=== PATIENT | female | born 1965 | race Caucasian/White ===

== ENCOUNTER → 2024-03-16 12:03 | Outpatient (REF) | payer BC, SELFPAY | LOC: HWRAD 12:03 | PROVIDERS: ATTENDING PHYSICIAN Surgery; FAMILY PHYSICIAN Family Medicine | DX: K56.1 Intussusception (principal) | CPT/HCPCS: 74177; Q9967 ==

== ENCOUNTER 2024-03-20 20:44 | Inpatient (IN) | payer BC, SELFPAY ==
[2024-03-20 18:19] VITALS: BP 98/67
--- NOTE | 2024-03-20 19:13 | ED.GENMED ---
History of Present Illness
General
Chief Complaint: Abdominal Symptoms
Source: patient
Exam Limitations: none
Time Seen by Provider: 03/20/24 18:54
History of Present Illness
History of Present Illness:
This is a 58 year old female that comes in with c/o abd pain and diarrhea. States that Dr. Pinto did an Enterography CT on Thursday. States that she was told she may have Intussusception and she was to be admitted into the hospital on Thursday and
then on Thursday he would do a Colonoscopy and endoscopy. States that she can't stand the pain and that she is having diarrhea. States that she has chills. nausea, abd pain, diarrhea, lightheadedness. Denies any fever, chest pain, SOB, vomiting,
headache, urinary burning.
Past History
Past History
ED Past Medical History: Asthma, COPD (Questionable Asthma/COPD according to patient), Hypercholesterolemia and Other (Kidney stones, Interstitial cystitis)
ED Past Surgical History: None and Other (I&D Left thumb); Negative Cardiac
Social History
Tobacco: Smoker
Alcohol: None
Drug: None
Personal:
Living: with family
Employment: Employed
Family History
Family History: CAD
Review of Systems
Review of Systems
All Other Systems: ROS reviewed and negative except as documented in HPI and ROS
Constitutional: Reports chills; Denies fever
EENT: Reports no symptoms
Respiratory: Reports no symptoms; Denies cough or trouble breathing
Cardiac: Reports no symptoms; Denies chest pain
ABD/GI: Reports abdominal pain, nausea and diarrhea; Denies vomiting
: Reports no symptoms; Denies dysuria, frequency or urgency
Musculoskeletal: Reports no symptoms
Skin: Reports no symptoms
Neurological: Reports other (Lightheaded); Denies headache
Psychiatric: Reports no symptoms
Phy Exam
General Physical Exam
General Presentation: mild distress
General age: appears stated age
General Skin: warm and dry
General Habitus: normal
General Mental: alert
General Hydration: appears well hydrated
ENT Exam
ENT Exam: TM's normal, pharynx normal and neck supple
Eye Exam
Eye Exam: EOMI
Cardiovascular Exam
Cardiovascular Exam: regular rate/rhythm, no edema, normal peripheral pulses and other (Murmur)
Pulmonary Exam
Pulmonary Exam: lungs clear, no respiratory distress, no rales, chest non tender, no crackles, no rhonchi, no wheezing and no cough
Gastrointestinal Exam
Gastrointestinal Exam: normal bowel sounds, soft, no organomegaly, no pulsatile mass, non distended and tender (right sided and mid abd tenderness with palpation)
Musculoskeletal Exam
Musculoskeletal Exam: full ROM and no edema
Skin Exam
Skin Exam: normal color, warm/dry, no rash and no petechia
Psychiatric Exam
Psychiatric Exam: normal mood/affect
Course
Orders/Labs/Results
Orders:
Orders
03/20/24 19:12
0.9% Sodium Chloride 1000 ml [Nss] 1,000 ml IV BOLUS
HYDROmorphone [Dilaudid] 1 mg IV NOW STA
Ondansetron Injectable [Zofran] 4 mg IV NOW STA
03/20/24 19:18
Complete Blood Count/With Diff Urgent
Comprehensive Metabolic Panel Urgent
Lactic Acid Urgent
03/20/24 19:21
Abdomen Xray - 1 View [CR Abdomen - 1 View] Urgent
Comment:
Reason For Exam: Abd pain
Abnormal Lab Results
03/20/24
19:18
WBC 12.1 H 10^3/uL
(4.8-10.8)
MCH 31.8 H pg
(27.0-31.0)
Abs Immat Gran (auto) 0.1 H 10^3/uL
(0-0.05)
Absolute Neuts (auto) 9.0 H 10^3/uL
(1.4-6.5)
Absolute Monos (auto) 1.0 H 10^3/uL
(0.1-0.6)
Immature Gran % 0.6 H %
(0-0.5)
Lymphocytes % 15.6 L %
(20.5-51.1)
Creatinine 1.2 H mg/dL
(0.6-1.0)
Calcium 10.4 H mg/dl
(8.4-10.2)
03/20/24 19:18
03/20/24 19:18
Leukocytosis, Cr slightly elevated, calcium slightly elevated.
Vital Signs
Initial and Last Documented VS:
Initial Vital Signs
Temp Pulse Resp BP Pulse Ox
98.3 F 110 18 98/67 98
03/20/24 18:19 03/20/24 18:19 03/20/24 18:19 03/20/24 18:19 03/20/24 18:19
Last Documented Vital Signs
Temp Pulse Resp BP Pulse Ox
98.3 F 110 18 98/67 98
03/20/24 18:19 03/20/24 18:19 03/20/24 18:19 03/20/24 18:19 03/20/24 18:19
MDM/Problems Addressed
Differential Diagnosis Includes:
Bowel obstruction, intussusception
MDM/Problems Addressed:
This is a 58 year old female that comes in with c/o abd pain. States that she had a CT done on Thursday and that she was to be admitted on Thursday for bowel prep and then colonoscopy and Endoscopy on Thursday by Dr. Pinto. States that her abd
pain got so much worse.
Will get labs, pain medication, IV fluids and contact Colorectal. Out patient CT said that there is marked gastric dilation with fluid-filled stomach. This extends to the level of the gastric antrum which shows circumferential abnormal wall
thickening which is persistent on delayed images etiology of the wall thickening is indeterminate at CT. This could be further evaluated with endoscopy. As above, There is apparent slight protrusion of the ileocecal valve into the cecum, evaluation
somewhat limited secondary to paucity of intra-abdominal fat. No aranza ileocecal intussusception is identified on this examination. there is no obstruction of the small bowel. No other intussusception is identified.
Labs back and message sent to dr. Aldrich. Await his response.
Will admit to Colorectal and Dr. Aldrich will place Dr. Pinto on her chart tomorrow. Into see patient. States that her abd can finally relax. Explained that she will be admitted and Dr. Pinto will see her tomorrow.
Chronic conditions affecting care:
NA
Acute Exacerbation and/or Progression of Chronic Illness:
Intussusception
*Pulse Oximetry
Patient hypoxic: no
*EKG
Interpreted by ED Provider?: NA
Rate: EKG- N/A
*Critical Care Note
Total Time (30-74mins, 75-104mins- exclusive of procedures): Not Applicable
ED Attending Note
-
Portions of this chart may have been created with voice recognition software.� Occasional wrong word or��sound alike� substitutions may have occurred due to the inherent limitations of voice recognition software.
Discharge Plan
Departure
Patient Disposition: Admit
Date of Disposition: 03/20/24
Time of Disposition: 20:18
Admit to: Med/Surg
Presentation/result/management discussed w/ accepting MD/DO: Dr. Aldrich
Patient with high blood pressure during this ER visit?: No
Condition: Good
Covid-19: Not Applicable
Discharge Problem:
Abdominal pain
Prescriptions:
No Action
hydrocodone-acetaminophen 5-325 mg Tablet
1 tab PO Q6HPRN PRN (Reason: severe pain)
clonazepam 0.5 mg Tablet
0.5 mg PO BID
dicyclomine 20 mg Tablet
20 mg PO TID
hyoscyamine sulfate 0.125 mg Tablet, Sublingual
0.125 mg PO Q4HPRN PRN (Reason: spasms)
aspirin 81 mg Tablet,Chewable
81 mg PO DAILY
montelukast [Singulair] 10 mg Tablet
10 mg PO QPM
ondansetron [Zofran ODT] 4 mg Tablet,Disintegrating
4 mg PO Q6HPRN PRN (Reason: nausea)
sertraline 50 mg Tablet
50 mg PO DAILY
rosuvastatin [Crestor] 10 mg Tablet
10 mg PO QPM
fluticasone furoate-vilanterol [Breo Ellipta] 100-25 mcg/dose Blister With Device
1 inh INHALATION R DAILY
potassium chloride 20 mEq Tablet Extended Release
20 meq PO BID
acetaminophen [Tylenol] 325 mg Tablet
650 mg PO Q4HPRN PRN (Reason: mild pain)
albuterol sulfate 2.5 mg /3 mL (0.083 %) Solution For Nebulization
2.5 mg INHALATION R TID
Referrals:
Daniel De Luna DO [Family Provider] -
Interventions
Interventions:
*Risk Screen - Suicide Last Done: 03/20/24 18:59
*General Assessment Last Done: 03/20/24 18:59
*Neglect/Abuse Screening Last Done: 03/20/24 18:59
ED- Fall Risk Assessment Last Done: 03/20/24 18:59
*ED COVID-19 Vaccine History Last Done: 03/20/24 18:59
XC-Bzcpnv-Spfcwxpbhp Assessment Last Done: 03/20/24 18:59
Discharge Date and Time
Print Language: SWEDISH
[2024-03-20] MEDS: ZOFRAN 4 MG IV (19:26)
[2024-03-20] MEDS: NSS 1000 IV ×2 (19:26→22:41)
[2024-03-20] MEDS: DILAUDID 1 MG IV (19:28)
[2024-03-20 19:47] LABS: % Basophils 0.7 % (0-2); % Eosinophils 0.7 % (0-6); % Immature Granulocytes 0.6 % (0-0.5); % Lymphocytes 15.6 % (20.5-51.1); % Monocytes 7.9 % (1.7-9.3); % Neutrophils 74.5 % (42.2-75.2); Absolute Basophils 0.1 10^3/uL (0-0.2); Absolute Eosinophils 0.1 10^3/uL (0-0.7); Absolute Immature Granulocytes 0.1 10^3/uL (0-0.05); Absolute Lymphocytes 1.9 10^3/uL (1.2-3.4); Hematocrit 38.9 % (37.0-47.0); Hemoglobin 13.4 g/dL (12.0-16.0); Mean Corp Hgb Conc. 34.4 g/dL (33.0-37.0); Mean Corpuscular Hgb 31.8 pg (27.0-31.0); Mean Corpuscular Volume 92.4 fL (81.0-99.0); Mean Platelet Volume 9.3 fL (7.4-10.4); Nucleated Red Blood Cells % 0 %; Platelet Count 325 10^3/uL (130-400); Red Blood Cell Count 4.21 10^6/uL (4.20-5.40); Red Cell Dist. Width 12.6 % (11.5-14.5); White Blood Cell Count 12.1 10^3/uL (4.8-10.8)
[2024-03-20 20:01] LABS: ALT (SGPT) 14 U/L (0-35); AST (SGOT) 23 U/L (14-36); Albumin 4.3 g/dl (3.5-5.0); Alkaline Phosphatase 80 U/L (38-126); Blood Urea Nitrogen 14 mg/dl (7-17); Calcium 10.4 mg/dl (8.4-10.2); Carbon Dioxide 23 mmol/L (22-30); Chloride 105 mmol/L (98-107); Estimated Creatinine Clearance 40 ml/min; Glucose 93 mg/dl (70-99); Potassium 4.2 mmol/L (3.5-5.1); Sodium 138 mmol/L (135-145); Total Bilirubin 0.5 mg/dl (0.2-1.3); Total Protein 6.6 g/dl (6.3-8.2); eGFR 51.82
[2024-03-20 20:04] VITALS: BP 117/77
[2024-03-20 21:00] VITALS: BP 120/76
--- NOTE | 2024-03-20 21:29 | HPS.HSE ---
Family Physician
-
Family Physician: Daniel De Luna
Chief Complaint
-
intractable abd pain, diarrhea and weakness
History of Present Illness
This is a 58 year old female that comes in with c/o abd pain (extreme cramping) and diarrhea. Abd pain had been going on since February. Seen at [facility] ER (told was IBS), Seens again at [facility] ER this time admitted and told it was intussusception. PT
states while she never got better, infact started with diarrhea, she was discharged. States that Dr. Espinosa did an Enterography CT on Thursday. States that she was told she may have Intussusception and she was to be admitted into the hospital on
Thursday and then on Thursday he would do a Colonoscopy and endoscopy. States that she can't stand the pain and diarrhea.for last 2 weeks. States that she has chills. nausea, abd pain, diarrhea, lightheadedness. Denies any fever, chest pain, SOB,
vomiting, headache, urinary burning. pt states she cannot eat anything due to it 'just running out of me.' + weight loss in one month was 126lbs now 113 lbs.Has been prescribed bentyl, hyoscalamine and Vicodin which have not been helpful.
ED treatment:
ivf, pain meds, nausea med
pt feels improved with pain after pain med.
WBC 12.7
creat 1.2
lactic normal
Outpatient CT enterography said that there is marked gastric dilation with fluid-filled stomach. This extends to the level of the gastric antrum which shows circumferential abnormal wall thickening which is persistent on delayed images etiology of
the wall thickening is indeterminate at CT. This could be further evaluated with endoscopy. As above, There is apparent slight protrusion of the ileocecal valve into the cecum, evaluation somewhat limited secondary to paucity of intra-abdominal
fat. No aranza ileocecal intussusception is identified on this examination. there is no obstruction of the small bowel. No other intussusception is identified.
Medical History
Past Medical History
Past Medical History: Reports Arrhythmia (? murmur), COPD (mild asthma/copd), Hypercholesterolemia, Valvular Disease (mvp) and Other (interstitial cystitis)
Past Surgical History: Reports Orthopedic (ID LEFT THUMB)
Social History
Tobacco: Smoker (down to 1/2 ppd)
Alcohol: None
Drug: None
Personal:
Living: With Family
Employment: Retired
Family History
Family History: CAD and Cancer (colon)
Allergies / Home Medications
Allergies reflects when Allergies were last updated in [employer].
Home Medications with original date entered in [employer]
Allergy/Medication List:
Allergies
Allergy/AdvReac Type Severity Reaction Status Date / Time
sulfamethoxazole Allergy Severe Unknown Verified 03/20/24 18:21
[From Bactrim]
trimethoprim [From Bactrim] Allergy Severe Unknown Verified 03/20/24 18:21
Home Medications
acetaminophen 325 mg tablet (Tylenol) 650 mg PO Q4HPRN PRN mild pain 03/20/24
albuterol sulfate 2.5 mg/3 mL (0.083 %) solution for nebulization 2.5 mg inhalation R TID 03/20/24
aspirin 81 mg chewable tablet 81 mg PO DAILY 03/20/24
clonazepam 0.5 mg tablet 0.5 mg PO BID 03/20/24
dicyclomine 20 mg tablet 20 mg PO TID 03/20/24
fluticasone furoate 100 mcg-vilanterol 25 mcg/dose inhalation powder (Breo Ellipta) 1 inh inhalation R DAILY 03/20/24
hydrocodone 5 mg-acetaminophen 325 mg tablet 1 tab PO Q6HPRN PRN severe pain 03/20/24
hyoscyamine sulfate 0.125 mg sublingual tablet 0.125 mg PO Q4HPRN PRN spasms 03/20/24
montelukast 10 mg tablet (Singulair) 10 mg PO QPM 03/20/24
ondansetron 4 mg disintegrating tablet 4 mg PO Q6HPRN PRN nausea 03/20/24
potassium chloride 20 mEq tablet,extended release 20 meq PO BID 03/20/24
rosuvastatin 10 mg tablet 10 mg PO QPM 03/20/24
sertraline 50 mg tablet 50 mg PO DAILY 03/20/24
Review of Systems
-
History Source: Patient
A 12 point ROS was completed and negative except as noted: Yes
Constitutional: Reports Weight Loss (126lbs to 113 lbs x 1month) and Chills
EENT: Reports No Symptoms
Respiratory: Reports No Symptoms
Cardiac: Reports No Symptoms
Abdomen/GI: Reports Abdominal Pain, Diarrhea and Pain
: Reports No Symptoms
Musculoskeletal: Reports No Symptoms
Skin: Reports No Symptoms
Neurological: Reports Weakness
Endocrine: Reports No Symptoms
Hematologic/Lymphatic: Reports No Symptoms
Psych: Reports Anxiety
Physical Exam
Vital Signs
Vital Signs
Temp Pulse Resp BP Pulse Ox
98.3 F 66 19 117/77 99
03/20/24 18:19 03/20/24 20:30 03/20/24 20:30 03/20/24 20:04 03/20/24 20:30
Physical Exam
General: Conversant, Appears in Distress and Pain
HEENT: NormoCephalic and Moist mucous membranes
Respiratory: Clear
Cardiac: S1/S2 and Regular Rhythm
Breast: Deferred by me
GI: Tender (mid abd tender to palpation) and Distended (slightly upper abd)
Rectal: Deferred by Provider
Genito-urinary: Deferred by me
Musculoskeletal: No Clubbing and No Cyanosis
Skin: Warm and Dry
Neuro: Awake, Alert, Oriented, AO x 3 and No Motor Deficits
Hematologic/Lymphatic: No Lymphadenopathy
Psych: Calm and Anxious
Laboratory Results
-
03/20/24 19:18
03/20/24 19:18
Laboratory Results
Lactic Acid 1.0 mmol/L (0.7-2.0) 03/20/24 19:18
Total Bilirubin 0.5 mg/dl (0.2-1.3) 03/20/24 19:18
AST 23 U/L (14-36) 03/20/24 19:18
ALT 14 U/L (0-35) 03/20/24 19:18
Alkaline Phosphatase 80 U/L (38-126) 03/20/24 19:18
Impression/Plan
-
IMPRESSION:
intractable abd pain, diarrhea, possible intestinal intussusception
PLAN:
Admit to Dr Aldrich ( will oil changer to Dr espinosa in am)
med surg
NPO x meds and sips
#intractable abd pain/ poss intusseption:
-Pain control: dilaudid iv, tylenol
-zofran prn nausea
-lactic normal
-Outpatient CT said that there is marked gastric dilation with fluid-filled stomach. This extends to the level of the gastric antrum which shows circumferential abnormal wall thickening which is persistent on delayed images etiology of the wall
thickening is indeterminate at CT. This could be further evaluated with endoscopy. As above, There is apparent slight protrusion of the ileocecal valve into the cecum, evaluation somewhat limited secondary to paucity of intra-abdominal fat. No
aranza ileocecal intussusception is identified on this examination. there is no obstruction of the small bowel. No other intussusception is identified.
mild COSME:
- Creat 1.2 ---> likely from dehydration and volume depletion from GI losses
-IV nss@125
#leukocytosis
-WBC 12.7
-repeat in am
-NO fever, monitor off abx at this time
-if spikes temp, obtain bc x2
#asthma/copd (mild)
-no exacerbation
-cont with inhalers, singular
#HLD
-cont crestor
#anxiety
-cont Klonopin, zoloft
#diarrhea
-no recent abx
-check stool studies, cdiff for completeness
full code
If pt needs any cardiac clearance would like to see Dr leone's group
[2024-03-20] MEDS: KLONOPIN 0.5 MG PO (21:32)
[2024-03-20 22:09] LABS: Magnesium 1.9 mg/dl (1.6-2.3)
[2024-03-20 22:36] VITALS: BP 117/61
[2024-03-20] MEDS: DILAUDID 0.5 MG IV (23:24)
--- NOTE | 2024-03-20 23:35 | PTCARENOTE ---
Patient arrived from the ED via stretcher at approximately 2230. Patient ambulated from stretcher to bed with no assist - gait steady. Patient AAOx3, pleasant. VSS as documented. Assessment as documented. Patient oriented to room. Bed in lowest
position. Call mckeon within reach.
[2024-03-21] MEDS: ZOFRAN 4 MG IV ×2 (03:44→12:24)
[2024-03-21] MEDS: DILAUDID 1 MG IV ×2 (03:45→17:25)
[2024-03-21] MEDS: NSS 1000 IV ×3 (06:23→23:09)
[2024-03-21] MEDS: SYMBICORT 160/4.5 MCG INHALER 2 PUFF INH ×2 (07:40→18:19)
[2024-03-21] MEDS: VENTOLIN NEBULES 2.5 MG INH ×3 (07:40→18:19)
[2024-03-21 07:50] VITALS: BP 94/47
[2024-03-21] MEDS: KLONOPIN 0.5 MG PO ×2 (08:21→20:02)
[2024-03-21] MEDS: ZOLOFT 50 MG PO (08:21)
[2024-03-21] MEDS: DILAUDID 0.5 MG IV (08:30)
[2024-03-21 08:32] LABS: % Basophils 0.5 % (0-2); % Eosinophils 0.8 % (0-6); % Immature Granulocytes 0.5 % (0-0.5); % Lymphocytes 25.3 % (20.5-51.1); % Monocytes 8.7 % (1.7-9.3); % Neutrophils 64.2 % (42.2-75.2); Absolute Eosinophils 0.1 10^3/uL (0-0.7); Absolute Lymphocytes 2.2 10^3/uL (1.2-3.4); Absolute Monocytes 0.8 10^3/uL (0.1-0.6); Absolute Neutrophils 5.5 10^3/uL (1.4-6.5); Hematocrit 32.2 % (37.0-47.0); Hemoglobin 10.8 g/dL (12.0-16.0); Mean Corp Hgb Conc. 33.5 g/dL (33.0-37.0); Mean Corpuscular Volume 95.3 fL (81.0-99.0); Mean Platelet Volume 9.5 fL (7.4-10.4); Nucleated Red Blood Cells % 0 %; Platelet Count 267 10^3/uL (130-400); Red Blood Cell Count 3.38 10^6/uL (4.20-5.40); Red Cell Dist. Width 12.7 % (11.5-14.5); White Blood Cell Count 8.6 10^3/uL (4.8-10.8)
[2024-03-21 08:56] LABS: ALT (SGPT) 11 U/L (0-35); AST (SGOT) 20 U/L (14-36); Albumin 3.3 g/dl (3.5-5.0); Alkaline Phosphatase 65 U/L (38-126); Blood Urea Nitrogen 12 mg/dl (7-17); Calcium 8.9 mg/dl (8.4-10.2); Carbon Dioxide 21 mmol/L (22-30); Chloride 110 mmol/L (98-107); Estimated Creatinine Clearance 54 ml/min; Glucose 85 mg/dl (70-99); Potassium 4.1 mmol/L (3.5-5.1); Sodium 138 mmol/L (135-145); Total Bilirubin 0.4 mg/dl (0.2-1.3); Total Protein 5.4 g/dl (6.3-8.2); eGFR > 60.00
[2024-03-21 09:41] VITALS: BP 112/64
--- NOTE | 2024-03-21 11:13 | PTCARENOTE ---
Addendum entered by Whitley Andrade RN 03/21/24 13:32:
made aware of positive result.
Addendum entered by Whitley Andrade RN 03/21/24 13:30:
Cdiff stool sample added by GI, result positive. Patient placed back on enhanced precautions.
Original Note:
Patient okay to be taken off of enhanced precautions per Casi - charge master coordinator.
--- NOTE | 2024-03-21 11:17 | W.PN.CRS1 ---
Addendum entered and electronically signed by Sadi Pinto MD 03/21/24 20:16:
I saw and examined the patient.
The PA's note was reviewed and I agree with the note.
Comment:
Seen in am with PA.
Patient well-known to me with more than a month of abdominal pain as well as intermittent diarrhea and occasional nausea. Imaging including outside CTs and a recent CT enterography done here at [facility] point to the source of the symptoms to
potentially be a intermittent ileocecal intussusception. No studies have shown a lead point. CT enterography last week also showed some thickening of the gastric wall of unclear etiology. Last week when I saw her in the office and my plan was to
admit her to the hospital for bowel prep, followed by a colonoscopy and possible EGD, followed by a robotic ileocecectomy. All this was discussed in detail with in the office with her. Unfortunately her pain has worsened over the weekend as well
as her diarrhea and therefore she came into the ER.
Considering her this morning she complains of her stool 'smelling like sewage '. She was having diarrhea earlier. She still admits to abdominal pain. She is anxious about her circumstance.
Vitals and blood work are reasonable.
Abdomen nondistended on exam. She admits to tenderness, however abdomen is soft without any guarding.
My plan this morning was to consult GI for potential colonoscopy/EGD on Thursday as well as continuing on with my plan for robotic ileocecectomy on . Also consulted the hospitalist for medical management and possible clearance purposes.
However, later in the day I was updated that her stool came back positive for toxigenic C. difficile. She was started on vancomycin by Dr. Wallace of GI. I communicated with both with Dr. Wallace of GI and Dr. Blair of hospitalist service. Given
the C. difficile result, decision was made to hold off on endoscopic workup or surgery for now. Focus will be on treatment of the C. difficile. The patient was updated on this by the doctors earlier and I did communicate with the patient via phone
in the early evening. All questions answered. Appreciate help of consultants.
Original Note:
Today's Communication / Plan
-
GI consult
medical consult
clears
stool studies
tentive OR on
Assessment/Plan
-
Assessment: 64yo female with generalized abdominal pain discomfort and diarrhea with findings on 2 imaging studies of ileocecal intussusception with cramping and foul smelling bowel movements
Plan:
1. Given symptoms and abnormal finding on CTE (circumferential abnormal wall thickening), will consult GI for EGD/colonoscopy.
2. Stool cultures pending. C.diff ordered.
3. Will plan for tentative OR on for a robotic ileocecectomy.
4. Advance to clears for now.
5. Medicine consult for pre-op risk stratification.
6. Discussed above plan with patient who is in agreement.
Subjective Data
Subjective Data
Date of Service: March 21, 2024
Patient states she still has RLQ tenderness. She has not been eating much and has lost 15lbs over the past few weeks. She is having frequent, foul smelling bowel movements and abdominal cramping.
Objective Data
-
Vital Signs
Temp Pulse Resp BP Pulse Ox
97.6 F 80 16 112/64 97
03/21/24 07:50 03/21/24 09:41 03/21/24 07:50 03/21/24 09:41 03/21/24 10:44
Intake & Output
03/20/24 03/21/24 03/22/24
06:59 06:59 06:59
Intake Total 1000 / 1000
Balance 1000 / 1000
Intake:
IV fluids (Total) 1000 / 1000
Other:
Number of approximated MODERATE 3
amounts of urine
Lab Results
03/21/24 08:03
03/21/24 08:03
Physical Exam
-
General: No Acute Distress and AOx3
Abdomen: Soft, Non Distended and Tender (RUQ tenderness)
[2024-03-21 15:14] VITALS: BP 96/46
--- NOTE | 2024-03-21 15:45 | CON.GI ---
Addendum entered and electronically signed by Ana Wallace MD 03/21/24 17:27:
I saw and examined the patient.
The AUTOMOBILE SALES REPRESENTATIVE or PA's note was reviewed and I agree with the note.
Comment: 58-year-old female with history of interstitial cystitis presenting with complaints of crampy abdominal pain, diarrhea in the last couple of weeks, CT enterography during the hospital visit showing thickening of the gastric antrum and
marked dilation of the stomach and GI consult was called in. She has been having abdominal cramping since and urgency and some incontinence with stool as well. She was seen at [facility] by Dr. Darnell as CT scan showed
possible small bowel intussusception, referred to Dr. Pinto for possible ileocecectomy. Patient denies any GI complaints prior to this. In the last 2 weeks, she has had significant diarrhea, multiple episodes of very foul-smelling loose stool
with mucus apart from abdominal cramping. Previous stool testing as per patient twice was negative but in the hospital she was noted to have toxigenic C. difficile. No previous upper endoscopy, colonoscopy in 2018 at [place] without any colon
polyps and this was done for family history of colon cancer in mother.
-Abdominal cramping and previous CAT scan showing intussusception, CT enterography here showed slight protrusion of ileocecal valve into the cecum, no aranza intussusception noted.
Discussed with Dr. Pinto, plans for surgery on hold until further evaluation and definite diagnosis.
-Diarrhea, positive C. difficile
Started oral vancomycin 125mg po four times a day.
OK for full liquid diet and if tolerating, advance to Low residue low lactose diet.
Monitor BM, electrolytes
Colonoscopy once C difficile clears up.
-Abnormal CT scan with gastric antral thickening and gastric dilation.
EGD prior to dc to evaluate the thickening in the antrum.
Will follow
Original Note:
Consultation
-
Date/Time Consultation Requested: 03/21/24 @ 11:52
Date/Time Consultation Performed: 03/21/24 @ 15:00
Requesting Provider: Tonia Boucher PA-C
Performing Provider: ANETTE Guthrie; Dr. Ana Wallace
Reason for Consultation: gastric antrum which shows circumferential abnormal wall thickening
Medical History
Chief Complaint / HPI
Chief Complaint: intractable pain, diarrhea, weakness
History of Present Illness:
The patient is a 58-year-old female with a past medical history significant for interstitial cystitis, COPD/asthma, hyperlipidemia, mitral valve disease, family history of colon cancer, who presented to the emergency room with complaints of
intractable abdominal pain, diarrhea, and weakness. We are being asked to evaluate for the presenting symptoms along with abnormal CT enterography findings showing marked gastric dilation and thickening of the gastric antrum. Patient reports
around she developed severe cramping in her abdomen along with urgency to move her bowels. She notes that initially this discomfort was not as bothersome, but she had progressively worsening symptoms. She did not have any diarrhea at
the time but was having very pencillike thin stools. She notes that she was evaluated at [facility] and was told that she may have had colitis and diverticulosis and was discharged on dicyclomine for spasms. She was not treated with antibiotics
at that time. She notes that she had continued symptoms and was evaluated again at [facility] and was diagnosed with IBS with no other treatments. She reports that the pain continued I would last several hours at times. She notes going no days
without significant discomfort. She reports she was having some nausea but very rare episodes without vomiting. She also admits that anytime she would eat food and felt like it was going right through her therefore she has been eating much less
than usual. She has lost about 12 to 15 pounds in the interim of her symptoms starting at the end of January. She reports seeing her PCP Dr. Darnell who had prescribed her Vicodin as her pain was so severe. She did not see much improvement with
this although it was able to keep her symptoms to a moderate degree. She reports more recently waking up in the early mornings with urgency to move her bowels. She was reevaluated again at [facility] about 2 weeks ago due to worsening symptoms.
At that time she had imaging that showed concern for small bowel intussusception. She was admitted for further evaluation and underwent a small bowel follow-through which was reportedly normal, and she was discharged again. She notes after that
admission she developed more profuse diarrhea up to 10 times in a day. She denies any signs of bleeding such as melena or hematochezia but did note a foul smell to the stool odor. She denies any abdominal bloating, fevers, or chills. She does
take Tums on a very rare occasion for occasional heartburn otherwise denies any reflux symptoms. She denies any dysphagia. She does have problems with interstitial cystitis and had been on heavy-duty antibiotics several months ago, but none in the
recent weeks. She continues with abdominal pain with urgency. She was evaluated by Dr. Pinto in the outpatient setting for evaluation of the small bowel intussusception in which a CT enterography was ordered. Results consistent with findings of
ileocecal intussusception and she was recommended for admission for possible colonoscopy and surgical intervention. There was plans for her to undergo a robotic ileocecectomy, but due to her ongoing symptoms she was evaluated here. Abdominal x-ray
on admission showed a normal bowel gas pattern with no evidence of intestinal obstruction, with mild fecal material mostly in the distal left colon. She underwent stool studies which were positive for toxigenic C. difficile. Stool culture is still
pending. Other pertinent lab findings include WBC 12.1, hemoglobin 10.8, creatinine 1.2, otherwise labs within normal limits. She was placed on a clear liquid diet and we were asked to evaluate for further recommendations. Her last colonoscopy was
done 5 years ago out of [place] with Dr. Barnes which showed no polyps per pt. She has never had an EGD.
Past Medical History
Past Medical History: Asthma, COPD, HTN, Hypercholesterolemia, Valvular Disease (MVP) and Other (interstitial cystitis, family hx of colon cancer)
Past Surgical History: Orthopedic
Social History
Tobacco: Smoker (10 cigarettes/day)
Alcohol: None
Drug: None
Personal:
Living: With Family
Family History
Family History: Cancer (CRC-mother)
Allergies / Home Medications
Allergy/AdvReac Type Severity Reaction Status Date / Time
sulfamethoxazole Allergy Severe Unknown Verified 03/20/24 18:21
[From Bactrim]
trimethoprim [From Bactrim] Allergy Severe Unknown Verified 03/20/24 18:21
�Medication �Instructions �Recorded
acetaminophen 325 mg tablet 650 mg PO Q4HPRN PRN mild pain 03/20/24
(Tylenol)
albuterol sulfate 2.5 mg/3 mL 2.5 mg inhalation R TID 03/20/24
(0.083 %) solution for nebulization
aspirin 81 mg chewable tablet 81 mg PO DAILY 03/20/24
clonazepam 0.5 mg tablet 0.5 mg PO BID 03/20/24
dicyclomine 20 mg tablet 20 mg PO TID 03/20/24
fluticasone furoate 100 1 inh inhalation R DAILY 03/20/24
mcg-vilanterol 25 mcg/dose
inhalation powder (Breo Ellipta)
hydrocodone 5 mg-acetaminophen 325 1 tab PO Q6HPRN PRN severe pain 03/20/24
mg tablet
hyoscyamine sulfate 0.125 mg 0.125 mg PO Q4HPRN PRN spasms 03/20/24
sublingual tablet
montelukast 10 mg tablet 10 mg PO QPM 03/20/24
(Singulair)
ondansetron 4 mg disintegrating 4 mg PO Q6HPRN PRN nausea 03/20/24
tablet
potassium chloride 20 mEq 20 meq PO BID 03/20/24
tablet,extended release
rosuvastatin 10 mg tablet 10 mg PO QPM 03/20/24
sertraline 50 mg tablet 50 mg PO DAILY 03/20/24
Review of Systems
-
History Source: Patient
Constitutional: Reports Weight Loss, Fatigue and Chills
EENT: Reports No Symptoms
Respiratory: Reports No Symptoms
Cardiac: Reports No Symptoms
Abdomen/GI: Reports Abdominal Pain, Nausea and Diarrhea
: Reports No Symptoms
Musculoskeletal: Reports No Symptoms
Skin: Reports No Symptoms
Neurological: Reports No Symptoms
Vital Signs
Temp Pulse Resp BP Pulse Ox
98.4 F 88 16 96/46 96
03/21/24 15:14 03/21/24 15:14 03/21/24 15:14 03/21/24 15:14 03/21/24 15:14
Physical Exam
Exam
General: Well Developed, Well Nourished, Poor Appetite and Other (distressed due to diarrhea/pain)
HEENT: Normocephalic, Anicteric and Atraumatic
Respiratory: Clear
Cardiac: S1/S2 and Regular Rhythm
Breast: Deferred by me
GI: Soft, Non Distended, Normal Bowel Sounds and Tender (generalized )
Rectal: Deferred by Provider
Musculoskeletal: No Edema
Skin: Warm and Dry
Neuro: Awake, Alert and Oriented
Psych: Calm
Results
WBC 8.6 10^3/uL (4.8-10.8) 03/21/24 08:03
Hgb 10.8 g/dL (12.0-16.0) L 03/21/24 08:03
Hct 32.2 % (37.0-47.0) L 03/21/24 08:03
MCV 95.3 fL (81.0-99.0) 03/21/24 08:03
Plt Count 267 10^3/uL (130-400) 03/21/24 08:03
Absolute Neuts (auto) 5.5 10^3/uL (1.4-6.5) 03/21/24 08:03
Sodium 138 mmol/L (135-145) 03/21/24 08:03
Potassium 4.1 mmol/L (3.5-5.1) 03/21/24 08:03
Chloride 110 mmol/L (98-107) H 03/21/24 08:03
Carbon Dioxide 21 mmol/L (22-30) L 03/21/24 08:03
BUN 12 mg/dl (7-17) 03/21/24 08:03
Creatinine 0.9 mg/dL (0.6-1.0) 03/21/24 08:03
Calcium 8.9 mg/dl (8.4-10.2) D 03/21/24 08:03
Total Bilirubin 0.4 mg/dl (0.2-1.3) 03/21/24 08:03
AST 20 U/L (14-36) 03/21/24 08:03
ALT 11 U/L (0-35) 03/21/24 08:03
Alkaline Phosphatase 65 U/L (38-126) 03/21/24 08:03
Diagnostic Image Results:
03/16/24 CTE: IMPRESSION:
1. Marked gastric dilation with fluid-filled stomach. This extends to the level of the gastric antrum which shows circumferential abnormal wall thickening which is persistent on delayed images etiology of the wall thickening is indeterminate at
CT. This could be further evaluated with endoscopy.
2. As above, there is apparent slight protrusion of the ileocecal valve into the cecum, evaluation somewhat limited secondary to paucity of intra-abdominal fat. No aranza ileocecal intussusception is identified on this examination. There is no
obstruction of the small bowel. No other intussusception is identified.
03/20/24 XR abdomen: IMPRESSION: Normal bowel gas pattern. No evidence of intestinal obstruction. Mild fecal material mostly in the distal left colon. Improved
Prior GI Procedures:
EGD: none
Colonoscopy: 5 years ago out of [facility] with Dr. Guallpa, no polyps per pt
Assessment / Plan
-
The patient is a 58-year-old female with a past medical history significant for interstitial cystitis, COPD/asthma, hyperlipidemia, mitral valve disease, family history of colon cancer, who presented to the emergency room with complaints of
intractable abdominal pain, diarrhea, and weakness, found to have toxogenic Cdiff. She has had multiple hospital presentations as outlined above at [facility] due to ongoing GI symptoms including abdominal pain with fecal urgency initially found to
have signs of small bowel intussusception. She was evaluated outpatient with colorectal surgery for possible surgical intervention, but due to worsening symptoms now with significant diarrhea with foul odor she was admitted to [facility],
found to have toxigenic C. difficile. X-ray imaging here did not show any evidence of intestinal obstruction with a normal bowel gas pattern. She underwent CT enterography on 03/16 which showed marked gastric dilation with fluid-filled stomach and
circumferential abnormal wall thickening of the antrum. There is also slight protrusion of the ileocecal valve and the cecum, with no obvious ileocecal intussusception identified or obvious obstruction of the small bowel.
Problem list:
-Abdominal pain
-Diarrhea, consistent with toxigenic C. difficile
-History of interstitial cystitis on antibiotics 2 months ago for UTI
-Recurrent hospitalizations due to abdominal pain
-CT showing distention of the stomach and antral gastric wall thickening
-Prior findings of small bowel intussusception, not evident on CT enterography but showing slight protrusion of the ileocecal valve into the cecum
-Leukocytosis, resolved
-Mild normocytic anemia
- Abnormal UA, possible UTI
Other pertinent medical history:
-COPD/asthma
-Mitral valve disease
-Hyperlipidemia
-Family history of colon cancer
Recommendations:
-Etiology of fecal urgency and diarrhea likely secondary to C. difficile infection with positive toxigenic C. difficile stool test. This may be the cause of her abdominal pain now, but prior to this there is a concern for small bowel intussusception
and she is being evaluated by colorectal surgery for possibly surgical intervention with ileocecectomy
---With prior workup suggesting small bowel intussusception at the ileocecal area, will need eventual colonoscopy but given the presence of C. difficile would hold off on this until she is improving from a diarrhea standpoint
-Will start on oral vancomycin 125 mg 4 times daily
-Monitor stool output
-Can use antispasmodics such as Levsin or dicyclomine but would use sparingly as this can cause constipation, and we want to avoid toxic megacolon as complications. Reassuringly there are no signs of toxic megacolon on imaging
-NO antidiarrheals
-Continue enteric precautions
-In regards to the gastric wall thickening and stomach dilation on CTE, she will need eventual EGD will make sure she is improving from a C. difficile standpoint before proceeding with this. She has no heartburn symptoms
-Await stool culture to rule out coexisting infection although less likely
-Colorectal surgery is following
-Will also add a celiac panel to rule this out as cause of small bowel abnormalities
-Will trial full liquid diet
-Further plans pending above
Data Reviewed
-
CT Scan: Report Reviewed by me and Discussed with Physician
-
-
Thank you for consultation and allowing me to participate in the patient's care. Please call the behavior interventionist GI physician during the after hours with any questions or concerns.
--- NOTE | 2024-03-21 15:52 | CM ---
Initial assessment completed with patient who lives with her and adult son in a [employer] 2 story home plus basement with 2 steps to enter, no DME, No in-home services. [employer] was independent and drove. No psychiatric hospitalizations.
Pharmacy is [facility] in [place] and PCP is Dr. Daniel De Luna. Discharge Plan of Care: Anticipate no needs.
Patient is tentatively scheduled for robotic ileocecectomy on 03/24/24. Clear liquids.
[2024-03-21 16:33] VITALS: BP 107/55
[2024-03-21 17:10] LABS: IgA 106 mg/dl (70-400)
[2024-03-21] MEDS: CRESTOR 10 MG PO (17:26)
[2024-03-21] MEDS: FIRVANQ 125 MG PO (17:26)
[2024-03-21] MEDS: SINGULAIR 10 MG PO (17:26)
--- NOTE | 2024-03-21 17:38 | CON.HOSP ---
Addendum entered and electronically signed by Wan Blair MD 03/21/24 18:24:
I saw and evaluated the patient. I reviewed the resident�s note and agree with findings and plan as documented in the resident�s note.
Patient currently complaining of lower abdominal discomfort which comes and colic/spasms. No nausea or vomiting. Having significant diarrhea. Patient has been treated recently for diverticulitis and have been given antibiotic. Earlier went back
patient was also being treated antibiotics for cystitis. No previous history of C. difficile infection. Patient was following up with colorectal surgery on outpatient basis for diagnosis of intussusception and was brought in electively to undergo
operation on . Hospitalist services were involved to help with medical issues and risk assessment
Heart -regular rate and rhythm no murmurs
Lungs -clear to auscultation
Abd exam -normal bowel sound, no tenderness, no guarding nondistended
1. Intussusception
-CT enterography reviewed and patient had concern of some intussusception at ileocecal valve
-Colorectal surgery planning to take 2 OR on
-Currently on liquid diet
-Continue IV fluid and pain management
2. Cdiff colitis
-First episode with recent antibiotic exposure likely
-Patient on oral vancomycin, continue
-GI involved in care and help appreciated
3. Gastric wall thickening
-Abnormal gastric wall thickening, EGD was intended to be done although with C. difficile colitis may need to be postponed, deferred to GI
Original Note:
Family Physician
-
Family Physician: Daniel De Luna
Chief Complaint
-
Abdominal pain, diarrhea and weakness
History of Present Illness
60-year-old female presented with complaints of abdominal pain, diarrhea and weakness for 3 to 4 weeks. She was seen at [facility] and told that she has intussusception. Her symptoms continue to worsen and underwent enterography CT and was
told that she has intussusception and will likely need a procedure in the hospital. She was instructed to come to the hospital on Thursday for prep to have colonoscopy and endoscopy on Thursday. She could not stand the pain and came to the
hospital on 03/20. She denies any fevers, chills, trouble breathing, urinary symptoms, blood in stools. She also reported 13 pound weight loss in 1 month since these symptoms started. She received IV pain medications in addition to fluids in
the ED and was admitted for further evaluation and treatment. Colorectal surgeon recommended consult of GI for endo-/colonoscopy. Further investigation showed C. difficile positive. She denies any previous episodes.
Medical History
Past Medical History
Past Medical History: Reports Arrhythmia, Asthma, Hypercholesterolemia, Valvular Disease (Mitral valve prolapse) and Other (Interstitial cystitis)
Additional Past Surgical History:
Left thumb surgery
Social History
Tobacco: Former Smoker
Family History
Family History: Reviewed & Not Pertinent (Sister: Multiple sclerosis)
Allergies / Home Medications
Allergies reflects when Allergies were last updated in [facility].
Home Medications with original date entered in [facility]
Allergy/Medication List:
Bactrim
Review of Systems
-
History Source: Patient
Constitutional: Reports Weight Loss; Denies Fever
Respiratory: Denies Cough or Trouble Breathing
Cardiac: Denies Chest Pain or Palpitations
Abdomen/GI: Reports Abdominal Pain and Diarrhea
Musculoskeletal: Denies Joint Pain
Neurological: Denies Headache
Psych: Reports Calm
Physical Exam
Vital Signs
Vital Signs
Temp Pulse Resp BP Pulse Ox
98.4 F 88 16 107/55 96
03/21/24 15:14 03/21/24 15:14 03/21/24 15:14 03/21/24 16:33 03/21/24 15:14
Physical Exam
General: Well Developed, Well Nourished and Comfortable
HEENT: Normocephalic and Anicteric
Respiratory: Clear
Cardiac: Regular Rhythm
GI: Tender (Diffuse)
Skin: Warm and Dry
Psych: Calm and Intact Judgement
Laboratory Results
-
Laboratory Results
03/21/24 08:03
03/21/24 08:03
Lactic Acid 1.0 mmol/L (0.7-2.0) 03/20/24 19:18
Total Bilirubin 0.4 mg/dl (0.2-1.3) 03/21/24 08:03
AST 20 U/L (14-36) 03/21/24 08:03
ALT 11 U/L (0-35) 03/21/24 08:03
Alkaline Phosphatase 65 U/L (38-126) 03/21/24 08:03
Data Reviewed
-
CT Scan: Report Reviewed by Me, Discussed with Physician and Discussed with Patient
Lab Data: Labs Reviewed, Discussed with Physician and Discussed with Patient
Impression / Plan
-
# C. difficile/diarrhea
-Recent antibiotics for interstitial cystitis(ciprofloxacin, metronidazole for 7 days in first week of February)
-started on oral vancomycin 125 mg p.o. 4 times daily
-Check electrolytes daily
-Colonoscopy postponed
-EGD prior to discharge for further evaluation of thickening in the antrum show known CAD
# Abdominal pain/possible intussusception
-Followed by colorectal surgeon
-Reevaluation after treatment of C. difficile
# Mild COSME
-Creatinine 1.2
-Likely from dehydration
-IV fluids
# Leukocytosis
-WBC 12.1
-Repeat CBC in a.m.
# Asthma/COPD
-Continue with inhaler, Singulair
# Hyperlipidemia
-Continue Crestor
# Anxiety
-Continue Klonopin, sertraline
Code: Full
[2024-03-21 19:52] LABS: Hepatitis C Antibody Negative (Negative)
[2024-03-21] MEDS: PEPCID 40 MG PO (23:09)
[2024-03-21 23:28] VITALS: BP 103/52
[2024-03-22] MEDS: BENTYL 20 MG PO (00:06)
[2024-03-22] MEDS: FIRVANQ 125 MG PO ×4 (00:59→17:08)
[2024-03-22] MEDS: DILAUDID 1 MG IV (06:01)
[2024-03-22] MEDS: ZOFRAN 4 MG IV ×2 (06:08→12:24)
[2024-03-22] MEDS: SYMBICORT 160/4.5 MCG INHALER 2 PUFF INH ×2 (07:48→20:25)
[2024-03-22] MEDS: VENTOLIN NEBULES 2.5 MG INH ×3 (07:48→20:25)
[2024-03-22 07:50] VITALS: BP 104/62
[2024-03-22] MEDS: NSS 1000 IV ×2 (08:01→17:09)
[2024-03-22] MEDS: ZOLOFT 50 MG PO (08:01)
[2024-03-22] MEDS: KLONOPIN 0.5 MG PO ×2 (08:01→19:46)
--- NOTE | 2024-03-22 08:59 | W.PN.CRS1 ---
Addendum entered and electronically signed by Sadi Pinto MD 03/22/24 19:39:
On note, patient has Severe protein calorie malnutrition.
Original Note:
Today's Communication / Plan
-
continue vanco
OR canceled
pepcid
Assessment/Plan
-
Assessment: 64yo female with generalized abdominal pain discomfort and diarrhea with findings on 2 imaging studies of ileocecal intussusception with cramping and foul smelling bowel movements, c.diff positive
Plan:
1. Labs pending.
2. Continue vancomycin for c.diff.
2. Stool cultures pending.
3. Colonoscopy/OR canceled given c.diff.
4. Continue fulls. Will defer diet to GI.
5. Appreciate GI/hospitalist.
6. Will add pepcid given nausea with vanco.
7. Discussed above plan with patient who is in agreement.
Subjective Data
Subjective Data
Date of Service: March 22, 2024
Patient states she still has some abdominal discomfort. The vanco is irritating her throat and making her nauseous and she is requesting Pepcid. She feels a little improved today.
Objective Data
-
Vital Signs
Temp Pulse Resp BP Pulse Ox
98.2 F 66 16 104/62 97
03/22/24 07:50 03/22/24 07:50 03/22/24 07:50 03/22/24 07:50 03/22/24 07:50
Intake & Output
03/21/24 03/22/24 03/23/24
06:59 06:59 06:59
Intake Total 1000 / 1000 2940 / 2940
Balance 1000 / 1000 2940 / 2940
Intake:
Oral fluids 1440 / 1440
IV fluids (Total) 1000 / 1000 1500 / 1500
Other:
Number of approximated SMALL 2
amounts of urine
Number of approximated MODERATE 3 2
amounts of urine
Number of unmeasured liquid
stools
Rectum 2
Physical Exam
-
General: No Acute Distress and AOx3
Abdomen: Soft, Non Distended and Tender (RUQ )
Skin: Warm and Dry
[2024-03-22 09:10] LABS: % Basophils 0.3 % (0-2); % Eosinophils 0.8 % (0-6); % Immature Granulocytes 0.3 % (0-0.5); % Lymphocytes 27.2 % (20.5-51.1); % Monocytes 8.2 % (1.7-9.3); % Neutrophils 63.2 % (42.2-75.2); Absolute Eosinophils 0.1 10^3/uL (0-0.7); Absolute Lymphocytes 1.7 10^3/uL (1.2-3.4); Absolute Monocytes 0.5 10^3/uL (0.1-0.6); Hematocrit 30.7 % (37.0-47.0); Hemoglobin 10.5 g/dL (12.0-16.0); Mean Corp Hgb Conc. 34.2 g/dL (33.0-37.0); Mean Corpuscular Hgb 32.8 pg (27.0-31.0); Mean Corpuscular Volume 95.9 fL (81.0-99.0); Mean Platelet Volume 9.6 fL (7.4-10.4); Nucleated Red Blood Cells % 0 %; Platelet Count 257 10^3/uL (130-400); Red Cell Dist. Width 12.7 % (11.5-14.5); White Blood Cell Count 6.3 10^3/uL (4.8-10.8)
[2024-03-22 09:40] LABS: Blood Urea Nitrogen 4 mg/dl (7-17); Carbon Dioxide 20 mmol/L (22-30); Chloride 111 mmol/L (98-107); Estimated Creatinine Clearance 69 ml/min; Glucose 92 mg/dl (70-99); Sodium 139 mmol/L (135-145); eGFR > 60.00
[2024-03-22] MEDS: PEPCID 40 MG PO (12:22)
[2024-03-22] MEDS: DILAUDID 0.5 MG IV ×3 (12:24→20:54)
--- NOTE | 2024-03-22 14:21 | W.PN.HOSP.TC ---
Addendum entered and electronically signed by Wan Blair MD 03/22/24 15:02:
I saw and evaluated the patient. I reviewed the resident�s note and agree with findings and plan as documented in the resident�s note.
Continues to have diarrhea. 3 liquid bowel movements and night. 2 more episode in the morning as well.
Some nausea, no vomiting.
1. Intussusception
-CT enterography reviewed and patient had concern of some intussusception at ileocecal valve
-Continue IV fluid and pain management
-Discussed with CRS and potentially planning to delay procedure with new finding of C. difficile colitis
2. C-diff colitis
-First episode with recent antibiotic exposure likely
-Patient on oral vancomycin, continue
-GI involved in care and help appreciated
-Continues to have increased bowel frequency, can be discharged home once clinically improved.
3. Gastric wall thickening
-Abnormal gastric wall thickening, EGD was intended to be done although with C. difficile colitis may need to be postponed, deferred to GI
Original Note:
Today's Communication/Plan
-
-Continue Vanco
-OR canceled
-GI considering EGD
-Started regular diet
Assessment / Plan
Assessment / Plan
60-year-old female presented with complains of abdominal pain, diarrhea and weakness. She completed a recent antibiotic course for interstitial cystitis and diverticulitis. C. difficile positive
# C. difficile/diarrhea
-Recent antibiotics for interstitial cystitis(ciprofloxacin, metronidazole for 7 days in first week of February)
-Continue oral vancomycin 125 mg p.o. 4 times daily
-Check electrolytes daily
-EGD prior to discharge for further evaluation of thickening in the antrum show known CAD
-Pepcid for nausea with Vanco
-Regular diet
# Abdominal pain/possible intussusception
-Followed by colorectal surgeon
-Reevaluation after treatment of C. difficile
-Colonoscopy postponed
-Celiac panel pending
# Gastric wall thickening
-GI considering EGD before discharge
# Mild COSME-likely from dehydration
-Resolved
-Creatinine 0.9
# Leukocytosis
-WBC 12.1
-Repeat CBC in a.m.
# Asthma/COPD
-Continue with inhaler, Singulair
# Hyperlipidemia
-Continue Crestor
# Anxiety
-Continue Klonopin, sertraline
Code: Full
Anticipated Discharge: Within 24 hours
Subjective/Interval History
-
Date of Service: March 22, 2024
Objective Data
-
Labs:
Laboratory Results
03/22/24
08:35
WBC 6.3
Hgb 10.5 L
Hct 30.7 L
Plt Count 257
Sodium 139
Potassium 4.0
Chloride 111 H
Carbon Dioxide 20 L
BUN 4 L
Creatinine 0.7
Glucose 92
Calcium 9.0
Vital Signs:
Vital Signs
Temp Pulse Resp BP Pulse Ox
98.2 F 74 16 104/62 97
03/22/24 07:50 03/22/24 14:06 03/22/24 14:06 03/22/24 07:50 03/22/24 14:06
I&O
03/21/24 03/22/24 03/23/24
06:59 06:59 06:59
Intake Total 1000 / 1000 2940 / 2940
Balance 1000 / 1000 2940 / 2940
Review of Systems
-
History Source: Patient
Constitutional: Denies Fever
Respiratory: Denies Cough
Cardiac: Denies Chest Pain
Abdomen/GI: Reports Abdominal Pain and Diarrhea
Musculoskeletal: Denies Joint Pain
Hematologic / Lymphatic: Denies Bleeding
Physical Exam
-
General: Well Developed and Well Nourished
HEENT: Normocephalic and Atraumatic
Respiratory: Clear to Auscultation
Cardiac: Regular Rhythm
GI: Soft, Nondistended and Tender
Skin: Warm and Dry
Psych: Calm
Data Reviewed
-
Labs: Labs Reviewed by me, Discussed with Physician and Discussed with Patient
--- NOTE | 2024-03-22 15:11 | PN.CDI ---
CDI
- -
CDI:
Physician Documentation Request
Admit Date: 03/20/24 20:44
Dear Doctor Shazia,
Please review the following and provide your response in the progress notes.
Clinical Indicators:
Pt admitted with abdominal pain, intussusception, and C-diff.
03/21 Registered dietitian note: 'Wt hx per records- (04/19/2023) 126lb
Significant 13lb 11.5% wt loss over past month due to abdominal pain, poor appetite.
Pt meets criteria for severe protein calorie malnutrition of acute illness with >2% wt loss x 1week and prolonged poor intake prior to admit <5% est energy needs >5days.'
Based on the above information and your assessment, which of the following most accurately represents the patient's nutritional status?
Severe protein calorie malnutrition
No nutritional deficiency
Other
[place] Criteria ([facility] Hospitalist 2017)
2 or more criteria must be present for either
non severe or severe malnutrition
Note that the criteria differs related to the
presence of an acute or chronic illness
Acute Illness
Energy Intake Non Severe: <75% for >7 days
Severe: <50% for >5 days
Weight Loss Non Severe: 1-2% over 1 week
5% over 1 month
7.5% over 3 months
1 year N/A
Severe: >2% over 1 week
>5% over 1 month
>7.5% over 3 months
1 year N/A
Use of terms such as suspected, likely, concern for, or probable (associated with a specific diagnosis that is being evaluated, monitored, or treated as if it exists) are acceptable and can be coded in the inpatient setting, when documented at the
time of discharge.
Thank you,
Dilia Kuhn RN, BSN
CDI Specialist
Available via [place] [employer]
Please use your independent medical judgment in providing your response.
[2024-03-22 15:55] VITALS: BP 107/83
--- NOTE | 2024-03-22 16:07 | CM ---
C-Diff, Full liquids, PO Vanco, Colonoscopy cancelled due to C-diff. Anticipate discharge home with no needs.
[2024-03-22] MEDS: SINGULAIR 10 MG PO (17:07)
[2024-03-22] MEDS: CRESTOR 10 MG PO (17:07)
--- NOTE | 2024-03-22 17:27 | W.PN.GI.CBS2 ---
Addendum entered and electronically signed by Karolina Angeles DO 03/22/24 18:21:
Patient seen and examined independently of [employer]. I agree with her note with my additions below
Carolyn is a 58-year-old female with no prior history of C. difficile but has been on multiple antibiotics recently for suspected UTIs. She was initially admitted with plans to undergo an ileocecectomy for suspected intermittent ileocecal
intussusception. Patient is known to Dr. Pinto outpatient. She has had intermittent diarrhea, occasional nausea and abdominal pain. She underwent a CT enterography on 03/16/2024 that showed some gastric dilation and thickening of the gastric wall.
The proximal duodenum was decompressed somewhat concerning for gastric outlet obstruction. She denies any vomiting. Follow-up x-ray on 03/20/2024 does not show any significant gastric dilation with a normal gas pattern.
Patient's diarrhea worsened outpatient on Thursday was going over 20 times and now admitted found to have C. difficile. Patient was started on vancomycin 125 every 6 and stools are improving. She is tolerating diet well without nausea or vomiting.
-- Overall symptomatic C. difficile infection on vancomycin for 10 days
-- No nausea or vomiting and no clinical signs of gastric outlet obstruction
-- Agree with Pepcid in the setting of C. difficile instead of PPI
-- Would proceed to an eventual endoscopy
-- No need for probiotics
-- Avoid unnecessary antibiotics
-- Since patient is clinically doing better and not having any nausea or vomiting no need for inpatient endoscopy, however if any plans to proceed with colonoscopy were happy to help out with the EGD.
-- Please call us back if you need us. Any concerns or issues with her C. difficile, would contact infectious disease for consultation
Original Note:
Today's Communication / Plan
-
Low residue, low lactose diet. Follow stool culture. Monitor stool output and for clinical improvement. Continue on oral vancomycin.
Assessment / Plan
-
The patient is a 58-year-old female with a past medical history significant for interstitial cystitis, COPD/asthma, hyperlipidemia, mitral valve disease, family history of colon cancer, who presented to the emergency room with complaints of
intractable abdominal pain, diarrhea, and weakness, found to have toxogenic Cdiff. She has had multiple hospital presentations as outlined above at [facility] due to ongoing GI symptoms including abdominal pain with fecal urgency initially found to
have signs of small bowel intussusception. She was evaluated outpatient with colorectal surgery for possible surgical intervention, but due to worsening symptoms now with significant diarrhea with foul odor she was admitted to [facility],
found to have toxigenic C. difficile. X-ray imaging here did not show any evidence of intestinal obstruction with a normal bowel gas pattern. She underwent CT enterography on 03/16 which showed marked gastric dilation with fluid-filled stomach and
circumferential abnormal wall thickening of the antrum. There is also slight protrusion of the ileocecal valve and the cecum, with no obvious ileocecal intussusception identified or obvious obstruction of the small bowel.
Problem list:
-Abdominal pain
-Diarrhea, consistent with toxigenic C. difficile
-History of interstitial cystitis on antibiotics 2 months ago for UTI
-Recurrent hospitalizations due to abdominal pain
-CT showing distention of the stomach and antral gastric wall thickening
-Prior findings of small bowel intussusception, not evident on CT enterography but showing slight protrusion of the ileocecal valve into the cecum
-Leukocytosis, resolved
-Mild normocytic anemia
- Abnormal UA, possible UTI
Other pertinent medical history:
-COPD/asthma
-Mitral valve disease
-Hyperlipidemia
-Family history of colon cancer
Recommendations:
-Etiology of fecal urgency and diarrhea likely secondary to C. difficile infection with positive toxigenic C. difficile stool test. This may be the cause of her abdominal pain now, but prior to this there is a concern for small bowel intussusception
and she is being evaluated by colorectal surgery for possibly surgical intervention with ileocecectomy
-She is slowly improving with less bowel movements
-Continue on oral vancomycin
-If by tomorrow she is not improving, to consider additional agents to help with her diarrhea
-Continue to monitor stool output
-Can use antispasmodics such as Levsin or dicyclomine but would use sparingly as this can cause constipation, and we want to avoid toxic megacolon as complications. Reassuringly there are no signs of toxic megacolon on imaging
-NO antidiarrheals as advised
-Continue enteric precautions
-Eventual EGD/colonoscopy for evaluation of gastric wall thickening and stomach dilation on CTE and colitis/intussusception findings. Will wait for improvement from Cdiff standpoint
-Await stool culture
-Colorectal surgery is following
-Will also add a celiac panel to rule this out as cause of small bowel abnormalities which is pending
-Low residue/low lactose diet
-Will follow
Subjective
Subjective
Date of Service: March 22, 2024
The patient was seen and examined at the bedside. She continues with diarrhea although less frequent. She is also continue with abdominal cramping with these episodes. She developed some heartburn symptoms with the oral vancomycin which has
improved with Pepcid. Stool culture is pending. She is tolerating a regular diet although is being cautious with her food choices.
Objective
Data Reviewed
Laboratory Data:
Laboratory Results
03/22/24 08:35
03/22/24 08:35
Laboratory Results
Magnesium 1.9 mg/dl (1.6-2.3) 03/20/24 19:18
Total Bilirubin 0.4 mg/dl (0.2-1.3) 03/21/24 08:03
AST 20 U/L (14-36) 03/21/24 08:03
ALT 11 U/L (0-35) 03/21/24 08:03
Alkaline Phosphatase 65 U/L (38-126) 03/21/24 08:03
Vital Signs and I&O:
Vital Signs
Temp Pulse Resp BP Pulse Ox
98.2 F 74 16 104/62 97
03/22/24 07:50 03/22/24 14:06 03/22/24 14:06 03/22/24 07:50 03/22/24 14:06
I&O
03/21/24 03/22/24 03/23/24
06:59 06:59 06:59
Intake Total 1000 / 1000 2940 / 2940
Balance 1000 / 1000 2940 / 2940
Physical Exam
Physical Exam
HEENT: Anicteric
Cardiology: S1 and S2 (RRR)
Pulmonary: Clear
GI: Soft, Non Distended, Tender (generalized tenderness throughout) and Normal Bowel Sounds
Extremities: No Edema
Neuro: Non Focal
--- NOTE | 2024-03-22 17:40 | W.DCSUMMARY ---
Addendum entered and electronically signed by Wan Blair MD 03/26/24 07:54:
Discharge date of 03/26/24
Read, reviewed, and agree. See same day progress note for additional details. Time spent coordinating care, DC planning, review of DC plan of care with resident, transition of care, review of records in EMR, med rec, consults, notes, d/w
consultants, nursing, family, and CM 40 mins
Original Note:
Documented by User: Syd Mccray MD, Resident 03/25/24 16:24
Discharge Summary
Discharge Data
Date of Admission: 03/20/24
Date of Discharge: 03/25/24
-
Pending Results: No
Hospital Course
Discharging Physician : Syd Mccray MD ; Wan Blair MD
Disposition : Home
Primary care physician : Dr. Daniel De Luna
Principal Discharge diagnosis : Abdominal pain/possible intussusception, C-diff colitis
Chronic Discharge diagnosis: Asthma/COPD, hypercholesterolemia, valvular disease, interstitial cystitis
Hospital Course : 58-year-old female presented to the ED with extreme abdominal cramping and diarrhea. She had multiple similar episodes of abdominal pain in the past couple months and was evaluated at [facility]. She was told to have
intussusception and was to be admitted for colonoscopy and endoscopy and possible surgical intervention. During further workup she was found to be C. difficile positive. Colorectal surgery, gastroenterology, infectious disease were on board during
her hospital stay. She was given IV fluid, oral vancomycin and Zofran in addition to her home medications for other chronic conditions. With the use of antibiotic her diarrhea frequency decreased significantly and she reported decrease in
abdominal pain/spasms. Colorectal surgery decided to postpone her colonoscopy and endoscopy until she completed treatment for C. difficile. Upon discharge she was advised to follow-up with the gastroenterology for consideration of EGD to further
evaluate gastric wall thickening shown on previous CAT scan. She was also recommended to follow-up with urology to evaluate for interstitial cystitis. She was given remaining course of oral vancomycin per ID recommendation
Important imaging findings : 03/25/24 Abd Xray: There is a nonobstructive bowel gas pattern. There is moderate fecal material throughout the colon.
Discharge Plan
-
Patient Disposition: Home (Routine Discharge)
Discharge Diagnosis/Procedures: Abdominal pain/possible intussusception, C-diff colitis
Condition: Good
Diet: As tolerated
Activity: No restrictions
Driving Restrictions: As prior to admission
Bathing Restrictions: OK to Shower
Referrals:
Sadi Pinto MD [Active] - in one week
Praveena Braden DO [Active] -
Daniel De Luna DO [Family Provider] - in less than 1 week
Ana Wallace MD [Active] - in one week
Samara Hernandez MD [Active] - in two weeks
Additional Discharge Medication Instructions: Take dicyclomine 20 mg tablets by mouth once daily as needed
Take vancomycin 125 mg by mouth every 4 times daily for the next 10 days
Take Zofran 4 mg by mouth every 6 hours as needed
Stop hyoscyamine for now until infection resolves
Prescriptions:
New
dicyclomine 20 mg Tablet
20 mg PO QID PRN (Reason: spasm/pelvic pain) Qty: 30 0RF
vancomycin 125 mg capsule
125 mg PO QID Qty: 40 0RF
oxycodone 5 mg tablet
5 mg PO Q8H PRN (Reason: mod sev pain) Qty: 10 0RF
Continued
hydrocodone-acetaminophen 5-325 mg Tablet
1 tab PO Q6HPRN PRN (Reason: severe pain)
clonazepam 0.5 mg Tablet
0.5 mg PO BID
aspirin 81 mg Tablet,Chewable
81 mg PO DAILY
montelukast [Singulair] 10 mg Tablet
10 mg PO QPM
sertraline 50 mg Tablet
50 mg PO DAILY
rosuvastatin 10 mg Tablet
10 mg PO QPM
fluticasone furoate-vilanterol [Breo Ellipta] 100-25 mcg/dose Blister With Device
1 inh INHALATION R DAILY
potassium chloride 20 mEq Tablet Extended Release
20 meq PO BID
acetaminophen [Tylenol] 325 mg Tablet
650 mg PO Q4HPRN PRN (Reason: mild pain)
albuterol sulfate 2.5 mg /3 mL (0.083 %) Solution For Nebulization
2.5 mg INHALATION R TID
ondansetron 4 mg Tablet,Disintegrating
4 mg PO Q6HPRN PRN (Reason: nausea) Qty: 10 0RF
Held
hyoscyamine sulfate 0.125 mg Tablet, Sublingual
0.125 mg PO Q4HPRN PRN (Reason: spasms)
Hold Instructions: Resume on 04/07/24. Hold until infection resolves
Discontinued
dicyclomine 20 mg Tablet
20 mg PO TID
Discharge Orders:
Discharge Patient (As Directed); Ordered 03/25/24
Ordered By: Troy Silva
Discharge Date and Time
Print Language: KOSOVAN

Documented by User: Troy Silva MD, Resident 03/25/24 16:06
Discharge Summary
Discharge Data
Date of Admission: 03/20/24
Date of Discharge: 03/25/24
Discharge Plan
-
Patient Disposition: Home (Routine Discharge)
Discharge Diagnosis/Procedures: Abdominal pain/possible intussusception, C-diff colitis
Condition: Good
Diet: As tolerated
Activity: No restrictions
Driving Restrictions: As prior to admission
Bathing Restrictions: OK to Shower
Referrals:
Sadi Pinto MD [Active] - in one week
Praveena Braden DO [Active] -
Daniel De Luna DO [Family Provider] - in less than 1 week
Ana Wallace MD [Active] - in one week
Samara Hernandez MD [Active] - in two weeks
Additional Discharge Medication Instructions: Take dicyclomine 20 mg tablets by mouth once daily as needed
Take vancomycin 125 mg by mouth every 4 times daily for the next 10 days
Take Zofran 4 mg by mouth every 6 hours as needed
Stop hyoscyamine for now until infection resolves
Prescriptions:
New
dicyclomine 20 mg Tablet
20 mg PO QID PRN (Reason: spasm/pelvic pain) Qty: 30 0RF
vancomycin 125 mg capsule
125 mg PO QID Qty: 40 0RF
oxycodone 5 mg tablet
5 mg PO Q8H PRN (Reason: mod sev pain) Qty: 10 0RF
Continued
hydrocodone-acetaminophen 5-325 mg Tablet
1 tab PO Q6HPRN PRN (Reason: severe pain)
clonazepam 0.5 mg Tablet
0.5 mg PO BID
aspirin 81 mg Tablet,Chewable
81 mg PO DAILY
montelukast [Singulair] 10 mg Tablet
10 mg PO QPM
sertraline 50 mg Tablet
50 mg PO DAILY
rosuvastatin 10 mg Tablet
10 mg PO QPM
fluticasone furoate-vilanterol [Breo Ellipta] 100-25 mcg/dose Blister With Device
1 inh INHALATION R DAILY
potassium chloride 20 mEq Tablet Extended Release
20 meq PO BID
acetaminophen [Tylenol] 325 mg Tablet
650 mg PO Q4HPRN PRN (Reason: mild pain)
albuterol sulfate 2.5 mg /3 mL (0.083 %) Solution For Nebulization
2.5 mg INHALATION R TID
ondansetron 4 mg Tablet,Disintegrating
4 mg PO Q6HPRN PRN (Reason: nausea) Qty: 10 0RF
Held
hyoscyamine sulfate 0.125 mg Tablet, Sublingual
0.125 mg PO Q4HPRN PRN (Reason: spasms)
Hold Instructions: Resume on 04/07/24. Hold until infection resolves
Discontinued
dicyclomine 20 mg Tablet
20 mg PO TID
Discharge Orders:
Discharge Patient (As Directed); Ordered 03/25/24
Ordered By: Troy Silva
Discharge Date and Time
Print Language: KOSOVAN

Documented by User: Wan Blair MD 03/25/24 16:40
Discharge Summary
Discharge Data
Date of Admission: 03/20/24
Date of Discharge: 03/25/24
Discharge Plan
-
Patient Disposition: Home (Routine Discharge)
Discharge Diagnosis/Procedures: Abdominal pain/possible intussusception, C-diff colitis
Condition: Good
Diet: As tolerated
Activity: No restrictions
Driving Restrictions: As prior to admission
Bathing Restrictions: OK to Shower
Referrals:
Sadi Pinto MD [Active] - in one week
Praveena Braden DO [Active] -
Daniel De Luna DO [Family Provider] - in less than 1 week
Ana Wallace MD [Active] - in one week
Samara Hernandez MD [Active] - in two weeks
Additional Discharge Medication Instructions: Take dicyclomine 20 mg tablets by mouth once daily as needed
Take vancomycin 125 mg by mouth every 4 times daily for the next 10 days
Take Zofran 4 mg by mouth every 6 hours as needed
Stop hyoscyamine for now until infection resolves
Prescriptions:
New
dicyclomine 20 mg Tablet
20 mg PO QID PRN (Reason: spasm/pelvic pain) Qty: 30 0RF
vancomycin 125 mg capsule
125 mg PO QID Qty: 40 0RF
oxycodone 5 mg tablet
5 mg PO Q8H PRN (Reason: mod sev pain) Qty: 10 0RF
Continued
hydrocodone-acetaminophen 5-325 mg Tablet
1 tab PO Q6HPRN PRN (Reason: severe pain)
clonazepam 0.5 mg Tablet
0.5 mg PO BID
aspirin 81 mg Tablet,Chewable
81 mg PO DAILY
montelukast [Singulair] 10 mg Tablet
10 mg PO QPM
sertraline 50 mg Tablet
50 mg PO DAILY
rosuvastatin 10 mg Tablet
10 mg PO QPM
fluticasone furoate-vilanterol [Breo Ellipta] 100-25 mcg/dose Blister With Device
1 inh INHALATION R DAILY
potassium chloride 20 mEq Tablet Extended Release
20 meq PO BID
acetaminophen [Tylenol] 325 mg Tablet
650 mg PO Q4HPRN PRN (Reason: mild pain)
albuterol sulfate 2.5 mg /3 mL (0.083 %) Solution For Nebulization
2.5 mg INHALATION R TID
ondansetron 4 mg Tablet,Disintegrating
4 mg PO Q6HPRN PRN (Reason: nausea) Qty: 10 0RF
Held
hyoscyamine sulfate 0.125 mg Tablet, Sublingual
0.125 mg PO Q4HPRN PRN (Reason: spasms)
Hold Instructions: Resume on 04/07/24. Hold until infection resolves
Discontinued
dicyclomine 20 mg Tablet
20 mg PO TID
Discharge Orders:
Discharge Patient (As Directed); Ordered 03/25/24
Ordered By: Troy Silva
Discharge Date and Time
Print Language: KOSOVAN
[2024-03-22 23:08] VITALS: BP 109/63
[2024-03-23] MEDS: DILAUDID 0.5 MG IV ×3 (00:24→19:05)
[2024-03-23] MEDS: FIRVANQ 125 MG PO ×4 (00:24→17:22)
[2024-03-23] MEDS: NSS 1000 IV (03:15)
--- NOTE | 2024-03-23 06:45 | W.PN.HOSP.TC ---
Addendum entered and electronically signed by Wan Blair MD 03/23/24 15:06:
I saw and evaluated the patient. I reviewed the resident�s note and agree with findings and plan as documented in the resident�s note.
Continues to have diarrhea. 3 liquid bowel movements and night. 2 more episode in the morning as well.
Some nausea, no vomiting.
1. Intussusception
-CT enterography reviewed and patient had concern of some intussusception at ileocecal valve
-Continue IV fluid and pain management
-Discussed with CRS and potentially planning to delay procedure with new finding of C. difficile colitis
2. C-diff colitis
-First episode with recent antibiotic exposure likely
-Patient on oral vancomycin, continue
-GI involved in care and help appreciated
-ID consulted by CRS,
-Diarrhea frequency improving, not resolved
3. Gastric wall thickening
-Abnormal gastric wall thickening
-Gi planning EGD outpt basis
Original Note:
Today's Communication/Plan
-
- ID consult
- Continue vanco
- repeat labs in AM
Assessment / Plan
Assessment / Plan
60-year-old female presented with complains of abdominal pain, diarrhea and weakness. She completed a recent antibiotic course for interstitial cystitis and diverticulitis. C. difficile positive
# C. difficile coilitis/diarrhea
-Recent antibiotics for interstitial cystitis(ciprofloxacin, metronidazole for 7 days in first week of February)
-Continue oral vancomycin 125 mg p.o. 4 times daily day 3x/10
-Check electrolytes daily
-EGD as OP for further evaluation of thickening in the antrum show known CAD
-Pepcid for nausea with Vanco
-Low residue diet
# Abdominal pain/possible intussusception
-Followed by colorectal surgeon
-Reevaluation after treatment of C. difficile
-Colonoscopy postponed
-Celiac panel pending
# Gastric wall thickening
-GI considering EGD before discharge
# Mild COSME-likely from dehydration
-Resolved
-Creatinine 0.9
# Leukocytosis
-WBC 6.5- resolved
-Repeat CBC in a.m.
# Asthma/COPD
-Continue with inhaler, Singulair
# Hyperlipidemia
-Continue Crestor
# Anxiety
-Continue Klonopin, sertraline
Code: Full
Anticipated Discharge: 24 - 48 hours
Subjective/Interval History
-
Date of Service: March 23, 2024
Objective Data
-
Labs:
Laboratory Results
03/23/24
06:00
WBC Pending
Hgb Pending
Hct Pending
Plt Count Pending
Sodium Pending
Potassium Pending
Chloride Pending
Carbon Dioxide Pending
BUN Pending
Creatinine Pending
Glucose Pending
Calcium Pending
Vital Signs:
Vital Signs
Temp Pulse Resp BP Pulse Ox
98.8 F 84 17 109/63 96
03/22/24 23:08 03/22/24 23:08 03/22/24 23:08 03/22/24 23:08 03/22/24 23:34
I&O
03/21/24 03/22/24 03/23/24
06:59 06:59 06:59
Intake Total 1000 / 1000 2940 / 2940 3520 / 3520
Balance 1000 / 1000 2940 / 2940 3520 / 3520
Review of Systems
-
History Source: Patient
Respiratory: Reports No Symptoms and Cough
Cardiac: Denies Chest Pain
Abdomen/GI: Reports Abdominal Pain
Musculoskeletal: Denies Joint Pain
Neuro: Denies Headache
Physical Exam
-
General: Well Developed and Appears in Distress
HEENT: Normocephalic and Atraumatic
Respiratory: Wheezes
Cardiac: Regular Rhythm
GI: Soft and Tender
Skin: Warm and Dry
Neuro: Awake, Alert and Oriented
Psych: Calm
Data Reviewed
-
Labs: Labs Reviewed by me, Discussed with Physician and Discussed with Patient
[2024-03-23 07:54] VITALS: BP 106/64
[2024-03-23] MEDS: NSS IV (07:54)
[2024-03-23] MEDS: ZOLOFT 50 MG PO (08:08)
[2024-03-23] MEDS: KLONOPIN 0.5 MG PO ×2 (08:08→19:29)
[2024-03-23] MEDS: ZOFRAN 4 MG IV ×2 (08:08→19:05)
[2024-03-23] MEDS: PEPCID 40 MG PO (08:08)
[2024-03-23] MEDS: VENTOLIN NEBULES 2.5 MG INH ×2 (08:24→18:03)
[2024-03-23] MEDS: SYMBICORT 160/4.5 MCG INHALER 2 PUFF INH ×2 (08:24→18:03)
[2024-03-23 08:25] LABS: % Basophils 0.5 % (0-2); % Eosinophils 0.8 % (0-6); % Immature Granulocytes 0.5 % (0-0.5); % Monocytes 7.1 % (1.7-9.3); % Neutrophils 67.1 % (42.2-75.2); Absolute Eosinophils 0.1 10^3/uL (0-0.7); Absolute Lymphocytes 1.6 10^3/uL (1.2-3.4); Absolute Monocytes 0.5 10^3/uL (0.1-0.6); Absolute Neutrophils 4.3 10^3/uL (1.4-6.5); Hematocrit 31.9 % (37.0-47.0); Hemoglobin 10.4 g/dL (12.0-16.0); Mean Corp Hgb Conc. 32.6 g/dL (33.0-37.0); Mean Corpuscular Hgb 31.6 pg (27.0-31.0); Mean Platelet Volume 9.6 fL (7.4-10.4); Nucleated Red Blood Cells % 0 %; Platelet Count 264 10^3/uL (130-400); Red Blood Cell Count 3.29 10^6/uL (4.20-5.40); Red Cell Dist. Width 12.9 % (11.5-14.5); White Blood Cell Count 6.5 10^3/uL (4.8-10.8)
[2024-03-23 09:00] LABS: Blood Urea Nitrogen 3 mg/dl (7-17); Calcium 9.2 mg/dl (8.4-10.2); Carbon Dioxide 21 mmol/L (22-30); Chloride 111 mmol/L (98-107); Estimated Creatinine Clearance 69 ml/min; Glucose 96 mg/dl (70-99); Potassium 3.6 mmol/L (3.5-5.1); Sodium 140 mmol/L (135-145); eGFR > 60.00
--- NOTE | 2024-03-23 09:15 | PTCARENOTE ---
pt verbalizing severe abd pain, back pain and nausea. prn pain medication and prn zofran given this AM by this nurse. pt not eating breakfast due to abd pain but states will attempt to eat lunch later if feeling better.
[2024-03-23 11:05] VITALS: BP 111/64
[2024-03-23] MEDS: VENTOLIN NEBULES INH (13:52)
--- NOTE | 2024-03-23 13:56 | W.PN.CRS1 ---
Today's Communication / Plan
-
Continue Vanco
ID consult
Nutrition
Assessment/Plan
-
Assessment: 64yo female with generalized abdominal pain discomfort and diarrhea with findings on 2 imaging studies of ileocecal intussusception with cramping and foul smelling bowel movements, c.diff positive
Plan:
1. WBC normalized at 6.5.
2. Continue vancomycin for c.diff.
3. Stool cultures pending.
4. Colonoscopy/OR canceled given c.diff.
5. Continue low residue diet.
6. Appreciate hospitalist.
7. Will consult ID given C. difficile diagnosis.
8. Nutrition consult. Will add Ensure.
Subjective Data
Subjective Data
Date of Service: March 23, 2024
Patient states that she is still having cramping and diarrhea. She states that her stools does not smell as foul as it did yesterday. She went to the bathroom 5 times this morning.
Objective Data
-
Vital Signs
Temp Pulse Resp BP Pulse Ox
98.5 F 71 16 111/64 97
03/23/24 11:05 03/23/24 11:05 03/23/24 11:05 03/23/24 11:05 03/23/24 11:05
Intake & Output
03/22/24 03/23/24 03/24/24
06:59 06:59 06:59
Intake Total 2940 / 2940 3520 / 3520
Balance 2940 / 2940 3520 / 3520
Intake:
Oral fluids 1440 / 1440 520 / 520
IV fluids (Total) 1500 / 1500 3000 / 3000
Other:
Number of approximated SMALL 2
amounts of urine
Number of approximated MODERATE 2 1
amounts of urine
Number of approximated LARGE 2
amounts of urine
Number of unmeasured liquid
stools
Rectum 2 2
Lab Results
03/23/24 08:04
03/23/24 08:04
Physical Exam
-
General: No Acute Distress and AOx3
Abdomen: Soft, Non Distended and Tender (Very mild lower quadrant)
Skin: Warm and Dry
[2024-03-23] MEDS: DILAUDID 1 MG IV (14:45)
--- NOTE | 2024-03-23 14:51 | CM ---
Discharge Plan of Care: Home with no needs.
[2024-03-23 15:44] VITALS: BP 108/60
[2024-03-23 16:09] LABS: tTG IgG Antibody 7.3 EU/ml (0-19)
--- NOTE | 2024-03-23 16:16 | CON.ID ---
Consultation
-
Date/Time Consultation Requested: 03/23/2024 1401
Date/Time Consultation Performed: 03/23/2024 1545
Requesting Provider: Tonia Boucher
Performing Provider: Dr. Chu
Reason for Consultation: C. difficile colitis
Chief Complaint / Past History
History of Present Illness
Carolyn Gao is a 58-year-old female being evaluated at the request of Tonia Boucher regarding C. difficile colitis. History is obtained from chart review, along with patient interview.
The patient reports that since the beginning of year she has been dealing with significant social issues with her sister and her mother. Around late November she began to have lower abdominal pressure and sought care. She was diagnosed with cystitis
and given symptomatic treatment, but ultimately required admission to [facility] where she received antibiotics.
More recently, she has been dealing with diarrhea at least for the past several weeks. She sought care with her doctors at [facility], including a surgeon and recent imaging suggested intussusception. She ultimately was admitted to the hospital
in anticipation of further workup and possible surgery. Further workup included C. difficile testing, which has been found to be positive. Infectious Diseases is asked to comment upon further antimicrobial management.
Patient notes that she has ongoing diarrhea, up to 8-10 times today, along with ongoing abdominal crampiness. No history of hematochezia. She has been started on vancomycin at this point in time and is currently on day #2 of therapy.
Past History
Additional Past Medical History:
COPD
Arrhythmia
Dyslipidemia
Interstitial cystitis
Additional Past Surgical History:
Left thumb surgery
Allergy History:
sulfamethoxazole [From Bactrim] Allergy (Severe, Verified 03/20/24 18:21)
Unknown
Medications Reviewed: Yes
Current Antibiotics:
Vancomycin 125 mg p.o. 4 times daily (day #2)
Social History
Tobacco: Smoker
Alcohol: None
Drug: None
Personal: Single
Employment: Retired
Family History
Family History: Not Pertinent
Review of Systems
Vital Signs
Temp Pulse Resp BP Pulse Ox
98.1 F 82 16 108/60 97
03/23/24 15:44 03/23/24 15:44 03/23/24 15:44 03/23/24 15:44 03/23/24 15:44
Physical Exam
Physical Exam
Constitutional: No Acute Distress, Comfortable, Non-toxic and Cachetic (mild)
Head: Normocephalic
Eyes: Pupils Equal, Pupils Round, No Conjunctival Hemorrhage and Sclera Anicteric
Oral: No Thrush and No Ulcers
Cardiovascular: Regular Rate and S1/S2; Negative S3/S4
Pulmonary: Clear and Non Labored; Negative Wheezes, Rales or Rhonchi
Gastrointestinal: Soft, Tender (mild), Non Distended, Normal Bowel Sounds, No Rebound and No Guarding
Genito-Urinary: Negative Ross
Extremities: Negative Edema, Cyanosis, Erythema, Splinter Hemorrhage or Venous Insufficiency
Skin: Warm and Dry; Negative Rash or Jaundice
Neurological: Awake, Alert and Oriented
Psychological: Calm and Other (anxious)
.
Lab / Diagnostic Study Results
03/23/24 08:04
03/23/24 08:04
Abs Immat Gran (auto) 0.0 10^3/uL (0-0.05) 03/23/24 08:04
Absolute Neuts (auto) 4.3 10^3/uL (1.4-6.5) 03/23/24 08:04
Absolute Lymphs (auto) 1.6 10^3/uL (1.2-3.4) 03/23/24 08:04
Absolute Monos (auto) 0.5 10^3/uL (0.1-0.6) 03/23/24 08:04
Absolute Basos (auto) 0.0 10^3/uL (0-0.2) 03/23/24 08:04
Immature Gran % 0.5 % (0-0.5) 03/23/24 08:04
Neutrophils % 67.1 % (42.2-75.2) 03/23/24 08:04
Lymphocytes % 24.0 % (20.5-51.1) 03/23/24 08:04
Monocytes % 7.1 % (1.7-9.3) 03/23/24 08:04
Eosinophils % 0.8 % (0-6) 03/23/24 08:04
Basophils % 0.5 % (0-2) 03/23/24 08:04
Lactic Acid 1.0 mmol/L (0.7-2.0) 03/20/24 19:18
Microbiology Results
Micro:
03/20/24 22:22 Salmonella/Shigella Culture - Preliminary
Feces/Stool Culture in Progress
Campylobacter Culture - Final
No Campylobacter species isolated.
Shiga Toxin Test - Pending
03/20/24 22:22 C. difficile GDH Antigen & Toxins - Final
Feces/Stool Toxigenic C.difficile Positive
Imaging:
03/20/2024 Abdominal plain film: Nonobstructive bowel gas pattern noted. No evidence of pneumoperitoneum.
03/16/2024 CT enterography: Marked gastric dilatation with fluid-filled stomach. Slight protrusion of the ileocecal valve into the cecum, but evaluation is somewhat limited secondary to paucity of intra-abdominal fat. No aranza ileocecal
intussusception is identified on this exam. No obstruction of the small bowel noted. No other areas of intussusception seen.
Assessment / Plan
C. diff colitis.
Leukocytosis; improved
Anemia
COPD
Arrhythmia
Dyslipidemia
Interstitial cystitis
Recommendations:
Continue with current course of enteral vancomycin.
Given somewhat vague history of how long diarrhea has been going on, it is difficult to determine when the C. difficile started, but would complete a total of 14 days of therapy.
Monitor stool output and consistency.
Monitor for clinical improvement of abdominal discomfort.
[2024-03-23] MEDS: SINGULAIR 10 MG PO (17:22)
[2024-03-23] MEDS: CRESTOR 10 MG PO (17:22)
[2024-03-23 23:24] VITALS: BP 108/60
[2024-03-23 23:28] LABS: Endomysial IgA Antibody Titer <1:10 (<1:10)
[2024-03-24] MEDS: FIRVANQ 125 MG PO ×5 (00:12→23:04)
[2024-03-24] MEDS: DILAUDID 0.5 MG IV ×3 (05:40→23:04)
[2024-03-24] MEDS: ZOFRAN 4 MG IV ×2 (05:49→12:46)
[2024-03-24 06:23] LABS: % Basophils 0.8 % (0-2); % Eosinophils 1.5 % (0-6); % Immature Granulocytes 0.6 % (0-0.5); % Lymphocytes 34.9 % (20.5-51.1); % Monocytes 8.3 % (1.7-9.3); % Neutrophils 53.9 % (42.2-75.2); Absolute Eosinophils 0.1 10^3/uL (0-0.7); Absolute Lymphocytes 1.8 10^3/uL (1.2-3.4); Absolute Monocytes 0.4 10^3/uL (0.1-0.6); Absolute Neutrophils 2.8 10^3/uL (1.4-6.5); Hematocrit 30.7 % (37.0-47.0); Hemoglobin 10.3 g/dL (12.0-16.0); Mean Corp Hgb Conc. 33.6 g/dL (33.0-37.0); Mean Corpuscular Hgb 31.7 pg (27.0-31.0); Mean Corpuscular Volume 94.5 fL (81.0-99.0); Mean Platelet Volume 9.8 fL (7.4-10.4); Nucleated Red Blood Cells % 0 %; Platelet Count 259 10^3/uL (130-400); Red Blood Cell Count 3.25 10^6/uL (4.20-5.40); Red Cell Dist. Width 12.7 % (11.5-14.5); White Blood Cell Count 5.2 10^3/uL (4.8-10.8)
[2024-03-24 06:57] LABS: Blood Urea Nitrogen 3 mg/dl (7-17); Calcium 9.2 mg/dl (8.4-10.2); Carbon Dioxide 24 mmol/L (22-30); Chloride 109 mmol/L (98-107); Estimated Creatinine Clearance 69 ml/min; Glucose 97 mg/dl (70-99); Potassium 3.5 mmol/L (3.5-5.1); Sodium 140 mmol/L (135-145); eGFR > 60.00
[2024-03-24 07:00] VITALS: BP 120/65
[2024-03-24] MEDS: SYMBICORT 160/4.5 MCG INHALER 2 PUFF INH ×2 (07:23→19:45)
[2024-03-24] MEDS: VENTOLIN NEBULES 2.5 MG INH ×3 (07:23→19:45)
[2024-03-24] MEDS: ZOLOFT 50 MG PO (07:40)
[2024-03-24] MEDS: KLONOPIN 0.5 MG PO ×2 (07:41→20:08)
[2024-03-24] MEDS: PEPCID 40 MG PO (07:41)
--- NOTE | 2024-03-24 08:53 | W.PN.HOSP.TC ---
Addendum entered and electronically signed by Wan Blair MD 03/25/24 07:57:
I saw and evaluated the patient. I reviewed the resident�s note and agree with findings and plan as documented in the resident�s note.
Please see update note from today for further comments.
Original Note:
Today's Communication/Plan
-
- continue Vanco
-Monitor for clinical improvement
Assessment / Plan
Assessment / Plan
60-year-old female presented with complains of abdominal pain, diarrhea and weakness. She completed a recent antibiotic course for interstitial cystitis and diverticulitis. C. difficile positive
# C. difficile coilitis/diarrhea
- improving diarrhea but continues to have spasm/abdominal pain
-Recent antibiotics for interstitial cystitis(ciprofloxacin, metronidazole for 7 days in first week of February)
-Continue oral vancomycin 125 mg p.o. 4 times daily day
-Check electrolytes daily
-EGD as OP for further evaluation of thickening in the antrum show known CAD
-Pepcid for nausea with Vanco
-Low residue diet
# Abdominal pain/possible intussusception
-Followed by colorectal surgeon
-Reevaluation after treatment of C. difficile
-Colonoscopy postponed
-Celiac panel negative
# Gastric wall thickening
-GI considering EGD as OP
# Interstitial cystitis
-Bentyl/hyoscyamine was helpful per patient
-Resume as needed basis
# Mild COSME-likely from dehydration
-Resolved
-Creatinine 0.7
# Leukocytosis
-WBC 5.2- resolved
-Repeat CBC in a.m.
# Asthma/COPD
-Continue with inhaler, Singulair
# Hyperlipidemia
-Continue Crestor
# Anxiety
-Continue Klonopin, sertraline
Code: Full
Anticipated Discharge: Within 24 hours
Subjective/Interval History
-
Date of Service: March 24, 2024
Objective Data
-
Labs:
Laboratory Results
03/24/24
05:19
WBC 5.2
Hgb 10.3 L
Hct 30.7 L
Plt Count 259
Sodium 140
Potassium 3.5
Chloride 109 H
Carbon Dioxide 24
BUN 3 L
Creatinine 0.7
Glucose 97
Calcium 9.2
Vital Signs:
Vital Signs
Temp Pulse Resp BP Pulse Ox
97.8 F 81 16 120/65 99
03/24/24 07:00 03/24/24 07:25 03/24/24 07:25 03/24/24 07:00 03/24/24 07:25
I&O
03/23/24 03/24/24 03/25/24
06:59 06:59 06:59
Intake Total 3520 / 3520 2099
Balance 3520 / 3520 2099
Review of Systems
-
History Source: Patient
Constitutional: Denies Fever
Respiratory: Denies Cough
Cardiac: Denies Chest Pain
Abdomen/GI: Reports Abdominal Pain (spasms); Denies Bloody Stools or Black Stools
Musculoskeletal: Denies Joint Pain
Neuro: Denies Dizzy
Physical Exam
-
General: Well Developed and Well Nourished
HEENT: Normocephalic and Atraumatic
Respiratory: Wheezes
Cardiac: Regular Rhythm and S1/S2
GI: Soft, Nondistended and Tender
Skin: Warm and Dry
Neuro: Awake and Alert
Psych: Calm
Data Reviewed
-
Labs: Labs Reviewed by me, Discussed with Physician and Discussed with Patient
--- NOTE | 2024-03-24 08:59 | W.PN.ID1 ---
Addendum entered and electronically signed by El Chu, 03/24/24 16:05:
I have personally performed a history and physical exam of the patient and discussed management with the resident. I reviewed the resident's note and agree with the documented findings and plan of care HPI/CC except the following changes in
documentation:
Patient reports overall decrease in frequency of stooling, and also notes some increase in consistency.
Continue with enteral vancomycin at current dose, to complete a total of 14 days.
Original Note:
Date of Service
Date of Service: March 24, 2024
Today's Communication
Continue vancomycin
Assessment / Plan
Assessment
C. diff colitis.
Leukocytosis; improved
Anemia
Conditions prior to admission:
COPD
Arrhythmia
Dyslipidemia
Interstitial cystitis
Recommendations:
Continue with current course of enteral vancomycin for 14 days, through 04/03/2024.
Monitor stool output and consistency.
Monitor for clinical improvement of abdominal discomfort.
WBC trending down , at 5.2, monitor
Creatinine at 0.7, monitor
Chief Complaint
-: C-diff
Subjective / Review of Systems
Patient reports having terrible abdominal pain, and nausea in the morning at around 4 AM today. But she did not have any bowel movement. Had nausea and abdominal pain has improved after taking Dilaudid and ondansetron.
Review of Systems: Abdominal Pain, Nausea and Diarrhea
Vital Signs / Physical Exam
Vital Signs
Vital Signs
Temp Pulse Resp BP Pulse Ox
97.8 F 81 16 120/65 99
03/24/24 07:00 03/24/24 07:25 03/24/24 07:25 03/24/24 07:00 03/24/24 07:25
Physical Exam
Constitutional: No Acute Distress and Comfortable
Head: Normocephalic
Cardiovascular: Regular Rate and S1/S2
Pulmonary: Clear
Gastrointestinal: Soft, Tender (Mildly tender, diffuse ), Non Distended and Normal Bowel Sounds
Skin: Warm and Dry
Neurological: Awake, Alert, Oriented and AO x 3
Objective Data
Lab Data
Lab Results
03/24/24 05:19
03/24/24 05:19
Estimated Creat Clear 69 ml/min 03/24/24 05:19
Lactic Acid 1.0 mmol/L (0.7-2.0) 03/20/24 19:18
Total Bilirubin 0.4 mg/dl (0.2-1.3) 03/21/24 08:03
AST 20 U/L (14-36) 03/21/24 08:03
ALT 11 U/L (0-35) 03/21/24 08:03
Alkaline Phosphatase 65 U/L (38-126) 03/21/24 08:03
Most recent labs reviewed.
Micro Results:
03/20/24 22:22 Salmonella/Shigella Culture - Final
Feces/Stool No Salmonella, Shigella, Aeromonas or Plesiomonas species
isolated.
Campylobacter Culture - Final
No Campylobacter species isolated.
Shiga Toxin Test - Pending
03/20/24 22:22 C. difficile GDH Antigen & Toxins - Final
Feces/Stool Toxigenic C.difficile Positive
Imaging:
03/20/2024 Abdominal plain film: Nonobstructive bowel gas pattern noted. No evidence of pneumoperitoneum.
03/16/2024 CT enterography: Marked gastric dilatation with fluid-filled stomach. Slight protrusion of the ileocecal valve into the cecum, but evaluation is somewhat limited secondary to paucity of intra-abdominal fat. No aranza ileocecal
intussusception is identified on this exam. No obstruction of the small bowel noted. No other areas of intussusception seen.
--- NOTE | 2024-03-24 09:49 | PN.CDI ---
CDI
- -
CDI:
Physician Documentation Request
Admit Date: 03/20/24 20:44
Dear Doctor Johnnie,
Please review the following and provide your response in the progress notes.
Clinical Indicators:
Pt admitted with abdominal pain, intussusception, and C-diff.
03/21 Registered dietitian note: 'Wt hx per records- (04/19/2023) 126lb
Significant 13lb 11.5% wt loss over past month due to abdominal pain, poor appetite.
Pt meets criteria for severe protein calorie malnutrition of acute illness with >2% wt loss x 1week and prolonged poor intake prior to admit <5% est energy needs >5days.'
Based on the above information and your assessment, which of the following most accurately represents the patient's nutritional status?
Severe protein calorie malnutrition
No nutritional deficiency
Other
Woodworth Criteria ([facility] Hospitalist 2017)
2 or more criteria must be present for either
non severe or severe malnutrition
Note that the criteria differs related to the
presence of an acute or chronic illness
Acute Illness
Energy Intake Non Severe: <75% for >7 days
Severe: <50% for >5 days
Weight Loss Non Severe: 1-2% over 1 week
5% over 1 month
7.5% over 3 months
1 year N/A
Severe: >2% over 1 week
>5% over 1 month
>7.5% over 3 months
1 year N/A
Additional criteria that can be used to Determine if Mild or Moderate Malnutrition ([employer] Manual 2018)
Use of terms such as suspected, likely, concern for, or probable (associated with a specific diagnosis that is being evaluated, monitored, or treated as if it exists) are acceptable and can be coded in the inpatient setting, when documented at the
time of discharge.
Thank you,
Dilia Kuhn RN, BSN
CDI Specialist
Available via [facility] [employer]
Please use your independent medical judgment in providing your response.
--- NOTE | 2024-03-24 12:48 | PTCARENOTE ---
pt verbalizing nausea and moderate pain in her stomach and lower back pain. prn zofran and prn pain med given. See MAR for proper charting
--- NOTE | 2024-03-24 13:37 | W.PN.UPDATE ---
Update Note
Progress Note Update
I saw and evaluated the patient. I reviewed the resident�s note and agree with findings and plan as documented in the resident�s note.
Patient diarrhea is improving, also have new nausea today no vomiting episode
Patient did not quite distressed from significant pelvic pressure/pain
1. Intussusception
-CT enterography reviewed and patient had concern of some intussusception at ileocecal valve
-Continue IV fluid and pain management
-Discussed with CRS and potentially planning to delay procedure with new finding of C. difficile colitis
2. C-diff colitis
-First episode with recent antibiotic exposure likely
-Patient on oral vancomycin, continue
-GI involved in care and help appreciated
-ID consulted by CRS, help appreciated
-Diarrhea slowly improving.
3. Gastric wall thickening
-Abnormal gastric wall thickening
-Gi planning EGD outpatient basis
4. Interstitial cystitis
-Patient has been diagnosed with possible interstitial cystitis
-Have undergone intravesical irrigation of medication (lidocaine vs bicarb presumably) by outpatient urology without much help
-Patient feels Bentyl/hyoscyamine is helpful -usually would like to hold with underlying C. difficile diarrhea although patient is quite distressed/tearful today on rounds and will resume back these medications
--- NOTE | 2024-03-24 13:56 | CM ---
C-Diff colitis. nausea, diarrhea improving. Discharge Plan of Care: Home with no needs.
[2024-03-24 15:05] VITALS: BP 99/55
[2024-03-24] MEDS: BENTYL 20 MG PO (16:07)
[2024-03-24] MEDS: SINGULAIR 10 MG PO (17:34)
[2024-03-24] MEDS: CRESTOR 10 MG PO (17:34)
[2024-03-24 23:14] VITALS: BP 127/67
[2024-03-25] MEDS: FIRVANQ 125 MG PO ×3 (06:05→17:08)
[2024-03-25] MEDS: ZOFRAN 4 MG IV (06:07)
[2024-03-25] MEDS: DILAUDID 0.5 MG IV (06:08)
[2024-03-25 06:31] LABS: Hematocrit 31.3 % (37.0-47.0); Hemoglobin 10.7 g/dL (12.0-16.0); Mean Corp Hgb Conc. 34.2 g/dL (33.0-37.0); Mean Corpuscular Volume 93.7 fL (81.0-99.0); Mean Platelet Volume 9.6 fL (7.4-10.4); Platelet Count 275 10^3/uL (130-400); Red Blood Cell Count 3.34 10^6/uL (4.20-5.40); Red Cell Dist. Width 12.8 % (11.5-14.5); White Blood Cell Count 4.9 10^3/uL (4.8-10.8)
[2024-03-25 06:53] LABS: Blood Urea Nitrogen 5 mg/dl (7-17); Carbon Dioxide 28 mmol/L (22-30); Chloride 108 mmol/L (98-107); Estimated Creatinine Clearance 69 ml/min; Glucose 89 mg/dl (70-99); Potassium 3.6 mmol/L (3.5-5.1); Sodium 140 mmol/L (135-145); eGFR > 60.00
[2024-03-25 07:05] VITALS: BP 131/63
[2024-03-25] MEDS: SYMBICORT 160/4.5 MCG INHALER 2 PUFF INH (07:09)
[2024-03-25] MEDS: VENTOLIN NEBULES 2.5 MG INH ×2 (07:09→13:16)
[2024-03-25] MEDS: PEPCID 40 MG PO (08:14)
[2024-03-25] MEDS: ZOLOFT 50 MG PO (08:14)
[2024-03-25] MEDS: KLONOPIN 0.5 MG PO (08:14)
--- NOTE | 2024-03-25 08:35 | W.PN.ID1 ---
Date of Service
Date of Service: March 25, 2024
Today's Communication
Continue enteral vancomycin.
Assessment / Plan
Assessment
C. diff colitis.
Leukocytosis; improved
Anemia
Conditions prior to admission:
COPD
Arrhythmia
Dyslipidemia
Interstitial cystitis
Recommendations:
Continue with current course of enteral vancomycin, 125 mg, 4 times daily, for 14 days, through 04/03/2024.
Low residue diet.
Monitor stool output and consistency.
Monitor for clinical improvement of abdominal discomfort.
WBC trending down , monitor
Creatinine WNL, monitor
Chief Complaint
-: C-diff (C.diff colitis)
Subjective / Review of Systems
Patient states that she did not have a bowel movement since 48 hours, and feels bloated. Had nausea and abdominal cramps early in the morning when she wakes up, subsided after taking ondansetron and Dilaudid.
Review of Systems: Abdominal Pain and Nausea
Vital Signs / Physical Exam
Vital Signs
Vital Signs
Temp Pulse Resp BP Pulse Ox
98.6 F 80 16 131/63 94
03/25/24 07:05 03/25/24 07:12 03/25/24 07:12 03/25/24 07:05 03/25/24 07:12
Physical Exam
Constitutional: No Acute Distress
Head: Normocephalic
Cardiovascular: S1/S2
Pulmonary: Clear
Gastrointestinal: Soft and Tender (Mildly tender)
Genito-Urinary: Suprapubic Tenderness
Skin: Warm and Dry
Neurological: Awake, Alert, Oriented and AO x 3
Objective Data
Lab Data
Lab Results
03/25/24 05:50
03/25/24 05:50
Estimated Creat Clear 69 ml/min 03/25/24 05:50
Lactic Acid 1.0 mmol/L (0.7-2.0) 03/20/24 19:18
Total Bilirubin 0.4 mg/dl (0.2-1.3) 03/21/24 08:03
AST 20 U/L (14-36) 03/21/24 08:03
ALT 11 U/L (0-35) 03/21/24 08:03
Alkaline Phosphatase 65 U/L (38-126) 03/21/24 08:03
Most recent labs reviewed.
Micro Results:
03/20/24 22:22 Salmonella/Shigella Culture - Final
Feces/Stool No Salmonella, Shigella, Aeromonas or Plesiomonas species
isolated.
Campylobacter Culture - Final
No Campylobacter species isolated.
Shiga Toxin Test - Final
No E. coli Shiga Toxin 1 or 2 detected.
03/20/24 22:22 C. difficile GDH Antigen & Toxins - Final
Feces/Stool Toxigenic C.difficile Positive
Imaging:
03/20/2024 Abdominal plain film: Nonobstructive bowel gas pattern noted. No evidence of pneumoperitoneum.
03/16/2024 CT enterography: Marked gastric dilatation with fluid-filled stomach. Slight protrusion of the ileocecal valve into the cecum, but evaluation is somewhat limited secondary to paucity of intra-abdominal fat. No aranza ileocecal
intussusception is identified on this exam. No obstruction of the small bowel noted. No other areas of intussusception seen.
--- NOTE | 2024-03-25 09:41 | W.PN.CRS1 ---
Today's Communication / Plan
-
Okay for discharge from our perspective
Follow-up with Dr. Pinto in 1 week.
Assessment/Plan
-
Assessment: 64yo female with generalized abdominal pain discomfort and diarrhea with findings on 2 imaging studies of ileocecal intussusception with cramping and foul smelling bowel movements, c.diff positive
Plan:
1. WBC normalized at 4.9.
2. Continue vancomycin for c.diff per infectious disease.
3. Stool cultures pending.
4. Colonoscopy/OR canceled given c.diff.
5. Continue low residue diet.
6. Appreciate hospitalist.
7. Okay for discharge from our standpoint when medically cleared. Follow-up with Dr. Pinto in the office in 1 week. Discussed with patient. Possible surgery in the future but this will be discussed at future office appointments.
Subjective Data
Subjective Data
Date of Service: March 25, 2024
Patient states that she is having less bowel movements. She now feels bloated and constipated. Her pain is overall improved.
Objective Data
-
Vital Signs
Temp Pulse Resp BP Pulse Ox
98.6 F 80 16 131/63 94
03/25/24 07:05 03/25/24 07:12 03/25/24 07:12 03/25/24 07:05 03/25/24 09:27
Intake & Output
03/24/24 03/25/24 03/26/24
06:59 06:59 06:59
Intake Total 2099 1080 / 1080
Balance 2099 1080 / 1080
Intake:
Oral fluids 2099 1080 / 1080
Other:
Number of approximated SMALL 2
amounts of urine
Number of approximated MODERATE 3 10
amounts of urine
Number of unmeasured liquid
stools
Rectum 3
Lab Results
03/25/24 05:50
03/25/24 05:50
Physical Exam
-
General: No Acute Distress and AOx3
Abdomen: Soft, Non Distended and Non Tender
--- NOTE | 2024-03-25 13:52 | W.PN.HOSP.TC ---
Addendum entered and electronically signed by Wan Blair MD 03/26/24 08:00:
Add on to dx list
Severe PCM
Addendum entered and electronically signed by Wan Blair MD 03/25/24 16:42:
I saw and evaluated the patient. I reviewed the resident�s note and agree with findings and plan as documented in the resident�s note.
1. Intussusception
-CT enterography reviewed and patient had concern of some intussusception at ileocecal valve
-Continue IV fluid and pain management
-Discussed with CRS and potentially planning to delay procedure with new finding of C. difficile colitis. Patient follow-up with colorectal surgery in office.
2. C-diff colitis
-First episode with recent antibiotic exposure likely
-Patient on oral vancomycin, continue
-GI involved in care and help appreciated
-ID consulted by CRS, help appreciated
-Patient denies of any diarrhea. Follow-up abdomen x-ray showing some moderate stool burden.
-Patient educated on limiting Bentyl/hyoscyamine use while recovering for C. difficile colitis.
3. Gastric wall thickening
-Abnormal gastric wall thickening
-Gi planning EGD outpatient basis
4. Interstitial cystitis
-Patient has been diagnosed with possible interstitial cystitis
-Have undergone intravesical irrigation of medication (lidocaine vs bicarb presumably) by outpatient urology without much help
-Patient feels Bentyl/hyoscyamine is helpful -usually would like to hold with underlying C. difficile diarrhea although patient is quite distressed/tearful today on rounds and will resume back these medications
Patient cleared for discharge today
Original Note:
Today's Communication/Plan
-
Abdominal x-ray
Discharge home if clear
Oral Vanco to complete 14 days course
Assessment / Plan
Assessment / Plan
60-year-old female presented with complains of abdominal pain, diarrhea and weakness. She completed a recent antibiotic course for interstitial cystitis and diverticulitis. C. difficile positive
# C. difficile coilitis/diarrhea
- improving diarrhea but continues to have milder spasm/abdominal pain
-Recent antibiotics for interstitial cystitis(ciprofloxacin, metronidazole for 7 days in first week of February)
-Continue oral vancomycin 125 mg p.o. 4 times daily day 5x
-EGD as OP for further evaluation of thickening in the antrum show known CAD
-Pepcid for nausea with Vanco
-Low residue diet
-Patient feels constipated- check abdominal Xray
# Abdominal pain/possible intussusception
-Followed by colorectal surgeon
-Reevaluation after treatment of C. difficile
-Colonoscopy postponed
-Celiac panel negative
# Gastric wall thickening
-GI considering EGD as OP
# Interstitial cystitis
-Bentyl was helpful per patient
- d/c hyoscyamine
-Resume as needed basis
# Mild COSME-likely from dehydration
-Resolved
-Creatinine 0.7
# Leukocytosis
-WBC 4.9- resolved
-Repeat CBC in a.m.
# Asthma/COPD
-Continue with inhaler, Singulair
# Hyperlipidemia
-Continue Crestor
# Anxiety
-Continue Klonopin, sertraline
Code: Full
Anticipated Discharge: Today
Subjective/Interval History
-
Date of Service: March 25, 2024
Objective Data
-
Labs:
Laboratory Results
03/25/24
05:50
WBC 4.9
Hgb 10.7 L
Hct 31.3 L
Plt Count 275
Sodium 140
Potassium 3.6
Chloride 108 H
Carbon Dioxide 28
BUN 5 L
Creatinine 0.7
Glucose 89
Calcium 9.0
Vital Signs:
Vital Signs
Temp Pulse Resp BP Pulse Ox
98.6 F 84 16 131/63 94
03/25/24 07:05 03/25/24 13:21 03/25/24 13:21 03/25/24 07:05 03/25/24 09:27
I&O
03/24/24 03/25/24 03/26/24
06:59 06:59 06:59
Intake Total 2099 1080 / 1080
Balance 2099 1080 / 1080
Review of Systems
-
History Source: Patient
Constitutional: Denies Fever
Cardiac: Denies Chest Pain
Abdomen/GI: Reports Abdominal Pain (very mild) and Nausea; Denies Vomiting, Diarrhea or Bloody Stools
Musculoskeletal: Denies Joint Pain or Muscle Pain
Neuro: Denies Headache
Hematologic / Lymphatic: Denies Bleeding
Physical Exam
-
General: Well Developed and Well Nourished
HEENT: Normocephalic and Atraumatic
Respiratory: Clear to Auscultation
Cardiac: Regular Rhythm
GI: Soft, Nontender and Nondistended
Skin: Warm and Dry
Neuro: Awake, Alert and Oriented
Psych: Calm
Data Reviewed
-
Labs: Labs Reviewed by me, Discussed with Physician and Discussed with Patient
--- NOTE | 2024-03-25 15:21 | CM ---
CM spoke with patient via phone; pending result of Abdominal xray, patient will discharge to home later today
Plan: Discharge to home when cleared to go by Attending; no needs; son will transport home
[2024-03-25 15:45] VITALS: BP 111/66
--- NOTE | 2024-03-25 17:36 | PTCARENOTE ---
Patient discharged home. This RN reviewed patient's discharge instructions/medications with patient who verbalized understanding and confirmed medication scripts were forwarded to correct pharmacy. IV removed by this RN, patient dressed and gathered
belongings independently in room. Patient taken down to son's car at main lobby via staff escort and wheelchair.
== END 2024-03-25 17:33 | disposition home or self-care (01) | DRG 371 ==
LOC: 2 NORTH 20:44
PROVIDERS: Clinical Nurse Specialist Family Health; Nurse Practitioner Family; ADMITTING PHYSICIAN Surgery; ATTENDING PHYSICIAN Hospitalist; CONSULT PHYSICIAN Internal Medicine Gastroenterology; CONSULT PHYSICIAN Student in an Organized Health Care Education/Training Program; EMERGENCY PHYSICIAN Emergency Medicine; FAMILY PHYSICIAN Family Medicine
DX: A04.72 Enterocolitis due to Clostridium difficile, not specified as recurrent (principal); E43 Unspecified severe protein-calorie malnutrition; K56.1 Intussusception; N17.9 Acute kidney failure, unspecified; N39.0 Urinary tract infection, site not specified; J45.909 Unspecified asthma, uncomplicated; E78.5 Hyperlipidemia, unspecified; Z68.20 Body mass index [BMI] 20.0-20.9, adult
CPT/HCPCS: 74018; 80048; 80053; 82784; 83516; 83605; 83735; 85025; 85027; 86231; 86803; 87045; 87046; 87077; 87324; 87427; 87449; 94640; 96361; 96374; 96375; 99285; 99406

== ENCOUNTER 2024-03-28 11:27 | Emergency (ER) | payer BC, SELFPAY ==
[2024-03-28 11:31] VITALS: BP 117/72
[2024-03-28 12:18] VITALS: BP 99/64
[2024-03-28] MEDS: OMNIPAQUE 50 ML PO (12:19)
[2024-03-28] MEDS: ZOFRAN 4 MG IV (12:23)
[2024-03-28] MEDS: DILAUDID 0.5 MG IV (12:23)
[2024-03-28] MEDS: NSS 1000 IV (12:23)
[2024-03-28 12:26] LABS: % Basophils 1.1 % (0-2); % Eosinophils 0.9 % (0-6); % Immature Granulocytes 0.5 % (0-0.5); % Lymphocytes 32.3 % (20.5-51.1); % Monocytes 7.5 % (1.7-9.3); % Neutrophils 57.7 % (42.2-75.2); Absolute Basophils 0.1 10^3/uL (0-0.2); Absolute Eosinophils 0.1 10^3/uL (0-0.7); Absolute Lymphocytes 2.1 10^3/uL (1.2-3.4); Absolute Monocytes 0.5 10^3/uL (0.1-0.6); Absolute Neutrophils 3.7 10^3/uL (1.4-6.5); Hematocrit 35.1 % (37.0-47.0); Hemoglobin 11.8 g/dL (12.0-16.0); Mean Corp Hgb Conc. 33.6 g/dL (33.0-37.0); Mean Corpuscular Hgb 31.6 pg (27.0-31.0); Mean Corpuscular Volume 93.9 fL (81.0-99.0); Mean Platelet Volume 9.3 fL (7.4-10.4); Nucleated Red Blood Cells % 0 %; Platelet Count 279 10^3/uL (130-400); Red Blood Cell Count 3.74 10^6/uL (4.20-5.40); Red Cell Dist. Width 12.6 % (11.5-14.5); White Blood Cell Count 6.4 10^3/uL (4.8-10.8)
[2024-03-28 12:40] LABS: ALT (SGPT) 14 U/L (0-35); AST (SGOT) 27 U/L (14-36); Alkaline Phosphatase 60 U/L (38-126); Blood Urea Nitrogen 14 mg/dl (7-17); Calcium 9.8 mg/dl (8.4-10.2); Carbon Dioxide 28 mmol/L (22-30); Chloride 105 mmol/L (98-107); Estimated Creatinine Clearance 55 ml/min; Lipase 98 U/L (23-300); Potassium 4.1 mmol/L (3.5-5.1); Sodium 138 mmol/L (135-145); Total Bilirubin 0.4 mg/dl (0.2-1.3); Total Protein 6.2 g/dl (6.3-8.2); eGFR > 60.00
[2024-03-28 12:46] LABS: Glucose 131 mg/dl (70-99)
[2024-03-28 13:00] VITALS: BP 107/83
--- NOTE | 2024-03-28 13:20 | ED.GENMED ---
History of Present Illness
General
Chief Complaint: Abdominal Pain
Source: patient and records
Time Seen by Provider: 03/28/24 12:00
History of Present Illness
History of Present Illness:
58-year-old female with past medical history of COPD, hyperlipidemia, recently admitted and treated for C. difficile colitis and intussusception presenting back to the emergency department for evaluation of worsening lower abdominal pain, usually in
the morning time and while attempting to have a bowel movement, slightly improved presently and accompanied with mild nausea but no vomiting. Patient states that she was constipated at her discharge but since had a bowel movement this past Thursday
and had 1 this morning as well but states had considerable pain during the bowel movement. She contacted the colorectal surgery team and was recommended to come to the ER for further evaluation. She denies any fevers, chills, rigors. She does
note that she has been at a few different hospitals for this pain and it was noted that her C. difficile was likely from antibiotic she had been on. She also notes that she was treated for interstitial cystitis with a procedure done as an
outpatient but notes no relief of symptoms with that procedure either.
Past History
Past History
ED Past Medical History: Asthma, COPD (Questionable Asthma/COPD according to patient), Hypercholesterolemia and Other (Kidney stones, Interstitial cystitis)
ED Past Surgical History: None; Negative Cardiac
Social History
Tobacco: Smoker
Alcohol: None
Drug: None
Personal:
Living: with family
Employment: Employed
Family History
Family History: CAD
Review of Systems
Review of Systems
All Other Systems: ROS reviewed and negative except as documented in HPI and ROS
Phy Exam
Physical Exam
Physical Exam:
GENERAL: Alert , anxious and somewhat tearful but pleasant
EYE: clear conjunctiva b/l
HEAD: NCAT
ENT: o/p clr, mmm.
CARDIAC: Regular rate and rhythm .
LUNGS: Clear breath sounds bilaterally, no acute respiratory distress, no wheezes/rales/rhonchi
ABDOMEN: Soft, without focal tenderness, no r/g, no cvat
NEUROLOGICAL: Alert and oriented
SKIN: Warm and dry, skin intact.
MUSCULOSKELETAL: No edema, well perfused.
PSYCH: Normal and appropriate interaction.
Scores
Heart Failure Risk
Heart Failure Risk Score: Not Applicable
Heart Score for Chest Pain Patients
STEMI patient?: Not applicable
Withdrawal Assessment of Alcohol
Withdrawal Assessment Completed?: Not applicable
Course
Orders/Labs/Results
Orders:
Orders
03/28/24 12:01
Electrocardiogram (*1) Urgent
Reason for Study: Tachycardia
EKG- Treatment ONCE
03/28/24 12:10
Iohexol [Omnipaque] See Protocol PO NOW STA
03/28/24 12:11
CT Abd/pel W Iv And Oral Contr Urgent
Comment:
Reason For Exam: recent c.diff, hx intussuception
03/28/24 12:14
Complete Blood Count/With Diff Urgent
Comprehensive Metabolic Panel Urgent
Lipase Urgent
03/28/24 12:16
HYDROmorphone [Dilaudid] 0.5 mg .ROUTE .STK-MED ONE
03/28/24 12:17
Ondansetron Injectable [Zofran] 4 mg .ROUTE .STK-MED ONE
03/28/24 12:21
0.9% Sodium Chloride 1000 ml [Nss] 1,000 ml IV BOLUS
Ondansetron Injectable [Zofran] 4 mg IV NOW STA
03/28/24 12:22
HYDROmorphone [Dilaudid] 0.5 mg IV NOW STA
03/28/24 13:46
Urinalysis Reflex To Culture Urgent
Date Specimen was Collected: 03/28/24
Time Specimen was Collected: 13:37
Abnormal Lab Results
03/28/24
12:14
RBC 3.74 L 10^6/uL
(4.20-5.40)
Hgb 11.8 L g/dL
(12.0-16.0)
Hct 35.1 L %
(37.0-47.0)
MCH 31.6 H pg
(27.0-31.0)
Glucose 131 H mg/dl
(70-99)
Total Protein 6.2 L g/dl
(6.3-8.2)
03/28/24 12:14
03/28/24 12:14
Vital Signs
Initial and Last Documented VS:
Initial Vital Signs
Temp Pulse Resp BP Pulse Ox
98.2 F 109 20 117/72 96
03/28/24 11:31 03/28/24 11:31 03/28/24 11:31 03/28/24 11:31 03/28/24 11:31
Last Documented Vital Signs
Temp Pulse Resp BP Pulse Ox
98.2 F 65 15 111/83 96
03/28/24 11:31 03/28/24 14:45 03/28/24 14:45 03/28/24 16:47 03/28/24 14:45
MDM/Problems Addressed
Differential Diagnosis Includes:
Recurring intussusception, constipation secondary to opiates, continued colitis, other acute surgical complication
MDM/Problems Addressed:
58-year-old female presenting to the emergency department for evaluation of waxing and waning lower abdominal pain noting the pain seems to be much worse with bowel movements. Recent admission here for possible intussusception as well as treatment
for C. difficile colitis thought to be caused by antibiotic use. Patient is without any fevers currently. Her abdominal exam is reassuring. Given her history will recheck CT scan to evaluate. Labs and urine ordered. Symptomatic control with
Dilaudid and Zofran.
*Radiology
Radiology exam reviewed: radiology read reviewed
*Pulse Oximetry
Patient hypoxic: no
*EKG
Interpreted by ED Provider?: Yes
Comparison EKG: no changes
Heart Rate: 89
Rate: normal
Rhythm: sinus
[place]: normal axis
Ischemia: no ischemia
*Money Room Supervisor Interpretation
Rate: normal
Rhythm: sinus
*Critical Care Note
Total Time (30-74mins, 75-104mins- exclusive of procedures): Not Applicable
Data Reviewed
Review of Other/Old Records Reveals: Labs, Records, Radiology Studies and Discharge Summary
Source: patient and records
Patient Management
Discussion with other providers: Automatic Silk Screen Printer
Escalation/DeEscalation of care consider admission/obs:
Patient CT scan shows mild bowel wall thickening and inflammatory changes adjacent to the cecum, overall unchanged from previous. There is also some narrowing within the gastric antrum and mild gastric dilatation. Radiology recommending upper GI
endoscopy which patient has a scheduled follow-up for already. No evidence for recurrent intussusception or acute surgical abdomen. Patient reassessed and reviewed all of these findings with her. She was provided with a printout of CT report. I
did discuss the case with colorectal surgery who states at this time nothing else to do and they will closely follow-up with the patient in the coming week. Patient to continue her home medication regimen including the oral vancomycin. Aware of
return precautions to the ER but otherwise stable for discharge home.
ED Attending Note
-
Portions of this chart may have been created with voice recognition software.� Occasional wrong word or��sound alike� substitutions may have occurred due to the inherent limitations of voice recognition software.
Discharge Plan
Departure
Patient Disposition: Home (Routine Discharge)
Date of Disposition: 03/28/24
Time of Disposition: 16:40
Patient with high blood pressure during this ER visit?: No
Discharge Problem:
Abdominal pain
Instructions: Abdominal Pain
Prescriptions:
No Action
hydrocodone-acetaminophen 5-325 mg Tablet
1 tab PO Q6HPRN PRN (Reason: severe pain)
clonazepam 0.5 mg Tablet
0.5 mg PO BID
hyoscyamine sulfate 0.125 mg Tablet, Sublingual
0.125 mg PO Q4HPRN PRN (Reason: spasms)
Hold Instructions: Resume on 04/07/24. Hold until infection resolves
aspirin 81 mg Tablet,Chewable
81 mg PO DAILY
montelukast [Singulair] 10 mg Tablet
10 mg PO QPM
sertraline 50 mg Tablet
50 mg PO DAILY
rosuvastatin 10 mg Tablet
10 mg PO QPM
fluticasone furoate-vilanterol [Breo Ellipta] 100-25 mcg/dose Blister With Device
1 inh INHALATION R DAILY
potassium chloride 20 mEq Tablet Extended Release
20 meq PO BID
acetaminophen [Tylenol] 325 mg Tablet
650 mg PO Q4HPRN PRN (Reason: mild pain)
albuterol sulfate 2.5 mg /3 mL (0.083 %) Solution For Nebulization
2.5 mg INHALATION R TID
dicyclomine 20 mg Tablet
20 mg PO QID PRN (Reason: spasm/pelvic pain) Qty: 30 0RF
ondansetron 4 mg Tablet,Disintegrating
4 mg PO Q6HPRN PRN (Reason: nausea) Qty: 10 0RF
vancomycin 125 mg capsule
125 mg PO QID Qty: 40 0RF
oxycodone 5 mg tablet
5 mg PO Q8H PRN (Reason: mod sev pain) Qty: 10 0RF
Referrals:
Daniel De Luna DO [Family Provider] -
Interventions
Interventions:
*Risk Screen - Suicide Last Done: 03/28/24 11:31
*General Assessment Last Done: 03/28/24 11:31
*Neglect/Abuse Screening Last Done: 03/28/24 11:31
ED- Fall Risk Assessment Last Done: 03/28/24 12:13
*ED COVID-19 Vaccine History Last Done: 03/28/24 11:57
*Nursing Disposition Last Done: 03/28/24 16:47
RB-Poxxjq-Sybwgsxwwf Assessment Last Done: 03/28/24 12:13
Discharge Date and Time
Discharge Date/Time: 03/28/24 16:52
Print Language: CHINESE
[2024-03-28 14:26] LABS: Urine Albumin Negative (Neg - Trace); Urine Bilirubin Negative (Negative); Urine Character Clear (Clear); Urine Color Straw; Urine Glucose Negative (Negative); Urine Ketone Negative (Negative); Urine Leukocyte Negative (Negative); Urine Nitrite Negative (Negative); Urine Occult Blood Negative (Negative); Urine Specific Gravity 1.005 (<1.030); Urine Urobilinogen Negative (Neg - 1+)
[2024-03-28 16:47] VITALS: BP 111/83
== END 2024-03-28 16:52 | disposition home or self-care (01) ==
LOC: EMR 11:27
PROVIDERS: Physician Assistant Medical; EMERGENCY PHYSICIAN Emergency Medicine; FAMILY PHYSICIAN Family Medicine
DX: R10.30 Lower abdominal pain, unspecified (principal); J44.89 Other specified chronic obstructive pulmonary disease; E78.00 Pure hypercholesterolemia, unspecified; F17.200 Nicotine dependence, unspecified, uncomplicated; N30.10 Interstitial cystitis (chronic) without hematuria; Z82.49 Family history of ischemic heart disease and other diseases of the circulatory system; Z87.442 Personal history of urinary calculi
CPT/HCPCS: 99284; 96374; 96375; 96361; 74177; 80053; 81003; 83690; 85025; 93005; Q9967

== ENCOUNTER 2024-04-03 17:42 | Inpatient (IN) | payer BC, SELFPAY ==
[2024-04-03] VITALS (9 sets, daily range): BP systolic 97–121; BP diastolic 53–75; BMI 20.4; BMI 19.5
[2024-04-03 11:31] LABS: % Basophils 0.9 % (0-2); % Eosinophils 3.2 % (0-6); % Immature Granulocytes 0.2 % (0-0.5); % Lymphocytes 40.5 % (20.5-51.1); % Monocytes 6.9 % (1.7-9.3); % Neutrophils 48.3 % (42.2-75.2); Absolute Eosinophils 0.1 10^3/uL (0-0.7); Absolute Lymphocytes 1.8 10^3/uL (1.2-3.4); Absolute Monocytes 0.3 10^3/uL (0.1-0.6); Absolute Neutrophils 2.1 10^3/uL (1.4-6.5); Hematocrit 35.1 % (37.0-47.0); Hemoglobin 12.1 g/dL (12.0-16.0); Mean Corp Hgb Conc. 34.5 g/dL (33.0-37.0); Mean Corpuscular Hgb 32.1 pg (27.0-31.0); Mean Corpuscular Volume 93.1 fL (81.0-99.0); Mean Platelet Volume 9.9 fL (7.4-10.4); Nucleated Red Blood Cells % 0 %; Platelet Count 262 10^3/uL (130-400); Red Blood Cell Count 3.77 10^6/uL (4.20-5.40); White Blood Cell Count 4.4 10^3/uL (4.8-10.8)
[2024-04-03 11:47] LABS: ALT (SGPT) 13 U/L (0-35); AST (SGOT) 23 U/L (14-36); Albumin 4.2 g/dl (3.5-5.0); Alkaline Phosphatase 69 U/L (38-126); Blood Urea Nitrogen 14 mg/dl (7-17); Calcium 10.1 mg/dl (8.4-10.2); Carbon Dioxide 26 mmol/L (22-30); Chloride 107 mmol/L (98-107); Estimated Creatinine Clearance 45 ml/min; Glucose 108 mg/dl (70-99); Lipase 147 U/L (23-300); Potassium 4.8 mmol/L (3.5-5.1); Sodium 138 mmol/L (135-145); Total Bilirubin 0.4 mg/dl (0.2-1.3); Total Protein 6.5 g/dl (6.3-8.2); eGFR 57.52
--- NOTE | 2024-04-03 12:05 | ED.GENMED ---
History of Present Illness
General
Chief Complaint: Abdominal Symptoms
Source: patient
Time Seen by Provider: 04/03/24 11:42
History of Present Illness
History of Present Illness:
58-year-old female presents to the emergency room complaining of abdominal cramping. Patient states she has episodes of abdominal cramping which are severe. Patient has been experiencing the symptoms to some extent since January. She was seen at
another hospital for this and there was some question of intussusception. Patient also has interstitial cystitis for which she had received antibiotics recently. Evidently patient was seen by colorectal surgery and had an outpatient CT angiogram
which showed some persistent abnormalities. Initial plan was for endoscopy and possible surgical intervention however the patient turned out to develop diarrhea and was C. difficile positive. She has been taking oral Vanco for this. Her diarrhea
has improved but she continues to have abdominal pain. Patient has been in communication with Dr. Chu for infectious disease. He changed her from oral Vanco to Dificid to see if that would help her symptoms but it has not.
Past History
Past History
ED Past Medical History: Asthma, COPD (Questionable Asthma/COPD according to patient), Hypercholesterolemia and Other (Kidney stones, Interstitial cystitis)
ED Past Surgical History: None; Negative Cardiac
Social History
Tobacco: Smoker
Alcohol: None
Drug: None
Personal:
Living: with family
Employment: Employed
Family History
Family History: CAD
Phy Exam
Physical Exam
Physical Exam:
General: Awake, Alert, Oriented X3. No acute distress.
Vitals: unremarkable
Head: Atraumatic
Eyes: Pupils equal, EOMI
Throat: Airway intact, no exudates
Neck: Trachea midline
Lungs: Clear and equal b/l
Heart: Regular rate, no murmurs
Abd: Soft, no significant tenderness to palpation, No pulsatile mass
Neuro: Nonfocal
Skin: Warm, dry, no rash
Extremities: pulses equal b/l, no edema
Course
Orders/Labs/Results
Orders:
Orders
04/03/24 11:08
Complete Blood Count/With Diff Urgent
Comprehensive Metabolic Panel Urgent
Lipase Urgent
04/03/24 12:05
0.9% Sodium Chloride 1000 ml [Nss] 1,000 ml IV BOLUS
04/03/24 12:13
Lactic Acid Urgent
Abnormal Lab Results
04/03/24
11:08
WBC 4.4 L 10^3/uL
(4.8-10.8)
RBC 3.77 L 10^6/uL
(4.20-5.40)
Hct 35.1 L %
(37.0-47.0)
MCH 32.1 H pg
(27.0-31.0)
Creatinine 1.1 H mg/dL
(0.6-1.0)
Glucose 108 H mg/dl
(70-99)
04/03/24 11:08
04/03/24 11:08
Vital Signs
Initial and Last Documented VS:
Initial Vital Signs
Temp Pulse Resp BP Pulse Ox
98.5 F 95 16 101/61 98
04/03/24 10:43 04/03/24 10:43 04/03/24 10:43 04/03/24 10:43 04/03/24 10:43
Last Documented Vital Signs
Temp Pulse Resp BP Pulse Ox
98.5 F 60 19 113/75 98
04/03/24 10:43 04/03/24 17:00 04/03/24 17:00 04/03/24 15:00 04/03/24 15:15
MDM/Problems Addressed
Differential Diagnosis Includes:
Intermittent intussusception, ileus, gastroparesis, gastritis
MDM/Problems Addressed:
Patient has intermittent pain that is quite severe particular in the mornings. Imaging recently has not shown any clear causative factor. Patient has imaging that showed some level of intussusception in the past. Perhaps the patient is having
intermittent intussusception which is causing her pain. Currently there is no evidence for an acute abdomen. I did discuss the patient's presentation with Dr. Arvizu who is on-call and felt that he would not have much to offer if she does not need
emergent surgery. There is no indication for emergency surgery
Estimation at this point. Case discussed with gastroenterology who came and evaluated the patient. The cause of her symptoms is unclear but they recommended hospitalization with probable endoscopy here along with supportive care. Due to severity
of her symptoms it would seem very difficult to justify sending her home.
*Pulse Oximetry
Patient hypoxic: no
*Critical Care Note
Total Time (30-74mins, 75-104mins- exclusive of procedures): Not Applicable
Data Reviewed
Review of Other/Old Records Reveals: Radiology Studies (March 28, March 16)
Patient Management
Social determinants of health affecting care: Living situation
Discussion with other providers: Hospitalist
ED Attending Note
-
Portions of this chart may have been created with voice recognition software.� Occasional wrong word or��sound alike� substitutions may have occurred due to the inherent limitations of voice recognition software.
Discharge Plan
Departure
Patient Disposition: Admit
Date of Disposition: 04/03/24
Time of Disposition: 16:51
Presentation/result/management discussed w/ accepting MD/DO: Hospitalist
Condition: Fair
Discharge Problem:
Abdominal pain
Prescriptions:
No Action
clonazepam 0.5 mg Tablet
0.5 mg PO BID
hyoscyamine sulfate 0.125 mg Tablet, Sublingual
0.125 mg PO Q4HPRN PRN (Reason: spasms)
aspirin 81 mg Tablet,Chewable
81 mg PO DAILY
montelukast [Singulair] 10 mg Tablet
10 mg PO QPM
sertraline 50 mg Tablet
50 mg PO DAILY
rosuvastatin 10 mg Tablet
10 mg PO QPM
fluticasone furoate-vilanterol [Breo Ellipta] 100-25 mcg/dose Blister With Device
1 inh INHALATION R DAILY
ondansetron 4 mg Tablet,Disintegrating
4 mg PO Q6HPRN PRN (Reason: nausea) Qty: 10 0RF
ibuprofen [Advil] 200 mg Tablet
200 mg PO Q6HPRN PRN (Reason: mild pain)
Prelief 65 mg Tablet
65 mg PO TIDPRN PRN (Reason: gi issuse)
Patient Comments:
contain calcium and magnesium
Uro-MP 118-10-40.8-36 mg Capsule
1 tab PO TIDPRN PRN (Reason: discomfort )
Dificid 200 mg Tablet
200 mg PO BID
dicyclomine 20 mg tablet
20 mg PO QIDPRN PRN (Reason: spasm/pelvic pain)
oxycodone 5 mg tablet
5 mg PO Q8HPRN PRN (Reason: mod sev pain)
Referrals:
Daniel De Luna DO [Family Provider] -
Interventions
Interventions:
*Risk Screen - Suicide Last Done: 04/03/24 11:18
*General Assessment Last Done: 04/03/24 11:18
*Neglect/Abuse Screening Last Done: 04/03/24 11:18
*ED COVID-19 Vaccine History Last Done: 04/03/24 11:18
AY-Bgayrj-Gtzwyqfohq Assessment Last Done: 04/03/24 11:18
Discharge Date and Time
Print Language: ROMANSH
[2024-04-03] MEDS: NSS 1000 IV (12:13)
[2024-04-03 12:39] LABS: Lactic Acid 0.7 mmol/L (0.7-2.0)
--- NOTE | 2024-04-03 16:55 | CON.GI ---
Consultation
-
Date/Time Consultation Requested: 04/03/24 2:59pm
Date/Time Consultation Performed: 04/03/24 4:56pm
Requesting Provider: El Olguin
Performing Provider: Hector Ashby
Reason for Consultation: abd pain
Medical History
Chief Complaint / HPI
Chief Complaint: abd pain
History of Present Illness:
Patient is a 58-year-old female who presents with abdominal pain. Her symptoms began around with severe cramping. She was seen at [facility] ER several times and eventually admitted due to findings suggesting intussusception. She
had what sounds like a small bowel follow-through that demonstrated no obstruction and she was discharged from that admission. She followed up with Dr. Pinto and had CT enterography March 16 that showed marked gastric dilation and thickening of the
gastric antrum. There is also findings of the ileocecal valve prolapsing into the cecum suggestive of intussusception. He was planning to admit her for colonoscopy and endoscopy prior to robotic ileocecectomy. She in the interim was admitted due
to profuse diarrhea on March 20. She was found to be C. difficile positive and started on p.o. Vanco which resolved her diarrhea during that admission. In fact prior to discharge and x-rays check to make sure she is not obstructed. Since discharge
she has had persistent abdominal pain that is debilitating upon awakening first thing in the morning. She has taken extensive pain medication regimen including OxyContin and she has been taking Aleve but is somewhat vague about the quantification.
She had colonoscopy in [address] Brito- alcira
Past Medical History
Past Medical History: Asthma, COPD, HTN, Hypercholesterolemia, Valvular Disease (MVP) and Other (interstitial cystitis, family hx of colon cancer)
Past Surgical History: Orthopedic
Social History
Tobacco: Smoker (10 cigarettes/day)
Alcohol: None
Drug: None
Personal:
Living: With Family
Family History
Family History: Cancer (CRC-mother)
Allergies / Home Medications
Allergy/AdvReac Type Severity Reaction Status Date / Time
sulfamethoxazole Allergy Severe Unknown Verified 03/28/24 11:34
[From Bactrim]
trimethoprim [From Bactrim] Allergy Severe Unknown Verified 03/28/24 11:34
�Medication �Instructions �Recorded
aspirin 81 mg chewable tablet 81 mg PO DAILY 03/20/24
clonazepam 0.5 mg tablet 0.5 mg PO BID 03/20/24
fluticasone furoate 100 1 inh inhalation R DAILY 03/20/24
mcg-vilanterol 25 mcg/dose
inhalation powder (Breo Ellipta)
hyoscyamine sulfate 0.125 mg 0.125 mg PO Q4HPRN PRN spasms 03/20/24
sublingual tablet
montelukast 10 mg tablet 10 mg PO QPM 03/20/24
(Singulair)
rosuvastatin 10 mg tablet 10 mg PO QPM 03/20/24
sertraline 50 mg tablet 50 mg PO DAILY 03/20/24
ondansetron 4 mg disintegrating 4 mg PO Q6HPRN PRN nausea #10 tabs 03/25/24
tablet
calcium glycerophosphate 65 mg 65 mg PO TIDPRN PRN gi issuse 04/03/24
tablet (Prelief)
dicyclomine 20 mg tablet 20 mg PO QIDPRN PRN spasm/pelvic 04/03/24
pain
fidaxomicin 200 mg tablet (Dificid) 200 mg PO BID 04/03/24
ibuprofen 200 mg tablet (Advil) 200 mg PO Q6HPRN PRN mild pain 04/03/24
methenam 118 mg-m.blue 10 1 tab PO TIDPRN PRN discomfort 04/03/24
mg-s.phos 40.8 mg-p.salic 36
mg-hyos capsule (Uro-MP)
oxycodone 5 mg tablet 5 mg PO Q8HPRN PRN mod sev pain 04/03/24
Review of Systems
-
All other systems: A 12 pt ROS was Negative except as stated above in HPI
Vital Signs
Temp Pulse Resp BP Pulse Ox
98.5 F 79 26 113/75 98
04/03/24 10:43 04/03/24 16:30 04/03/24 16:30 04/03/24 15:00 04/03/24 15:15
Physical Exam
Exam
General: Well Developed and Well Nourished
HEENT: Normocephalic and Atraumatic
Respiratory: Non Labored Respirations
GI: Soft, Non Distended and Tender
Skin: Warm and Dry
Results
WBC 4.4 10^3/uL (4.8-10.8) L 04/03/24 11:08
Hgb 12.1 g/dL (12.0-16.0) 04/03/24 11:08
Hct 35.1 % (37.0-47.0) L 04/03/24 11:08
MCV 93.1 fL (81.0-99.0) 04/03/24 11:08
Plt Count 262 10^3/uL (130-400) 04/03/24 11:08
Absolute Neuts (auto) 2.1 10^3/uL (1.4-6.5) 04/03/24 11:08
Sodium 138 mmol/L (135-145) 04/03/24 11:08
Potassium 4.8 mmol/L (3.5-5.1) 04/03/24 11:08
Chloride 107 mmol/L (98-107) 04/03/24 11:08
Carbon Dioxide 26 mmol/L (22-30) 04/03/24 11:08
BUN 14 mg/dl (7-17) 04/03/24 11:08
Creatinine 1.1 mg/dL (0.6-1.0) H 04/03/24 11:08
Calcium 10.1 mg/dl (8.4-10.2) 04/03/24 11:08
Total Bilirubin 0.4 mg/dl (0.2-1.3) 04/03/24 11:08
AST 23 U/L (14-36) 04/03/24 11:08
ALT 13 U/L (0-35) 04/03/24 11:08
Alkaline Phosphatase 69 U/L (38-126) 04/03/24 11:08
Lipase 147 U/L (23-300) 04/03/24 11:08
Diagnostic Image Results:
Prior GI Procedures:
EGD:
Colonoscopy:
Assessment / Plan
-
Summary: 58yo female presents with daily severe abd pain requiring pain meds since . Eval has shown gastric distention and antral thickening and prolapse of IC valve into cecum suggesting intusussception. Plan was for EGD/colon prior
to robotic ileocecectomy but she developed C diff in the interim 03/20 treated with PO vanco and changed recently to dificid by ID. Plan was to hold off on colonoscopy/possible surgery for 6 weeks to allow resolution of C diff, but she now presents
with ongoing debilitating symptoms. She does take NSAIDs- Aleve, recently ibuprofen.
Impression:
Lower abd pain x 2 months
Gastric dilation and antral thickening. Hx NSAIDs
IC valve intussusception
FH CRC-mother
Recommendations:
Will discuss plans with Colorectal Surgery and consider if it is worth proceeding with colonoscopy (rule out other pathology besides intussusception i.e, IBD, malignancy) or at least EGD (rule out PUD or Crohns) prior to 6 weeks given her ongoing
symptoms
No further diarrhea since d/c from 03/20-03/25
PPI daily. Stop NSAIDS
-
-
Thank you for consultation and allowing me to participate in the patient's care. Please call the conference services director GI physician during the after hours with any questions or concerns.
--- NOTE | 2024-04-03 17:03 | HPS.HSE ---
Addendum entered and electronically signed by Nate Lee MD 04/03/24 17:57:
I saw and examined the patient.
The LINEN AIDE or PA's note was reviewed and I agree with the note.
Comment: 58-year-old female with history of COPD, hyperlipidemia, nephrolithiasis, interstitial cystitis, recent C. difficile infection came to the hospital with persistent abdominal pain. Patient was recently here and was diagnosed with C.
difficile colitis. At that time CT scan also showed possible enteritis. Spoke with GI and will make patient n.p.o. past midnight. Plan for EGD +/- colonoscopy. Patient also reported taking NSAIDs since last Thursday. Start PPI. Continue with
Dificid. Obstruction series.
General: Well Developed, Well Nourished and No Apparent Distress
HEENT: NormoCephalic, Moist mucous membranes and Atraumatic
Respiratory: Clear
Cardiac: S1/S2 and Regular Rhythm; No Murmur or Rub
GI: Soft, Non Distended, Normal Bowel Sounds and Tender
Musculoskeletal: No Clubbing, No Cyanosis and No Edema
Skin: No Rash
Neuro: Nonfocal/grossly intact
Original Note:
Family Physician
-
Family Physician: Daniel De Luna
Chief Complaint
-
abdominal pain
History of Present Illness
58-year-old female with past medical history for COPD, hyperlipidemia, kidney stones, interstitial cystitis presented to us with abdominal pain for past few weeks. Patient has been experiencing the symptoms to some extent since January. Patient also
has interstitial cystitis for which she had received antibiotics recently. Patient stated abdominal pain worse in the morning . Pain worse with bowel movements .yesterday she did not have any bowel movement but continued to have abdominal pain
throughout the day. Yesterday she had pain after dinner. Patient was taking oxycodone and Advil since the discharge with some relief in her symptoms . Today she woke up with pain again which prompted her to come to the ER . Denied vomiting .
She has persistent nausea . She is not having diarrhea anymore. she lost almost 14lbs since january. she has appetite but afraid to eat due to the pain. denied fever, chills, chest pain, sob.denied JENA, dizzy or syncopal episode. denied dysuria or
hematuria. initial plan was for endoscopy and possible surgical intervention however the patient turned out to develop diarrhea and was C. difficile positive. She has been taking oral Vanco for this. Patient has been in communication with
[facility] for infectious disease. He changed her from oral Vanco to Dificid to see if that would help her symptoms but it has not.
admitting for further management.
Medical History
Past Medical History
Past Medical History: Reports Other
Additional Past Medical History:
C diff colitis
intestinal intussusception
COPD
HLD
Past Surgical History: Reports None
Social History
Tobacco: Smoker
Alcohol: Occasional
Drug: None
Personal:
Living: With Family
Family History
Family History: Not pertinent
Allergies / Home Medications
Allergies reflects when Allergies were last updated in [facility].
Home Medications with original date entered in [facility]
Allergy/Medication List:
Allergies
Allergy/AdvReac Type Severity Reaction Status Date / Time
sulfamethoxazole Allergy Severe Unknown Verified 03/28/24 11:34
[From Bactrim]
trimethoprim [From Bactrim] Allergy Severe Unknown Verified 03/28/24 11:34
Home Medications
aspirin 81 mg chewable tablet 81 mg PO DAILY 03/20/24
clonazepam 0.5 mg tablet 0.5 mg PO BID 03/20/24
fluticasone furoate 100 mcg-vilanterol 25 mcg/dose inhalation powder (Breo Ellipta) 1 inh inhalation R DAILY 03/20/24
hyoscyamine sulfate 0.125 mg sublingual tablet 0.125 mg PO Q4HPRN PRN spasms 03/20/24
montelukast 10 mg tablet (Singulair) 10 mg PO QPM 03/20/24
rosuvastatin 10 mg tablet 10 mg PO QPM 03/20/24
sertraline 50 mg tablet 50 mg PO DAILY 03/20/24
ondansetron 4 mg disintegrating tablet 4 mg PO Q6HPRN PRN nausea #10 tabs 03/25/24
calcium glycerophosphate 65 mg tablet (Prelief) 65 mg PO TIDPRN PRN gi issuse 04/03/24
dicyclomine 20 mg tablet 20 mg PO QIDPRN PRN spasm/pelvic pain 04/03/24
fidaxomicin 200 mg tablet (Dificid) 200 mg PO BID 04/03/24
ibuprofen 200 mg tablet (Advil) 200 mg PO Q6HPRN PRN mild pain 04/03/24
methenam 118 mg-m.blue 10 mg-s.phos 40.8 mg-p.salic 36 mg-hyos capsule (Uro-MP) 1 tab PO TIDPRN PRN discomfort 04/03/24
oxycodone 5 mg tablet 5 mg PO Q8HPRN PRN mod sev pain 04/03/24
Review of Systems
-
Constitutional: Reports No Symptoms
EENT: Reports No Symptoms
Respiratory: Reports No Symptoms
Cardiac: Reports No Symptoms
Abdomen/GI: Reports Abdominal Pain and Nausea
: Reports No Symptoms
Musculoskeletal: Reports No Symptoms
Skin: Reports No Symptoms
Neurological: Reports No Symptoms
Endocrine: Reports No Symptoms
Hematologic/Lymphatic: Reports No Symptoms
Psych: Reports No Symptoms
Physical Exam
Vital Signs
Vital Signs
Temp Pulse Resp BP Pulse Ox
98.5 F 79 26 113/75 98
04/03/24 10:43 04/03/24 16:30 04/03/24 16:30 04/03/24 15:00 04/03/24 15:15
Physical Exam
General: Well Developed, Well Nourished and No Apparent Distress
HEENT: NormoCephalic, Moist mucous membranes and Atraumatic
Respiratory: Clear
Cardiac: S1/S2 and Regular Rhythm; No Murmur or Rub
GI: Soft, Non Distended, Normal Bowel Sounds and Tender; No Organomegaly
Rectal: Deferred by Provider
Musculoskeletal: No Clubbing, No Cyanosis and No Edema
Skin: No Rash
Neuro: Nonfocal/grossly intact
Laboratory Results
-
04/03/24 11:08
04/03/24 11:08
Laboratory Results
Lactic Acid 0.7 mmol/L (0.7-2.0) 04/03/24 12:13
Total Bilirubin 0.4 mg/dl (0.2-1.3) 04/03/24 11:08
AST 23 U/L (14-36) 04/03/24 11:08
ALT 13 U/L (0-35) 04/03/24 11:08
Alkaline Phosphatase 69 U/L (38-126) 04/03/24 11:08
Lipase 147 U/L (23-300) 04/03/24 11:08
Data Reviewed
-
Lab Data: Labs Reviewed by me
Impression/Plan
-
# Intermittent severe abdominal pain
# Recent C. difficile infection
#gastric wall thickening
-WBCs 4.4
-CT enterography (03/16) with Marked gastric dilation with fluid-filled stomach. This extends to the level of the gastric antrum which shows circumferential abnormal wall thickening which is persistent on delayed images etiology of the wall thickening
is indeterminate at CT. This could be further evaluated with endoscopy. As above, there is apparent slight protrusion of the ileocecal valve into the cecum, evaluation somewhat limited secondary to paucity of intra-abdominal fat. No aranza ileocecal
intussusception is identified on this examination. There is no obstruction of the small bowel. No other intussusception is identified.
-CT abdomen pelvis (03/28) with Mild bowel wall thickening and inflammatory change adjacent to the cecum, which is redundant and located within the pelvis. Findings are suggestive of mild enteritis, likely infectious or inflammatory.Focal area of
narrowing within the gastric antrum, with associated mild gastric dilation. This was also seen on prior CT dated 03/16/2024. Consider further evaluation with upper GI endoscopy.No current intussusception.
-GI recommended EGD and colonoscopy
-Dificid continued for C diff
-obstruction series
-IV PPI
-NPO after MN
-GI consulted
-colorectal consulted
# Acute kidney injury likely dehydration
-Creatinine 1.1
-received normal saline in ER
-monitor BMp in am
# Asthma/COPD
-Continue with inhaler, Singulair
# Hyperlipidemia
-Continue Crestor
# Anxiety
-Continue Klonopin, sertraline
#DVT prophylaxis
-Lovenox
#CODE status
-full code
--- NOTE | 2024-04-03 17:57 | W.PN.UPDATE ---
Update Note
Progress Note Update
For billing purpose only
[2024-04-03] MEDS: CRESTOR PO (20:01)
[2024-04-03] MEDS: SINGULAIR PO (20:02)
[2024-04-03] MEDS: DIFICID PO (20:02)
[2024-04-03] MEDS: NSS (PRESERVATIVE FREE) 10 ML IV (20:16)
[2024-04-03] MEDS: KLONOPIN PO (20:16)
[2024-04-03] MEDS: PROTONIX IV 40 MG IV (20:16)
[2024-04-03] MEDS: LOVENOX 40 MG SC (20:17)
[2024-04-03] MEDS: SYMBICORT 160/4.5 MCG INHALER 2 PUFF INH (21:19)
[2024-04-04] MEDS: ZOFRAN 4 MG IV ×2 (05:20→16:52)
[2024-04-04] MEDS: ROXICODONE 5 MG PO ×2 (05:20→16:50)
[2024-04-04 05:57] LABS: Hematocrit 37.6 % (37.0-47.0); Hemoglobin 12.8 g/dL (12.0-16.0); Mean Corpuscular Hgb 32.8 pg (27.0-31.0); Mean Corpuscular Volume 96.4 fL (81.0-99.0); Mean Platelet Volume 9.9 fL (7.4-10.4); Platelet Count 242 10^3/uL (130-400); Red Cell Dist. Width 12.8 % (11.5-14.5); White Blood Cell Count 4.9 10^3/uL (4.8-10.8)
[2024-04-04 06:00] VITALS: BMI 19.1
[2024-04-04 06:29] LABS: Blood Urea Nitrogen 11 mg/dl (7-17); Calcium 10.3 mg/dl (8.4-10.2); Carbon Dioxide 21 mmol/L (22-30); Chloride 108 mmol/L (98-107); Estimated Creatinine Clearance 59 ml/min; Glucose 83 mg/dl (70-99); Potassium 4.7 mmol/L (3.5-5.1); Sodium 140 mmol/L (135-145); eGFR > 60.00
--- NOTE | 2024-04-04 07:33 | W.PN.HOSP.TC ---
Today's Communication/Plan
-
pain control
diet as per GI CRS
npo after midnight for EGD/colonoscopy
cont Dificid
Assessment / Plan
Assessment / Plan
General: Well Developed, Well Nourished and No Apparent Distress
HEENT: NormoCephalic, Moist mucous membranes and Atraumatic
Respiratory: Clear
Cardiac: S1/S2 and Regular Rhythm; No Murmur or Rub
GI: Soft, Non Distended, Normal Bowel Sounds and Tender
Musculoskeletal: No Clubbing, No Cyanosis and No Edema
Skin: No Rash
Neuro: AOx3
58F COPD, HLD, kidney stones, interstitial cystitis recent CDIFF infxn p/w abd pain past few weeks. Further reports experiencing similar symptoms ongoing to some extent since January. Patient also has interstitial cystitis for which received
antibiotics recently. Abd pain typically worse in morning . Pain worse with bowel movements associated with intermittent nausea/vomiting. Diarrhea since resolved with oral vancomycin treatment. Reports 14 lb wt loss since January. Reports good
appetite but afraid to eat due to pain from bowel movements. Oral vancomycin was switched to Dificid with no further improvement in symptoms noted.
# Intermittent severe abdominal pain
# Recent C. difficile infection
#Possible Intussusception
-CT enterography (03/16) with Marked gastric dilation with fluid-filled stomach. This extends to the level of the gastric antrum which shows circumferential abnormal wall thickening which is persistent on delayed images etiology of the wall thickening
is indeterminate at CT. This could be further evaluated with endoscopy. As above, there is apparent slight protrusion of the ileocecal valve into the cecum, evaluation somewhat limited secondary to paucity of intra-abdominal fat. No aranza ileocecal
intussusception is identified on this examination. There is no obstruction of the small bowel. No other intussusception is identified.
-CT abdomen pelvis (03/28) with Mild bowel wall thickening and inflammatory change adjacent to the cecum, which is redundant and located within the pelvis. Findings are suggestive of mild enteritis, likely infectious or inflammatory.Focal area of
narrowing within the gastric antrum, with associated mild gastric dilation. This was also seen on prior CT dated 03/16/2024. Consider further evaluation with upper GI endoscopy.No current intussusception.
-GI CRS appreciated Clear liquid diet for today 04/04 npo after midnight for EGD/colonoscopy
-Dificid continued for C diff
-obstruction series appreciated no acute abn's
-IV PPI
# Acute kidney injury likely dehydration
-Creatinine 1.1
-received normal saline in ER
-resolved
#mild hypercalcemia
observe
# Asthma/COPD
-Continue with inhaler, Singulair
# Hyperlipidemia
-Continue Crestor
# Anxiety
-Continue Klonopin, sertraline
#DVT prophylaxis
-Lovenox
#CODE status
-full code
I spent a total of 50 minutes with the patient or on the floor. More than 50% of this time involved counseling and coordination of care.
Anticipated Discharge: 24 - 48 hours
Subjective/Interval History
-
Date of Service: April 04, 2024
Seen and examined at bedside. Reports abd pain typically in morning waking her from sleep. Improved with current prn pain meds. Reports abd pain exacberated with bowel movements.
Objective Data
-
Labs:
Laboratory Results
04/04/24
05:45
WBC 4.9
Hgb 12.8
Hct 37.6
Plt Count 242
Sodium 140
Potassium 4.7
Chloride 108 H
Carbon Dioxide 21 L
BUN 11
Creatinine 0.8
Glucose 83
Calcium 10.3 H
Vital Signs:
Vital Signs
Temp Pulse Resp BP Pulse Ox
98.2 F 67 20 104/53 95
04/03/24 23:04 04/03/24 23:04 04/03/24 23:04 04/03/24 23:04 04/03/24 23:49
[2024-04-04 07:40] VITALS: BP 100/74
[2024-04-04] MEDS: SYMBICORT 160/4.5 MCG INHALER 2 PUFF INH ×2 (07:42→19:20)
[2024-04-04] MEDS: DIFICID 200 MG PO ×2 (10:05→20:15)
[2024-04-04] MEDS: LOW STRENGTH ASPIRIN 81 MG PO (10:06)
[2024-04-04] MEDS: ZOLOFT 50 MG PO (10:06)
[2024-04-04] MEDS: KLONOPIN 0.5 MG PO ×2 (10:06→20:15)
[2024-04-04] MEDS: PROTONIX IV 40 MG IV (10:06)
[2024-04-04] MEDS: NSS (PRESERVATIVE FREE) 10 ML IV (10:07)
--- NOTE | 2024-04-04 10:21 | CON.ID ---
Consultation
-
Date/Time Consultation Requested: 04/04/2024 08:28
Date/Time Consultation Performed: 04/04/2024 1017
Requesting Provider: Tonia Boucher
Performing Provider: Dr. Chu
Reason for Consultation: C. difficile colitis
Chief Complaint / Past History
History of Present Illness
Carolyn Gao is a 58-year-old female being evaluated at the request of Tonia Boucher regarding C. difficile colitis. History is obtained from chart review, along with patient interview.
The patient is known to the Infectious Diseases service, having been seen on 03/23/2024 regarding C. difficile colitis. At that time she had noted that she had been dealing with significant social issues since the beginning of the year with both her
sister and her mother. In November she began to have lower abdominal discomfort and pressure and she was diagnosed with cystitis and given symptomatic treatment initially, but ultimately required admission at [facility] where she
received antibiotics.
Prior to the admission to [facility] on 03/20/2024 she had noted diarrhea over the prior several weeks. She had sought care with doctors at [facility] including a surgeon and imaging suggested intussusception. She was
admitted to [facility] for further evaluation of that. During her hospital stay she was found to be C. difficile positive and she was started on vancomycin therapy.
She was discharged to home on 03/25/2024 on a 14-day course of vancomycin. Despite antibiotic therapy, she called my office several days ago due to increasing abdominal pain. She was was told to discontinue further vancomycin (at this point in time
approximately day #13 of a 14-day course) and transitioned to fidaxomicin. She notes that her abdominal pain persisted, and she presented to the emergency room yesterday for further care. Overall, she notes that diarrhea has improved from her last
admission.
She denies fevers. She notes that the abdominal pain when present is a 10 out of 10 and is localized to the lower abdomen. Pain is noted as diffuse and persistent when present. She denies any dysuria or hematuria. She notes intermittent nausea.
Past History
Additional Past Medical History:
COPD
Arrhythmia
Dyslipidemia
Interstitial cystitis
Nephrolithiasis
Additional Past Surgical History:
Left thumb surgery
Allergy History:
sulfamethoxazole [From Bactrim] Allergy (Severe, Verified 03/28/24 11:34)
Unknown
Medications Reviewed: Yes
Current Antibiotics:
Fidaxomycin
Social History
Tobacco: Smoker
Alcohol: None
Drug: None
Personal: Single
Employment: Retired
Family History
Family History: Not Pertinent
Review of Systems
Vital Signs
Temp Pulse Resp BP Pulse Ox
97.9 F 74 16 100/74 97
04/04/24 07:40 04/04/24 07:46 04/04/24 07:46 04/04/24 07:40 04/04/24 07:46
Physical Exam
Physical Exam
Constitutional: No Acute Distress, Comfortable and Non-toxic
Head: Normocephalic
Eyes: No Conjunctival Hemorrhage and Sclera Anicteric
Oral: No Thrush and No Ulcers
Cardiovascular: S1/S2; Negative S3/S4 or Murmur
Pulmonary: Clear; Negative Wheezes, Rales or Rhonchi
Gastrointestinal: Soft, Tender (Lower quadrents), Non Distended, No Rebound and No Guarding
Genito-Urinary: Negative Ross
Skin: Warm and Dry; Negative Rash or Jaundice
Neurological: Awake and Alert
Psychological: Calm
Lab / Diagnostic Study Results
04/04/24 05:45
04/04/24 05:45
Abs Immat Gran (auto) 0.0 10^3/uL (0-0.05) 04/03/24 11:08
Absolute Neuts (auto) 2.1 10^3/uL (1.4-6.5) 04/03/24 11:08
Absolute Lymphs (auto) 1.8 10^3/uL (1.2-3.4) 04/03/24 11:08
Absolute Monos (auto) 0.3 10^3/uL (0.1-0.6) 04/03/24 11:08
Absolute Basos (auto) 0.0 10^3/uL (0-0.2) 04/03/24 11:08
Immature Gran % 0.2 % (0-0.5) 04/03/24 11:08
Neutrophils % 48.3 % (42.2-75.2) 04/03/24 11:08
Lymphocytes % 40.5 % (20.5-51.1) 04/03/24 11:08
Monocytes % 6.9 % (1.7-9.3) 04/03/24 11:08
Eosinophils % 3.2 % (0-6) 04/03/24 11:08
Basophils % 0.9 % (0-2) 04/03/24 11:08
Lactic Acid 0.7 mmol/L (0.7-2.0) 04/03/24 12:13
Microbiology Results
Imaging:
04/03/2024 obstruction series: No active cardiopulmonary disease noted in the chest. No evidence of acute abdominal pathology noted in supine and erect radiographs of the abdomen. A moderate amount of gas is seen in nondilated loops of bowel. No
bowel dilatation to suggest obstruction. No free intraperitoneal air.
Assessment / Plan
Abdominal pain
History of recent C. difficile
COPD
Arrhythmia
Dyslipidemia
Interstitial cystitis
Nephrolithiasis
Recommendations:
Continue with fidaxomicin for the present.
Await further input from GI and CRS regarding further workup of ongoing abdominal discomfort.
Care Review
Plan reviewed with: Physician (CRS)
--- NOTE | 2024-04-04 10:47 | CON.CRS ---
Consultation
-
Date/Time Consultation Requested: 04/04/2024, 09:15
Date/Time Consultation Performed: 04/03/2024, 17:57
Requesting Provider: Bel White
Performing Provider: [place] MD
Reason for Consultation: abdminal pain
Medical History
-
Chief Complaint: abdominal pain
History of Present Illness:
58-year-old female presents to [facility] on 04/03/2024 complaining of severe abdominal pain. The patient was recently admitted due to intussusception shown on to outpatient CT scans but was found to have C. difficile during her admission. She
was discharged on 03/22/2024 on vancomycin. The plan was eventual colonoscopy and possibly surgery to be discussed on an outpatient basis. She continued to have persistent loose stools but more recently her stools have become constipated in nature.
She describes her pain as 'knifelike' and has associated nausea. She has flatus still and has not had a bowel movement in about 2 days. Chest and abdomen x-ray was performed yesterday which showed a moderate gas and not dilated loops of bowel and
no bowel dilatation to suggest an obstruction. There is no free intraperitoneal air. Her WBC in the ER was 4.9. Her vitals have remained normal and afebrile. We have been consulted for further surgical opinion.
Past Medical History
Past Medical History: Other (Arrhythmia (? murmur), COPD (mild asthma/copd), Hypercholesterolemia, Valvular Disease (mvp) and Other (interstitial cystitis))
Past Surgical History: Orthopedic
Social History
Tobacco: Smoker (1/2 ppd)
Alcohol: None
Drug: None
Personal:
Living: With Family
Family History
Family History: Cancer (CRC-mother)
Allergies / Home Medications
Allergy/AdvReac Type Severity Reaction Status Date / Time
sulfamethoxazole Allergy Severe Unknown Verified 03/28/24 11:34
[From Bactrim]
trimethoprim [From Bactrim] Allergy Severe Unknown Verified 03/28/24 11:34
�Medication �Instructions �Recorded �Confirmed �Type
aspirin 81 mg chewable tablet 81 mg PO DAILY Blood Clot 03/20/24 04/03/24 History
Prevention/Tx
clonazepam 0.5 mg tablet 0.5 mg PO BID Mental Health/Anxiety 03/20/24 04/03/24 History
fluticasone furoate 100 1 inh inhalation R DAILY 03/20/24 04/03/24 History
mcg-vilanterol 25 mcg/dose Lung/Breathing Issues
inhalation powder (Breo Ellipta)
hyoscyamine sulfate 0.125 mg 0.125 mg PO Q4HPRN PRN spasms 03/20/24 04/03/24 History
sublingual tablet
montelukast 10 mg tablet 10 mg PO QPM Lung/Breathing Issues 03/20/24 04/03/24 History
(Singulair)
rosuvastatin 10 mg tablet 10 mg PO QPM High Cholesterol 03/20/24 04/03/24 History
sertraline 50 mg tablet 50 mg PO DAILY Mental 03/20/24 04/03/24 History
Health/Anxiety
ondansetron 4 mg disintegrating 4 mg PO Q6HPRN PRN nausea #10 tabs 03/25/24 04/03/24 Rx
tablet
calcium glycerophosphate 65 mg 65 mg PO TIDPRN PRN gi issuse 04/03/24 04/03/24 History
tablet (Prelief)
dicyclomine 20 mg tablet 20 mg PO QIDPRN PRN spasm/pelvic 04/03/24 04/03/24 History
pain
fidaxomicin 200 mg tablet (Dificid) 200 mg PO BID C.DIFF 04/03/24 04/03/24 History
ibuprofen 200 mg tablet (Advil) 200 mg PO Q6HPRN PRN mild pain 04/03/24 04/03/24 History
methenam 118 mg-m.blue 10 1 tab PO TIDPRN PRN discomfort 04/03/24 04/03/24 History
mg-s.phos 40.8 mg-p.salic 36
mg-hyos capsule (Uro-MP)
oxycodone 5 mg tablet 5 mg PO Q8HPRN PRN mod sev pain 04/03/24 04/03/24 History
Review of Systems
-
History Source: Patient
Abdomen/GI: Abdominal Pain, Nausea and Constipated
A 10 point review of systems was completed, and was negative except as per HPI.
Physical Exam
Vital Signs
Temp 97.9 F 04/04/24 07:40
Pulse 74 04/04/24 07:46
Resp Rate 16 04/04/24 07:46
Blood pressure 100/74 04/04/24 07:40
SaO2 97 04/04/24 07:46
04/03/24 04/04/24 04/05/24
06:59 06:59 06:59
Actual Weight 49.895 kg
Body Mass Index (BMI) 19.5
Lab Results / Allergies
04/04/24 05:45
04/04/24 05:45
WBC 4.9 10^3/uL (4.8-10.8) 04/04/24 05:45
Hgb 12.8 g/dL (12.0-16.0) 04/04/24 05:45
Hct 37.6 % (37.0-47.0) 04/04/24 05:45
Plt Count 242 10^3/uL (130-400) 04/04/24 05:45
Abs Immat Gran (auto) 0.0 10^3/uL (0-0.05) 04/03/24 11:08
Neutrophils % 48.3 % (42.2-75.2) 04/03/24 11:08
Allergy/AdvReac Type Severity Reaction Status Date / Time
sulfamethoxazole Allergy Severe Unknown Verified 03/28/24 11:34
[From Bactrim]
trimethoprim [From Bactrim] Allergy Severe Unknown Verified 03/28/24 11:34
Physical Exam
General: Well Developed, Well Nourished and No Apparent Distress
GI: Soft and Tender (upper and lower midline, moderate)
Neuro: AO x 3
Psych: Calm
Data Reviewed
-
Radiology: Image Personally Visualized and interpreted and Discussed with Physician
Labs: Labs Reviewed by me and Discussed with Patient
Old Records: Reviewed
Assessment / Plan
-
Assessment: 58-year-old female with known intussusception on 2 outpatient CAT scans as well as a recent diagnosis of C. difficile presents to the ER yesterday due to abdominal pain
Plan:
-Patient will remain on clears today and n.p.o. at midnight for a colonoscopy and EGD by GI. Agree with this plan.
- Recommend ID consult. Currently on fidaxomicin.
-Okay to start patient on Bentyl from our perspective.
-We have tentatively put her on the OR with Dr. Pinto this , 04/07, should she require surgery.
--- NOTE | 2024-04-04 10:54 | W.PN.GI.CBS2 ---
Addendum entered and electronically signed by Hector Ashby MD 04/04/24 11:08:
I saw and examined the patient.
The [employer] or PA's note was reviewed and I agree with the note.
Comment: Had pain at 4am better now.
REC:
Discussed with Dr Pinto- plan for EGD/colonoscopy tomorrow to evaluate antrum (r/o ulcer) and IC valve (r/o lead point for intussusception, CRC, Crohns)
Cont Dificid per ID. No diarrhea for last 2 weeks, so hopefully that won't affect results of colonoscopy
Further rx intussusception per CRS after procedures
Cont protonix
Original Note:
Today's Communication / Plan
-
EGD/[place] tomorrow
Assessment / Plan
-
Summary: 58yo female presents with daily severe abd pain requiring pain meds since . Eval has shown gastric distention and antral thickening and prolapse of IC valve into cecum suggesting intusussception. Plan was for EGD/colon prior
to robotic ileocecectomy but she developed C diff in the interim 03/20 treated with PO vanco and changed recently to dificid by ID. Plan was to hold off on colonoscopy/possible surgery for 6 weeks to allow resolution of C diff, but she now presents
with ongoing debilitating symptoms. She does take NSAIDs- Aleve, recently ibuprofen.
Impression:
Lower abd pain x 2 months
Gastric dilation and antral thickening. Hx NSAIDs
IC valve intussusception
FH CRC-mother
Recommendations:
Continue Dificid per ID-> until 04/17/24
EGD [place] planned for tomorrow (Discussed with CRS and patient)
Continue Pantoprazole 40 mg daily
Stop NSAIDs
Subjective
Subjective
Date of Service: April 04, 2024
Patient states that she woke up this am with pain at 4 am which 'is much earlier than I usually wake up with pain' this was cramping associated with nausea that was relieved with IV Zofran and percocet per patient. She has no had BM since Thursday.
She is passing flatus. She had 13 days of Vancomycin prior to transitioning to Dificid for CDiff that will continue until 04/17/24. Discussed with CRS and patient. Will proceed with EGD/[facility] tomorrow.
Objective
Data Reviewed
Laboratory Data:
Laboratory Results
04/04/24 05:45
04/04/24 05:45
Laboratory Results
Total Bilirubin 0.4 mg/dl (0.2-1.3) 04/03/24 11:08
AST 23 U/L (14-36) 04/03/24 11:08
ALT 13 U/L (0-35) 04/03/24 11:08
Alkaline Phosphatase 69 U/L (38-126) 04/03/24 11:08
Lipase 147 U/L (23-300) 04/03/24 11:08
Vital Signs and I&O:
Vital Signs
Temp Pulse Resp BP Pulse Ox
97.9 F 74 16 100/74 97
04/04/24 07:40 04/04/24 07:46 04/04/24 07:46 04/04/24 07:40 04/04/24 07:46
Physical Exam
Physical Exam
HEENT: Anicteric
Cardiology: Normal Sinus Rhythm
Pulmonary: Clear
GI: Soft, Non Distended, Tender (mild epigastric tenderness/mild abdominal) and Normal Bowel Sounds
Extremities: No Edema
Neuro: Non Focal
--- NOTE | 2024-04-04 11:36 | CM ---
Reviewed the chart notes. Patient was recently discharged from here on 03/25/24 for abdominal pain and c-dif. The patient is scheduled for an EGD/colonoscopy tomorrow. The patient resides with her spouse in a two story home with two steps to
enter. The patient reports no DME/VN/SNF in the past. The patient confirmed her [facility]. continues to be available to patient/family and is monitoring medical plan for needs at discharge.
Plan: Discharge to home when medically stable.
[2024-04-04 13:01] VITALS: BMI 19.5
[2024-04-04 15:30] VITALS: BP 106/57
[2024-04-04] MEDS: LOVENOX 40 MG SC (16:50)
[2024-04-04] MEDS: BENTYL 20 MG PO (16:50)
[2024-04-04] MEDS: SINGULAIR 10 MG PO (16:50)
[2024-04-04] MEDS: CRESTOR 10 MG PO (16:50)
[2024-04-04] MEDS: NULYTELY SOLUTION 4 LITERS PO (16:50)
[2024-04-04 18:35] LABS: Hepatitis C Antibody Negative (Negative)
[2024-04-04 23:06] VITALS: BP 110/65
[2024-04-05] MEDS: ROXICODONE 5 MG PO ×2 (06:04→20:06)
[2024-04-05] MEDS: ZOFRAN 4 MG IV ×2 (06:05→20:06)
[2024-04-05] MEDS: SYMBICORT 160/4.5 MCG INHALER 2 PUFF INH ×2 (07:08→19:45)
--- NOTE | 2024-04-05 07:10 | W.PN.HOSP.TC ---
Addendum entered and electronically signed by Deyvi Billings MD 04/06/24 08:02:
Normal BMI is classified as BMI >=18.5 to 24.9 kg/m2
Original Note:
Today's Communication/Plan
-
cont diet bowel prep as per GI
pain conrol
Dificid
Assessment / Plan
Assessment / Plan
General: Well Developed, Well Nourished and No Apparent Distress
HEENT: NormoCephalic, Moist mucous membranes and Atraumatic
Respiratory: Clear
Cardiac: S1/S2 and Regular Rhythm; No Murmur or Rub
GI: Soft, Non Distended, Normal Bowel Sounds and Tender
Musculoskeletal: No Clubbing, No Cyanosis and No Edema
Skin: No Rash
Neuro: AOx3
58F COPD, HLD, kidney stones, interstitial cystitis recent CDIFF infxn p/w abd pain past few weeks. Further reports experiencing similar symptoms ongoing to some extent since January. Patient also has interstitial cystitis for which received
antibiotics recently. Abd pain typically worse in morning . Pain worse with bowel movements associated with intermittent nausea/vomiting. Diarrhea since resolved with oral vancomycin treatment. Reports 14 lb wt loss since January. Reports good
appetite but afraid to eat due to pain from bowel movements. Oral vancomycin was switched to Dificid with no further improvement in symptoms noted.
# Intermittent severe abdominal pain
# Recent C. difficile infection
#Possible Intussusception
-CT enterography (03/16) with Marked gastric dilation with fluid-filled stomach. This extends to the level of the gastric antrum which shows circumferential abnormal wall thickening which is persistent on delayed images etiology of the wall thickening
is indeterminate at CT. This could be further evaluated with endoscopy. As above, there is apparent slight protrusion of the ileocecal valve into the cecum, evaluation somewhat limited secondary to paucity of intra-abdominal fat. No aranza ileocecal
intussusception is identified on this examination. There is no obstruction of the small bowel. No other intussusception is identified.
-CT abdomen pelvis (03/28) with Mild bowel wall thickening and inflammatory change adjacent to the cecum, which is redundant and located within the pelvis. Findings are suggestive of mild enteritis, likely infectious or inflammatory.Focal area of
narrowing within the gastric antrum, with associated mild gastric dilation. This was also seen on prior CT dated 03/16/2024. Consider further evaluation with upper GI endoscopy.No current intussusception.
-GI CRS appreciated EGD/colonoscopy delayed awaiting completion bowel prep
-Dificid continued for C diff
-obstruction series appreciated no acute abn's
-IV PPI
# Acute kidney injury likely dehydration
-Creatinine 1.1
-received normal saline in ER
-resolved
#mild hypercalcemia
observe
# Asthma/COPD
-Continue with inhaler, Singulair
# Hyperlipidemia
-Continue Crestor
# Anxiety
-Continue Klonopin, sertraline
#DVT prophylaxis
-Lovenox
#CODE status
-full code
I spent a total of 50 minutes with the patient or on the floor. More than 50% of this time involved counseling and coordination of care.
Anticipated Discharge: > 48 hours
Subjective/Interval History
-
Date of Service: April 05, 2024
Pain improved with Bentyl. EGD/colonoscopy delayed awaiting completion bowel prep.
Objective Data
-
Labs:
Laboratory Results
04/05/24
06:54
WBC Pending
Hgb Pending
Hct Pending
Plt Count Pending
PT Pending
INR Pending
Sodium Pending
Potassium Pending
Chloride Pending
Carbon Dioxide Pending
BUN Pending
Creatinine Pending
Glucose Pending
Calcium Pending
Vital Signs:
Vital Signs
Temp Pulse Resp BP Pulse Ox
98.0 F 74 18 110/65 97
07/22/24 23:06 04/04/24 23:06 04/04/24 23:06 04/04/24 23:06 04/05/24 04:02
I&O
04/04/24 04/05/24 04/06/24
06:59 06:59 06:59
Intake Total 1080 / 1080
Balance 1080 / 1080
[2024-04-05 07:14] LABS: Hemoglobin 12.9 g/dL (12.0-16.0); Mean Corp Hgb Conc. 33.9 g/dL (33.0-37.0); Mean Corpuscular Hgb 32.3 pg (27.0-31.0); Mean Corpuscular Volume 95.2 fL (81.0-99.0); Mean Platelet Volume 10.2 fL (7.4-10.4); Platelet Count 227 10^3/uL (130-400); Red Blood Cell Count 3.99 10^6/uL (4.20-5.40); Red Cell Dist. Width 12.6 % (11.5-14.5)
[2024-04-05 07:18] LABS: INR 1.01; PT 13.3 Sec (11.4-14.6)
[2024-04-05 07:34] LABS: Blood Urea Nitrogen 15 mg/dl (7-17); Calcium 10.4 mg/dl (8.4-10.2); Carbon Dioxide 25 mmol/L (22-30); Chloride 104 mmol/L (98-107); Estimated Creatinine Clearance 46 ml/min; Glucose 79 mg/dl (70-99); Potassium 4.6 mmol/L (3.5-5.1); Sodium 139 mmol/L (135-145); eGFR > 60.00
[2024-04-05 07:37] VITALS: BP 115/71
[2024-04-05] MEDS: LOW STRENGTH ASPIRIN 81 MG PO (08:09)
[2024-04-05] MEDS: ZOLOFT 50 MG PO (08:09)
[2024-04-05] MEDS: KLONOPIN 0.5 MG PO ×2 (08:09→20:06)
[2024-04-05] MEDS: DIFICID 200 MG PO ×2 (08:09→20:06)
[2024-04-05] MEDS: NSS (PRESERVATIVE FREE) 10 ML IV (08:09)
[2024-04-05] MEDS: PROTONIX IV 40 MG IV (08:10)
--- NOTE | 2024-04-05 09:12 | PN.CDI ---
CDI
- -
CDI:
Physician Documentation Request
Admit Date: 04/03/24 17:42
Dear Doctor Manuelito,
Patient admitted with abdominal pain.
Clinical Indicators:
Height: 5' 3'
Weight: 107 lb
BMI: 19.1
If possible, please provide an associated diagnosis related to the abnormal BMI, such as:
Underweight
Cachectic
Abnormal BMI is not significant
Other
BMI < or = to 19.9
Underweight
Weight Loss
Cachectic
Anorexia
Use of terms such as suspected, likely, concern for, or probable (associated with a specific diagnosis that is being evaluated, monitored, or treated as if it exists) are acceptable and can be coded in the inpatient setting, when documented at the
time of discharge.
Thank you,
Felicia Navarro RN, BSN
CDI Specialist
Available via [place] text
Please use your independent medical judgment in providing your response.
--- NOTE | 2024-04-05 09:17 | W.PN.CRS1 ---
Today's Communication / Plan
-
colonoscopy/egd today
Assessment/Plan
-
Assessment: 64yo female with generalized abdominal pain discomfort and diarrhea with findings on 2 imaging studies of ileocecal intussusception with cramping and foul smelling bowel movements, c.diff positive
Plan:
1. WBC normalized at 4.0.
2. Continue vancomycin for c.diff per infectious disease.
3. Colonoscopy/EGD with GI.
4. Possible OR with Dr. Pinto this , 04/07.
5. NPO for scope today.
Subjective Data
Subjective Data
Date of Service: April 05, 2024
Patient states she feels the same. She still has 'horrible pain' in her abdomen. She still has stools but constipated.
Objective Data
-
Vital Signs
Temp Pulse Resp BP Pulse Ox
97.8 F 83 20 115/71 97
04/05/24 07:37 04/05/24 07:37 04/05/24 07:37 04/05/24 07:37 04/05/24 07:37
Intake & Output
04/04/24 04/05/24 04/06/24
06:59 06:59 06:59
Intake Total 1080 / 1080
Balance 1080 / 1080
Intake:
Oral fluids 1080 / 1080
Other:
Number of approximated MODERATE 6 9
amounts of urine
Number of approximated LARGE 11
amounts of urine
Lab Results
04/05/24 06:54
04/05/24 06:54
Physical Exam
-
General: No Acute Distress and AOx3
Abdomen: Soft, Non Distended and Tender (tender throughout)
Skin: Warm and Dry
--- NOTE | 2024-04-05 13:14 | CM ---
Reviewed the chart notes. Patient scheduled for EGD/colonoscopy today. CM continues to be available to patient/family and is monitoring medical plan for needs at discharge.
Plan: Discharge plans will depend on the patient's progress.
[2024-04-05] MEDS: NULYTELY SOLUTION 4 LITERS PO (13:28)
--- NOTE | 2024-04-05 14:19 | W.PN.ID1 ---
Date of Service
Date of Service: April 05, 2024
Today's Communication
Continue with fidaxomicin
Assessment / Plan
Abdominal pain
History of recent C. difficile
COPD
Arrhythmia
Dyslipidemia
Interstitial cystitis
Nephrolithiasis
Recommendations:
Continue with fidaxomicin for the present.
Await tentative colonoscopy and possible OR.
Monitor white count and temperature.
Follow stool output. Patient notes loose stool at present, but this is likely from bowel prep.
Monitor abdominal discomfort.
����������������������������������������������������������
Chief Complaint
-: C-diff
Subjective / Review of Systems
Patient seen and examined. Notes ongoing abdominal discomfort, stating that it woke her from sleep this morning.
Review of Systems: No Fever
Vital Signs / Physical Exam
Vital Signs
Vital Signs
Temp Pulse Resp BP Pulse Ox
97.8 F 83 20 115/71 97
04/05/24 07:37 04/05/24 07:37 04/05/24 07:37 04/05/24 07:37 04/05/24 07:37
Physical Exam
Constitutional: No Acute Distress, Comfortable, Chronically Ill and Non-toxic
Eyes: No Conjunctival Hemorrhage and Sclera Anicteric
Cardiovascular: S1/S2; Negative S3/S4
Pulmonary: Clear and Non Labored
Gastrointestinal: Soft, Tender, Non Distended, Normal Bowel Sounds, No Rebound and No Guarding
Neurological: Awake and Alert
Psychological: Calm
Objective Data
Lab Data
Lab Results
04/05/24 06:54
04/05/24 06:54
PT 13.3 Sec (11.4-14.6) 04/05/24 06:54
INR 1.01 04/05/24 06:54
Estimated Creat Clear 46 ml/min 04/05/24 06:54
Lactic Acid 0.7 mmol/L (0.7-2.0) 04/03/24 12:13
Total Bilirubin 0.4 mg/dl (0.2-1.3) 04/03/24 11:08
AST 23 U/L (14-36) 04/03/24 11:08
ALT 13 U/L (0-35) 04/03/24 11:08
Alkaline Phosphatase 69 U/L (38-126) 04/03/24 11:08
Most recent labs reviewed.
Imaging:
04/03/2024 obstruction series: No active cardiopulmonary disease noted in the chest. No evidence of acute abdominal pathology noted in supine and erect radiographs of the abdomen. A moderate amount of gas is seen in nondilated loops of bowel. No
bowel dilatation to suggest obstruction. No free intraperitoneal air.
[2024-04-05 15:35] VITALS: BP 115/55
--- NOTE | 2024-04-05 16:48 | W.PN.UPDATE ---
Update Note
Progress Note Update
Patient was scheduled for EGD/colonoscopy today. Procedure was canceled since patient did not finish her bowel prep on time and BMs not clear.
Will re-prep today and schedule EGD/colonoscopy tomorrow. Discussed with patient
[2024-04-05] MEDS: LOVENOX 40 MG SC (18:19)
[2024-04-05] MEDS: SINGULAIR 10 MG PO (18:19)
[2024-04-05] MEDS: CRESTOR 10 MG PO (18:19)
[2024-04-05] MEDS: DULCOLAX 20 MG PO (22:06)
[2024-04-05 23:50] VITALS: BP 111/56
[2024-04-06 06:00] VITALS: BMI 19.1
[2024-04-06] MEDS: ROXICODONE 5 MG PO (06:14)
[2024-04-06] MEDS: ZOFRAN 4 MG IV (06:14)
[2024-04-06 06:17] VITALS: BMI 19.1
[2024-04-06] MEDS: SYMBICORT 160/4.5 MCG INHALER 2 PUFF INH ×2 (07:21→20:01)
[2024-04-06 07:25] VITALS: BP 103/52
--- NOTE | 2024-04-06 07:53 | W.PN.HOSP.TC ---
Today's Communication/Plan
-
egd/colonoscopy today
Assessment / Plan
Assessment / Plan
General: Well Developed, Well Nourished and No Apparent Distress
HEENT: NormoCephalic, Moist mucous membranes and Atraumatic
Respiratory: Clear
Cardiac: S1/S2 and Regular Rhythm; No Murmur or Rub
GI: Soft, Non Distended, Normal Bowel Sounds and Tender
Musculoskeletal: No Clubbing, No Cyanosis and No Edema
Skin: No Rash
Neuro: AOx3
58F COPD, HLD, kidney stones, interstitial cystitis recent CDIFF infxn p/w abd pain past few weeks. Further reports experiencing similar symptoms ongoing to some extent since January. Patient also has interstitial cystitis for which received
antibiotics recently. Abd pain typically worse in morning . Pain worse with bowel movements associated with intermittent nausea/vomiting. Diarrhea since resolved with oral vancomycin treatment. Reports 14 lb wt loss since January. Reports good
appetite but afraid to eat due to pain from bowel movements. Oral vancomycin was switched to Dificid with no further improvement in symptoms noted.
# Intermittent severe abdominal pain
# Recent C. difficile infection
#Possible Intussusception
-CT enterography (03/16) with Marked gastric dilation with fluid-filled stomach. This extends to the level of the gastric antrum which shows circumferential abnormal wall thickening which is persistent on delayed images etiology of the wall thickening
is indeterminate at CT. This could be further evaluated with endoscopy. As above, there is apparent slight protrusion of the ileocecal valve into the cecum, evaluation somewhat limited secondary to paucity of intra-abdominal fat. No aranza ileocecal
intussusception is identified on this examination. There is no obstruction of the small bowel. No other intussusception is identified.
-CT abdomen pelvis (03/28) with Mild bowel wall thickening and inflammatory change adjacent to the cecum, which is redundant and located within the pelvis. Findings are suggestive of mild enteritis, likely infectious or inflammatory.Focal area of
narrowing within the gastric antrum, with associated mild gastric dilation. This was also seen on prior CT dated 03/16/2024. Consider further evaluation with upper GI endoscopy.No current intussusception.
-GI CRS appreciated EGD/colonoscopy today 04/07/24
-Dificid continued for C diff
-obstruction series appreciated no acute abn's
-IV PPI
# Acute kidney injury likely dehydration
-Creatinine 1.1
-received normal saline in ER
-resolved
#mild hypercalcemia
observe
# Asthma/COPD
-Continue with inhaler, Singulair
# Hyperlipidemia
-Continue Crestor
# Anxiety
-Continue Klonopin, sertraline
#DVT prophylaxis
-Lovenox
#CODE status
-full code
I spent a total of 50 minutes with the patient or on the floor. More than 50% of this time involved counseling and coordination of care.
Anticipated Discharge: 24 - 48 hours
Subjective/Interval History
-
Date of Service: April 06, 2024
no acute distress. continues to report intermittent abd pain. eager to start eating again.
Objective Data
-
Labs:
Laboratory Results
04/06/24
07:21
WBC Pending
Hgb Pending
Hct Pending
Plt Count Pending
Sodium Pending
Potassium Pending
Chloride Pending
Carbon Dioxide Pending
BUN Pending
Creatinine Pending
Glucose Pending
Calcium Pending
Vital Signs:
Vital Signs
Temp Pulse Resp BP Pulse Ox
98.3 F 78 16 111/56 96
04/05/24 23:50 04/06/24 07:27 04/06/24 07:27 04/05/24 23:50 04/06/24 07:27
I&O
04/05/24 04/06/24 04/07/24
06:59 06:59 06:59
Intake Total 1080 / 1080 1200 / 1200
Balance 1080 / 1080 1200 / 1200
[2024-04-06 08:01] LABS: Hematocrit 35.3 % (37.0-47.0); Hemoglobin 12.1 g/dL (12.0-16.0); Mean Corp Hgb Conc. 34.3 g/dL (33.0-37.0); Mean Corpuscular Hgb 32.9 pg (27.0-31.0); Mean Corpuscular Volume 95.9 fL (81.0-99.0); Mean Platelet Volume 10.6 fL (7.4-10.4); Platelet Count 211 10^3/uL (130-400); Red Blood Cell Count 3.68 10^6/uL (4.20-5.40); Red Cell Dist. Width 12.7 % (11.5-14.5); White Blood Cell Count 3.6 10^3/uL (4.8-10.8)
[2024-04-06 08:09] LABS: Blood Urea Nitrogen 10 mg/dl (7-17); Calcium 9.8 mg/dl (8.4-10.2); Carbon Dioxide 24 mmol/L (22-30); Chloride 104 mmol/L (98-107); Estimated Creatinine Clearance 58 ml/min; Glucose 84 mg/dl (70-99); Phosphorus 4.3 mg/dl (2.5-4.5); Potassium 4.1 mmol/L (3.5-5.1); Sodium 137 mmol/L (135-145); eGFR > 60.00
[2024-04-06] MEDS: PROTONIX IV 40 MG IV ×2 (08:12→20:04)
[2024-04-06] MEDS: NSS (PRESERVATIVE FREE) 10 ML IV ×2 (08:12→20:04)
[2024-04-06] MEDS: LOW STRENGTH ASPIRIN 81 MG PO (08:13)
[2024-04-06] MEDS: ZOLOFT 50 MG PO (08:13)
[2024-04-06] MEDS: KLONOPIN 0.5 MG PO ×2 (08:13→20:03)
[2024-04-06] MEDS: DIFICID 200 MG PO ×2 (08:13→20:03)
--- NOTE | 2024-04-06 13:38 | CM ---
Reviewed the chart notes and spoke with the patient at the bedside. Patient anticipates GI endoscopic workup today. CM continues to be available to patient/family and is monitoring medical plan for needs at discharge.
Plan: Discharge plans will depend on the patient's progress.
--- NOTE | 2024-04-06 13:55 | W.PN.UPDATE ---
Update Note
Progress Note Update
GI will s/o. Please call us back if any questions
[2024-04-06] MEDS: NSS 1000 IV ×2 (14:51→23:59)
--- NOTE | 2024-04-06 15:16 | W.PN.UPDATE ---
Update Note
Progress Note Update
Results of EGD and colonoscopy noted. Ulcer disease of the upper GI tract revealed as well as some transverse and ascending colon erythema. On communication with Dr. Layton, he feels it is possible that the pain is related to the ulcer disease.
It is also possible that the colon erythema is related to the recent C. difficile. Biopsies of both areas pending. Given these findings, I believe it is reasonable to hold off on tomorrow's ileocecectomy. Medical treatment of the ulcer disease
may improve her pain. Time will tell. Long discussion had with the patient and her . They understand. Diet has been resumed by the hospitalist.
[2024-04-06 15:40] VITALS: BP 82/46
[2024-04-06] MEDS: LOVENOX 40 MG SC (18:11)
[2024-04-06] MEDS: SINGULAIR 10 MG PO (18:11)
[2024-04-06] MEDS: CRESTOR 10 MG PO (18:11)
[2024-04-06 18:44] VITALS: BP 92/48
[2024-04-06 23:46] VITALS: BP 120/65
[2024-04-07 05:34] VITALS: BMI 19.1
[2024-04-07] MEDS: SYMBICORT 160/4.5 MCG INHALER 2 PUFF INH ×2 (07:26→20:26)
[2024-04-07] MEDS: TYLENOL 650 MG PO (07:31)
[2024-04-07] MEDS: ZOFRAN 4 MG IV ×3 (07:31→17:02)
[2024-04-07 07:45] VITALS: BP 114/55
--- NOTE | 2024-04-07 07:52 | W.PN.HOSP.TC ---
Today's Communication/Plan
-
pain control
Protonix BID
Carafate ACHS
Bentyl prn abd/pelvic cramps
Assessment / Plan
Assessment / Plan
General: Well Developed, Well Nourished and No Apparent Distress
HEENT: NormoCephalic, Moist mucous membranes and Atraumatic
Respiratory: Clear
Cardiac: S1/S2 and Regular Rhythm; No Murmur or Rub
GI: Soft, Non Distended, Normal Bowel Sounds and Tender
Musculoskeletal: No Clubbing, No Cyanosis and No Edema
Skin: No Rash
Neuro: AOx3
58F COPD, HLD, kidney stones, interstitial cystitis recent CDIFF infxn p/w abd pain past few weeks. Further reports experiencing similar symptoms ongoing to some extent since January. Patient also has interstitial cystitis for which received
antibiotics recently. Abd pain typically worse in morning . Pain worse with bowel movements associated with intermittent nausea/vomiting. Diarrhea since resolved with oral vancomycin treatment. Reports 14 lb wt loss since January. Reports good
appetite but afraid to eat due to pain from bowel movements. Oral vancomycin was switched to Dificid with no further improvement in symptoms noted.
# Intermittent severe abdominal pain
# Recent C. difficile infection
#Possible Intussusception
#Gastric ulcers
-CT enterography (03/16) with Marked gastric dilation with fluid-filled stomach. This extends to the level of the gastric antrum which shows circumferential abnormal wall thickening which is persistent on delayed images etiology of the wall thickening
is indeterminate at CT. This could be further evaluated with endoscopy. As above, there is apparent slight protrusion of the ileocecal valve into the cecum, evaluation somewhat limited secondary to paucity of intra-abdominal fat. No aranza ileocecal
intussusception is identified on this examination. There is no obstruction of the small bowel. No other intussusception is identified.
-CT abdomen pelvis (03/28) with Mild bowel wall thickening and inflammatory change adjacent to the cecum, which is redundant and located within the pelvis. Findings are suggestive of mild enteritis, likely infectious or inflammatory.Focal area of
narrowing within the gastric antrum, with associated mild gastric dilation. This was also seen on prior CT dated 03/16/2024. Consider further evaluation with upper GI endoscopy.No current intussusception.
-GI CRS appreciated EGD/colonoscopy 04/07/24 superficial gastric ulcers doesn't appear to be related to patient's abd pain symptoms
-protonix BID, carafate added
-Dificid continued for C diff
-obstruction series appreciated no acute abn's
-IV PPI
Mild hypotension asymptomatic
suspect hypovolemia
improved with prn IVF bolus
# Acute kidney injury likely dehydration
-Creatinine 1.1
-received normal saline in ER
-resolved
#mild hypercalcemia
observe
# Asthma/COPD
-Continue with inhaler, Singulair
# Hyperlipidemia
-Continue Crestor
# Anxiety
-Continue Klonopin, sertraline
#DVT prophylaxis
-Lovenox
#CODE status
-full code
I spent a total of 50 minutes with the patient or on the floor. More than 50% of this time involved counseling and coordination of care.
Anticipated Discharge: 24 - 48 hours
Subjective/Interval History
-
Date of Service: April 07, 2024
continues to report intermittent abd cramping usually overnight.
Objective Data
-
Labs:
Laboratory Results
04/07/24
06:00
WBC Pending
Hgb Pending
Hct Pending
Plt Count Pending
Sodium Pending
Potassium Pending
Chloride Pending
Carbon Dioxide Pending
BUN Pending
Creatinine Pending
Glucose Pending
Calcium Pending
Vital Signs:
Vital Signs
Temp Pulse Resp BP Pulse Ox
97.8 F 86 16 120/65 97
04/06/24 23:46 04/07/24 07:35 04/07/24 07:35 04/06/24 23:46 04/07/24 07:35
I&O
04/06/24 04/07/24 04/08/24
06:59 06:59 06:59
Intake Total 1200 / 1200 1680 / 1680
Balance 1200 / 1200 1680 / 1680
[2024-04-07] MEDS: NSS (PRESERVATIVE FREE) 10 ML IV ×2 (08:06→20:46)
[2024-04-07] MEDS: PROTONIX IV 40 MG IV ×2 (08:06→20:47)
[2024-04-07] MEDS: NSS 1000 IV (08:06)
[2024-04-07] MEDS: DIFICID 200 MG PO ×2 (08:06→20:46)
[2024-04-07] MEDS: KLONOPIN 0.5 MG PO ×2 (08:06→20:47)
[2024-04-07] MEDS: ROXICODONE 5 MG PO ×3 (08:06→17:02)
[2024-04-07] MEDS: ZOLOFT 50 MG PO (08:06)
[2024-04-07] MEDS: LOW STRENGTH ASPIRIN 81 MG PO (08:06)
[2024-04-07 09:06] LABS: Hematocrit 35.3 % (37.0-47.0); Hemoglobin 11.8 g/dL (12.0-16.0); Mean Corp Hgb Conc. 33.4 g/dL (33.0-37.0); Mean Corpuscular Hgb 32.2 pg (27.0-31.0); Mean Corpuscular Volume 96.2 fL (81.0-99.0); Mean Platelet Volume 10.5 fL (7.4-10.4); Platelet Count 216 10^3/uL (130-400); Red Blood Cell Count 3.67 10^6/uL (4.20-5.40); Red Cell Dist. Width 12.8 % (11.5-14.5); White Blood Cell Count 4.3 10^3/uL (4.8-10.8)
--- NOTE | 2024-04-07 10:04 | W.PN.CRS1 ---
Today's Communication / Plan
-
no plans for OR
urology consult
Assessment/Plan
-
Assessment: 64yo female with generalized abdominal pain discomfort and diarrhea with findings on 2 imaging studies of ileocecal intussusception with cramping and foul smelling bowel movements, c.diff positive.
04/06 EGD/colonoscopy: Ulcer disease of the upper GI tract revealed as well as some transverse and ascending colon erythema
Plan:
1. WBC normalized at 4.3. Vital signs normal.
2. Continue vancomycin for c.diff per infectious disease.
3. No plans for OR during this admission.
4. Continue low residue diet.
5. Given lower abdominal cramping and history of interstitial cystitis, will consult urology for their opinion ?cramping related to bladder.
Subjective Data
Subjective Data
Date of Service: April 07, 2024
Patient states she is still having lower abdominal cramps, most prominently in the morning. She has nausea when this occurs. She had not yet had bowel function since her colonoscopy prep.
Objective Data
-
Vital Signs
Temp Pulse Resp BP Pulse Ox
98.0 F 66 16 114/55 96
04/07/24 07:45 04/07/24 07:45 04/07/24 07:45 04/07/24 07:45 04/07/24 07:45
Intake & Output
04/06/24 04/07/24 04/08/24
06:59 06:59 06:59
Intake Total 1200 / 1200 1680 / 1680
Balance 1200 / 1200 1680 / 1680
Intake:
Oral fluids 1200 / 1200 480 / 480
IV fluids (Total) 1200 / 1200
Other:
Number of approximated SMALL 15
amounts of urine
Number of approximated MODERATE 13 4
amounts of urine
Number of unmeasured liquid
stools
Rectum 13 3
Lab Results
04/07/24 08:44
Physical Exam
-
General: No Acute Distress and AOx3
Abdomen: Soft, Non Distended and Tender (mild lower quadrant)
Skin: Warm and Dry
[2024-04-07 10:39] LABS: Blood Urea Nitrogen 8 mg/dl (7-17); Calcium 9.8 mg/dl (8.4-10.2); Carbon Dioxide 25 mmol/L (22-30); Chloride 107 mmol/L (98-107); Estimated Creatinine Clearance 51 ml/min; Glucose 92 mg/dl (70-99); Magnesium 1.9 mg/dl (1.6-2.3); Phosphorus 3.8 mg/dl (2.5-4.5); Potassium 4.1 mmol/L (3.5-5.1); Sodium 138 mmol/L (135-145); eGFR > 60.00
[2024-04-07] MEDS: CARAFATE 1 GRAM PO ×3 (12:15→22:27)
--- NOTE | 2024-04-07 12:56 | CM ---
Reviewed the chart notes. Per notes, no surgical intervention required. CM continues to be available to patient/family and is monitoring medical plan for needs at discharge.
Plan: Discharge to home when medically stable. No anticipated needs.
[2024-04-07 15:50] VITALS: BP 83/46
[2024-04-07] MEDS: NSS 500 IV (15:52)
[2024-04-07 15:59] VITALS: BP 98/56
--- NOTE | 2024-04-07 15:59 | PTCARENOTE ---
Pt. bp is 83/46. Patient asymptomatic. made aware. 500 cc bolus ordered. Manual bp is 98/56 after pt walked back from bathroom.
--- NOTE | 2024-04-07 16:29 | W.PN.ID1 ---
Date of Service
Date of Service: April 07, 2024
Today's Communication
Continue with daptomycin.
Assessment / Plan
Abdominal pain
-Ongoing, and of unclear etiology
History of recent C. difficile
-No current diarrhea
COPD
Arrhythmia
Dyslipidemia
Interstitial cystitis
Nephrolithiasis
Recommendations:
Continue with fidaxomicin (d#5) to complete 14 day course.
Workup as to etiology of abdominal discomfort ongoing.
����������������������������������������������������������
Chief Complaint
-: C-diff and Other (Abdominal pain)
Subjective / Review of Systems
Patient seen and examined. Reports some ongoing abdominal discomfort. No diarrhea, and in fact reports some mild constipation.
Review of Systems: No Fever and No Chills
Vital Signs / Physical Exam
Vital Signs
Vital Signs
Temp Pulse Resp BP Pulse Ox
97.7 F 69 18 98/56 96
04/07/24 15:50 04/07/24 15:50 04/07/24 15:50 04/07/24 15:59 04/07/24 15:50
Physical Exam
Constitutional: No Acute Distress, Comfortable and Non-toxic
Eyes: No Conjunctival Hemorrhage and Sclera Anicteric
Cardiovascular: S1/S2; Negative S3/S4
Pulmonary: Clear and Non Labored
Gastrointestinal: Soft, Tender (mild), Non Distended, Normal Bowel Sounds, No Rebound and No Guarding
Neurological: Awake and Alert
Psychological: Calm
Objective Data
Lab Data
Lab Results
04/07/24 08:44
04/07/24 08:44
PT 13.3 Sec (11.4-14.6) 04/05/24 06:54
INR 1.01 04/05/24 06:54
Estimated Creat Clear 51 ml/min 04/07/24 08:44
Lactic Acid 0.7 mmol/L (0.7-2.0) 04/03/24 12:13
Total Bilirubin 0.4 mg/dl (0.2-1.3) 04/03/24 11:08
AST 23 U/L (14-36) 04/03/24 11:08
ALT 13 U/L (0-35) 04/03/24 11:08
Alkaline Phosphatase 69 U/L (38-126) 04/03/24 11:08
Most recent labs reviewed.
Imaging:
04/03/2024 obstruction series: No active cardiopulmonary disease noted in the chest. No evidence of acute abdominal pathology noted in supine and erect radiographs of the abdomen. A moderate amount of gas is seen in nondilated loops of bowel. No
bowel dilatation to suggest obstruction. No free intraperitoneal air.
[2024-04-07] MEDS: CRESTOR 10 MG PO (17:02)
[2024-04-07] MEDS: SINGULAIR 10 MG PO (17:02)
[2024-04-07] MEDS: LOVENOX 40 MG SC (17:02)
[2024-04-07 17:18] VITALS: BP 100/58
[2024-04-07] MEDS: DILAUDID 0.5 MG IV (18:34)
[2024-04-07] MEDS: BENTYL 20 MG PO (18:35)
--- NOTE | 2024-04-07 19:15 | PTCARENOTE ---
Pt is in 06/23 pain. Pt. c/o of severe abd cramping. Pt. very tearful. Pt ate first meal of day around 1300 and received Carafate 1 hour before. Pt. states pain happens about 5 hrs after eating. PRN zofran and oxycodone administered per ordered. Pt.
still c/o of pain. MD made aware. PRN bentyl administered. One time dose of Dilaudid given per MD order.
[2024-04-07 23:40] VITALS: BP 98/54
[2024-04-08 06:07] VITALS: BMI 19.3
--- NOTE | 2024-04-08 07:06 | W.PN.HOSP.TC ---
Today's Communication/Plan
-
Bentyl switched to scheduled
Gas-x for bloating gas abd discomfort prn
Sertraline to switch to bedtime Cymbalta
cont low residue low fat low lactose diet
cont Dificid as per ID
Assessment / Plan
Assessment / Plan
General: Well Developed, Well Nourished and No Apparent Distress
HEENT: NormoCephalic, Moist mucous membranes and Atraumatic
Respiratory: Clear
Cardiac: S1/S2 and Regular Rhythm; No Murmur or Rub
GI: Soft, Non Distended, Normal Bowel Sounds and Tender
Musculoskeletal: No Clubbing, No Cyanosis and No Edema
Skin: No Rash
Neuro: AOx3
58F COPD, HLD, kidney stones, interstitial cystitis recent CDIFF infxn p/w abd pain past few weeks. Further reports experiencing similar symptoms ongoing to some extent since January. Patient also has interstitial cystitis for which received
antibiotics recently. Abd pain typically worse in morning . Pain worse with bowel movements associated with intermittent nausea/vomiting. Diarrhea since resolved with oral vancomycin treatment. Reports 14 lb wt loss since January. Reports good
appetite but afraid to eat due to pain from bowel movements. Oral vancomycin was switched to Dificid with no further improvement in symptoms noted.
# Intermittent severe abdominal pain
# Recent C. difficile infection
#Possible Intussusception
#Gastric ulcers
-CT enterography (03/16) with Marked gastric dilation with fluid-filled stomach. This extends to the level of the gastric antrum which shows circumferential abnormal wall thickening which is persistent on delayed images etiology of the wall thickening
is indeterminate at CT. This could be further evaluated with endoscopy. As above, there is apparent slight protrusion of the ileocecal valve into the cecum, evaluation somewhat limited secondary to paucity of intra-abdominal fat. No aranza ileocecal
intussusception is identified on this examination. There is no obstruction of the small bowel. No other intussusception is identified.
-CT abdomen pelvis (03/28) with Mild bowel wall thickening and inflammatory change adjacent to the cecum, which is redundant and located within the pelvis. Findings are suggestive of mild enteritis, likely infectious or inflammatory.Focal area of
narrowing within the gastric antrum, with associated mild gastric dilation. This was also seen on prior CT dated 03/16/2024. Consider further evaluation with upper GI endoscopy.No current intussusception.
-GI CRS appreciated EGD/colonoscopy 04/07/24 superficial gastric ulcers doesn't appear to be related to patient's abd pain symptoms
-protonix BID, carafate added, bentyl switched to scheduled, home sertraline switched to bedtime cymbalta following discussion w/ patient
-Dificid continued for C diff
-obstruction series appreciated no acute abn's
-IV PPI
Mild hypotension asymptomatic
suspect hypovolemia
improved with prn IVF bolus
# Acute kidney injury likely dehydration
-Creatinine 1.1
-received normal saline in ER
-resolved
#mild hypercalcemia
observe
# Asthma/COPD
-Continue with inhaler, Singulair
# Hyperlipidemia
-Continue Crestor
# Anxiety/depression
-Continue Klonopin,
-sertraline switched to Cymbalta as above
#DVT prophylaxis
-Lovenox
#CODE status
-full code
I spent a total of 50 minutes with the patient or on the floor. More than 50% of this time involved counseling and coordination of care.
Anticipated Discharge: 24 - 48 hours
Subjective/Interval History
-
Date of Service: April 08, 2024
Continues to report intermittent abd pain cramps. Patient also notes constipation.
Objective Data
-
Labs:
Laboratory Results
04/08/24
06:50
WBC Pending
Hgb Pending
Hct Pending
Plt Count Pending
Sodium Pending
Potassium Pending
Chloride Pending
Carbon Dioxide Pending
BUN Pending
Creatinine Pending
Glucose Pending
Calcium Pending
Vital Signs:
Vital Signs
Temp Pulse Resp BP Pulse Ox
98.2 F 73 18 98/54 97
04/07/24 23:40 04/07/24 23:40 04/07/24 23:40 04/07/24 23:40 04/07/24 23:40
I&O
04/07/24 04/08/24 04/09/24
06:59 06:59 06:59
Intake Total 1680 / 1680 2580 / 2580
Balance 1680 / 1680 2580 / 2580
[2024-04-08 07:28] LABS: Hematocrit 31.8 % (37.0-47.0); Hemoglobin 10.6 g/dL (12.0-16.0); Mean Corp Hgb Conc. 33.3 g/dL (33.0-37.0); Mean Corpuscular Hgb 31.9 pg (27.0-31.0); Mean Corpuscular Volume 95.8 fL (81.0-99.0); Mean Platelet Volume 10.5 fL (7.4-10.4); Platelet Count 186 10^3/uL (130-400); Red Blood Cell Count 3.32 10^6/uL (4.20-5.40); Red Cell Dist. Width 12.8 % (11.5-14.5); White Blood Cell Count 4.4 10^3/uL (4.8-10.8)
[2024-04-08] MEDS: SYMBICORT 160/4.5 MCG INHALER 2 PUFF INH ×2 (07:40→17:57)
[2024-04-08 07:50] VITALS: BP 116/73
[2024-04-08 08:02] LABS: Blood Urea Nitrogen 6 mg/dl (7-17); Calcium 9.4 mg/dl (8.4-10.2); Carbon Dioxide 27 mmol/L (22-30); Chloride 110 mmol/L (98-107); Estimated Creatinine Clearance 58 ml/min; Glucose 90 mg/dl (70-99); Magnesium 1.9 mg/dl (1.6-2.3); Phosphorus 4.2 mg/dl (2.5-4.5); Potassium 3.7 mmol/L (3.5-5.1); Sodium 140 mmol/L (135-145); eGFR > 60.00
[2024-04-08] MEDS: LOW STRENGTH ASPIRIN 81 MG PO (09:04)
[2024-04-08] MEDS: ZOLOFT 50 MG PO (09:04)
[2024-04-08] MEDS: CARAFATE 1 GRAM PO ×4 (09:04→21:11)
[2024-04-08] MEDS: KLONOPIN 0.5 MG PO ×2 (09:04→20:13)
[2024-04-08] MEDS: TYLENOL 650 MG PO ×2 (09:04→14:13)
[2024-04-08] MEDS: DIFICID 200 MG PO ×2 (09:04→20:13)
[2024-04-08] MEDS: BENTYL 20 MG PO ×4 (09:04→21:11)
[2024-04-08] MEDS: ZOFRAN 4 MG IV (09:04)
[2024-04-08] MEDS: PROTONIX IV 40 MG IV ×2 (09:05→20:13)
[2024-04-08] MEDS: NSS (PRESERVATIVE FREE) 10 ML IV ×2 (09:05→20:13)
[2024-04-08] MEDS: SENOKOT-S 1 TABLET PO ×2 (11:00→20:14)
--- NOTE | 2024-04-08 14:34 | CM ---
CM following re: discharge planning.
Reviewed pt's chart, met with pt.
Per Colorectal surgery, no plans for OR, on room Air continue supportive care.
Per CM noter, pt resides with her spouse in a two story home and pt is independent in all areas [employer]. No after care VN services expected.
D/C plan: home no after care VN needs. Family to transport at discharge.
CM will follow with discharge plan updates as hospitalization progresses
[2024-04-08 15:50] VITALS: BP 94/58
[2024-04-08] MEDS: SINGULAIR 10 MG PO (17:31)
[2024-04-08] MEDS: CRESTOR 10 MG PO (17:31)
[2024-04-08] MEDS: LOVENOX 40 MG SC (17:33)
[2024-04-08] MEDS: CYMBALTA DELAYED RELEASE 30 MG PO (21:11)
[2024-04-08 23:38] VITALS: BP 105/70
[2024-04-09 06:00] VITALS: BMI 19.5
[2024-04-09 07:25] LABS: Hematocrit 33.7 % (37.0-47.0); Hemoglobin 11.5 g/dL (12.0-16.0); Mean Corp Hgb Conc. 34.1 g/dL (33.0-37.0); Mean Corpuscular Hgb 32.8 pg (27.0-31.0); Mean Platelet Volume 10.9 fL (7.4-10.4); Platelet Count 178 10^3/uL (130-400); Red Blood Cell Count 3.51 10^6/uL (4.20-5.40); Red Cell Dist. Width 12.5 % (11.5-14.5); White Blood Cell Count 4.4 10^3/uL (4.8-10.8)
--- NOTE | 2024-04-09 07:37 | W.PN.HOSP.TC ---
Today's Communication/Plan
-
pain control
bowel regimen
suppository
bentyl on hold
Assessment / Plan
Assessment / Plan
General: Well Developed, Well Nourished and No Apparent Distress
HEENT: NormoCephalic, Moist mucous membranes and Atraumatic
Respiratory: Clear
Cardiac: S1/S2 and Regular Rhythm; No Murmur or Rub
GI: Soft, Non Distended, Normal Bowel Sounds and Tender
Musculoskeletal: No Clubbing, No Cyanosis and No Edema
Skin: No Rash
Neuro: AOx3
58F COPD, HLD, kidney stones, interstitial cystitis recent CDIFF infxn p/w abd pain past few weeks. Further reports experiencing similar symptoms ongoing to some extent since January. Patient also has interstitial cystitis for which received
antibiotics recently. Abd pain typically worse in morning . Pain worse with bowel movements associated with intermittent nausea/vomiting. Diarrhea since resolved with oral vancomycin treatment. Reports 14 lb wt loss since January. Reports good
appetite but afraid to eat due to pain from bowel movements. Oral vancomycin was switched to Dificid with no further improvement in symptoms noted.
# Intermittent severe abdominal pain
# Recent C. difficile infection
#Possible Intussusception
#Gastric ulcers
-CT enterography (03/16) with Marked gastric dilation with fluid-filled stomach. This extends to the level of the gastric antrum which shows circumferential abnormal wall thickening which is persistent on delayed images etiology of the wall thickening
is indeterminate at CT. This could be further evaluated with endoscopy. As above, there is apparent slight protrusion of the ileocecal valve into the cecum, evaluation somewhat limited secondary to paucity of intra-abdominal fat. No aranza ileocecal
intussusception is identified on this examination. There is no obstruction of the small bowel. No other intussusception is identified.
-CT abdomen pelvis (03/28) with Mild bowel wall thickening and inflammatory change adjacent to the cecum, which is redundant and located within the pelvis. Findings are suggestive of mild enteritis, likely infectious or inflammatory.Focal area of
narrowing within the gastric antrum, with associated mild gastric dilation. This was also seen on prior CT dated 03/16/2024. Consider further evaluation with upper GI endoscopy.No current intussusception.
-GI CRS appreciated EGD/colonoscopy 04/07/24 superficial gastric ulcers doesn't appear to be related to patient's abd pain symptoms
-protonix BID, carafate added, bentyl switched to scheduled subsequently placed on hold d/t constipation, home sertraline switched to bedtime cymbalta following discussion w/ patient
-Dificid continued for C diff
-obstruction series appreciated no acute abn's
-IV PPI
#Severe Constipation
Repeat CT abd/pelvis noted severe constipation, likely new source of abd pain
cont bowel regimen miralax colace senna
once bisacodly suppository
Bentyl placed on hold
Mild hypotension asymptomatic
suspect hypovolemia
improved with prn IVF bolus
# Acute kidney injury likely dehydration
-Creatinine 1.1
-received normal saline in ER
-resolved
#mild hypercalcemia
observe
# Asthma/COPD
-Continue with inhaler, Singulair
# Hyperlipidemia
-Continue Crestor
# Anxiety/depression
-Continue Klonopin,
-sertraline switched to Cymbalta as above
#DVT prophylaxis
-Lovenox
#CODE status
-full code
I spent a total of 50 minutes with the patient or on the floor. More than 50% of this time involved counseling and coordination of care.
Anticipated Discharge: 24 - 48 hours
Subjective/Interval History
-
Date of Service: April 09, 2024
Intermittent abd pain persists
Objective Data
-
Labs:
Laboratory Results
04/09/24
06:25
WBC 4.4 L
Hgb 11.5 L
Hct 33.7 L
Plt Count 178
Sodium Pending
Potassium Pending
Chloride Pending
Carbon Dioxide Pending
BUN Pending
Creatinine Pending
Glucose Pending
Calcium Pending
Vital Signs:
Vital Signs
Temp Pulse Resp BP Pulse Ox
98.1 F 59 16 105/70 98
04/08/24 23:38 04/08/24 23:38 04/08/24 23:38 04/08/24 23:38 04/08/24 23:38
I&O
04/08/24 04/09/24 04/10/24
06:59 06:59 06:59
Intake Total 2580 / 2580 720 / 720
Balance 2580 / 2580 720 / 720
[2024-04-09] MEDS: SYMBICORT 160/4.5 MCG INHALER 2 PUFF INH ×2 (07:41→20:03)
[2024-04-09 07:50] VITALS: BP 106/61
[2024-04-09 07:51] LABS: Blood Urea Nitrogen 5 mg/dl (7-17); Calcium 9.8 mg/dl (8.4-10.2); Carbon Dioxide 29 mmol/L (22-30); Chloride 105 mmol/L (98-107); Estimated Creatinine Clearance 59 ml/min; Glucose 90 mg/dl (70-99); Phosphorus 4.1 mg/dl (2.5-4.5); Potassium 3.7 mmol/L (3.5-5.1); Sodium 139 mmol/L (135-145); eGFR > 60.00
[2024-04-09] MEDS: SENOKOT-S 1 TABLET PO ×2 (09:11→20:34)
[2024-04-09] MEDS: LOW STRENGTH ASPIRIN 81 MG PO (09:11)
[2024-04-09] MEDS: CARAFATE 1 GRAM PO ×4 (09:11→22:39)
[2024-04-09] MEDS: KLONOPIN 0.5 MG PO ×2 (09:11→20:33)
[2024-04-09] MEDS: BENTYL 20 MG PO ×3 (09:11→17:54)
[2024-04-09] MEDS: DIFICID 200 MG PO ×2 (09:11→20:33)
[2024-04-09] MEDS: PROTONIX IV 40 MG IV ×2 (09:12→20:34)
[2024-04-09] MEDS: NSS (PRESERVATIVE FREE) 10 ML IV ×2 (09:12→20:33)
[2024-04-09] MEDS: FLUSH (NSS) 2 FLUSH IV ×3 (09:15→15:31)
[2024-04-09] MEDS: ZOFRAN 4 MG IV ×2 (09:31→15:31)
[2024-04-09] MEDS: TYLENOL 650 MG PO (09:31)
[2024-04-09] MEDS: MAALOX PLUS 1 TABLET PO (11:10)
[2024-04-09] MEDS: MIRALAX 17 GRAMS PO (11:28)
--- NOTE | 2024-04-09 14:58 | PTCARENOTE ---
Currently pt having severe abd pain after waking up from eating a small amount of toast and gingerale this am. Bentyl, carafate and tylenol given earlier this am along with klonopin. sister now her bedside at 15:00 and comes to the desk concerned
that her sister is now c/o severe abd pain. I check on pt and she is doubled over holding her abd in pain trying to explain to me that know one knows what is going on with her and she is still having pain. As she is speaking she stops crying and
starts to speak in a normal tone while looking at her sister holding her stomach. she also begins to tell me how she was doing days ago and what they have done for her. Her sister asked if she needs to have an enema? Pt concerned that Dr. Ashby
has not been back to see her. Pt is besides herself crying that she is not getting any better. Will reach out to MD for support. She is now c/o feeling nauseated and increasing in pain. She has only taken tylenol this am with zofran. Will cont
to monitor.
[2024-04-09] MEDS: ROXICODONE 5 MG PO ×2 (15:29→22:49)
[2024-04-09 15:50] VITALS: BP 101/59
[2024-04-09] MEDS: OMNIPAQUE 50 ML PO (15:51)
[2024-04-09] MEDS: LOVENOX 40 MG SC (17:53)
[2024-04-09] MEDS: SINGULAIR 10 MG PO (17:54)
[2024-04-09] MEDS: CRESTOR 10 MG PO (17:54)
[2024-04-09] MEDS: SYMBICORT 160/4.5 MCG INHALER INH (20:02)
[2024-04-09] MEDS: MYLICON 80 MG PO (20:33)
[2024-04-09] MEDS: DULCOLAX 10 MG RECTAL (20:58)
[2024-04-09] MEDS: CYMBALTA DELAYED RELEASE 30 MG PO (22:38)
--- NOTE | 2024-04-09 23:00 | PTCARENOTE ---
Patient sitting on BSC-bent over with head on bed; c/o 10/10 abd pain which returned approximately 1 hour after Dulcolax supp was given; patient did have a small formed brown, mucous BM; patient reports that she has been experiencing severe pain and
cramping with every bowel movement; Catrina 5mg given for 10/10 abd pain; warm blanket and emotional support provided.
[2024-04-09 23:28] VITALS: BP 101/74
[2024-04-10 05:18] LABS: Hematocrit 33.5 % (37.0-47.0); Hemoglobin 11.5 g/dL (12.0-16.0); Mean Corp Hgb Conc. 34.3 g/dL (33.0-37.0); Mean Corpuscular Hgb 32.7 pg (27.0-31.0); Mean Corpuscular Volume 95.2 fL (81.0-99.0); Mean Platelet Volume 10.2 fL (7.4-10.4); Platelet Count 181 10^3/uL (130-400); Red Blood Cell Count 3.52 10^6/uL (4.20-5.40); Red Cell Dist. Width 12.5 % (11.5-14.5); White Blood Cell Count 6.2 10^3/uL (4.8-10.8)
[2024-04-10 05:34] VITALS: BMI 19.1
[2024-04-10 05:39] LABS: Blood Urea Nitrogen 6 mg/dl (7-17); Calcium 9.8 mg/dl (8.4-10.2); Carbon Dioxide 27 mmol/L (22-30); Chloride 107 mmol/L (98-107); Estimated Creatinine Clearance 58 ml/min; Glucose 92 mg/dl (70-99); Phosphorus 4.5 mg/dl (2.5-4.5); Potassium 3.6 mmol/L (3.5-5.1); Sodium 139 mmol/L (135-145); eGFR > 60.00
--- NOTE | 2024-04-10 07:18 | W.PN.HOSP.TC ---
Today's Communication/Plan
-
pain control
constipation seems to be resolved at this time w/ enema
bentyl prn resumed
low residue low fat lactose diet
consider repeat imaging follow up constipation if Abd pain continues to persist
Assessment / Plan
Assessment / Plan
General: Well Developed, Well Nourished and No Apparent Distress
HEENT: NormoCephalic, Moist mucous membranes and Atraumatic
Respiratory: Clear
Cardiac: S1/S2 and Regular Rhythm; No Murmur or Rub
GI: Soft, Non Distended, Normal Bowel Sounds and Tender
Musculoskeletal: No Clubbing, No Cyanosis and No Edema
Skin: No Rash
Neuro: AOx3
58F COPD, HLD, kidney stones, interstitial cystitis recent CDIFF infxn p/w abd pain past few weeks. Further reports experiencing similar symptoms ongoing to some extent since January. Patient also has interstitial cystitis for which received
antibiotics recently. Abd pain typically worse in morning . Pain worse with bowel movements associated with intermittent nausea/vomiting. Diarrhea since resolved with oral vancomycin treatment. Reports 14 lb wt loss since January. Reports good
appetite but afraid to eat due to pain from bowel movements. Oral vancomycin was switched to Dificid with no further improvement in symptoms noted.
# Intermittent severe abdominal pain
# Recent C. difficile infection
#Possible Intussusception
#Gastric ulcers
-CT enterography (03/16) with Marked gastric dilation with fluid-filled stomach. This extends to the level of the gastric antrum which shows circumferential abnormal wall thickening which is persistent on delayed images etiology of the wall thickening
is indeterminate at CT. This could be further evaluated with endoscopy. As above, there is apparent slight protrusion of the ileocecal valve into the cecum, evaluation somewhat limited secondary to paucity of intra-abdominal fat. No aranza ileocecal
intussusception is identified on this examination. There is no obstruction of the small bowel. No other intussusception is identified.
-CT abdomen pelvis (03/28) with Mild bowel wall thickening and inflammatory change adjacent to the cecum, which is redundant and located within the pelvis. Findings are suggestive of mild enteritis, likely infectious or inflammatory.Focal area of
narrowing within the gastric antrum, with associated mild gastric dilation. This was also seen on prior CT dated 03/16/2024. Consider further evaluation with upper GI endoscopy.No current intussusception.
-GI CRS appreciated EGD/colonoscopy 04/07/24 superficial gastric ulcers doesn't appear to be related to patient's abd pain symptoms
-protonix BID, carafate added, bentyl switched to scheduled subsequently placed on hold d/t constipation, home sertraline switched to bedtime cymbalta following discussion w/ patient
-Dificid continued for C diff
-obstruction series appreciated no acute abn's
-PPI BID
#Severe Constipation
Repeat CT abd/pelvis noted severe constipation, likely new source of abd pain
cont bowel regimen miralax colace senna
once bisacodly suppository
constipation resolved with once milk and molasses enema
Bentyl placed on hold resumed prn
Mild hypotension asymptomatic
likely hypovolemia d/t lack of oral inake
improved with prn IVF bolus
# Acute kidney injury likely dehydration
-Creatinine 1.1
-received normal saline in ER
-resolved
#mild hypercalcemia
resolved
# Asthma/COPD
-Continue with inhaler, Singulair
# Hyperlipidemia
-Continue Crestor
# Anxiety/depression
-Continue Klonopin,
-sertraline switched to Cymbalta as above
#DVT prophylaxis
-Lovenox
#CODE status
-full code
I spent a total of 50 minutes with the patient or on the floor. More than 50% of this time involved counseling and coordination of care.
Anticipated Discharge: Within 24 hours
Subjective/Interval History
-
Date of Service: April 10, 2024
Reports significant relief constipation with milk and molasses enema.
Objective Data
-
Labs:
Laboratory Results
04/10/24
05:08
WBC 6.2
Hgb 11.5 L
Hct 33.5 L
Plt Count 181
Sodium 139
Potassium 3.6
Chloride 107
Carbon Dioxide 27
BUN 6 L
Creatinine 0.8
Glucose 92
Calcium 9.8
Vital Signs:
Vital Signs
Temp Pulse Resp BP Pulse Ox
97.2 F 73 18 101/74 96
04/09/24 23:28 04/09/24 23:28 04/09/24 23:28 04/09/24 23:28 04/09/24 23:28
I&O
04/09/24 04/10/24 04/11/24
06:59 06:59 06:59
Intake Total 720 / 720 1340 / 1340
Balance 720 / 720 1340 / 1340
[2024-04-10] MEDS: SYMBICORT 160/4.5 MCG INHALER 2 PUFF INH ×2 (07:44→21:22)
[2024-04-10 07:50] VITALS: BP 98/59
[2024-04-10] MEDS: LOW STRENGTH ASPIRIN 81 MG PO (09:17)
[2024-04-10] MEDS: KLONOPIN 0.5 MG PO ×2 (09:17→19:55)
[2024-04-10] MEDS: SENOKOT-S 1 TABLET PO ×2 (09:17→19:55)
[2024-04-10] MEDS: DIFICID 200 MG PO ×2 (09:17→19:55)
[2024-04-10] MEDS: MIRALAX 17 GRAMS PO (09:18)
[2024-04-10] MEDS: PROTONIX IV 40 MG IV ×2 (09:18→19:55)
[2024-04-10] MEDS: CARAFATE 1 GRAM PO ×4 (09:18→21:08)
[2024-04-10] MEDS: NSS (PRESERVATIVE FREE) 10 ML IV ×2 (09:18→19:55)
[2024-04-10] MEDS: MYLICON 80 MG PO ×2 (09:18→19:55)
[2024-04-10] MEDS: FLUSH (NSS) 2 FLUSH IV (09:20)
[2024-04-10 12:10] LABS: HDL Cholesterol 53 mg/dl; LDL Cholesterol, Calculated 107 mg/dl; Total Cholesterol 184 mg/dl (50-199); Triglyceride 124 mg/dl (10-149); Very Low Density Lipoprotein 24 mg/dl (0-30)
[2024-04-10] MEDS: ROXICODONE 5 MG PO (13:14)
[2024-04-10 15:45] VITALS: BP 99/59
[2024-04-10] MEDS: LOVENOX 40 MG SC (17:47)
[2024-04-10] MEDS: SINGULAIR 10 MG PO (17:48)
[2024-04-10] MEDS: CRESTOR 10 MG PO (17:48)
[2024-04-10] MEDS: CYMBALTA DELAYED RELEASE 30 MG PO (21:08)
[2024-04-10 23:10] VITALS: BP 109/83
[2024-04-11 05:34] VITALS: BMI 18.9
[2024-04-11] MEDS: SYMBICORT 160/4.5 MCG INHALER 2 PUFF INH (07:40)
[2024-04-11 07:55] VITALS: BP 96/58
[2024-04-11] MEDS: NSS (PRESERVATIVE FREE) 10 ML IV (08:15)
[2024-04-11] MEDS: DIFICID 200 MG PO (08:15)
[2024-04-11] MEDS: PROTONIX IV 40 MG IV (08:15)
[2024-04-11] MEDS: KLONOPIN 0.5 MG PO (08:15)
[2024-04-11] MEDS: CARAFATE 1 GRAM PO ×3 (08:15→16:21)
[2024-04-11] MEDS: LOW STRENGTH ASPIRIN 81 MG PO (08:16)
[2024-04-11] MEDS: MIRALAX PO (08:16)
[2024-04-11] MEDS: SENOKOT-S PO (08:19)
[2024-04-11] MEDS: ZOFRAN 4 MG IV (08:25)
[2024-04-11] MEDS: BENTYL 20 MG PO (08:25)
--- NOTE | 2024-04-11 10:59 | W.PN.HOSP.TC ---
Addendum entered and electronically signed by Yara Thurston MD 04/12/24 13:28:
Mild protein calorie malnutrition
Addendum entered and electronically signed by Yara Thurston MD 04/11/24 15:03:
Discussed with colorectal and GI
Colitis on colonoscopy likely related to C. difficile. No need to repeat colonoscopy.
Follow-up with office in 3 months for gastric erosions and also follow-up with colorectal surgery
Okay for discharge
Total discharge phonation time more than 40 minutes
Original Note:
Today's Communication/Plan
-
Reached out to Colorectal and GI re cause of pain, CT and path findings on colon
No need for more Dificid per ID
Possible discharge
Assessment / Plan
Assessment / Plan
58F COPD, HLD, kidney stones, interstitial cystitis recent CDIFF infxn p/w abd pain past few weeks. Further reports experiencing similar symptoms ongoing to some extent since January. Patient also has interstitial cystitis for which received
antibiotics recently. Abd pain typically worse in morning . Pain worse with bowel movements associated with intermittent nausea/vomiting. Diarrhea since resolved with oral vancomycin treatment. Reports 14 lb wt loss since January. Reports good
appetite but afraid to eat due to pain from bowel movements. Oral vancomycin was switched to Dificid with no further improvement in symptoms noted.
-CT enterography (03/16) with Marked gastric dilation with fluid-filled stomach. This extends to the level of the gastric antrum which shows circumferential abnormal wall thickening which is persistent on delayed images etiology of the wall thickening
is indeterminate at CT. This could be further evaluated with endoscopy. As above, there is apparent slight protrusion of the ileocecal valve into the cecum, evaluation somewhat limited secondary to paucity of intra-abdominal fat. No aranza ileocecal
intussusception is identified on this examination. There is no obstruction of the small bowel. No other intussusception is identified.
-CT abdomen pelvis (03/28) with Mild bowel wall thickening and inflammatory change adjacent to the cecum, which is redundant and located within the pelvis. Findings are suggestive of mild enteritis, likely infectious or inflammatory.Focal area of
narrowing within the gastric antrum, with associated mild gastric dilation. This was also seen on prior CT dated 03/16/2024. Consider further evaluation with upper GI endoscopy.No current intussusception.
CT A/P 04/09/24- Large amount of fecal material in the proximal colon suggesting CONSTIPATION.Mild circumferential wall thickening throughout the sigmoid colon and rectum suggesting a mild acute proctocolitis.Mild diverticulosis in the sigmoid
colon.Moderate calcific atherosclerotic plaque in the abdominal aorta.Severe multilevel discogenic degenerative disease in the lumbar spine.
Colonoscopy-04/06/2024-examined ileum normal. Cecum and ileocecal valve normal. Mild erythematous mucosa in the transverse colon and ascending colon biopsied. Rectum and sigmoid colon and descending colon are normal. Many medium mouth and small
mouth diverticula in the sigmoid colon. Internal hemorrhoids.
Endoscopy 04/06/2024-Z-line irregular at the GE junction. Biopsied. Multiple nonbleeding superficial gastric ulcers/erosions with congested erythematous mucosa in the gastric antrum biopsied. Gastritis. Biopsied. Normal examined duodenum.
feels well. NO pain. Had large BM
CVS: S1-S2 normal
Chest: CTA B/L
Abdomen: Soft, NT , Bowel sounds present
Extremities: No edema
# Intermittent severe abdominal pain
# Recent C. difficile infection
#Possible Intussusception
# CT showing thickening of sigmoid colon and rectum suggesting mild proctocolitis (Likely C diff)
#Gastric ulcers
-GI CRS appreciated EGD/colonoscopy 04/07/24 superficial gastric ulcers doesn't appear to be related to patient's abd pain symptoms
-Continue Protonix BID, Carafate added, Bentyl started subsequently placed on hold d/t constipation, home sertraline switched to bedtime Cymbalta following discussion w/ patient
-Dificid can be stopped per .
-Obstruction series appreciated no acute abn's
-? pain from intussusception, does she have IBD? ? IBS
-Colon Path-Focal minimally active colitis
#Severe Constipation
Repeat CT abd/pelvis noted severe constipation, likely new source of abd pain
Cont bowel regimen Miralax Colace senna
Constipation resolved with once milk and molasses enema
#Mild hypotension asymptomatic
likely hypovolemia d/t lack of oral intake
improved with prn IVF bolus
# Acute kidney injury likely dehydration
-Creatinine 1.1
-resolved
#Mild hypercalcemia
resolved
# Asthma/COPD
-Continue with Breo Ellipta or equivalent inhaler, Singulair
# Hyperlipidemia/atherosclerotic plaque in the abdominal aorta
-Continue Crestor
# Anxiety/depression
-Continue Klonopin,
-Sertraline switched to Cymbalta as above
# Tobacco use-cessation counseling
# Diverticulosis
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
#DVT prophylaxis
-Lovenox
#CODE status
-Full code
D/W GI, Colorectal
D/W ID at bed side
Anticipated Discharge: Today
Subjective/Interval History
-
Date of Service: April 11, 2024
Objective Data
-
Vital Signs:
Vital Signs
Temp Pulse Resp BP Pulse Ox
97.9 F 72 16 96/58 97
04/11/24 07:55 04/11/24 07:55 04/11/24 07:55 04/11/24 07:55 04/11/24 07:55
I&O
04/10/24 04/11/24 04/12/24
06:59 06:59 06:59
Intake Total 1340 / 1340 1260 / 1260
Balance 1340 / 1340 1260 / 1260
--- NOTE | 2024-04-11 12:05 | CM ---
Addendum entered by Dee Fernandez RN 04/11/24 15:17:
Patient is discharged to home today. Family will provide transportation. No additional needs.
Original Note:
Reviewed the chart notes. CM consult for Dificid coverage received. CM contacted patient's pharmacy and per pharmacist the patient received the medication nine days ago and should have five days worth of medication at home. Attending informed.
Per attend, the treatment is a total of 14 days on the medication so patient will not need a script for additional pills. CM continues to be available to patient/family and is monitoring medical plan for needs at discharge.
Plan: Discharge to home when medically stable. No needs identified at this time.
--- NOTE | 2024-04-11 13:13 | W.PN.ID1 ---
Date of Service
Date of Service: April 11, 2024
Today's Communication
Discontinue further fidaxomicin.
Assessment / Plan
Abdominal pain
-Ongoing, and of unclear etiology
History of recent C. difficile
-No current diarrhea
COPD
Arrhythmia
Dyslipidemia
Interstitial cystitis
Nephrolithiasis
Recommendations:
Can discontinue further fidaxomicin at this time given resolution of all diarrhea. (Currently d#20 anti-c. diff tx)
����������������������������������������������������������
Chief Complaint
-: C-diff and Other (Abdominal pain)
Subjective / Review of Systems
Patient seen and examined. No diarrhea noted.
Review of Systems: No Fever and No Chills
Vital Signs / Physical Exam
Vital Signs
Vital Signs
Temp Pulse Resp BP Pulse Ox
97.9 F 72 16 96/58 97
04/11/24 07:55 04/11/24 07:55 04/11/24 07:55 04/11/24 07:55 04/11/24 07:55
Physical Exam
Constitutional: No Acute Distress, Comfortable and Non-toxic
Eyes: Sclera Anicteric
Pulmonary: Non Labored
Extremities: Negative Edema
Neurological: Awake and Alert
Psychological: Calm
Objective Data
Lab Data
Lab Results
04/10/24 05:08
04/10/24 05:08
PT 13.3 Sec (11.4-14.6) 04/05/24 06:54
INR 1.01 04/05/24 06:54
Estimated Creat Clear 58 ml/min 04/10/24 05:08
Lactic Acid 0.7 mmol/L (0.7-2.0) 04/03/24 12:13
Total Bilirubin 0.4 mg/dl (0.2-1.3) 04/03/24 11:08
AST 23 U/L (14-36) 04/03/24 11:08
ALT 13 U/L (0-35) 04/03/24 11:08
Alkaline Phosphatase 69 U/L (38-126) 04/03/24 11:08
Most recent labs reviewed.
Imaging:
04/03/2024 obstruction series: No active cardiopulmonary disease noted in the chest. No evidence of acute abdominal pathology noted in supine and erect radiographs of the abdomen. A moderate amount of gas is seen in nondilated loops of bowel. No
bowel dilatation to suggest obstruction. No free intraperitoneal air.
Care Review
Plan reviewed with: Physician (Hospitalist)
--- NOTE | 2024-04-11 15:12 | W.DS.TRANS ---
Addendum entered and electronically signed by Yara Thurston MD 04/11/24 17:00:
Dictation- [id number]
Original Note:
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
-
Discharge Instructions:
Discharge Diagnosis/Procedures Intermittent abdominal pain
C. difficile infection
Gastric ulcer
Constipation
Dehydration
Hypercholesterol
Anxiety and depression
Diverticulosis
Degenerative disc change in the lumbar spine
Diet Low Residue
Activity As tolerated
Driving Restrictions As prior to admission
Instructions:
Stand-Alone Forms:
Changes to Home Medications: Yes
Discharge Medications:
DC Medications w/original date entered in [facility]
aspirin 81 mg chewable tablet 81 mg PO DAILY Blood Clot Prevention/Tx 03/20/24
clonazepam 0.5 mg tablet 0.5 mg PO BID Mental Health/Anxiety 03/20/24
fluticasone furoate 100 mcg-vilanterol 25 mcg/dose inhalation powder (Breo Ellipta) 1 inh inhalation R DAILY Lung/Breathing Issues 03/20/24
hyoscyamine sulfate 0.125 mg sublingual tablet 0.125 mg PO Q4HPRN PRN spasms 03/20/24
montelukast 10 mg tablet (Singulair) 10 mg PO QPM Lung/Breathing Issues 03/20/24
rosuvastatin 10 mg tablet 10 mg PO QPM High Cholesterol 03/20/24
calcium glycerophosphate 65 mg tablet (Prelief) 65 mg PO TIDPRN PRN gi issuse 04/03/24
dicyclomine 20 mg tablet 20 mg PO QIDPRN PRN spasm/pelvic pain 04/03/24
methenam 118 mg-m.blue 10 mg-s.phos 40.8 mg-p.salic 36 mg-hyos capsule (Uro-MP) 1 tab PO TIDPRN PRN discomfort 04/03/24
acetaminophen 325 mg tablet 650 mg (2 x 325 mg) PO Q4HPRN PRN pain #0 tabs 04/11/24
docusate sodium 100 mg capsule (Colace) 100 mg PO BID Constipation #30 caps 04/11/24
duloxetine 30 mg capsule,delayed release 30 mg PO HS pain, anxety #30 caps 04/11/24
pantoprazole 40 mg tablet,delayed release (Protonix) 40 mg PO BID Gastrointestinal issue #100 tabs 04/11/24
polyethylene glycol 3350 17 gram oral powder packet (HealthyLax) 17 g PO DAILY Constipation #0 ea 04/11/24
sucralfate 1 gram tablet 1 g PO ACHS Gastrointestinal issue #60 tabs 04/11/24
Home Medication Changes
Carafate, MiraLAX, Colace Protonix are new
Stop sertraline, ibuprofen, oxycodone,
Pending Results: No
[2024-04-11 16:07] VITALS: BP 97/76
--- NOTE | 2024-04-12 10:22 | PN.CDI ---
CDI
- -
CDI:
Physician Documentation Request
Admit Date: 04/03/24 17:42
Dear Doctor Bertrand,
Patient admitted with clostridium difficile infection.
04/11 Display Coordinator Assessment: 'CBW- 106lb 9. 6oz BMI 18.9 (), 107 lbs 14.4 oz (04/06), 110 lbs (04/03) Wt hx- 128lb 2023, Per external medical summary pt was 118 lbs 03/18/2024. Pt meets criteria for mild protein calorie malnutrition of
chronic illness with documents significant wt loss prior to admission and sudden poor intake just prior to or during admission <75% for >5days due to interstitial cystitis, constipation, Cdiff treatment'
Based on the above information and your assessment, which of the following most accurately represents the patient's nutritional status?
Mild protein calorie malnutrition
Other
[place] Criteria ([facility] Hospitalist 2017)
2 or more criteria must be present for either
non severe or severe malnutrition
Note that the criteria differs related to the
presence of an acute or chronic illness
Acute Illness Chronic Illness
Energy Intake Non Severe: <75% for >7 days Non Severe: <75% for >1 month
Severe: <50% for >5 days Severe: <75% for >1 month
Weight Loss Non Severe: 1-2% over 1 week Non Severe: 5% over 1 month
5% over 1 month 7.5% over 3 months
7.5% over 3 months 10% over 6 months
1 year N/A 20% over 1 year
Severe: >2% over 1 week Severe: >5% over 1 month
>5% over 1 month >7.5% over 3 months
>7.5% over 3 months >10% over 6 months
1 year N/A >20% over 1 year
Body Fat Non Severe: Mild Decrease Non Severe: Mild Loss
Severe: Moderate Decrease Severe: Severe Loss
Muscle Mass Non Severe: Mild Decrease Non Severe: Mild Loss
Severe: Moderate Decrease Severe: Severe Loss
Fluid Accumulation Non Severe: Mild Accumulation Non Severe: Mild Accumulation
Severe: Moderate to severe Severe: Moderate to severe
accumulation accumulation
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
Severe: Measurably reduced Severe: Measurably reduced
Additional criteria that can be used to Determine if Mild or Moderate Malnutrition ([employer]ck Manual 2018)
Mild Moderate Severe
Albumin gm/dl <3.0 gm/dl <2.5 gm/dl <2.0 gm/dl
Pre Albumin mg/dl <15 gm/dl <10 mg/dl <5.0 mg/dl
BMI <18.5 <17 <16
Use of terms such as suspected, likely, concern for, or probable (associated with a specific diagnosis that is being evaluated, monitored, or treated as if it exists) are acceptable and can be coded in the inpatient setting, when documented at the
time of discharge.
Thank you,
Felicia Navarro RN, BSN
CDI Specialist
Available via [employer] text
Please use your independent medical judgment in providing your response.
== END 2024-04-11 17:59 | disposition home or self-care (01) | DRG 372 ==
LOC: 2 NORTH 17:42
PROVIDERS: Emergency Medicine; Internal Medicine; Internal Medicine Gastroenterology; Nurse Practitioner; Registered Nurse; ADMITTING PHYSICIAN Internal Medicine; ATTENDING PHYSICIAN Hospitalist; CONSULT PHYSICIAN Internal Medicine Infectious Disease; CONSULT PHYSICIAN Specialist; EMERGENCY PHYSICIAN Emergency Medicine; FAMILY PHYSICIAN Family Medicine; OTHER PHYSICIAN Surgery
PROC: 0DB48ZX Excision of Esophagogastric Junction, Via Natural or Artificial Opening Endoscopic, Diagnostic (ICD-10-PCS; 2024-04-06)
PROC: 0DB68ZX Excision of Stomach, Via Natural or Artificial Opening Endoscopic, Diagnostic (ICD-10-PCS; 2024-04-06)
PROC: 0DBN8ZX Excision of Sigmoid Colon, Via Natural or Artificial Opening Endoscopic, Diagnostic (ICD-10-PCS; 2024-04-06)
PROC: 0DBP8ZX Excision of Rectum, Via Natural or Artificial Opening Endoscopic, Diagnostic (ICD-10-PCS; 2024-04-06)
PROC: 0DBL8ZX Excision of Transverse Colon, Via Natural or Artificial Opening Endoscopic, Diagnostic (ICD-10-PCS; 2024-04-06)
PROC: 0DBK8ZX Excision of Ascending Colon, Via Natural or Artificial Opening Endoscopic, Diagnostic (ICD-10-PCS; 2024-04-06)
PROC: 0DBM8ZX Excision of Descending Colon, Via Natural or Artificial Opening Endoscopic, Diagnostic (ICD-10-PCS; 2024-04-06)
PROC: 0DB78ZX Excision of Stomach, Pylorus, Via Natural or Artificial Opening Endoscopic, Diagnostic (ICD-10-PCS; 2024-04-06)
DX: A04.72 Enterocolitis due to Clostridium difficile, not specified as recurrent (principal); E44.1 Mild protein-calorie malnutrition; K56.1 Intussusception; N17.9 Acute kidney failure, unspecified; Z68.1 Body mass index [BMI] 19.9 or less, adult; E78.00 Pure hypercholesterolemia, unspecified; K57.30 Diverticulosis of large intestine without perforation or abscess without bleeding; J44.9 Chronic obstructive pulmonary disease, unspecified; K22.89 Other specified disease of esophagus; K25.9 Gastric ulcer, unspecified as acute or chronic, without hemorrhage or perforation; K29.70 Gastritis, unspecified, without bleeding; I34.1 Nonrheumatic mitral (valve) prolapse; K64.8 Other hemorrhoids; K63.89 Other specified diseases of intestine; E83.52 Hypercalcemia; I95.9 Hypotension, unspecified; N30.10 Interstitial cystitis (chronic) without hematuria; F32.A Depression, unspecified; E86.0 Dehydration; M51.36 Other intervertebral disc degeneration, lumbar region; F41.9 Anxiety disorder, unspecified; F17.210 Nicotine dependence, cigarettes, uncomplicated; I10 Essential (primary) hypertension; Z87.442 Personal history of urinary calculi; Z82.49 Family history of ischemic heart disease and other diseases of the circulatory system; Z79.82 Long term (current) use of aspirin; Z79.51 Long term (current) use of inhaled steroids; Z80.0 Family history of malignant neoplasm of digestive organs; Z88.1 Allergy status to other antibiotic agents; Z88.2 Allergy status to sulfonamides
CPT/HCPCS: 88305; 74022; 74177; 80048; 80053; 80061; 83605; 83690; 83735; 84100; 85025; 85027; 85610; 86803; 88342; 93005; 94640; 96360; 99285; 99406; Q9967

== ENCOUNTER 2024-04-19 10:43 | Emergency (ER) | payer BC, SELFPAY ==
[2024-04-19 11:03] VITALS: BP 108/61
[2024-04-19 11:54] LABS: % Basophils 0.9 % (0-2); % Eosinophils 2.8 % (0-6); % Immature Granulocytes 0.2 % (0-0.5); % Lymphocytes 33.6 % (20.5-51.1); % Monocytes 8.3 % (1.7-9.3); % Neutrophils 54.2 % (42.2-75.2); Absolute Eosinophils 0.1 10^3/uL (0-0.7); Absolute Lymphocytes 1.4 10^3/uL (1.2-3.4); Absolute Monocytes 0.4 10^3/uL (0.1-0.6); Absolute Neutrophils 2.3 10^3/uL (1.4-6.5); Hematocrit 32.6 % (37.0-47.0); Hemoglobin 11.3 g/dL (12.0-16.0); Mean Corp Hgb Conc. 34.7 g/dL (33.0-37.0); Mean Corpuscular Hgb 33.1 pg (27.0-31.0); Mean Corpuscular Volume 95.6 fL (81.0-99.0); Mean Platelet Volume 9.9 fL (7.4-10.4); Nucleated Red Blood Cells % 0 %; Platelet Count 181 10^3/uL (130-400); Red Blood Cell Count 3.41 10^6/uL (4.20-5.40); Red Cell Dist. Width 12.9 % (11.5-14.5); White Blood Cell Count 4.2 10^3/uL (4.8-10.8)
[2024-04-19 11:56] VITALS: BP 118/59
[2024-04-19 12:00] VITALS: BP 115/69
[2024-04-19 12:12] LABS: ALT (SGPT) 13 U/L (0-35); AST (SGOT) 23 U/L (14-36); Albumin 3.7 g/dl (3.5-5.0); Alkaline Phosphatase 60 U/L (38-126); Blood Urea Nitrogen 10 mg/dl (7-17); Calcium 9.5 mg/dl (8.4-10.2); Carbon Dioxide 28 mmol/L (22-30); Chloride 107 mmol/L (98-107); Glucose 121 mg/dl (70-99); Potassium 3.2 mmol/L (3.5-5.1); Sodium 140 mmol/L (135-145); Total Bilirubin 0.3 mg/dl (0.2-1.3); Total Protein 5.8 g/dl (6.3-8.2); eGFR > 60.00
[2024-04-19 12:21] LABS: Troponin I < 0.012 ng/ml
[2024-04-19 12:25] LABS: Urine Albumin Negative (Neg - Trace); Urine Bilirubin Negative (Negative); Urine Character Clear (Clear); Urine Color Yellow; Urine Glucose Negative (Negative); Urine Ketone Negative (Negative); Urine Leukocyte Negative (Negative); Urine Nitrite Negative (Negative); Urine Occult Blood Negative (Negative); Urine Specific Gravity 1.015 (<1.030); Urine Urobilinogen Negative (Neg - 1+)
[2024-04-19 13:16] VITALS: BP 133/71
--- NOTE | 2024-04-19 13:16 | ED.GENMED ---
History of Present Illness
General
Chief Complaint: Abdominal Symptoms
Source: patient
Exam Limitations: none
Time Seen by Provider: 04/19/24 11:21
Nursing documentation reviewed up to this point in time: agreed with
History of Present Illness
History of Present Illness:
58-year-old female presenting to the emergency department today with multiple concerns. She claims that she was recently discharged from the hospital a few weeks ago after being treated for C. difficile she is feeling more constipated and having
diffuse abdominal crampy and achy discomfort. Also had a sharp chest discomfort earlier today that lasted for short period of time with associated shortness of breath that is since improved. Upon arrival vital signs are normal patient in no
obvious distress no reproducible symptoms normal heart and lung exam.
Past History
Past History
ED Past Medical History: Asthma, COPD (Questionable Asthma/COPD according to patient), Hypercholesterolemia and Other (Kidney stones, Interstitial cystitis)
ED Past Surgical History: None; Negative Cardiac
Social History
Tobacco: Smoker
Alcohol: None
Drug: None
Personal:
Living: with family
Employment: Employed
Family History
Family History: CAD
Review of Systems
Review of Systems
Allergies reviewed?: Yes
All Other Systems: ROS reviewed and negative except as documented in HPI and ROS
Phy Exam
Physical Exam
Physical Exam:
GENERAL: Alert , in no apparent distress
EYE: pupils equal and reactive
NECK: Supple, no significant adenopathy.
ENT: o/p clr, mmm.
CARDIAC: Regular rate and rhythm .
LUNGS: Clear breath sounds bilaterally, no acute respiratory distress, no wheezes/rales/rhonchi
ABDOMEN: Soft, without focal tenderness, no r/g, no cvat
NEUROLOGICAL: Alert and oriented, no focal neuro deficits
SKIN: Warm and dry, skin intact.
MUSCULOSKELETAL: No edema, well perfused.
PSYCH: Normal and appropriate interaction.
Course
Orders/Labs/Results
Orders:
Orders
04/19/24 11:04
ECG [Electrocardiogram (*1)] Urgent
Reason for Study: Chest Pain
EKG- Treatment ONCE
04/19/24 11:37
CT Chest/abd/pelvis Angio W/wo Urgent
Comment:
Reason For Exam: cp, recent hospitalization, Sevre cp, sob abrupt
04/19/24 11:47
CBC/With Diff [Complete Blood Count/With Diff] Urgent
CMP [Comprehensive Metabolic Panel] Urgent
Troponin I Urgent
04/19/24 11:51
Urinalysis Reflex To Culture Urgent
Date Specimen was Collected: 04/19/24
Time Specimen was Collected: 11:40
04/19/24 13:15
Albuterol Nebs [Ventolin Nebules] 2.5 mg INH R NOW STA
Ondansetron Injectable [Zofran] 4 mg IV NOW STA
04/19/24 14:08
Diazepam [Valium] 5 mg PO NOW STA
Diphenhydramine [Benadryl] 25 mg IV NOW STA
Metoclopramide [Reglan] 10 mg IV NOW STA
Abnormal Lab Results
04/19/24
11:47
WBC 4.2 L 10^3/uL
(4.8-10.8)
RBC 3.41 L 10^6/uL
(4.20-5.40)
Hgb 11.3 L g/dL
(12.0-16.0)
Hct 32.6 L %
(37.0-47.0)
MCH 33.1 H pg
(27.0-31.0)
Potassium 3.2 L mmol/L
(3.5-5.1)
Glucose 121 H mg/dl
(70-99)
Total Protein 5.8 L g/dl
(6.3-8.2)
04/19/24 11:47
04/19/24 11:47
Vital Signs
Initial and Last Documented VS:
Initial Vital Signs
Temp Pulse Resp BP Pulse Ox
98.8 F 90 18 108/61 98
04/19/24 11:03 04/19/24 11:03 04/19/24 11:03 04/19/24 11:03 04/19/24 11:03
Last Documented Vital Signs
Temp Pulse Resp BP Pulse Ox
98.8 F 72 31 134/69 97
04/19/24 11:03 04/19/24 15:00 04/19/24 15:00 04/19/24 15:00 04/19/24 15:00
MDM/Problems Addressed
MDM/Problems Addressed:
58-year-old female presenting to the emergency department today with concerns of chest pain and abdominal pain that was severe today recently treated for C. difficile but now feeling constipated and crampy discomfort. Concerning the multiple
symptoms and severe sharp chest pain CT scan was ordered of the chest and additionally to the abdomen pelvis. No emergent findings on the CT scan other than some constipation otherwise labs unremarkable other than slightly low potassium Case
discussed with GI and patient will be able to follow-up closely with GI was also started on bowel regimen. Return precautions given.
*Critical Care Note
Total Time (30-74mins, 75-104mins- exclusive of procedures): Not Applicable
ED Attending Note
-
Portions of this chart may have been created with voice recognition software.� Occasional wrong word or��sound alike� substitutions may have occurred due to the inherent limitations of voice recognition software.
Discharge Plan
Departure
Patient Disposition: Home (Routine Discharge)
Date of Disposition: 04/19/24
Time of Disposition: 15:11
Patient with high blood pressure during this ER visit?: No
Condition: Good
Covid-19: Not Applicable
Discharge Problem:
Abdominal pain, Chest pain, Constipation
Instructions: Chest Pain CBC Follow Up, Abdominal Pain
Prescriptions:
No Action
clonazepam 0.5 mg Tablet
0.5 mg PO BID
hyoscyamine sulfate 0.125 mg Tablet, Sublingual
0.125 mg PO Q4HPRN PRN (Reason: spasms)
aspirin 81 mg Tablet,Chewable
81 mg PO DAILY
montelukast [Singulair] 10 mg Tablet
10 mg PO QPM
rosuvastatin 10 mg Tablet
10 mg PO QPM
fluticasone furoate-vilanterol [Breo Ellipta] 100-25 mcg/dose Blister With Device
1 inh INHALATION R DAILY
Prelief 65 mg Tablet
65 mg PO TIDPRN PRN (Reason: gi issuse)
Patient Comments:
contain calcium and magnesium
Uro-MP 118-10-40.8-36 mg Capsule
1 tab PO TIDPRN PRN (Reason: discomfort )
dicyclomine 20 mg tablet
20 mg PO QIDPRN PRN (Reason: spasm/pelvic pain)
acetaminophen 325 mg Tablet
650 mg PO Q4HPRN PRN (Reason: pain) Qty: 0 0RF
polyethylene glycol 3350 [HealthyLax] 17 gram Powder In Packet
17 g PO DAILY Qty: 0 0RF
sucralfate 1 gram Tablet
1 g PO ACHS Qty: 60 0RF
duloxetine 30 mg Capsule,Delayed Release(Dr/Ec)
30 mg PO HS Qty: 30 0RF
docusate sodium [Colace] 100 mg capsule
100 mg PO BID Qty: 30 0RF
pantoprazole [Protonix] 40 mg tablet,delayed release (DR/EC)
40 mg PO BID Qty: 100 0RF
Rx Instructions:
BID for 4 weeks then daily
Referrals:
Hector Ashby MD [Active] - Follow up in 5-7 days
Daniel De Luna DO [Family Provider] -
Activity Restrictions/Additional Instructions:
You came to the emergency department today with concerns of chest pain and abdominal pain. Here you had a very reassuring assessment. Please follow-up closely with your GI doctor and cardiology. Return to the emergency department for any
worsening, new or concerning symptoms.
Interventions
Interventions:
*Risk Screen - Suicide Last Done: 04/19/24 11:04
*General Assessment Last Done: 04/19/24 11:04
*Neglect/Abuse Screening Last Done: 04/19/24 11:04
ED-Lsdree-Bsywdrhpme Assessment Last Done: 04/19/24 12:14
Discharge Date and Time
Print Language: GIBRALTARIAN
[2024-04-19] MEDS: VENTOLIN NEBULES 2.5 MG INH (13:36)
[2024-04-19] MEDS: ZOFRAN 4 MG IV (13:36)
[2024-04-19 14:02] VITALS: BP 127/69
[2024-04-19] MEDS: VALIUM 5 MG PO (14:16)
[2024-04-19] MEDS: REGLAN 10 MG IV (14:17)
[2024-04-19] MEDS: BENADRYL 25 MG IV (14:17)
[2024-04-19 15:00] VITALS: BP 134/69
== END 2024-04-19 15:44 | disposition home or self-care (01) ==
LOC: EMR 10:43
PROVIDERS: Physician Assistant; EMERGENCY PHYSICIAN Emergency Medicine; FAMILY PHYSICIAN Family Medicine
DX: K59.00 Constipation, unspecified (principal); R07.89 Other chest pain; R10.9 Unspecified abdominal pain; F17.200 Nicotine dependence, unspecified, uncomplicated
CPT/HCPCS: 99285; 96374; 96375 ×2; 94640; 71275; 74174; 80053; 81003; 84484; 85025; 93005; Q9967

== ENCOUNTER 2024-04-27 11:58 | Inpatient (IN) | payer BC, SELFPAY ==
--- NOTE | 2024-04-27 12:14 | HPS.HSE ---
Family Physician
-
Family Physician: INTERVIEWE UNKNOWN - PT NOT
Chief Complaint
-
abdominal pain
History of Present Illness
58-year-old female presents today for a bowel prep prior to her scheduled robotic ileocecectomy tomorrow by Dr. Pinto. The patient has a significant past medical history and that she has been admitted to [facility] twice in the past month
and a half. She was initially admitted on 03/20/2020 for due to severe abdominal pain which she attributed to intussusception that had been previously showing an outpatient CT but was found to have C. difficile during that admission. She was
subsequently discharged on 03/22/2024 and vancomycin. She continued to have persistent loose stools as well as severe abdominal pain with associated nausea. She presented back to the ER on 04/03/2024 due to the pain. She was seen in consult by
infectious disease who changed her medication to fidaxocin. She underwent a colonoscopy by Dr. Layton on 04/06/2020 for which show the ileum was normal in the cecum and ileocecal valve was normal. There is mild erythema mucosa in the transverse
colon ascending colon which was biopsied. Pathology revealed this to be minimally active colitis. She was discharged on 04/11/2004.
She has had ongoing discussions regarding surgery with Dr. Pinto. She was again seen in evaluation in the ER on 04/19/[address] Pinto had a long discussion with the patient after that ER encounter. The discussion was that he
was willing to consider an ilio seek ectomy for prior intussusception to more definitively rule out a leak point and see if the intermittent intussusception is contributory to her pain. It was decided that the surgery would take place tomorrow at
04/28/2024. She has been admitted prior to surgery for a bowel prep.
Medical History
Past Medical History
Past Medical History: Reports Other ((Arrhythmia (? murmur), COPD (mild asthma/copd), Hypercholesterolemia, Valvular Disease (mvp) and interstitial cystitis, recent c.diff )
Past Surgical History: Reports Orthopedic
Social History
Tobacco: Smoker
Alcohol: None
Drug: None
Personal:
Living: With Family
Family History
Family History: Cancer
Allergies / Home Medications
Allergies reflects when Allergies were last updated in [facility].
Home Medications with original date entered in [facility]
Allergy/Medication List:
Allergies
Allergy/AdvReac Type Severity Reaction Status Date / Time
sulfamethoxazole Allergy Severe Unknown Verified 03/28/24 11:34
[From Bactrim]
trimethoprim [From Bactrim] Allergy Severe Unknown Verified 03/28/24 11:34
Home Medications
aspirin 81 mg chewable tablet 81 mg PO DAILY
clonazepam 0.5 mg tablet 0.5 mg PO BID
fluticasone furoate 100 mcg-vilanterol 25 mcg/dose inhalation powder (Breo Ellipta) 1 inh inhalation R DAILY
hyoscyamine sulfate 0.125 mg sublingual tablet 0.125 mg PO Q4HPRN PRN spasms
montelukast 10 mg tablet (Singulair) 10 mg PO QPM
rosuvastatin 10 mg tablet 10 mg PO QPM
sertraline 50 mg tablet 50 mg PO DAILY
ondansetron 4 mg disintegrating tablet 4 mg PO Q6HPRN PRN nausea #10 tabs
calcium glycerophosphate 65 mg tablet (Prelief) 65 mg PO TIDPRN PRN gi issuse
dicyclomine 20 mg tablet 20 mg PO QIDPRN PRN spasm/pelvic pain
fidaxomicin 200 mg tablet (Dificid) 200 mg PO BID
ibuprofen 200 mg tablet (Advil) 200 mg PO Q6HPRN PRN mild pain
methenam 118 mg-m.blue 10 mg-s.phos 40.8 mg-p.salic 36 mg-hyos capsule (Uro-MP) 1 tab PO TIDPRN PRN discomfort
oxycodone 5 mg tablet 5 mg PO Q8HPRN PRN mod sev pain
Review of Systems
-
History Source: Patient
A 12 point ROS was completed and negative except as noted: Yes
Physical Exam
Physical Exam
General: Well Developed, Well Nourished and No Apparent Distress
HEENT: NormoCephalic and Moist mucous membranes
GI: Soft, Non Tender and Non Distended
Skin: Warm and Dry
Neuro: AO x 3
Laboratory Results
-
pending
Data Reviewed
-
Old Records: Reviewed
Impression/Plan
-
IMPRESSION:
58-year-old female with known ileocecal intussusception and recent C. difficile infection presents today for a bowel prep prior to her robotic ileocecectomy tomorrow
PLAN:
Will admit to medical surgical floor. Clears today and n.p.o. at midnight. Start bowel prep this afternoon. IV fluids. Basic lab work and EKG ordered. I have consulted infectious disease for preop antibiotics given her recent C. difficile
infection. I have also consulted hospitalist for medical optimization prior to surgery. Plan is for robotic ileocecectomy tomorrow afternoon by Dr. Pinto.
[2024-04-27 12:15] VITALS: BP 113/70
[2024-04-27 12:18] VITALS: BMI 18.6
--- NOTE | 2024-04-27 12:45 | CON.HOSP ---
Addendum entered and electronically signed by Nate Lee MD 04/27/24 13:43:
General: Well Developed, Well Nourished and No Apparent Distress
HEENT: Normocephalic, Moist Mucous Membranes and Atraumatic
Respiratory: Clear
Cardiac: S1/S2 and Regular Rhythm
GI: Soft, Non Distended, Normal Bowel Sounds and Tender
Musculoskeletal: No Edema
Neuro: Nonfocal/Grossly Intact
Addendum entered and electronically signed by Nate Lee MD 04/27/24 13:41:
I saw and examined the patient.
The NETWORK INTELLIGENCE ANALYST or PA's note was reviewed and I agree with the note.
Comment: 58-year-old female with past medical history of recent C. difficile, COPD, asthma/COPD, pulm edema, valvular disease, interstitial cystitis came to the hospital for robotic ileocecectomy. Medicine is consulted for medical management.
Start home medications. Mild hypercalcemia, start fluids. check urine and serum studies
Original Note:
Family Physician
-
Family Physician: INTERVIEWE UNKNOWN - PT NOT
Chief Complaint
-
abdominal pain
History of Present Illness
58-year-old female with past medical history for COPD, hyperlipidemia, kidney stones, interstitial cystitis presents today for a bowel prep prior to her scheduled robotic ileocecectomy tomorrow by Dr. Pinto. Patient with lower abdominal pain for
past few months associated with nausea.
she was initially admitted on 03/20/2020 for due to severe abdominal pain which she attributed to intussusception that had been previously showing an outpatient CT but was found to have C. difficile during that admission. She was subsequently
discharged on 03/22/2024 on vancomycin.
She continued to have persistent loose stools as well as severe abdominal pain with associated nausea. She presented back to the ER on 04/03/2024 due to the pain. She was seen in consult by infectious disease who changed her medication to
fidaxocin. She underwent a colonoscopy by Dr. Layton on 04/06/2020 for which show the ileum was normal in the cecum and ileocecal valve was normal. There is mild erythema mucosa in the transverse colon ascending colon which was biopsied.
Pathology revealed this to be minimally active colitis. She was discharged on 04/11/2004.
Patient continued to have abdominal pain for which she was evaluated by Dr. Thomas. Dr. Pinto recommended ileocecostomy to more definitive rule out intussusception. Patient started colon prep yesterday. Patient is getting admitted for possible
ileocecostomy tomorrow.
At present patient denied any headache, dizziness, syncopal episode. Patient denied any fever, chills, chest pain, short of breath. Patient denied dysuria hematuria.
Medical History
Past Medical History
Past Medical History: Reports Other
Additional Past Medical History:
Intestinal intussusception
C. difficile colitis
Hypercholesteremia
Colon diverticulosis
Anxiety
Depression
Hypotension
Gastric ulcer
Hemorrhoids
Past Surgical History: Reports None
Social History
Tobacco: Former Smoker
Alcohol: None
Drug: None
Personal:
Living: With Family
Employment: Retired
Family History
Family History: Reviewed & Not Pertinent
Allergies / Home Medications
Allergies reflects when Allergies were last updated in [facility].
Home Medications with original date entered in [facility]
Allergy/Medication List:
Allergies
Allergy/AdvReac Type Severity Reaction Status Date / Time
sulfamethoxazole Allergy Severe Unknown Verified 04/19/24 11:03
[From Bactrim]
trimethoprim [From Bactrim] Allergy Severe Unknown Verified 04/19/24 11:03
Home Medications
aspirin 81 mg chewable tablet 81 mg PO DAILY Blood Clot Prevention/Tx 03/20/24
clonazepam 0.5 mg tablet 0.5 mg PO BID Mental Health/Anxiety 03/20/24
fluticasone furoate 100 mcg-vilanterol 25 mcg/dose inhalation powder (Breo Ellipta) 1 inh inhalation R DAILY Lung/Breathing Issues 03/20/24
hyoscyamine sulfate 0.125 mg sublingual tablet 0.125 mg PO Q4HPRN PRN spasms 03/20/24
montelukast 10 mg tablet (Singulair) 10 mg PO QPM Lung/Breathing Issues 03/20/24
rosuvastatin 10 mg tablet 10 mg PO QPM High Cholesterol 03/20/24
calcium glycerophosphate 65 mg tablet (Prelief) 65 mg PO TIDPRN PRN gi issuse 04/03/24
dicyclomine 20 mg tablet 20 mg PO QIDPRN PRN spasm/pelvic pain 04/03/24
methenam 118 mg-m.blue 10 mg-s.phos 40.8 mg-p.salic 36 mg-hyos capsule (Uro-MP) 1 tab PO TIDPRN PRN discomfort 04/03/24
acetaminophen 325 mg tablet 650 mg (2 x 325 mg) PO Q4HPRN PRN pain #0 tabs 04/11/24
docusate sodium 100 mg capsule (Colace) 100 mg PO BID Constipation #30 caps 04/11/24
duloxetine 30 mg capsule,delayed release 30 mg PO HS pain, anxety #30 caps 04/11/24
pantoprazole 40 mg tablet,delayed release (Protonix) 40 mg PO BID Gastrointestinal issue #100 tabs 04/11/24
polyethylene glycol 3350 17 gram oral powder packet (HealthyLax) 17 g PO DAILY Constipation #0 ea 04/11/24
sucralfate 1 gram tablet 1 g PO ACHS Gastrointestinal issue #60 tabs 04/11/24
docusate sodium 100 mg capsule (Colace) 100 mg PO BID #14 caps 04/19/24
metoclopramide HCl 10 mg tablet (Reglan) 10 mg PO Q6H PRN nausea and vomiting #7 tabs 04/19/24
Review of Systems
-
Constitutional: Reports No Symptoms
EENT: Reports No Symptoms
Respiratory: Reports No Symptoms
Cardiac: Reports No Symptoms
Abdomen/GI: Reports Abdominal Pain and Nausea
: Reports No Symptoms
Musculoskeletal: Reports No Symptoms
Skin: Reports No Symptoms
Neurological: Reports No Symptoms
Endocrine: Reports No Symptoms
Hematologic/Lymphatic: Reports No Symptoms
Psych: Reports No Symptoms
Physical Exam
Vital Signs
Vital Signs
Temp Pulse Resp BP Pulse Ox
97.9 F 90 18 113/70 96
04/27/24 12:15 04/27/24 12:15 04/27/24 12:15 04/27/24 12:15 04/27/24 12:15
Physical Exam
General: Well Developed, Well Nourished and No Apparent Distress
HEENT: Normocephalic, Moist Mucous Membranes and Atraumatic
Respiratory: Clear
Cardiac: S1/S2 and Regular Rhythm; Negative Murmur or Rub
GI: Soft, Non Distended, Normal Bowel Sounds and Tender
Rectal: Deferred by Provider
Musculoskeletal: No Clubbing, No Cyanosis and No Edema
Skin: Negative Rash
Neuro: Nonfocal/Grossly Intact
Impression / Plan
-
# Ileocecal intussusception
-For robotic ileocecostomy tomorrow
-Colorectal managing
-Clear liquid diet today, n.p.o. after midnight
-Bowel prep as colorectal
-Antibiotics as per surgery
# Recent C. difficile infection
-ID consulted for management of preop antibiotics
## Asthma/COPD
-Continue with Breo Ellipta or equivalent inhaler, Singulair
# Hyperlipidemia/atherosclerotic plaque in the abdominal aorta
-Continue Crestor
# Anxiety/depression
-Continue Klonopin,
-Duloxetine continued
# Tobacco use
-Quit a month ago
# Diverticulosis
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
#DVT prophylaxis
-SCDs
#CODE status
-Full code
[2024-04-27 12:58] LABS: % Basophils 0.7 % (0-2); % Eosinophils 2.8 % (0-6); % Immature Granulocytes 0.2 % (0-0.5); % Lymphocytes 33.3 % (20.5-51.1); % Monocytes 9.3 % (1.7-9.3); % Neutrophils 53.7 % (42.2-75.2); Absolute Eosinophils 0.2 10^3/uL (0-0.7); Absolute Lymphocytes 1.9 10^3/uL (1.2-3.4); Absolute Monocytes 0.5 10^3/uL (0.1-0.6); Hematocrit 36.3 % (37.0-47.0); Hemoglobin 12.8 g/dL (12.0-16.0); Mean Corp Hgb Conc. 35.3 g/dL (33.0-37.0); Mean Corpuscular Hgb 32.5 pg (27.0-31.0); Mean Corpuscular Volume 92.1 fL (81.0-99.0); Mean Platelet Volume 10.5 fL (7.4-10.4); Nucleated Red Blood Cells % 0 %; Platelet Count 235 10^3/uL (130-400); Red Blood Cell Count 3.94 10^6/uL (4.20-5.40); Red Cell Dist. Width 13.1 % (11.5-14.5); White Blood Cell Count 5.6 10^3/uL (4.8-10.8)
[2024-04-27 13:16] LABS: INR 0.96; PT 12.8 Sec (11.4-14.6)
[2024-04-27 13:17] LABS: APTT 30.8 Sec (23.4-35.0)
[2024-04-27 13:29] LABS: Blood Urea Nitrogen 13 mg/dl (7-17); Calcium 10.6 mg/dl (8.4-10.2); Carbon Dioxide 25 mmol/L (22-30); Chloride 100 mmol/L (98-107); Estimated Creatinine Clearance 35 ml/min; Glucose 86 mg/dl (70-99); Potassium 3.5 mmol/L (3.5-5.1); Sodium 135 mmol/L (135-145); eGFR 47.08
--- NOTE | 2024-04-27 13:41 | W.PN.UPDATE ---
Update Note
Progress Note Update
For billing purpose only
[2024-04-27] MEDS: NORMOSOL-R 1000 IV (13:52)
[2024-04-27 14:24] LABS: Glycohemoglobin (HgbA1c) 5.4 % (4.0-5.6)
[2024-04-27] MEDS: FLAGYL 1000 MG PO ×3 (14:29→23:53)
[2024-04-27] MEDS: NULYTELY SOLUTION 4 LITERS PO (14:29)
[2024-04-27] MEDS: NEOMYCIN 1000 MG PO ×3 (14:30→23:53)
[2024-04-27 15:35] LABS: Urine Albumin Negative (Neg - Trace); Urine Bilirubin Negative (Negative); Urine Character Clear (Clear); Urine Color Yellow; Urine Glucose Negative (Negative); Urine Ketone Negative (Negative); Urine Leukocyte Negative (Negative); Urine Nitrite Negative (Negative); Urine Occult Blood Negative (Negative); Urine Urobilinogen Negative (Neg - 1+)
[2024-04-27 15:54] VITALS: BP 96/69
[2024-04-27 15:55] VITALS: BMI 18.6
[2024-04-27 16:15] LABS: Urine Sodium 8 mmol/L (30-90)
[2024-04-27] MEDS: CARAFATE 1 GRAM PO ×2 (16:59→23:53)
[2024-04-27] MEDS: SINGULAIR 10 MG PO (17:03)
[2024-04-27] MEDS: CRESTOR 10 MG PO (17:03)
[2024-04-27] MEDS: ZOFRAN 4 MG IV (17:06)
[2024-04-27] MEDS: PROTONIX 40 MG PO (20:24)
[2024-04-27 23:00] VITALS: BP 105/54
[2024-04-27] MEDS: KLONOPIN 0.5 MG PO (23:52)
[2024-04-27] MEDS: CYMBALTA DELAYED RELEASE 30 MG PO (23:53)
[2024-04-28] VITALS (11 sets, daily range): BP systolic 107–139; BP diastolic 55–83
[2024-04-28] MEDS: NORMOSOL-R 1000 IV ×2 (02:31→16:53)
[2024-04-28] MEDS: ZOFRAN 4 MG IV ×2 (05:16→18:49)
--- NOTE | 2024-04-28 05:33 | PTCARENOTE ---
Texted Dr. Arvizu at 2300 related to pt still having approx 1/5 of bowel prep to drink and stool yellow with minimal amt felix sediment in bottom of toilet when pt goes to bathroom. Per Dr. Arvizu pt allowed to drink prep until 0600.
[2024-04-28] MEDS: SYMBICORT 160/4.5 MCG INHALER 2 PUFF INH ×2 (07:32→21:13)
[2024-04-28 08:09] LABS: % Eosinophils 5.7 % (0-6); % Lymphocytes 35.4 % (20.5-51.1); % Monocytes 15.8 % (1.7-9.3); % Neutrophils 42.1 % (42.2-75.2); Absolute Eosinophils 0.2 10^3/uL (0-0.7); Absolute Lymphocytes 1.4 10^3/uL (1.2-3.4); Absolute Monocytes 0.6 10^3/uL (0.1-0.6); Absolute Neutrophils 1.6 10^3/uL (1.4-6.5); Hematocrit 34.6 % (37.0-47.0); Hemoglobin 11.9 g/dL (12.0-16.0); Mean Corp Hgb Conc. 34.4 g/dL (33.0-37.0); Mean Corpuscular Hgb 32.4 pg (27.0-31.0); Mean Corpuscular Volume 94.3 fL (81.0-99.0); Mean Platelet Volume 10.4 fL (7.4-10.4); Nucleated Red Blood Cells % 0 %; Platelet Count 191 10^3/uL (130-400); Red Blood Cell Count 3.67 10^6/uL (4.20-5.40); White Blood Cell Count 3.9 10^3/uL (4.8-10.8)
[2024-04-28 08:37] LABS: Blood Urea Nitrogen 7 mg/dl (7-17); Calcium 9.5 mg/dl (8.4-10.2); Carbon Dioxide 26 mmol/L (22-30); Chloride 104 mmol/L (98-107); Estimated Creatinine Clearance 45 ml/min; Glucose 85 mg/dl (70-99); Potassium 3.5 mmol/L (3.5-5.1); Sodium 136 mmol/L (135-145); eGFR > 60.00
[2024-04-28] MEDS: KLONOPIN 0.5 MG PO ×2 (09:31→21:58)
[2024-04-28] MEDS: PROTONIX 40 MG PO ×2 (09:31→19:40)
[2024-04-28] MEDS: LOW STRENGTH ASPIRIN 81 MG PO (09:31)
[2024-04-28] MEDS: CARAFATE 1 GRAM PO ×2 (09:31→21:58)
--- NOTE | 2024-04-28 12:01 | CON.ID ---
Consultation
-
Date/Time Consultation Requested: 04/27/23 12:13
Date/Time Consultation Performed: 04/28/23 12:32
Requesting Provider: Citlaly GUILLEN
Performing Provider: Dr Hernandez
Reason for Consultation: antibiotic management
Chief Complaint / Past History
Chief Complaint
abdominal pain
History of Present Illness
Ms Gao is a 58-year-old female who presented here for elective robotic ileocecectomy. Her past medical history is notable for intussiception, C difficile and interstitial cystitis. She has had two episodes of c difficile first treated with
vancomycin and then switched to fidaxomicin. She is on an extremely limited diet for interstitial cystitis which she found when researching on the internet. Her last dose of fidaxomicin was April 11.
She had a colonoscopy with Dr. Layton on 04/06/2020 with nomral ileum, cecum and ileocecal valve, mild erythema mucosa in the transverse colon ascending colon which was biopsied with path showing minimally active colitis. She was discharged on
04/11/2004.
She is planned for elective ileocecectomy given the history of intussusception
Since arrival here she has been afebrile, bp stable, wbc initially 5.6 toay 3.9, hgb 11.9, plt 191, cr initailly 1.3 now 1.0, ua no pyuria, endomysial IgA and transglutamin antibodies negative. 04/19 CTA c/a/pno dissection, no PE, normal abdominal
organs, 03/20 C difficile ag/toxin positive. ID is asked to comment on perioperative antibitoics.
Past History
Additional Past Medical History:
Arrhythmia (? murmur), COPD (mild asthma/copd), Hypercholesterolemia, Valvular Disease (mvp) and interstitial cystitis, recent c.diff
Additional Past Surgical History:
orthopedic
Allergy History:
sulfamethoxazole [From Bactrim] Allergy (Severe, Verified 04/19/24 11:03)
Unknown
trimethoprim [From Bactrim] Allergy (Severe, Verified 04/19/24 11:03)
Unknown
Medications Reviewed: Yes
Social History
Tobacco: Smoker
Alcohol: None
Drug: None
Family History
Family History: Not Pertinent
Review of Systems
Review of Systems
General: Negative Fever or Chills
All systems: All other systems were reviewed and were negative
Vital Signs
Temp Pulse Resp BP Pulse Ox
98.1 F 80 16 107/55 96
04/28/24 07:20 04/28/24 07:41 04/28/24 07:41 04/28/24 07:20 04/28/24 07:41
Physical Exam
Physical Exam
Constitutional: No Acute Distress and Cachetic
Cardiovascular: Regular Rate and S1/S2; Negative Murmur or Rub
Pulmonary: Clear and Symmetric; Negative Wheezes, Rales or Rhonchi
Gastrointestinal: Soft, Non Tender, Non Distended and Normal Bowel Sounds
Skin: Warm and Dry; Negative Rash or Jaundice
Lab / Diagnostic Study Results
04/28/24 06:55
04/28/24 06:55
Abs Immat Gran (auto) 0.0 10^3/uL (0-0.05) 04/28/24 06:55
Absolute Neuts (auto) 1.6 10^3/uL (1.4-6.5) 04/28/24 06:55
Absolute Lymphs (auto) 1.4 10^3/uL (1.2-3.4) 04/28/24 06:55
Absolute Monos (auto) 0.6 10^3/uL (0.1-0.6) 04/28/24 06:55
Absolute Basos (auto) 0.0 10^3/uL (0-0.2) 04/28/24 06:55
Immature Gran % 0.0 % (0-0.5) 04/28/24 06:55
Neutrophils % 42.1 % (42.2-75.2) L 04/28/24 06:55
Lymphocytes % 35.4 % (20.5-51.1) 04/28/24 06:55
Monocytes % 15.8 % (1.7-9.3) H 04/28/24 06:55
Eosinophils % 5.7 % (0-6) 04/28/24 06:55
Basophils % 1.0 % (0-2) 04/28/24 06:55
PT 12.8 Sec (11.4-14.6) 04/27/24 12:24
INR 0.96 04/27/24 12:24
Assessment / Plan
Elective Ileocecectomy for intussiception
H/o recurrent C difficile
IC
cachexia
- perioperative antibiotics -ordered unasyn 3 gm x1, stopped ertapenem
- post operative start oral vancomycin 125 mg PO QID while inpatient, plan at least 5 days total of rx, final durating pending course - patient already has unfinihsed fidaxomicin at home and can complete her home regimen with those medications, dose
will be 200 mg PO BID
- follow pathology
- advise broadening her diet which will likely help with prevention of recurrent C difficile, she plans to discuss with urogynecology outpatient
- follow clinically
--- NOTE | 2024-04-28 12:28 | W.PN.HOSP.TC ---
Today's Communication/Plan
-
Monitor vital signs see plan
Monitor renal function
cw abx
Surgery today
Assessment / Plan
Assessment / Plan
General: Well Developed, Well Nourished and No Apparent Distress
HEENT: Normocephalic, Moist Mucous Membranes and Atraumatic
Respiratory: Clear
Cardiac: S1/S2 and Regular Rhythm
GI: Soft, Non Distended, Normal Bowel Sounds and Tender
Musculoskeletal: No Edema
Neuro: Nonfocal/Grossly Intact
Ileocecal intussusception
-For robotic ileocecostomy 04/28
-Colorectal managing
-NPO
-Bowel prep as colorectal
-Antibiotics as per surgery
COSME on admission likely 2/2 dehydration
Gentle hydration
UA without UTI
now improving
Hypercalcemia
Improved
# Recent C. difficile infection
-ID consulted for management of preop antibiotics
Continue with p.o. vanc for ppx
## Asthma/COPD
-Continue with Breo Ellipta or equivalent inhaler, Singulair
# Hyperlipidemia/atherosclerotic plaque in the abdominal aorta
-Continue Crestor
# Anxiety/depression
-Continue Klonopin,
-Duloxetine continued
# Tobacco use
-Quit a month ago
# Diverticulosis
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
#DVT prophylaxis
-SCDs
#CODE status
-Full code
Anticipated Discharge: > 48 hours
Subjective/Interval History
-
Date of Service: April 28, 2024
denies nausea
Objective Data
-
Labs:
Laboratory Results
04/28/24
06:55
WBC 3.9 L
Hgb 11.9 L
Hct 34.6 L
Plt Count 191
Sodium 136
Potassium 3.5
Chloride 104
Carbon Dioxide 26
BUN 7
Creatinine 1.0
Glucose 85
Calcium 9.5
Vital Signs:
Vital Signs
Temp Pulse Resp BP Pulse Ox
98.1 F 80 16 107/55 96
04/28/24 07:20 04/28/24 07:41 04/28/24 07:41 04/28/24 07:20 04/28/24 07:41
I&O
04/27/24 04/28/24 04/29/24
06:59 06:59 06:59
Intake Total 540 / 540
Balance 540 / 540
[2024-04-28] MEDS: HEPARIN 5000 UNITS SC (12:35)
[2024-04-28] MEDS: NEURONTIN 600 MG PO (12:35)
[2024-04-28] MEDS: ENTEREG 12 MG PO (12:35)
--- NOTE | 2024-04-28 15:48 | W.IMMPOSTOP ---
Surgical Immed Post Op Note
-
Primary Surgeon: Alejandro Pinto MD
Assisting Surgeon: OSWALDO Carrasco
Pre-op Diagnosis: 1) intussusception 2) abdominal pain
Post-op Diagnosis: same
Procedure Performed: robotic-assisted ileocectomy
Anesthesia Type: general plus local
Specimen / Cultures: ileocecectomy (about 20 cm of ileum)
Estimated Blood Loss: 50 cc
Complications: no immediate
Operative Findings: 1) mobile midline cecum 2) no obvious cecal or distal SB lesions
Ross in bladder.
Will send back to med surg.
--- NOTE | 2024-04-28 15:51 | CM ---
Carolyn lives with her spouse in a two story home with two steps to enter. The patient reports no DME/VN/SNF in the past. The patient confirmed her pharmacy of choice is [facility] [place]. No PCP on record.
CM continues to be available to patient/family and is monitoring medical plan for needs at discharge.
Plan: Discharge to home when medically stable.
[2024-04-28] MEDS: DILAUDID 0.5 MG IV (16:17)
[2024-04-28] MEDS: DILAUDID 0.25 MG IV (16:34)
--- NOTE | 2024-04-28 17:24 | PTCARENOTE ---
pt post procedure. 5 new lap sites on abd. pt with wisam post op. messaged Dr. Pinto for orders. following up with shift production associate nurse. pt verbalized nausea. prn zofran given. Normosol going through R forearm IV site at 80ml/hr. pt on room air and
remains npo with sips and chips
[2024-04-28] MEDS: TORADOL IV (18:43)
[2024-04-28] MEDS: CARAFATE PO ×2 (18:43)
[2024-04-28] MEDS: TYLENOL PO (18:44)
[2024-04-28] MEDS: FIRVANQ 125 MG PO ×2 (18:45→23:39)
[2024-04-28] MEDS: CRESTOR 10 MG PO (18:45)
[2024-04-28] MEDS: SINGULAIR 10 MG PO (18:45)
[2024-04-28] MEDS: TYLENOL 650 MG PO ×2 (19:40→23:39)
[2024-04-28] MEDS: UNASYN IV (19:41)
[2024-04-28] MEDS: TORADOL 10 MG IV (21:58)
[2024-04-28] MEDS: CYMBALTA DELAYED RELEASE 30 MG PO (21:58)
[2024-04-29] MEDS: UNASYN IV ×3 (02:57→14:22)
[2024-04-29 03:18] VITALS: BP 108/58
[2024-04-29] MEDS: TORADOL 10 MG IV (03:46)
[2024-04-29] MEDS: TYLENOL 650 MG PO ×6 (03:46→23:00)
[2024-04-29] MEDS: NORMOSOL-R 1000 IV ×2 (03:50→16:50)
[2024-04-29] MEDS: FIRVANQ 125 MG PO ×4 (05:46→23:00)
[2024-04-29 06:00] VITALS: BMI 19.5
[2024-04-29 07:35] VITALS: BP 129/68
[2024-04-29 08:01] LABS: % Basophils 0.2 % (0-2); % Lymphocytes 14.5 % (20.5-51.1); % Monocytes 9.6 % (1.7-9.3); % Neutrophils 73.7 % (42.2-75.2); Absolute Immature Granulocytes 0.2 10^3/uL (0-0.05); Absolute Lymphocytes 1.2 10^3/uL (1.2-3.4); Absolute Monocytes 0.8 10^3/uL (0.1-0.6); Hematocrit 28.6 % (37.0-47.0); Hemoglobin 9.9 g/dL (12.0-16.0); Mean Corp Hgb Conc. 34.6 g/dL (33.0-37.0); Mean Corpuscular Hgb 32.8 pg (27.0-31.0); Mean Corpuscular Volume 94.7 fL (81.0-99.0); Mean Platelet Volume 10.4 fL (7.4-10.4); Nucleated Red Blood Cells % 0 %; Platelet Count 164 10^3/uL (130-400); Red Blood Cell Count 3.02 10^6/uL (4.20-5.40); Red Cell Dist. Width 13.1 % (11.5-14.5); White Blood Cell Count 8.1 10^3/uL (4.8-10.8)
[2024-04-29] MEDS: SYMBICORT 160/4.5 MCG INHALER 2 PUFF INH ×2 (08:12→18:04)
[2024-04-29] MEDS: CARAFATE PO ×2 (08:29→16:53)
[2024-04-29 08:30] LABS: Blood Urea Nitrogen 10 mg/dl (7-17); Carbon Dioxide 25 mmol/L (22-30); Chloride 104 mmol/L (98-107); Estimated Creatinine Clearance 59 ml/min; Glucose 94 mg/dl (70-99); Magnesium 2.1 mg/dl (1.6-2.3); Potassium 3.7 mmol/L (3.5-5.1); Sodium 136 mmol/L (135-145); eGFR > 60.00
[2024-04-29] MEDS: PROTONIX 40 MG PO ×2 (09:00→20:41)
[2024-04-29] MEDS: LOW STRENGTH ASPIRIN 81 MG PO (09:00)
[2024-04-29] MEDS: KLONOPIN 0.5 MG PO ×2 (09:00→20:41)
[2024-04-29] MEDS: ENTEREG 12 MG PO ×2 (09:18→20:41)
--- NOTE | 2024-04-29 10:50 | W.PN.CRS1 ---
Today's Communication / Plan
-
Clears
24 more hours of Unasyn
DC Toradol
Lovenox
Assessment/Plan
-
Assessment: 64yo female with generalized abdominal pain discomfort and diarrhea with findings on 2 imaging studies of ileocecal intussusception with cramping and foul smelling bowel movements, c.diff positive.
04/06 EGD/colonoscopy: Ulcer disease of the upper GI tract revealed as well as some transverse and ascending colon erythema
Plan:
1. WBC normalized at 8.1. Vital signs normal.
2. Continue Unasyn for 24 hours. Vancomycin per ID.
3. Start on clear liquids today.
4. Pain control: DC Toradol, increase frequency of Dilaudid. Continue Tylenol 650 mg every 4 hours.
5. Out of bed as tolerated.
6. Start Lovenox tonight for DVT prophylaxis. Teds and SCDs in place.
7. Out of bed as tolerated.
8. OR pathology pending.
9. Appreciate hospitalist.
10. Ross discontinued this morning per patient's request, voiding without difficulty.
Subjective Data
Procedure
04/28/2024 - robotic-assisted ileocectomy
Subjective Data
Date of Service: April 29, 2024
Patient states she had some postoperative pain overnight. She is hungry. She has nausea but is resolved. She has no bowel movements. She has not had flatus. She is urinating okay.
Objective Data
-
Vital Signs
Temp Pulse Resp BP Pulse Ox
98.5 F 76 18 129/68 98
04/29/24 07:35 04/29/24 07:35 04/29/24 08:23 04/29/24 07:35 04/29/24 10:46
Intake & Output
04/28/24 04/29/24 04/30/24
06:59 06:59 06:59
Intake Total 540 / 540 1373 / 1373
Output Total 225 / 225
Balance 540 / 540 1148 / 1148
Intake:
Oral fluids 240 / 240
IV fluids (Total) 300 / 300 1120 / 1120
Normosol-R 1,000 ml @ 80 mls/hr 70 / 70
IV .[id number] [facility] Rx#:[id number]
norm 50 / 50
IV piggybacks 240 / 240
Output:
Urine, Ross 225 / 225
Other:
Number of approximated MODERATE 3 3
amounts of urine
Number of unmeasured liquid
stools
Rectum 3
Lab Results
04/29/24 07:47
04/29/24 07:47
Physical Exam
-
General: No Acute Distress and AOx3
Abdomen: Soft, Non Distended and Non Tender
Skin: Warm and Dry
Incision: Clear, Dry, Intact
--- NOTE | 2024-04-29 10:53 | CM ---
Addendum entered by Dea Dawkins 04/29/24 10:58:
Initial Assessment completed yesterday
Patient is independent with ADLs, Ambulation, and stairs; drives, retired
No SNF or Home Health utilization history
Transportation: will provide ride home
Original Note:
Met with patient at the bedside
Family Physician verified: Dr. Daniel De Luna @ [address] [place] [address] ( ); Admissions notified to update chart
Plan: Discharge to home when medically stable; no needs anticipated
[2024-04-29] MEDS: CARAFATE 1 GRAM PO ×2 (11:31→21:27)
[2024-04-29 11:42] VITALS: BP 127/73
--- NOTE | 2024-04-29 11:49 | W.PN.HOSP.TC ---
Today's Communication/Plan
-
Monitor vital signs see plan
Awaiting bowel function return
Continue clears
Pain control
Avoid NSAIDs
Monitor hemoglobin
Assessment / Plan
Assessment / Plan
General: Well Developed, Well Nourished and No Apparent Distress
HEENT: Normocephalic, Moist Mucous Membranes and Atraumatic
Respiratory: Clear
Cardiac: S1/S2 and Regular Rhythm
GI: Soft, Non Distended, Normal Bowel Sounds and Tender
Musculoskeletal: No Edema
Neuro: Nonfocal/Grossly Intact
Ileocecal intussusception
-s/p robotic ileocecostomy 04/28
-Colorectal managing
Clears
Awaiting bowel function return
-Antibiotics as per surgery
COSME on admission likely 2/2 dehydration
Resolved
Gentle hydration
UA without UTI
now improving
Acute blood loss anemia likely secondary to surgery, also has hemodilution
Monitor
Hypercalcemia
Improved
# Recent C. difficile infection
-ID consulted for management of preop antibiotics
Continue with p.o. vanc for ppx
## Asthma/COPD
-Continue with Breo Ellipta or equivalent inhaler, Singulair
# Hyperlipidemia/atherosclerotic plaque in the abdominal aorta
-Continue Crestor
# Anxiety/depression
-Continue Klonopin,
-Duloxetine continued
# Tobacco use
-Quit a month ago
# Diverticulosis
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
#DVT prophylaxis
-SCDs
#CODE status
-Full code
Anticipated Discharge: 24 - 48 hours
Subjective/Interval History
-
Date of Service: April 29, 2024
Has some pain
Objective Data
-
Labs:
Laboratory Results
04/29/24
07:47
WBC 8.1
Hgb 9.9 L
Hct 28.6 L
Plt Count 164
Sodium 136
Potassium 3.7
Chloride 104
Carbon Dioxide 25
BUN 10
Creatinine 0.8
Glucose 94
Calcium 9.0
Vital Signs:
Vital Signs
Temp Pulse Resp BP Pulse Ox
99.0 F 71 16 127/73 97
04/29/24 11:42 04/29/24 11:42 04/29/24 11:42 04/29/24 11:42 04/29/24 11:42
I&O
04/28/24 04/29/24 04/30/24
06:59 06:59 06:59
Intake Total 540 / 540 1373 / 1373
Output Total 225 / 225
Balance 540 / 540 1148 / 1148
--- NOTE | 2024-04-29 13:25 | PN.CDI ---
CDI
- -
CDI:
Physician Documentation Request
Admit Date: 04/27/24 11:58
Dear Doctor Jesus,
RD notes state ' As noted, weight was listed as 104 lbs 12.8 ox BMI 18.6 normal range 8.14. Compared to stated UBW of 128 lbs in January, pt with 24 lb (19%) in 3 months significant With weight loss of > 75% in three months and < 75% estimated needs >
1 month pt meets AND/ASPEN criteria for moderate protein calorie malnutrition of acute illness. '
Based on the above information and your assessment, which of the following most accurately represents the patient's nutritional status?
Malnutrition (specify if mild, moderate or severe)
Underweight without malnutrition
No nutritional deficiency
Other (please specify
[place] Criteria ([facility] Hospitalist 2017)
2 or more criteria must be present for either
non severe or severe malnutrition
Note that the criteria differs related to the
presence of an acute or chronic illness
Acute Illness Chronic Illness
Energy Intake Non Severe: <75% for >7 days Non Severe: <75% for >1 month
Severe: <50% for >5 days Severe: <75% for >1 month
Weight Loss Non Severe: 1-2% over 1 week Non Severe: 5% over 1 month
5% over 1 month 7.5% over 3 months
7.5% over 3 months 10% over 6 months
1 year N/A 20% over 1 year
Severe: >2% over 1 week Severe: >5% over 1 month
>5% over 1 month >7.5% over 3 months
>7.5% over 3 months >10% over 6 months
1 year N/A >20% over 1 year
Body Fat Non Severe: Mild Decrease Non Severe: Mild Loss
Severe: Moderate Decrease Severe: Severe Loss
Muscle Mass Non Severe: Mild Decrease Non Severe: Mild Loss
Severe: Moderate Decrease Severe: Severe Loss
Fluid Accumulation Non Severe: Mild Accumulation Non Severe: Mild Accumulation
Severe: Moderate to severe Severe: Moderate to severe
accumulation accumulation
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
Severe: Measurably reduced Severe: Measurably reduced
Use of terms such as suspected, likely, concern for, or probable (associated with a specific diagnosis that is being evaluated, monitored, or treated as if it exists) are acceptable and can be coded in the inpatient setting, when documented at the
time of discharge.
Thank you,
Praveena Navarrete RN, BSN
CDI Specialist
tiger text
Please use your independent medical judgment in providing your response.
--- NOTE | 2024-04-29 13:50 | W.PN.ID1 ---
Date of Service
Date of Service: April 29, 2024
Today's Communication
continue oral vancomycin 125 mg PO QID while inpatient, patient already has unfinished fidaxomicin at home and can complete her home regimen with those medications, dose of fidaxomicin will be 200 mg PO BID - plan at least 5 days total of rx
Assessment / Plan
Elective Ileocecectomy for intussusception
H/o recurrent C difficile
IC
cachexia
- perioperative antibiotics -ordered unasyn 3 gm x1
- continue oral vancomycin 125 mg PO QID while inpatient, patient already has unfinished fidaxomicin at home and can complete her home regimen with those medications, dose of fidaxomicin will be 200 mg PO BID - plan at least 5 days total of rx
- follow pathology
- advise broadening her diet which will likely help with prevention of recurrent C difficile, she plans to discuss with urogynecology outpatient
- follow clinically
Chief Complaint
-: Other (recurrent C difficile)
Subjective / Review of Systems
afebrile
has post op joel - removed
Op note: cecum midline and floppy, entire right colon was mobile - uncomplicated
Vital Signs / Physical Exam
Vital Signs
Vital Signs
Temp Pulse Resp BP Pulse Ox
99.0 F 71 16 127/73 97
04/29/24 11:42 04/29/24 11:42 04/29/24 11:42 04/29/24 11:42 04/29/24 11:42
Physical Exam
Constitutional: No Acute Distress
Cardiovascular: Regular Rate and S1/S2; Negative Murmur or Rub
Pulmonary: Clear and Symmetric; Negative Wheezes or Rales
Gastrointestinal: Soft, Non Tender, Non Distended and Normal Bowel Sounds
Skin: Warm and Dry; Negative Rash or Jaundice
Objective Data
Lab Data
Lab Results
04/29/24 07:47
04/29/24 07:47
PT 12.8 Sec (11.4-14.6) 04/27/24 12:24
INR 0.96 04/27/24 12:24
APTT 30.8 Sec (23.4-35.0) 04/27/24 12:24
Estimated Creat Clear 59 ml/min 04/29/24 07:47
Most recent labs reviewed.
--- NOTE | 2024-04-29 14:11 | PN.CDI ---
CDI
- -
CDI:
Physician Documentation Request
Admit Date: 04/27/24 11:58
Dear Tonia Boucher,
RD notes state ' As noted, weight was listed as 104 lbs 12.8 ox BMI 18.6 normal range 8.14. Compared to stated UBW of 128 lbs in January, pt with 24 lb (19%) in 3 months significant With weight loss of > 75% in three months and < 75% estimated needs >
1 month pt meets AND/ASPEN criteria for moderate protein calorie malnutrition of acute illness. '
Based on the above information and your assessment, which of the following most accurately represents the patient's nutritional status?
Malnutrition (specify if mild, moderate or severe)
Underweight without malnutrition
No nutritional deficiency
Other (please specify)
[place] Criteria ([facility] Hospitalist 2017)
2 or more criteria must be present for either
non severe or severe malnutrition
Note that the criteria differs related to the
presence of an acute or chronic illness
Acute Illness Chronic Illness
Energy Intake Non Severe: <75% for >7 days Non Severe: <75% for >1 month
Severe: <50% for >5 days Severe: <75% for >1 month
Weight Loss Non Severe: 1-2% over 1 week Non Severe: 5% over 1 month
5% over 1 month 7.5% over 3 months
7.5% over 3 months 10% over 6 months
1 year N/A 20% over 1 year
Severe: >2% over 1 week Severe: >5% over 1 month
>5% over 1 month >7.5% over 3 months
>7.5% over 3 months >10% over 6 months
1 year N/A >20% over 1 year
Body Fat Non Severe: Mild Decrease Non Severe: Mild Loss
Severe: Moderate Decrease Severe: Severe Loss
Muscle Mass Non Severe: Mild Decrease Non Severe: Mild Loss
Severe: Moderate Decrease Severe: Severe Loss
Fluid Accumulation Non Severe: Mild Accumulation Non Severe: Mild Accumulation
Severe: Moderate to severe Severe: Moderate to severe
accumulation accumulation
Reduced Blue Line Trimmer Strength Non Severe: N/A Non Severe: N/A
Severe: Measurably reduced Severe: Measurably reduced
Use of terms such as suspected, likely, concern for, or probable (associated with a specific diagnosis that is being evaluated, monitored, or treated as if it exists) are acceptable and can be coded in the inpatient setting, when documented at the
time of discharge.
Thank you,
Praveena Navarrete RN, BSN
CDI Specialist
tiger text
Please use your independent medical judgment in providing your response.
[2024-04-29] MEDS: DILAUDID 0.5 MG IV ×2 (15:03→20:52)
[2024-04-29 15:25] VITALS: BP 118/63
--- NOTE | 2024-04-29 16:45 | PTCARENOTE ---
p stated feeling good after clears oral intake this morning. nursing to place order put in if patient continued to tolerate oral intake to stop IVF. pt verbalized 10/10 abd pain this afternoon for this nurse. Normosol continued at this time.
[2024-04-29] MEDS: SINGULAIR 10 MG PO (17:37)
[2024-04-29] MEDS: LOVENOX 40 MG SC (17:37)
[2024-04-29] MEDS: CRESTOR 10 MG PO (17:37)
[2024-04-29] MEDS: ZOFRAN 4 MG IV (20:48)
[2024-04-29] MEDS: FLUSH (NSS) 1 FLUSH IV (20:49)
[2024-04-29] MEDS: CYMBALTA DELAYED RELEASE 30 MG PO (21:27)
[2024-04-29 23:56] VITALS: BP 111/58
[2024-04-30] MEDS: TYLENOL PO (03:15)
[2024-04-30] MEDS: NORMOSOL-R 1000 IV (04:59)
[2024-04-30] MEDS: FIRVANQ 125 MG PO ×4 (05:00→23:13)
[2024-04-30] MEDS: DILAUDID 0.5 MG IV ×2 (05:08→16:55)
[2024-04-30] MEDS: SYMBICORT 160/4.5 MCG INHALER 2 PUFF INH ×2 (07:40→18:14)
[2024-04-30 07:45] VITALS: BP 100/60
[2024-04-30] MEDS: KLONOPIN 0.5 MG PO ×2 (07:48→20:33)
[2024-04-30] MEDS: CARAFATE 1 GRAM PO ×4 (07:48→23:11)
[2024-04-30] MEDS: LOW STRENGTH ASPIRIN 81 MG PO (07:49)
[2024-04-30] MEDS: PROTONIX 40 MG PO ×2 (07:49→20:34)
[2024-04-30] MEDS: ENTEREG 12 MG PO ×2 (07:49→20:35)
[2024-04-30] MEDS: TYLENOL 650 MG PO ×5 (07:50→23:13)
[2024-04-30 08:55] LABS: % Basophils 0.4 % (0-2); % Eosinophils 1.8 % (0-6); % Immature Granulocytes 0.3 % (0-0.5); % Lymphocytes 37.1 % (20.5-51.1); % Monocytes 7.7 % (1.7-9.3); % Neutrophils 52.7 % (42.2-75.2); Absolute Eosinophils 0.1 10^3/uL (0-0.7); Absolute Lymphocytes 2.6 10^3/uL (1.2-3.4); Absolute Monocytes 0.6 10^3/uL (0.1-0.6); Absolute Neutrophils 3.8 10^3/uL (1.4-6.5); Hematocrit 28.7 % (37.0-47.0); Hemoglobin 9.7 g/dL (12.0-16.0); Mean Corp Hgb Conc. 33.8 g/dL (33.0-37.0); Mean Corpuscular Hgb 33.1 pg (27.0-31.0); Mean Platelet Volume 10.8 fL (7.4-10.4); Nucleated Red Blood Cells % 0 %; Platelet Count 173 10^3/uL (130-400); Red Blood Cell Count 2.93 10^6/uL (4.20-5.40); Red Cell Dist. Width 13.4 % (11.5-14.5); White Blood Cell Count 7.1 10^3/uL (4.8-10.8)
[2024-04-30 09:36] LABS: Blood Urea Nitrogen 7 mg/dl (7-17); Calcium 8.6 mg/dl (8.4-10.2); Carbon Dioxide 28 mmol/L (22-30); Chloride 104 mmol/L (98-107); Estimated Creatinine Clearance 60 ml/min; Glucose 82 mg/dl (70-99); Potassium 3.6 mmol/L (3.5-5.1); Sodium 136 mmol/L (135-145); eGFR > 60.00
--- NOTE | 2024-04-30 11:44 | W.PN.HOSP.TC ---
Today's Communication/Plan
-
Monitor vital signs see plan
Continue with p.o. vanc
Monitor hemoglobin
Severe abdominal pain today, on clears
Surgery to see today
Assessment / Plan
Assessment / Plan
General: Well Developed, Well Nourished and No Apparent Distress
HEENT: Normocephalic, Moist Mucous Membranes and Atraumatic
Respiratory: Clear
Cardiac: S1/S2 and Regular Rhythm
GI: Soft, Non Distended, Normal Bowel Sounds and Tender
Musculoskeletal: No Edema
Neuro: Nonfocal/Grossly Intact
Ileocecal intussusception
-s/p robotic ileocecostomy 04/28
-Colorectal managing
Clears
Awaiting bowel function return
-Antibiotics as per surgery
COSME on admission likely 2/2 dehydration
Resolved
Gentle hydration
UA without UTI
now improving
Acute blood loss anemia likely secondary to surgery, also some from hemodilution
Monitor
Hypercalcemia
Improved
# Recent C. difficile infection
-ID consulted for management of preop antibiotics
Continue with p.o. vanc for ppx while in hospital; per ID patient already has unfinished fidaxomicin at home and can complete her home regimen with those medications, dose of fidaxomicin will be 200 mg PO BID - plan at least 5 days total of rx
## Asthma/COPD
-Continue with Breo Ellipta or equivalent inhaler, Singulair
# Hyperlipidemia/atherosclerotic plaque in the abdominal aorta
-Continue Crestor
# Anxiety/depression
-Continue Klonopin,
-Duloxetine continued
# Tobacco use
-Quit a month ago
# Diverticulosis
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
#DVT prophylaxis
-SCDs, Lovenox
#CODE status
-Full code
Anticipated Discharge: > 48 hours
Subjective/Interval History
-
Date of Service: April 30, 2024
has some pain
Objective Data
-
Labs:
Laboratory Results
04/30/24
07:41
WBC 7.1
Hgb 9.7 L
Hct 28.7 L
Plt Count 173
Sodium 136
Potassium 3.6
Chloride 104
Carbon Dioxide 28
BUN 7
Creatinine 0.8
Glucose 82
Calcium 8.6
Vital Signs:
Vital Signs
Temp Pulse Resp BP Pulse Ox
98.8 F 87 16 100/60 98
04/29/24 23:56 04/30/24 07:45 04/30/24 07:45 04/30/24 07:45 04/30/24 07:45
I&O
04/29/24 04/30/24 05/01/24
06:59 06:59 06:59
Intake Total 1373 / 1373 1859
Output Total 225 / 225
Balance 1148 / 1148 1859
[2024-04-30 15:40] VITALS: BP 117/66
--- NOTE | 2024-04-30 16:37 | W.PN.CRS1 ---
Today's Communication / Plan
-
FLD
Assessment/Plan
-
64 yo female pod #2 robotic assisted ileocecectomy for intussusception
AFVSS
Labs stable
Tolerating clears
--Advance to FLD
--Vancomycin PO as per ID
--Tylenol scheduled with prn oxycodone and Dilaudid for pain management
--c/w entereg
--Out of bed as tolerated/IS while awake
--Lovenox tonight for DVT prophylaxis. Teds and SCDs in place.
--Appreciate hospitalist.
Subjective Data
Procedure
04/28/2024 - robotic-assisted ileocectomy
Subjective Data
Date of Service: April 30, 2024
Patient seen and examined at bedside with Dr. Arvizu. Denies n/v. Not yet passing flatus. Voiding well. Broth did not sit well last night, but avoided it today without issues with eating.
Objective Data
-
Vital Signs
Temp Pulse Resp BP Pulse Ox
98.8 F 87 16 100/60 98
04/29/24 23:56 04/30/24 07:45 04/30/24 07:45 04/30/24 07:45 04/30/24 07:45
Intake & Output
04/29/24 04/30/24 05/01/24
06:59 06:59 06:59
Intake Total 1373 / 1373 1859
Output Total 225 / 225
Balance 1148 / 1148 1859
Intake:
Oral fluids 900 / 900
IV fluids (Total) 1120 / 1120 960 / 960
Normosol-R 1,000 ml @ 80 mls/hr 70 / 70
IV .[id number] ADELAIDA Rx#:[id number]
norm 50 / 50
IV piggybacks 240 / 240
Output:
Urine, Ross 225 / 225
Other:
Number of approximated MODERATE 3 5
amounts of urine
Lab Results
04/30/24 07:41
04/30/24 07:41
Physical Exam
-
General: No Acute Distress
HEENT: Grossly Normal
Abdomen: Soft, Distended (mild distended ) and Tender (mild)
Incision: Clear, Dry, Intact (dermabond intact)
[2024-04-30] MEDS: CRESTOR 10 MG PO (16:54)
[2024-04-30] MEDS: SINGULAIR 10 MG PO (16:54)
[2024-04-30] MEDS: ZOFRAN 4 MG IV (16:55)
[2024-04-30] MEDS: LOVENOX 40 MG SC (16:56)
[2024-04-30] MEDS: CYMBALTA DELAYED RELEASE 30 MG PO (23:11)
[2024-04-30] MEDS: ROXICODONE 5 MG PO (23:18)
[2024-04-30 23:59] VITALS: BP 123/68
[2024-05-01] MEDS: TYLENOL PO (04:30)
[2024-05-01] MEDS: FIRVANQ 125 MG PO ×4 (05:34→23:45)
[2024-05-01] MEDS: ROXICODONE 5 MG PO ×4 (05:40→23:45)
[2024-05-01] MEDS: FLUSH (NSS) 2 FLUSH IV (05:45)
[2024-05-01] MEDS: ZOFRAN 4 MG IV ×3 (05:49→20:11)
[2024-05-01 06:00] VITALS: BMI 19.9
[2024-05-01 07:45] VITALS: BP 131/81
[2024-05-01] MEDS: SYMBICORT 160/4.5 MCG INHALER 2 PUFF INH ×2 (08:03→20:09)
[2024-05-01] MEDS: CARAFATE 1 GRAM PO ×4 (09:00→23:45)
[2024-05-01] MEDS: TYLENOL 650 MG PO ×5 (09:01→23:45)
[2024-05-01] MEDS: PROTONIX 40 MG PO ×2 (09:01→20:10)
[2024-05-01] MEDS: KLONOPIN 0.5 MG PO ×2 (09:02→20:09)
[2024-05-01] MEDS: ENTEREG 12 MG PO ×2 (09:04→20:09)
[2024-05-01] MEDS: LOW STRENGTH ASPIRIN PO (09:04)
[2024-05-01 09:12] LABS: % Basophils 0.4 % (0-2); % Eosinophils 4.5 % (0-6); % Immature Granulocytes 0.3 % (0-0.5); % Lymphocytes 23.5 % (20.5-51.1); % Monocytes 5.4 % (1.7-9.3); % Neutrophils 65.9 % (42.2-75.2); Absolute Eosinophils 0.3 10^3/uL (0-0.7); Absolute Lymphocytes 1.6 10^3/uL (1.2-3.4); Absolute Monocytes 0.4 10^3/uL (0.1-0.6); Absolute Neutrophils 4.5 10^3/uL (1.4-6.5); Hematocrit 28.5 % (37.0-47.0); Hemoglobin 9.4 g/dL (12.0-16.0); Mean Corpuscular Hgb 31.4 pg (27.0-31.0); Mean Corpuscular Volume 95.3 fL (81.0-99.0); Mean Platelet Volume 10.3 fL (7.4-10.4); Nucleated Red Blood Cells % 0 %; Platelet Count 190 10^3/uL (130-400); Red Blood Cell Count 2.99 10^6/uL (4.20-5.40); Red Cell Dist. Width 13.2 % (11.5-14.5); White Blood Cell Count 6.9 10^3/uL (4.8-10.8)
[2024-05-01 09:57] LABS: Blood Urea Nitrogen 13 mg/dl (7-17); Calcium 9.1 mg/dl (8.4-10.2); Carbon Dioxide 27 mmol/L (22-30); Chloride 107 mmol/L (98-107); Estimated Creatinine Clearance 60 ml/min; Glucose 85 mg/dl (70-99); Potassium 3.6 mmol/L (3.5-5.1); Sodium 138 mmol/L (135-145); eGFR > 60.00
--- NOTE | 2024-05-01 10:39 | W.PN.CRS1 ---
Today's Communication / Plan
-
LRD
Assessment/Plan
-
64 yo female pod #3 robotic assisted ileocecectomy for intussusception
AFVSS
Labs stable
Tolerating FLD with +BM's
--Advance to LRD
--Vancomycin PO as per ID
--Tylenol scheduled with prn oxycodone and Dilaudid for pain management
--c/w entereg
--Out of bed as tolerated/IS while awake
--Lovenox tonight for DVT prophylaxis. Teds and SCDs in place.
--Appreciate hospitalist.
Subjective Data
Procedure
04/28/2024 - robotic-assisted ileocectomy
Subjective Data
Date of Service: May 01, 2024
Patient seen and examined at bedside with Dr. Arvizu. Passing multiple loose stools. Stool tinged with blood overnight but mostly brown. Occasional nausea but no vomiting.
Objective Data
-
Vital Signs
Temp Pulse Resp BP Pulse Ox
99.0 F 94 16 131/81 97
05/01/24 07:45 05/01/24 08:06 05/01/24 08:06 05/01/24 07:45 05/01/24 08:06
Intake & Output
04/30/24 05/01/24 05/02/24
06:59 06:59 06:59
Intake Total 1860 / 1860 600 / 600
Balance 1860 / 1860 600 / 600
Intake:
Oral fluids 900 / 900 600 / 600
IV fluids (Total) 960 / 960
Other:
Number of approximated MODERATE 5 13
amounts of urine
Number of unmeasured liquid
stools
Rectum 4
Lab Results
05/01/24 08:41
05/01/24 08:41
Physical Exam
-
General: No Acute Distress
HEENT: Grossly Normal
Abdomen: Soft, Non Distended and Tender (mild)
Incision: Clear, Dry, Intact (dermabond intact)
--- NOTE | 2024-05-01 10:59 | W.PN.HOSP.TC ---
Today's Communication/Plan
-
Monitor vital signs
see plan
monitor hemoglobin
Trial of low res
Continue PPI
on PO vanc
Assessment / Plan
Assessment / Plan
General: Well Developed, Well Nourished and No Apparent Distress
HEENT: Normocephalic, Moist Mucous Membranes and Atraumatic
Respiratory: Clear
Cardiac: S1/S2 and Regular Rhythm
GI: Soft, Non Distended, Normal Bowel Sounds and Tender
Musculoskeletal: No Edema
Neuro: Nonfocal/Grossly Intact
Ileocecal intussusception
-s/p robotic ileocecostomy 04/28
-Colorectal managing
Diet per colorectal surgery, trial of low residue
This morning had a bowel movement
-Antibiotics as per surgery
COSME on admission likely 2/2 dehydration
Resolved
UA without UTI
now improving
Acute blood loss anemia likely secondary to surgery, also some from hemodilution
Monitor
Hypercalcemia
Improved
# Recent C. difficile infection
-ID consulted for management of preop antibiotics
Continue with p.o. vanc for ppx while in hospital; per ID patient already has unfinished fidaxomicin at home and can complete her home regimen with those medications, dose of fidaxomicin will be 200 mg PO BID - plan at least 5 days total of rx
## Asthma/COPD
-Continue with Breo Ellipta or equivalent inhaler, Singulair
# Hyperlipidemia/atherosclerotic plaque in the abdominal aorta
-Continue Crestor
# Anxiety/depression
-Continue Klonopin,
-Duloxetine continued
# Tobacco use
-Quit a month ago
# Diverticulosis
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
#DVT prophylaxis
-SCDs, Lovenox
#CODE status
-Full code
Anticipated Discharge: Within 24 hours
Subjective/Interval History
-
Date of Service: May 01, 2024
Still has some abdominal pain
Objective Data
-
Labs:
Laboratory Results
05/01/24
08:41
WBC 6.9
Hgb 9.4 L
Hct 28.5 L
Plt Count 190
Sodium 138
Potassium 3.6
Chloride 107
Carbon Dioxide 27
BUN 13
Creatinine 0.8
Glucose 85
Calcium 9.1
Vital Signs:
Vital Signs
Temp Pulse Resp BP Pulse Ox
99.0 F 94 16 131/81 97
05/01/24 07:45 05/01/24 08:06 05/01/24 08:06 05/01/24 07:45 05/01/24 08:06
I&O
04/30/24 05/01/24 05/02/24
06:59 06:59 06:59
Intake Total 1860 / 1860 600 / 600
Balance 1860 / 1860 600 / 600
[2024-05-01 15:45] VITALS: BP 107/66
[2024-05-01] MEDS: CRESTOR 10 MG PO (17:26)
[2024-05-01] MEDS: SINGULAIR 10 MG PO (17:27)
[2024-05-01] MEDS: LOVENOX 40 MG SC (17:28)
[2024-05-01 23:26] VITALS: BP 132/64
[2024-05-01] MEDS: CYMBALTA DELAYED RELEASE 30 MG PO (23:45)
[2024-05-02] MEDS: FIRVANQ 125 MG PO ×3 (05:52→18:42)
[2024-05-02] MEDS: TYLENOL PO (05:52)
[2024-05-02] MEDS: TYLENOL 650 MG PO ×4 (05:55→20:32)
[2024-05-02 06:00] VITALS: BMI 18.7
[2024-05-02] MEDS: ZOFRAN 4 MG IV ×2 (06:19→20:43)
--- NOTE | 2024-05-02 06:42 | PTCARENOTE ---
pt had x3 maroon liquid bms. pt had nausea and abd pain. pt states every time she goes to the bathroom she becomes nauseous. see mar for administration fo zofran, nando, and ice w/+eff throughout the night.
[2024-05-02] MEDS: SYMBICORT 160/4.5 MCG INHALER 2 PUFF INH ×2 (07:20→19:35)
[2024-05-02 07:55] VITALS: BP 89/66
[2024-05-02 09:05] LABS: % Basophils 0.6 % (0-2); % Eosinophils 5.6 % (0-6); % Immature Granulocytes 0.4 % (0-0.5); % Lymphocytes 26.3 % (20.5-51.1); % Monocytes 4.9 % (1.7-9.3); % Neutrophils 62.2 % (42.2-75.2); Absolute Eosinophils 0.3 10^3/uL (0-0.7); Absolute Lymphocytes 1.3 10^3/uL (1.2-3.4); Absolute Monocytes 0.2 10^3/uL (0.1-0.6); Hematocrit 26.9 % (37.0-47.0); Hemoglobin 9.1 g/dL (12.0-16.0); Mean Corp Hgb Conc. 33.8 g/dL (33.0-37.0); Mean Corpuscular Hgb 32.9 pg (27.0-31.0); Mean Corpuscular Volume 97.1 fL (81.0-99.0); Mean Platelet Volume 10.5 fL (7.4-10.4); Nucleated Red Blood Cells % 0 %; Platelet Count 168 10^3/uL (130-400); Red Blood Cell Count 2.77 10^6/uL (4.20-5.40); Red Cell Dist. Width 12.7 % (11.5-14.5); White Blood Cell Count 4.9 10^3/uL (4.8-10.8)
[2024-05-02 09:32] LABS: Blood Urea Nitrogen 9 mg/dl (7-17); Calcium 9.4 mg/dl (8.4-10.2); Carbon Dioxide 28 mmol/L (22-30); Chloride 106 mmol/L (98-107); Estimated Creatinine Clearance 57 ml/min; Glucose 114 mg/dl (70-99); Potassium 3.3 mmol/L (3.5-5.1); Sodium 138 mmol/L (135-145); eGFR > 60.00
[2024-05-02] MEDS: LOW STRENGTH ASPIRIN PO (09:45)
[2024-05-02] MEDS: CARAFATE 1 GRAM PO ×4 (09:47→22:05)
[2024-05-02] MEDS: KLONOPIN 0.5 MG PO ×2 (09:48→20:33)
[2024-05-02] MEDS: ENTEREG 12 MG PO ×2 (09:48→20:32)
[2024-05-02] MEDS: PROTONIX 40 MG PO ×2 (09:48→20:32)
[2024-05-02 09:54] VITALS: BP 105/60
--- NOTE | 2024-05-02 10:38 | W.PN.CRS1 ---
Today's Communication / Plan
-
d/c toradol
monitor bleeding
continue po vanco
continue low residue diet
Assessment/Plan
-
64 yo female pod #4 robotic assisted ileocecectomy for intussusception
AFVSS
Labs stable - Hgb 9.1 from 9.4
Tolerating FLD with +BM's
--Advance to LRD
--Vancomycin PO as per ID
--Hold Aspirin/Lovenox today given bleeding
--Will monitor bleeding closely, if continues, may require tranexamic acid (discussed with patient)
--Tylenol scheduled with prn oxycodone and Dilaudid for pain management
--c/w Entereg
--Out of bed as tolerated/IS while awake
--Lovenox tonight for DVT prophylaxis. Teds and SCDs in place.
--Appreciate hospitalist.
Subjective Data
Procedure
04/28/2024 - robotic-assisted ileocectomy
Subjective Data
Date of Service: May 02, 2024
Patient states she had 'at least 10 loose bowel movements last night maybe more'. She also states she had some blood in her bowel movements and currently has a bloody bowel movement present in the toilet. She states that she is still having
abdominal pain most prominently in her lower incision. She denies nausea or vomiting. She does not have much of an appetite but she is eating a low residue diet.
Objective Data
-
Vital Signs
Temp Pulse Resp BP Pulse Ox
98.1 F 91 18 105/60 97
05/02/24 07:55 05/02/24 09:54 05/02/24 07:55 05/02/24 09:54 05/02/24 07:55
Intake & Output
05/01/24 05/02/24 05/03/24
06:59 06:59 06:59
Intake Total 600 / 600 1140 / 1140
Balance 600 / 600 1140 / 1140
Intake:
Oral fluids 600 / 600 1140 / 1140
Other:
Number of approximated MODERATE 13 3
amounts of urine
Number of unmeasured liquid
stools
Rectum 4 2
Lab Results
05/02/24 08:41
05/02/24 08:41
Physical Exam
-
General: No Acute Distress and AOx3
Abdomen: Soft, Non Distended and Tender (Around the lower midline incision )
Skin: Warm and Dry
Incision: Clear, Dry, Intact
--- NOTE | 2024-05-02 11:47 | W.PN.ID1 ---
Date of Service
Date of Service: May 02, 2024
Today's Communication
- continue oral vancomycin 125 mg PO QID while inpatient (day 4) duration may be extended if ongoing GI bleeding
- patient already has unfinished fidaxomicin at home and can complete her home regimen with those medications, dose of fidaxomicin will be 200 mg PO BID
- follow pathology - pending
Assessment / Plan
Elective Ileocecectomy for intussusception
H/o recurrent C difficile
IC
cachexia
- continue oral vancomycin 125 mg PO QID while inpatient (day 4) duration may be extended if ongoing GI bleeding
- patient already has unfinished fidaxomicin at home and can complete her home regimen with those medications, dose of fidaxomicin will be 200 mg PO BID
- follow pathology - pending
- follow clinically
Chief Complaint
-: Other (recurrent C difficile)
Subjective / Review of Systems
afebrile
had 3 maroon liquid BMs, ongoing nausea
Vital Signs / Physical Exam
Vital Signs
Vital Signs
Temp Pulse Resp BP Pulse Ox
98.1 F 91 18 105/60 97
05/02/24 07:55 05/02/24 09:54 05/02/24 07:55 05/02/24 09:54 05/02/24 07:55
Physical Exam
Constitutional: No Acute Distress, Chronically Ill and Cachetic
Cardiovascular: Regular Rate and S1/S2; Negative Murmur or Rub
Pulmonary: Clear and Symmetric; Negative Wheezes or Rales
Gastrointestinal: Soft, Tender, Non Distended, Normal Bowel Sounds, No Rebound and No Guarding
Skin: Warm and Dry; Negative Rash or Jaundice
Objective Data
Lab Data
Lab Results
05/02/24 08:41
05/02/24 08:41
PT 12.8 Sec (11.4-14.6) 04/27/24 12:24
INR 0.96 04/27/24 12:24
APTT 30.8 Sec (23.4-35.0) 04/27/24 12:24
Estimated Creat Clear 57 ml/min 05/02/24 08:41
Most recent labs reviewed.
[2024-05-02] MEDS: KCL 20 MEQ PO (12:39)
[2024-05-02] MEDS: ROXICODONE 5 MG PO ×2 (12:39→22:03)
--- NOTE | 2024-05-02 12:49 | CM ---
Reviewed the chart notes and spoke with the patient at the bedside. CM continues to be available to patient/family and is monitoring medical plan for needs at discharge.
Plan: Discharge to home when medically stable. No anticipated needs identified at this time.
--- NOTE | 2024-05-02 13:12 | W.PN.HOSP.TC ---
Today's Communication/Plan
-
monitor Bowel function recovery
continue other meds
PT/OT
Assessment / Plan
Assessment / Plan
1. Ileocecal intussusception
-s/p robotic ileocecostomy 04/28
-Currently on low residue diet, tolerating with some nausea
-some bright red blood in stool , monitor
-On Enetereg, managed by surgery
2. COSME
-Related to volume depletion, resolved
3, Acute blood loss anemia
-likely secondary to surgery, also some from hemodilution
-Monitor
4. Recent C. difficile infection
-ID consulted for management of preop antibiotics
-Continue with p.o. vanc for ppx while in hospital; per ID patient already has unfinished fidaxomicin at home and can complete her home regimen with those medications, dose of fidaxomicin will be 200 mg PO BID - plan at least 5 days total of rx
5. Asthma/COPD
-no signs of flare up
-Continue with Breo Ellipta or equivalent inhaler, Singulair
6. Hyperlipidemia
atherosclerotic plaque in the abdominal aorta
-Continue Crestor
7. Anxiety/depression
-Continue Klonopin,
-Duloxetine continued
8. Tobacco use
-Quit a month ago
Suspected interstitial cystitis -post intra vesicular flushing of bicarb/lidocaine by urology
Diverticulosis
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
DVT prophylaxis-Lovenox
CODE status -Full code
Anticipated Discharge: 24 - 48 hours
Subjective/Interval History
-
Date of Service: May 02, 2024
Reported passing gas, no significant bowel movement
Patient have some bright sandy blood IN
Some nausea without vomiting
Have some lower abdominal pain/discomfort
No other acute issues reported
Objective Data
-
Labs:
Laboratory Results
05/02/24
08:41
WBC 4.9
Hgb 9.1 L
Hct 26.9 L
Plt Count 168
Sodium 138
Potassium 3.3 L
Chloride 106
Carbon Dioxide 28
BUN 9
Creatinine 0.8
Glucose 114 H
Calcium 9.4
Vital Signs:
Vital Signs
Temp Pulse Resp BP Pulse Ox
98.1 F 91 18 105/60 97
05/02/24 07:55 05/02/24 09:54 05/02/24 07:55 05/02/24 09:54 05/02/24 07:55
I&O
05/01/24 05/02/24 05/03/24
06:59 06:59 06:59
Intake Total 600 / 600 1140 / 1140
Balance 600 / 600 1140 / 1140
Review of Systems
-
Respiratory: Reports No Symptoms
Cardiac: Reports No Symptoms
Abdomen/GI: Reports Abdominal Pain and Nausea; Denies Vomiting or Diarrhea
Physical Exam
-
General: Comfortable
HEENT: Negative Oxygen
GI: Soft, Nondistended and Tender (Lower abdomen); Negative Normal Bowel Sounds (Decreased bowel sounds)
Musculoskeletal: No Edema
Neuro: Awake, Alert, Oriented, No Motor Deficits and Nonfocal/Grossly Intact
Psych: Calm
[2024-05-02 14:10] VITALS: BP 113/67; PULSE 92
--- NOTE | 2024-05-02 14:28 | PN.CDI ---
CDI
- -
CDI:
Physician Documentation Request
Admit Date: 04/27/24 11:58
Dear Tonia Boucher
Patient received 20 meq PO of KCL on 05/02
Potassium resulted as follows:
Laboratory Tests
05/01/24 05/02/24
08:41 08:41
Potassium 3.6 3.3 L
Could you please provide a diagnosis that supports the above lab abnormalities and additional evaluation, monitoring and/or treatment rendered:
Hypokalemia
Abnormal lab value clinically insignificant
Other
Use of terms such as suspected, likely, concern for, or probable (associated with a specific diagnosis that is being evaluated, monitored, or treated as if it exists) are acceptable and can be coded in the inpatient setting, when documented at the
time of discharge.
Thank you,
Praveena Navarrete RN, BSN
CDI Specialist
tiger text
Please use your independent medical judgment in providing your response.
[2024-05-02 14:35] LABS: Hematocrit 26.2 % (37.0-47.0); Hemoglobin 9.1 g/dL (12.0-16.0)
[2024-05-02 15:50] VITALS: BP 97/56
[2024-05-02] MEDS: TRANEXAMIC ACID 110 MG IV (15:50)
[2024-05-02] MEDS: CRESTOR 10 MG PO (18:40)
[2024-05-02] MEDS: SINGULAIR 10 MG PO (18:40)
[2024-05-02] MEDS: CYMBALTA DELAYED RELEASE 30 MG PO (22:04)
[2024-05-02 22:41] VITALS: BP 111/58
[2024-05-03] MEDS: TYLENOL 650 MG PO ×5 (01:00→21:33)
[2024-05-03] MEDS: FIRVANQ 125 MG PO ×4 (01:00→17:00)
[2024-05-03] MEDS: TYLENOL PO (05:00)
[2024-05-03 06:00] VITALS: BMI 18.5
[2024-05-03] MEDS: SYMBICORT 160/4.5 MCG INHALER 2 PUFF INH ×2 (07:07→20:52)
[2024-05-03 07:50] VITALS: BP 111/62
[2024-05-03] MEDS: PROTONIX 40 MG PO ×2 (08:43→21:33)
[2024-05-03] MEDS: ENTEREG 12 MG PO ×2 (08:43→21:34)
[2024-05-03] MEDS: CARAFATE 1 GRAM PO ×4 (08:44→21:34)
[2024-05-03] MEDS: KLONOPIN 0.5 MG PO ×2 (08:44→21:33)
[2024-05-03 08:47] LABS: % Basophils 0.8 % (0-2); % Eosinophils 6.4 % (0-6); % Immature Granulocytes 0.3 % (0-0.5); % Lymphocytes 34.4 % (20.5-51.1); % Neutrophils 51.1 % (42.2-75.2); Absolute Eosinophils 0.2 10^3/uL (0-0.7); Absolute Lymphocytes 1.2 10^3/uL (1.2-3.4); Absolute Monocytes 0.3 10^3/uL (0.1-0.6); Absolute Neutrophils 1.8 10^3/uL (1.4-6.5); Hematocrit 23.3 % (37.0-47.0); Hemoglobin 7.9 g/dL (12.0-16.0); Mean Corp Hgb Conc. 33.9 g/dL (33.0-37.0); Mean Corpuscular Hgb 32.1 pg (27.0-31.0); Mean Corpuscular Volume 94.7 fL (81.0-99.0); Mean Platelet Volume 10.2 fL (7.4-10.4); Nucleated Red Blood Cells % 0 %; Platelet Count 199 10^3/uL (130-400); Red Blood Cell Count 2.46 10^6/uL (4.20-5.40); White Blood Cell Count 3.6 10^3/uL (4.8-10.8)
[2024-05-03] MEDS: ROXICODONE 5 MG PO ×4 (08:49→21:32)
[2024-05-03] MEDS: ZOFRAN 4 MG IV ×2 (08:49→21:32)
[2024-05-03 09:06] LABS: Blood Urea Nitrogen 7 mg/dl (7-17); Calcium 9.4 mg/dl (8.4-10.2); Carbon Dioxide 27 mmol/L (22-30); Chloride 107 mmol/L (98-107); Estimated Creatinine Clearance 56 ml/min; Glucose 90 mg/dl (70-99); Sodium 137 mmol/L (135-145); eGFR > 60.00
--- NOTE | 2024-05-03 09:33 | W.PN.CRS1 ---
Addendum entered and electronically signed by Tonia Boucher PA-C 05/04/24 13:22:
Of note, the patient's BMI is 18.8. She is likely
Underweight without malnutrition
Original Note:
Today's Communication / Plan
-
continue low residue, add ensure
recheck hgb today at noon
monitor bloody stools (improving)
Assessment/Plan
-
64 yo female pod #5 robotic assisted ileocecectomy for intussusception
AFVSS
Labs stable - Hgb 7.9 from 9.1
05/02- red bloody clots in toilet x 4 - tranexamic acid given
05/03- darker bloody stools x 1, less
--Continue LRD - add ensure Vanilla
--Vancomycin PO as per ID
--Continue to hold Aspirin/Lovenox today given bleeding
--Recheck hgb again later today at noon
--Tylenol scheduled with prn oxycodone and Dilaudid for pain management
--c/w Entereg
--Out of bed as tolerated/IS while awake
--Teds and SCDs in place for DVT prophylaxis
--Appreciate hospitalist
Subjective Data
Procedure
04/28/2024 - robotic-assisted ileocectomy
Subjective Data
Date of Service: May 03, 2024
Patient states she had some bloody stool this morning but she states it is better than yesterday. She has some nausea which is normal for her. She denies vomiting. She has been eating but little due to lack of appetite. She feels very tired and
weak. Her main complaint is still pain at her lower incision.
Objective Data
-
Vital Signs
Temp Pulse Resp BP Pulse Ox
98.2 F 75 16 111/62 99
05/03/24 07:50 05/03/24 07:50 05/03/24 07:50 05/03/24 07:50 05/03/24 07:50
Intake & Output
05/02/24 05/03/24 05/04/24
06:59 06:59 06:59
Intake Total 1140 / 1140 480 / 480
Balance 1140 / 1140 480 / 480
Intake:
Oral fluids 1140 / 1140 480 / 480
Other:
Number of approximated MODERATE 3 3
amounts of urine
Number of unmeasured liquid
stools
Rectum 2
Lab Results
05/03/24 08:11
Physical Exam
-
General: No Acute Distress and AOx3
Abdomen: Soft, Non Distended and Tender (lower incision)
Skin: Warm and Dry
Incision: Clear, Dry, Intact
[2024-05-03 09:35] LABS: Potassium 3.9 mmol/L (3.5-5.1)
--- NOTE | 2024-05-03 10:02 | W.PN.HOSP.TC ---
Today's Communication/Plan
-
monitor for bowel function recovery
f/u hbg level
Assessment / Plan
Assessment / Plan
1. Ileocecal intussusception
-s/p robotic ileocecostomy 04/28
-Currently on low residue diet, tolerating with some nausea
-On Enetereg, managed by surgery
-Patient again feeling bit bloated/nauseous. Denies having any bowel movements overnight
2. COSME
-Related to volume depletion, resolved
3, Acute blood loss anemia
Bright red blood per rectium
-likely secondary to surgery, also some from hemodilution
-Hemoglobin trended down to 7.9 today
-Patient was given 1 dose of IV tranexamic acid yesterday
-Will need to transfuse PRBC if Hbg close to 7
4. Recent C. difficile infection
-ID consulted for management of preop antibiotics
-Continue with p.o. vanc for ppx while in hospital; per ID patient already has unfinished fidaxomicin at home and can complete her home regimen with those medications, dose of fidaxomicin will be 200 mg PO BID - plan at least 5 days total of rx
5. Asthma/COPD
-no signs of flare up
-Continue with Breo Ellipta or equivalent inhaler, Singulair
6. Hyperlipidemia
atherosclerotic plaque in the abdominal aorta
-Continue Crestor
7. Anxiety/depression
-Continue Klonopin,
-Duloxetine continued
8. Tobacco use
-Quit a month ago
Suspected interstitial cystitis -post intra vesicular flushing of bicarb/lidocaine by urology
Diverticulosis
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
DVT prophylaxis-Lovenox
CODE status -Full code
Anticipated Discharge: > 48 hours
Subjective/Interval History
-
Date of Service: May 03, 2024
Complaining some lower abdominal discomfort
Not able to pass gas again
Some nausea no vomiting
Afebrile overnight
No other acute issues reported
Objective Data
-
Labs:
Laboratory Results
05/03/24 05/03/24
08:11 12:00
WBC 3.6 L
Hgb 7.9 L Pending
Hct 23.3 L Pending
Plt Count 199
Sodium 137
Potassium 3.9
Chloride 107
Carbon Dioxide 27
BUN 7
Creatinine 0.8
Glucose 90
Calcium 9.4
Vital Signs:
Vital Signs
Temp Pulse Resp BP Pulse Ox
98.2 F 75 16 111/62 99
05/03/24 07:50 05/03/24 07:50 05/03/24 07:50 05/03/24 07:50 05/03/24 07:50
I&O
05/02/24 05/03/24 05/04/24
06:59 06:59 06:59
Intake Total 1140 / 1140 480 / 480
Balance 1140 / 1140 480 / 480
Review of Systems
-
Respiratory: Reports No Symptoms
Cardiac: Reports No Symptoms
Abdomen/GI: Reports Abdominal Pain, Nausea and Constipated; Denies Vomiting or Diarrhea
Physical Exam
-
General: Comfortable
HEENT: Negative Oxygen
GI: Soft, Nondistended and Tender (Lower abdomen); Negative Normal Bowel Sounds (Decreased bowel sounds)
Musculoskeletal: No Edema
Neuro: Awake, Alert, Oriented, No Motor Deficits and Nonfocal/Grossly Intact
Psych: Calm
--- NOTE | 2024-05-03 10:12 | W.PN.ID1 ---
Date of Service
Date of Service: May 03, 2024
Today's Communication
continue oral vancomycin 125 mg PO QID while inpatient ()
Assessment / Plan
Elective Ileocecectomy for intussusception
H/o recurrent C difficile
IC
cachexia
- continue oral vancomycin 125 mg PO QID while inpatient ()
- patient already has unfinished fidaxomicin at home and can complete her home regimen with those medications, dose of fidaxomicin will be 200 mg PO BID
- follow pathology - pending
- follow clinically
Chief Complaint
-: Other (recurrent C difficile)
Subjective / Review of Systems
afebrile
no events overnight
Vital Signs / Physical Exam
Vital Signs
Vital Signs
Temp Pulse Resp BP Pulse Ox
98.2 F 75 16 111/62 99
05/03/24 07:50 05/03/24 07:50 05/03/24 07:50 05/03/24 07:50 05/03/24 07:50
Physical Exam
Constitutional: No Acute Distress
Cardiovascular: Regular Rate and S1/S2; Negative Murmur or Rub
Pulmonary: Clear and Symmetric; Negative Wheezes or Rales
Gastrointestinal: Soft, Non Tender, Non Distended and Normal Bowel Sounds
Skin: Warm and Dry; Negative Rash or Jaundice
Objective Data
Lab Data
Lab Results
05/03/24 08:11
PT 12.8 Sec (11.4-14.6) 04/27/24 12:24
INR 0.96 04/27/24 12:24
APTT 30.8 Sec (23.4-35.0) 04/27/24 12:24
Estimated Creat Clear 56 ml/min 05/03/24 08:11
Most recent labs reviewed.
--- NOTE | 2024-05-03 11:28 | PN.CDI ---
CDI
- -
CDI:
Physician Documentation Request
Admit Date: 04/27/24 11:58
Dear Doctor Johnnie,
05/02 progress note states 'Suspected interstitial cystitis -post intra vesicular flushing of bicarb/lidocaine by urology'
Please clarify which of the following accurately represents the acuity of the interstitial cystitis:
____ Acute
Chronic
____ Other
Use of terms such as suspected, likely, concern for, or probable (associated with a specific diagnosis that is being evaluated, monitored, or treated as if it exists) are acceptable and can be coded in the inpatient setting, when documented at the
time of discharge.
Thank you,
Praveena Navarrete RN, BSN
CDI Specialist
tiger text
Please use your independent medical judgment in providing your response.
[2024-05-03] MEDS: ANESTHETIC LOZENGE 1 LOZENGE PO ×2 (12:02→17:00)
[2024-05-03 12:57] LABS: Hematocrit 22.8 % (37.0-47.0); Hemoglobin 7.7 g/dL (12.0-16.0)
--- NOTE | 2024-05-03 15:16 | CM ---
Reviewed the chart notes and spoke with the patient at the bedside. CM continues to be available to patient/family and is monitoring medical plan for needs at discharge.
Plan: Discharge to home when medically stable. No needs identified at this time.
[2024-05-03 15:35] VITALS: BP 94/55
[2024-05-03 16:46] VITALS: BP 102/51
[2024-05-03] MEDS: SINGULAIR 10 MG PO (17:00)
[2024-05-03] MEDS: CRESTOR 10 MG PO (17:01)
[2024-05-03] MEDS: HYDROCORTISONE 2.5% CREAM 1 APPLIC TOPICAL (17:11)
[2024-05-03] MEDS: DILAUDID 0.5 MG IV (19:41)
[2024-05-03] MEDS: CYMBALTA DELAYED RELEASE 30 MG PO (21:34)
[2024-05-03 23:55] VITALS: BP 95/54
[2024-05-04] MEDS: FIRVANQ 125 MG PO ×4 (00:02→17:54)
[2024-05-04] MEDS: TYLENOL 650 MG PO ×5 (00:02→21:23)
[2024-05-04] MEDS: DILAUDID 0.5 MG IV ×3 (00:06→16:11)
[2024-05-04] MEDS: TYLENOL PO (03:49)
--- NOTE | 2024-05-04 05:20 | DOWNTIME ---
There was a [employer] Client [employer] Specialist Recruiter Downtime on 05/04/2024 from 0100 to 05/04/2024 at 0252. Downtime documentation of patient's care, including medication administrations, has been reconciled in the electronic record per guidelines. Refer to the
patient's paper chart under the miscellaneous tab to see printed paper medication records and downtime forms.
[2024-05-04 06:00] VITALS: BMI 18.8
[2024-05-04] MEDS: ZOFRAN 4 MG IV ×3 (06:44→22:29)
[2024-05-04 07:40] VITALS: BP 102/35
[2024-05-04] MEDS: ENTEREG 12 MG PO ×2 (08:28→21:24)
[2024-05-04] MEDS: PROTONIX 40 MG PO ×2 (08:28→21:24)
[2024-05-04] MEDS: KLONOPIN 0.5 MG PO ×2 (08:28→21:23)
[2024-05-04] MEDS: CARAFATE 1 GRAM PO ×4 (08:28→21:24)
[2024-05-04] MEDS: ROXICODONE 5 MG PO ×4 (08:37→22:29)
[2024-05-04 08:39] LABS: % Basophils 0.6 % (0-2); % Eosinophils 4.8 % (0-6); % Immature Granulocytes 0.2 % (0-0.5); % Lymphocytes 33.5 % (20.5-51.1); % Monocytes 7.3 % (1.7-9.3); % Neutrophils 53.6 % (42.2-75.2); Absolute Eosinophils 0.2 10^3/uL (0-0.7); Absolute Lymphocytes 1.6 10^3/uL (1.2-3.4); Absolute Monocytes 0.4 10^3/uL (0.1-0.6); Absolute Neutrophils 2.6 10^3/uL (1.4-6.5); Hematocrit 23.3 % (37.0-47.0); Hemoglobin 7.9 g/dL (12.0-16.0); Mean Corp Hgb Conc. 33.9 g/dL (33.0-37.0); Mean Corpuscular Hgb 32.6 pg (27.0-31.0); Mean Corpuscular Volume 96.3 fL (81.0-99.0); Mean Platelet Volume 10.5 fL (7.4-10.4); Nucleated Red Blood Cells % 0 %; Platelet Count 223 10^3/uL (130-400); Red Blood Cell Count 2.42 10^6/uL (4.20-5.40); White Blood Cell Count 4.8 10^3/uL (4.8-10.8)
[2024-05-04] MEDS: SYMBICORT 160/4.5 MCG INHALER 2 PUFF INH ×2 (08:48→21:30)
[2024-05-04 09:04] LABS: Blood Urea Nitrogen 10 mg/dl (7-17); Calcium 9.6 mg/dl (8.4-10.2); Carbon Dioxide 28 mmol/L (22-30); Chloride 105 mmol/L (98-107); Estimated Creatinine Clearance 51 ml/min; Glucose 93 mg/dl (70-99); Potassium 3.7 mmol/L (3.5-5.1); Sodium 137 mmol/L (135-145); eGFR > 60.00
--- NOTE | 2024-05-04 09:35 | W.PN.CRS1 ---
Addendum entered and electronically signed by Tonia Boucher PA-C 05/04/24 13:20:
Of note, the patient had a potassium of 3.3 on 05/02/2024, which is hypokalemia
Original Note:
Today's Communication / Plan
-
Monitor bowel movements
Assessment/Plan
-
64 yo female pod # 6 robotic assisted ileocecectomy for intussusception
AFVSS
Labs stable - Hgb 7.9
05/02- red bloody clots in toilet x 4 - tranexamic acid given
05/03- darker bloody stools x 1, less
05/04-1 bloody bowel movement overnight
--Continue LRD with ensure Vanilla
--Vancomycin PO as per ID
--Continue to hold Aspirin/Lovenox today given bleeding
--Tylenol scheduled with prn oxycodone and Dilaudid for pain management
--c/w Entereg
--Out of bed as tolerated/IS while awake
--Teds and SCDs in place for DVT prophylaxis
--Appreciate hospitalist
--Another day to monitor bowel movements and pain control
Subjective Data
Procedure
04/28/2024 - robotic-assisted ileocectomy
Subjective Data
Date of Service: May 04, 2024
Patient states she still has crampy abdominal pain. She still has a lot of nausea. She had 1 bloody bowel movement overnight. She is still complaining of lower abdominal incision pain.
Objective Data
-
Vital Signs
Temp Pulse Resp BP Pulse Ox
97.9 F 84 16 102/35 97
05/04/24 07:40 05/04/24 08:48 05/04/24 08:48 05/04/24 07:40 05/04/24 08:48
Intake & Output
05/03/24 05/04/24 05/05/24
06:59 06:59 06:59
Intake Total 480 / 480 1320 / 1320
Output Total 450 / 450
Balance 480 / 480 1320 / 1320 -450 / -450
Intake:
Oral fluids 480 / 480 1320 / 1320
Output:
Liquid stool amount 450 / 450
Rectum 450 / 450
Other:
Number of approximated MODERATE 3 5
amounts of urine
Number of unmeasured liquid
stools
Rectum 1
Lab Results
05/04/24 07:48
05/04/24 07:48
Physical Exam
-
General: No Acute Distress and AOx3
Abdomen: Soft, Non Distended and Tender (Lower abdominal incision)
Skin: Warm and Dry
Incision: Clear, Dry, Intact
[2024-05-04 10:37] VITALS: BP 94/49; PULSE 74; O2SAT 97
--- NOTE | 2024-05-04 10:41 | PTOTSP ---
PATIENT FUNCTIONING INDEPENDENTLY ON LEVEL SURFACES WELL ELEVATIONS REQUIRING NO FURTHER ACUTE CARE SKILLED P.T. ENCOURAGED PATIENT TO CONTINUE TO AMBULATE AD JENNIFER IN ROOM/HALLWAY. WILL DISCHARGE FROM P.T. SERVICES AT THIS TIME.
--- NOTE | 2024-05-04 11:31 | CM ---
Reviewed the chart notes. Patient seen ambulating hallway ad elle. CM continues to be available to patient/family and is monitoring medical plan for needs at discharge.
Plan: Discharge to home when medically stable. No needs identified at this time.
--- NOTE | 2024-05-04 12:39 | W.PN.HOSP.TC ---
Addendum entered and electronically signed by Wan Blair MD 05/05/24 07:53:
History of interstitial cystitis
Original Note:
Today's Communication/Plan
-
possible discharge in 24hrs
monitor for gi bleed
f/u hbg
Assessment / Plan
Assessment / Plan
1. Ileocecal intussusception
-s/p robotic ileocecostomy 04/28
-Currently on low residue diet, tolerating with some nausea
-On Enetereg, managed by surgery
-Patient again feeling bit bloated/nauseous. Denies having any bowel movements overnight
2. COSME
-Related to volume depletion, resolved
3, Acute blood loss anemia
Bright red blood per rectum
-likely secondary to surgery, also some from hemodilution
-Patient was given 1 dose of IV tranexamic acid
-Hbg stable around 7.9
-Will need to transfuse PRBC if Hbg close to 7
4. Recent C. difficile infection
-ID consulted for management of preop antibiotics
-Continue with p.o. vanc for ppx while in hospital; per ID patient already has unfinished fidaxomicin at home and can complete her home regimen with those medications, dose of fidaxomicin will be 200 mg PO BID - plan at least 5 days total of rx
5. Asthma/COPD
-no signs of flare up
-Continue with Breo Ellipta or equivalent inhaler, Singulair
6. Hyperlipidemia
atherosclerotic plaque in the abdominal aorta
-Continue Crestor
7. Anxiety/depression
-Continue Klonopin,
-Duloxetine continued
8. Tobacco use
-Quit a month ago
Suspected interstitial cystitis -post intra vesicular flushing of bicarb/lidocaine by urology
Diverticulosis
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
DVT prophylaxis-Lovenox
CODE status -Full code
Anticipated Discharge: Within 24 hours
Subjective/Interval History
-
Date of Service: May 04, 2024
Still having some lower abdominal pain/discomfort
Some nausea, no vomiting
Having bowel movements, minimal blood
Objective Data
-
Labs:
Laboratory Results
05/04/24
07:48
WBC 4.8
Hgb 7.9 L
Hct 23.3 L
Plt Count 223
Sodium 137
Potassium 3.7
Chloride 105
Carbon Dioxide 28
BUN 10
Creatinine 0.9
Glucose 93
Calcium 9.6
Vital Signs:
Vital Signs
Temp Pulse Resp BP Pulse Ox
97.9 F 84 16 102/35 97
05/04/24 07:40 05/04/24 08:48 05/04/24 08:48 05/04/24 07:40 05/04/24 11:25
I&O
05/03/24 05/04/24 05/05/24
06:59 06:59 06:59
Intake Total 480 / 480 1320 / 1320
Output Total 450 / 450
Balance 480 / 480 1320 / 1320 -450 / -450
Review of Systems
-
Respiratory: Reports No Symptoms
Cardiac: Reports No Symptoms
Abdomen/GI: Reports Abdominal Pain and Nausea; Denies Vomiting
Physical Exam
-
General: Comfortable
HEENT: Negative Oxygen
GI: Soft, Nondistended and Tender (Lower abdomen); Negative Normal Bowel Sounds (Decreased bowel sounds)
Musculoskeletal: No Edema
Neuro: Awake, Alert, Oriented, No Motor Deficits and Nonfocal/Grossly Intact
Psych: Calm
[2024-05-04 15:50] VITALS: BP 98/68
[2024-05-04] MEDS: CRESTOR 10 MG PO (17:46)
[2024-05-04] MEDS: SINGULAIR 10 MG PO (17:46)
[2024-05-04] MEDS: CYMBALTA DELAYED RELEASE 30 MG PO (21:24)
[2024-05-04] MEDS: HYDROCORTISONE 2.5% CREAM 1 APPLIC TOPICAL (21:39)
[2024-05-04 23:50] VITALS: BP 104/61
[2024-05-05] MEDS: FIRVANQ 125 MG PO ×2 (00:08→05:59)
[2024-05-05] MEDS: TYLENOL 650 MG PO ×2 (00:08→07:59)
[2024-05-05] MEDS: TYLENOL PO (03:57)
[2024-05-05 06:00] VITALS: BMI 19.1
[2024-05-05] MEDS: PROTONIX 40 MG PO (07:58)
[2024-05-05] MEDS: ENTEREG 12 MG PO (07:59)
[2024-05-05] MEDS: KLONOPIN 0.5 MG PO (08:00)
[2024-05-05] MEDS: CARAFATE 1 GRAM PO (08:00)
[2024-05-05 08:18] LABS: Hematocrit 22.2 % (37.0-47.0); Hemoglobin 7.5 g/dL (12.0-16.0); Mean Corp Hgb Conc. 33.8 g/dL (33.0-37.0); Mean Corpuscular Hgb 32.6 pg (27.0-31.0); Mean Corpuscular Volume 96.5 fL (81.0-99.0); Platelet Count 215 10^3/uL (130-400); Red Cell Dist. Width 13.2 % (11.5-14.5); White Blood Cell Count 5.7 10^3/uL (4.8-10.8)
[2024-05-05] MEDS: SYMBICORT 160/4.5 MCG INHALER 2 PUFF INH (08:39)
--- NOTE | 2024-05-05 09:51 | W.PN.CRS1 ---
Today's Communication / Plan
-
okay for discharge
Assessment/Plan
-
64 yo female pod #7 robotic assisted ileocecectomy for intussusception
AFVSS
Labs stable - Hgb 7.5
05/02- red bloody clots in toilet x 4 - tranexamic acid given
05/03- darker bloody stools x 1, less
05/04-1 bloody bowel movement overnight
--Continue LRD with ensure Vanilla
--Vancomycin PO as per ID
--Continue to hold Aspirin/Lovenox today given bleeding
--Tylenol scheduled with prn oxycodone and Dilaudid for pain management
--c/w Entereg
--Out of bed as tolerated/IS while awake
--Teds and SCDs in place for DVT prophylaxis
--Appreciate hospitalist
--Okay for discharge today from our perspective. Will clear with hospitalist. All discharge instructions discussed with patient including medications, activity levels, and follow up.
Subjective Data
Procedure
04/28/2024 - robotic-assisted ileocectomy
Subjective Data
Date of Service: May 05, 2024
Patient states she has no nausea or vomiting. Her pain is controlled. She is very hungry. She had eight bowel movements since yesterday with minimal blood. She has flatus. She is looking forward to going home. Her lower incision is stable.
Objective Data
-
Vital Signs
Temp Pulse Resp BP Pulse Ox
97.6 F 71 16 104/61 96
05/04/24 23:50 05/05/24 08:44 05/05/24 08:44 05/04/24 23:50 05/05/24 08:44
Intake & Output
05/04/24 05/05/24 05/06/24
06:59 06:59 06:59
Intake Total 1320 / 1320 960 / 960
Output Total 450 / 450
Balance 1320 / 1320 510 / 510
Intake:
Oral fluids 1320 / 1320 960 / 960
Output:
Liquid stool amount 450 / 450
Rectum 450 / 450
Other:
Number of approximated SMALL 2
amounts of urine
Number of approximated MODERATE 5 14
amounts of urine
Number of approximated LARGE 1
amounts of urine
Number of unmeasured liquid
stools
Rectum 1
Lab Results
05/05/24 08:05
05/04/24 07:48
Physical Exam
-
General: No Acute Distress and AOx3
Abdomen: Soft, Non Distended and Tender (mild over lower incision)
Skin: Warm and Dry
Incision: Clear, Dry, Intact
--- NOTE | 2024-05-05 11:03 | W.PN.HOSP.TC ---
Today's Communication/Plan
-
d/c home
Assessment / Plan
Assessment / Plan
1. Ileocecal intussusception
-s/p robotic ileocecostomy 04/28
-On Enetereg, managed by surgery
-Some residual lower abdominal discomfort. Able to tolerate diet.
-No further bleeding problems
2. COSME
-Related to volume depletion, resolved
3, Acute blood loss anemia
Bright red blood per rectum
-likely secondary to surgery, also some from hemodilution
-Patient was given 1 dose of IV tranexamic acid
-Hbg stable around 7.9
-Will need to transfuse PRBC if Hbg close to 7
4. Recent C. difficile infection
-ID consulted for management of preop antibiotics
-Continue with p.o. vanc for ppx while in hospital; per ID patient already has unfinished fidaxomicin at home and can complete her home regimen with those medications, dose of fidaxomicin will be 200 mg PO BID - plan at least 5 days total of rx
5. Asthma/COPD
-no signs of flare up
-Continue with Breo Ellipta or equivalent inhaler, Singulair
6. Hyperlipidemia
atherosclerotic plaque in the abdominal aorta
-Continue Crestor
7. Anxiety/depression
-Continue Klonopin,
-Duloxetine continued
8. Tobacco use
-Quit a month ago
Suspected interstitial cystitis -post intra vesicular flushing of bicarb/lidocaine by urology
Diverticulosis
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
DVT prophylaxis-Lovenox
CODE status -Full code
More than 30 minutes spent in discharge including
Final examination of the patient
Summarizing hospital stay
Instructions for continuing care to all relevant caregivers
Preparation of discharge records, prescriptions, and referral forms
Total time spent (in minutes): 39 mins
Anticipated Discharge: Today
Subjective/Interval History
-
Date of Service: May 05, 2024
No reported blood in stool
Still have some lower abdominal discomfort
Able to tolerate diet
No other acute issues reported
Objective Data
-
Labs:
Laboratory Results
05/05/24
08:05
WBC 5.7
Hgb 7.5 L
Hct 22.2 L
Plt Count 215
Vital Signs:
Vital Signs
Temp Pulse Resp BP Pulse Ox
97.6 F 71 16 104/61 96
05/04/24 23:50 05/05/24 08:44 05/05/24 08:44 05/04/24 23:50 05/05/24 08:44
I&O
05/04/24 05/05/24 05/06/24
06:59 06:59 06:59
Intake Total 1320 / 1320 960 / 960
Output Total 450 / 450
Balance 1320 / 1320 510 / 510
Review of Systems
-
Respiratory: Reports No Symptoms
Cardiac: Reports No Symptoms
Abdomen/GI: Reports No Symptoms
Physical Exam
-
General: Comfortable
HEENT: Negative Oxygen
GI: Soft, Nondistended and Tender (Lower abdomen); Negative Normal Bowel Sounds (Decreased bowel sounds)
Musculoskeletal: No Edema
Neuro: Awake, Alert, Oriented, No Motor Deficits and Nonfocal/Grossly Intact
Psych: Calm
--- NOTE | 2024-05-05 11:43 | W.DS.TRANS ---
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
-
Discharge Instructions:
Discharge Diagnosis/Procedures 1) intussusception 2) abdominal pain
Diet Low Residue
Activity No strenuous activity
Additional Activity No lifting over 10lbs (gallon of milk)
Driving Restrictions Not until seen by your Dr
Bathing Restrictions OK to Shower
Wound Care Allow glue to naturally fall, do not pick at
incision.
Instructions: Low Fiber Diet
Stand-Alone Forms:
Changes to Home Medications: Yes
Discharge Medications:
DC Medications w/original date entered in [employer]
aspirin 81 mg chewable tablet 81 mg PO DAILY Blood Clot Prevention/Tx 03/20/24
clonazepam 0.5 mg tablet 0.5 mg PO BID Mental Health/Anxiety 03/20/24
fluticasone furoate 100 mcg-vilanterol 25 mcg/dose inhalation powder (Breo Ellipta) 1 inh inhalation R DAILY Lung/Breathing Issues 03/20/24
montelukast 10 mg tablet (Singulair) 10 mg PO QPM Lung/Breathing Issues 03/20/24
rosuvastatin 10 mg tablet 10 mg PO QPM High Cholesterol 03/20/24
dicyclomine 20 mg tablet 20 mg PO QIDPRN PRN spasm/pelvic pain 04/03/24
methenam 118 mg-m.blue 10 mg-s.phos 40.8 mg-p.salic 36 mg-hyos capsule (Uro-MP) 1 tab PO TIDPRN PRN discomfort 04/03/24
acetaminophen 325 mg tablet 650 mg (2 x 325 mg) PO Q4HPRN PRN pain #0 tabs 04/11/24
duloxetine 30 mg capsule,delayed release 30 mg PO HS pain, anxety #30 caps 04/11/24
pantoprazole 40 mg tablet,delayed release (Protonix) 40 mg PO BID Gastrointestinal issue #100 tabs 04/11/24
sucralfate 1 gram tablet 1 g PO ACHS Gastrointestinal issue #60 tabs 04/11/24
docusate sodium 100 mg capsule (Colace) 100 mg PO BID #14 caps 04/19/24
metoclopramide HCl 10 mg tablet (Reglan) 10 mg PO Q6H PRN nausea and vomiting #7 tabs 04/19/24
ondansetron HCl 4 mg tablet 4 mg PO Q6H PRN nausea and vomiting #20 tabs 05/05/24
oxycodone 5 mg tablet 5 mg PO Q4HPRN PRN pain 10 days #20 tabs 05/05/24
Home Medication Changes
ondansetron HCl 4 mg tablet 4 mg PO Q6H PRN nausea and vomiting #20 tabs 05/05/24
oxycodone 5 mg tablet 5 mg PO Q4HPRN PRN pain 10 days #20 tabs 05/05/24
Pending Results: No
[2024-05-05 11:51] VITALS: BP 88/48
--- NOTE | 2024-05-05 16:19 | CM ---
met with patient at bedside.she is stable for dc home with no needs.
== END 2024-05-05 13:08 | disposition home or self-care (01) | DRG 330 ==
LOC: 2 NORTH 11:58
PROVIDERS: Physician Assistant; ADMITTING PHYSICIAN Surgery; CONSULT PHYSICIAN Student in an Organized Health Care Education/Training Program; FAMILY PHYSICIAN Family Medicine; OTHER PHYSICIAN Internal Medicine
PROC: 0DTH4ZZ Resection of Cecum, Percutaneous Endoscopic Approach (ICD-10-PCS; 2024-04-28)
PROC: 0DBB4ZZ Excision of Ileum, Percutaneous Endoscopic Approach (ICD-10-PCS; 2024-04-28)
PROC: 8E0W4CZ Robotic Assisted Procedure of Trunk Region, Percutaneous Endoscopic Approach (ICD-10-PCS; 2024-04-28)
DX: K56.1 Intussusception (principal); A04.72 Enterocolitis due to Clostridium difficile, not specified as recurrent; N17.9 Acute kidney failure, unspecified; D62 Acute posthemorrhagic anemia; R64 Cachexia; Z68.1 Body mass index [BMI] 19.9 or less, adult; K92.1 Melena; K91.840 Postprocedural hemorrhage of a digestive system organ or structure following a digestive system procedure; Y83.2 Surgical operation with anastomosis, bypass or graft as the cause of abnormal reaction of the patient, or of later complication, without mention of misadventure at the time of the procedure; E78.00 Pure hypercholesterolemia, unspecified; J44.89 Other specified chronic obstructive pulmonary disease; E87.6 Hypokalemia; R01.1 Cardiac murmur, unspecified; K57.30 Diverticulosis of large intestine without perforation or abscess without bleeding; F41.9 Anxiety disorder, unspecified; R63.6 Underweight; F32.A Depression, unspecified; E86.0 Dehydration; E83.52 Hypercalcemia; I95.9 Hypotension, unspecified; K64.9 Unspecified hemorrhoids; Z88.1 Allergy status to other antibiotic agents; Z88.2 Allergy status to sulfonamides; Z79.82 Long term (current) use of aspirin; Z79.51 Long term (current) use of inhaled steroids; Z87.442 Personal history of urinary calculi; Z87.891 Personal history of nicotine dependence
CPT/HCPCS: 88307; 80048; 81003; 82570; 83036; 83735; 84300; 85014; 85018; 85025; 85027; 85610; 85730; 86850; 86900; 86901; 93005; 94640; 97116; 97162; 97165; 97530; 99406; C1776; J1335

== ENCOUNTER 2024-05-19 16:22 | Emergency (ER) | payer BC, SELFPAY ==
[2024-05-19 16:26] VITALS: BP 113/73
[2024-05-19 17:14] LABS: Urine Albumin Trace (Neg - Trace); Urine Bilirubin Negative (Negative); Urine Character Clear (Clear); Urine Glucose Negative (Negative); Urine Ketone Negative (Negative); Urine Leukocyte Negative (Negative); Urine Nitrite Negative (Negative); Urine Occult Blood Negative (Negative); Urine Urobilinogen Negative (Neg - 1+)
[2024-05-19 17:18] VITALS: BMI 18.8
[2024-05-19 17:19] VITALS: BP 106/42
[2024-05-19 17:26] LABS: % Basophils 0.8 % (0-2); % Immature Granulocytes 0.2 % (0-0.5); % Monocytes 10.5 % (1.7-9.3); % Neutrophils 40.5 % (42.2-75.2); Absolute Eosinophils 0.2 10^3/uL (0-0.7); Absolute Lymphocytes 2.1 10^3/uL (1.2-3.4); Absolute Monocytes 0.5 10^3/uL (0.1-0.6); Absolute Neutrophils 1.9 10^3/uL (1.4-6.5); Hemoglobin 8.8 g/dL (12.0-16.0); Mean Corp Hgb Conc. 33.8 g/dL (33.0-37.0); Mean Corpuscular Hgb 31.7 pg (27.0-31.0); Mean Corpuscular Volume 93.5 fL (81.0-99.0); Mean Platelet Volume 9.3 fL (7.4-10.4); Nucleated Red Blood Cells % 0 %; Platelet Count 370 10^3/uL (130-400); Red Blood Cell Count 2.78 10^6/uL (4.20-5.40); Red Cell Dist. Width 13.3 % (11.5-14.5); White Blood Cell Count 4.8 10^3/uL (4.8-10.8)
[2024-05-19 17:45] LABS: ALT (SGPT) 11 U/L (0-35); AST (SGOT) 24 U/L (14-36); Albumin 4.4 g/dl (3.5-5.0); Alkaline Phosphatase 93 U/L (38-126); Blood Urea Nitrogen 10 mg/dl (7-17); Calcium 10.1 mg/dl (8.4-10.2); Carbon Dioxide 24 mmol/L (22-30); Chloride 103 mmol/L (98-107); Estimated Creatinine Clearance 51 ml/min; Glucose 96 mg/dl (70-99); Lipase 167 U/L (23-300); Potassium 4.1 mmol/L (3.5-5.1); Sodium 140 mmol/L (135-145); Total Bilirubin 0.3 mg/dl (0.2-1.3); Total Protein 6.6 g/dl (6.3-8.2); eGFR > 60.00
[2024-05-19] MEDS: NSS 1000 IV (17:48)
[2024-05-19 18:00] VITALS: BP 99/53
[2024-05-19 19:00] VITALS: BP 106/61
--- NOTE | 2024-05-19 19:44 | ED.GENMED ---
History of Present Illness
General
Chief Complaint: Abdominal Pain
Time Seen by Provider: 05/19/24 17:26
History of Present Illness
History of Present Illness:
58-year-old female presents the emergency department for evaluation of intractable abdominal spasms that been ongoing for several months. She is approximately 3 weeks status post ileocecectomy performed at this hospital due to intussusception,
states her symptoms have not changed since that surgical procedure. She has frequent bouts of severe pain that caused her to become dizzy and flushed. She was seen at [facility] [address] scan was performed at that time
showing no evidence of acute pathology. She was anemic at time of hospital discharge but this improved earlier in the week at [facility]. She is scheduled to see GI at [facility] in 2 weeks. She also notes periods of hypotension earlier in the
day that prompted her to call her colorectal specialist do not advise ED eval given her reported hypotension
Past History
Past History
ED Past Medical History: Asthma, COPD (Questionable Asthma/COPD according to patient), Hypercholesterolemia and Other (Kidney stones, Interstitial cystitis)
ED Past Surgical History: None; Negative Cardiac
Social History
Tobacco: Smoker
Alcohol: None
Drug: None
Personal:
Living: with family
Employment: Employed
Family History
Family History: CAD
Review of Systems
Review of Systems
Allergies reviewed?: Yes
All Other Systems: ROS reviewed and negative except as documented in HPI and ROS
Phy Exam
Physical Exam
Physical Exam:
GEN: Tearful, in the position
Eyes: PERRLA, EOMs intact, no scleral icterus
HENT: NCAT, oral mucosa moist,
Lungs: CTAB, no wheezes, rales, rhonchi, normal chest wall excursion
Cardiac: RRR, no M/R/G, no peripheral edema. Radial pulses 2+ bilat
Abdomen: Soft, tender to the epigastrium as well as the suprapubic region, no rigidity or peritoneal signs
Neuro: AO x 3
MSK: No gross deformity or ecchymosis. No edema. No digital clubbing
Skin: No rashes, petechiae. Normal color, no pallor or jaundice.
Psych: Calm, cooperative, proper hygiene
Course
Orders/Labs/Results
Orders:
Orders
05/19/24 17:00
IV Insert/Care/Rem.- Treatment PRN
05/19/24 17:04
Complete Blood Count/With Diff Urgent
Comprehensive Metabolic Panel Urgent
Lipase Urgent
Urinalysis Reflex To Culture Urgent
Date Specimen was Collected: 05/19/24
Time Specimen was Collected: 17:01
05/19/24 17:06
Type+Screen Urgent
05/19/24 17:36
0.9% Sodium Chloride 1000 ml [Nss] 1,000 ml IV BOLUS
Abnormal Lab Results
05/19/24
17:04
RBC 2.78 L 10^6/uL
(4.20-5.40)
Hgb 8.8 L g/dL
(12.0-16.0)
Hct 26.0 L %
(37.0-47.0)
MCH 31.7 H pg
(27.0-31.0)
Neutrophils % 40.5 L %
(42.2-75.2)
Monocytes % 10.5 H %
(1.7-9.3)
05/19/24 17:04
05/19/24 17:04
Vital Signs
Initial and Last Documented VS:
Initial Vital Signs
Temp Pulse Resp BP Pulse Ox
98.1 F 110 20 113/73 99
05/19/24 16:26 05/19/24 16:26 05/19/24 16:26 05/19/24 16:26 05/19/24 16:26
Last Documented Vital Signs
Temp Pulse Resp BP Pulse Ox
98.1 F 110 20 106/61 99
05/19/24 16:26 05/19/24 16:26 05/19/24 16:26 05/19/24 19:00 05/19/24 19:00
MDM/Problems Addressed
MDM/Problems Addressed:
58-year-old female presenting with bouts of intractable abdominal pain. She has undergone extensive workup at this hospital for an etiology and underwent a surgical procedure last month that ultimately proved to be ineffective at controlling her
pain. Her hemoglobin has been improving and her labs are otherwise unremarkable. I do not see any utility to repeat imaging at this time. Patient will follow-up as an outpatient with gastroenterology
*Critical Care Note
Total Time (30-74mins, 75-104mins- exclusive of procedures): Not Applicable
ED Attending Note
-
Portions of this chart may have been created with voice recognition software.� Occasional wrong word or��sound alike� substitutions may have occurred due to the inherent limitations of voice recognition software.
Discharge Plan
Departure
Patient Disposition: Home (Routine Discharge)
Date of Disposition: 05/19/24
Time of Disposition: 19:57
Patient with high blood pressure during this ER visit?: No
Discharge Problem:
Chronic abdominal pain
Instructions: Abdominal Pain
Prescriptions:
No Action
clonazepam 0.5 mg Tablet
0.5 mg PO BID
aspirin 81 mg Tablet,Chewable
81 mg PO DAILY
montelukast [Singulair] 10 mg Tablet
10 mg PO QPM
rosuvastatin 10 mg Tablet
10 mg PO QPM
fluticasone furoate-vilanterol [Breo Ellipta] 100-25 mcg/dose Blister With Device
1 inh INHALATION R DAILY
Uro-MP 118-10-40.8-36 mg Capsule
1 tab PO TIDPRN PRN (Reason: discomfort )
dicyclomine 20 mg tablet
20 mg PO QIDPRN PRN (Reason: spasm/pelvic pain)
acetaminophen 325 mg Tablet
650 mg PO Q4HPRN PRN (Reason: pain) Qty: 0 0RF
sucralfate 1 gram Tablet
1 g PO ACHS Qty: 60 0RF
duloxetine 30 mg Capsule,Delayed Release(Dr/Ec)
30 mg PO HS Qty: 30 0RF
pantoprazole [Protonix] 40 mg tablet,delayed release (DR/EC)
40 mg PO BID Qty: 100 0RF
Rx Instructions:
BID for 4 weeks then daily
metoclopramide HCl [Reglan] 10 mg tablet
10 mg PO Q6H PRN (Reason: nausea and vomiting) Qty: 7 0RF
docusate sodium [Colace] 100 mg capsule
100 mg PO BID Qty: 14 0RF
oxycodone 5 mg Tablet
5 mg PO Q4HPRN PRN (Reason: pain) 10 Days Qty: 20 0RF
ondansetron HCl 4 mg tablet
4 mg PO Q6H PRN (Reason: nausea and vomiting) Qty: 20 0RF
Referrals:
Daniel De Luna DO [Family Provider] -
Activity Restrictions/Additional Instructions:
Follow up with GI at [facility] as planned
Interventions
Interventions:
*Risk Screen - Suicide Last Done: 05/19/24 19:10
*General Assessment Last Done: 05/19/24 19:10
*Neglect/Abuse Screening Last Done: 05/19/24 19:10
ED- Fall Risk Assessment Last Done: 05/19/24 17:21
*Nursing Disposition Last Done: 05/19/24 21:04
NW-Xzhzls-Udrtjnftyj Assessment Last Done: 05/19/24 17:21
Discharge Date and Time
Discharge Date/Time: 05/19/24 21:04
Print Language: ZAMBIAN
== END 2024-05-19 21:04 | disposition home or self-care (01) ==
LOC: EMR 16:22
PROVIDERS: EMERGENCY PHYSICIAN Emergency Medicine; FAMILY PHYSICIAN Family Medicine
DX: R10.9 Unspecified abdominal pain (principal); G89.29 Other chronic pain; E78.00 Pure hypercholesterolemia, unspecified; F17.200 Nicotine dependence, unspecified, uncomplicated; Z90.49 Acquired absence of other specified parts of digestive tract
CPT/HCPCS: 99284; 96360; 96361; 80053; 81003; 83690; 85025; 86850; 86900; 86901

== ENCOUNTER 2024-05-24 18:38 | Day surgery (SDC) | payer BC, SELFPAY ==
[2024-05-24] VITALS (7 sets, daily range): BP systolic 92–130; BP diastolic 49–92; BMI 18.1
--- NOTE | 2024-05-24 12:34 | ED.GENMED ---
History of Present Illness
General
Chief Complaint: Abdominal Pain
Time Seen by Provider: 05/24/24 12:19
History of Present Illness
History of Present Illness:
58-year-old female presents emergency department for evaluation of ongoing intractable abdominal pain and vomiting. She is just under 1 month status post ileocecectomy performed at this hospital due to intussusception. She notes that she has had
ongoing abdominal pain since February and the intussusception diagnosis and subsequent surgery was not therapeutic to resolve the symptoms. She was previously relying on opioids but has not been taking them recently. She states that she is 'at my wits
end'. Denies SI at this time. Was sent in by her colorectal specialist requesting CT angiogram of the abdomen and pelvis to evaluate for vascular pathology and for potential GI consultation given the progression of her symptoms
Past History
Past History
ED Past Medical History: Asthma, COPD (Questionable Asthma/COPD according to patient), Hypercholesterolemia and Other (Kidney stones, Interstitial cystitis)
ED Past Surgical History: None; Negative Cardiac
Social History
Tobacco: Smoker
Alcohol: None
Drug: None
Personal:
Living: with family
Employment: Employed
Family History
Family History: CAD
Review of Systems
Review of Systems
Allergies reviewed?: Yes
All Other Systems: ROS reviewed and negative except as documented in HPI and ROS
Phy Exam
Physical Exam
Physical Exam:
GEN: Thin and frail appearing, writhing in pain, tearful
Eyes: PERRLA, EOMs intact, no scleral icterus
HENT: NCAT, oral mucosa moist
Lungs: CTAB, no wheezes, rales, rhonchi, normal chest wall excursion
Cardiac: RRR
Neuro: AO x 3, no focal deficits to BUE/BLE, normal sensation throughout
MSK: No gross deformity or ecchymosis. No edema. No digital clubbing
Skin: No rashes, petechiae. Normal color, no pallor or jaundice.
Psych: Tearful and anxious
Course
Orders/Labs/Results
Orders:
Orders
05/24/24 12:07
IV Insert/Care/Rem.- Treatment PRN
05/24/24 12:13
EKG [Electrocardiogram (*1)] Urgent
Reason for Study: Shortness of Breath
EKG- Treatment ONCE
05/24/24 12:19
CT Abd/pelvis Angio W/wo Iv Urgent
Comment:
Reason For Exam: abd pain
05/24/24 12:31
Type+Screen Urgent
Complete Blood Count/With Diff Urgent
Comprehensive Metabolic Panel Urgent
Lipase Urgent
Prothrombin Time Urgent
Urinalysis Reflex To Culture Urgent
Date Specimen was Collected: 05/24/24
Time Specimen was Collected: 12:08
Urine Microscopic Reflex Cult Urgent
05/24/24 13:01
0.9% Sodium Chloride 1000 ml [Nss] 1,000 ml IV BOLUS
HYDROmorphone [Dilaudid] 0.5 mg IV NOW STA
Ondansetron Injectable [Zofran] 4 mg IV NOW STA
Abnormal Lab Results
05/24/24
12:31
RBC 3.01 L 10^6/uL
(4.20-5.40)
Hgb 9.5 L g/dL
(12.0-16.0)
Hct 29.5 L %
(37.0-47.0)
MCH 31.6 H pg
(27.0-31.0)
MCHC 32.2 L g/dL
(33.0-37.0)
Total Protein 6.1 L g/dl
(6.3-8.2)
Urine Bilirubin 1+ A
(Negative)
Leukocyte Esterase Rfl Trace A
(Negative)
Urine Bacteria (Reflex) Few A
(Negative)
05/24/24 12:31
05/24/24 12:31
Vital Signs
Initial and Last Documented VS:
Initial Vital Signs
Temp Pulse Resp BP Pulse Ox
99.5 F 105 18 115/92 100
05/24/24 12:05 05/24/24 12:05 05/24/24 12:05 05/24/24 12:05 05/24/24 12:05
Last Documented Vital Signs
Temp Pulse Resp BP Pulse Ox
99.5 F 74 15 130/68 100
05/24/24 12:05 05/24/24 14:30 05/24/24 14:30 05/24/24 14:15 05/24/24 14:30
MDM/Problems Addressed
MDM/Problems Addressed:
CT angiogram was unremarkable. I do suspect there is a potential psychosomatic component to her symptoms potentially also related to her severe unrelenting anxiety regarding her pain. Nevertheless we will admit due to failure to thrive and need
for GI consultation
*Critical Care Note
Total Time (30-74mins, 75-104mins- exclusive of procedures): Not Applicable
ED Attending Note
-
Portions of this chart may have been created with voice recognition software.� Occasional wrong word or��sound alike� substitutions may have occurred due to the inherent limitations of voice recognition software.
Discharge Plan
Departure
Patient Disposition: Admit
Date of Disposition: 05/24/24
Time of Disposition: 14:56
Admit to: Med/Surg
Presentation/result/management discussed w/ accepting MD/DO: Hospitalist
Discharge Problem:
Intractable abdominal pain, Adult failure to thrive
Prescriptions:
No Action
clonazepam 0.5 mg Tablet
0.5 mg PO BID
aspirin 81 mg Tablet,Chewable
81 mg PO DAILY
montelukast [Singulair] 10 mg Tablet
10 mg PO QPM
rosuvastatin 10 mg Tablet
10 mg PO QPM
fluticasone furoate-vilanterol [Breo Ellipta] 100-25 mcg/dose Blister With Device
1 inh INHALATION R DAILY
Uro-MP 118-10-40.8-36 mg Capsule
1 tab PO TIDPRN PRN (Reason: discomfort )
dicyclomine 20 mg tablet
20 mg PO QIDPRN PRN (Reason: spasm/pelvic pain)
acetaminophen 325 mg Tablet
650 mg PO Q4HPRN PRN (Reason: pain) Qty: 0 0RF
sucralfate 1 gram Tablet
1 g PO ACHS Qty: 60 0RF
duloxetine 30 mg Capsule,Delayed Release(Dr/Ec)
30 mg PO HS Qty: 30 0RF
pantoprazole [Protonix] 40 mg tablet,delayed release (DR/EC)
40 mg PO BID Qty: 100 0RF
Rx Instructions:
BID for 4 weeks then daily
metoclopramide HCl [Reglan] 10 mg tablet
10 mg PO Q6H PRN (Reason: nausea and vomiting) Qty: 7 0RF
docusate sodium [Colace] 100 mg capsule
100 mg PO BID Qty: 14 0RF
oxycodone 5 mg Tablet
5 mg PO Q4HPRN PRN (Reason: pain) 10 Days Qty: 20 0RF
ondansetron HCl 4 mg tablet
4 mg PO Q6H PRN (Reason: nausea and vomiting) Qty: 20 0RF
Referrals:
Daniel De Luna DO [Family Provider] -
Interventions
Interventions:
*Risk Screen - Suicide Last Done: 05/24/24 11:59
*General Assessment Last Done: 05/24/24 11:59
*Neglect/Abuse Screening Last Done: 05/24/24 11:59
*ED COVID-19 Vaccine History Last Done: 05/24/24 11:59
VY-Frpvjc-Nbmenapuhe Assessment Last Done: 05/24/24 12:30
Discharge Date and Time
Print Language: AFGHAN
[2024-05-24 12:46] LABS: % Basophils 0.9 % (0-2); % Eosinophils 3.8 % (0-6); % Immature Granulocytes 0.2 % (0-0.5); % Lymphocytes 25.8 % (20.5-51.1); % Monocytes 6.4 % (1.7-9.3); % Neutrophils 62.9 % (42.2-75.2); Absolute Basophils 0.1 10^3/uL (0-0.2); Absolute Eosinophils 0.2 10^3/uL (0-0.7); Absolute Lymphocytes 1.5 10^3/uL (1.2-3.4); Absolute Monocytes 0.4 10^3/uL (0.1-0.6); Absolute Neutrophils 3.7 10^3/uL (1.4-6.5); Hematocrit 29.5 % (37.0-47.0); Hemoglobin 9.5 g/dL (12.0-16.0); Mean Corp Hgb Conc. 32.2 g/dL (33.0-37.0); Mean Corpuscular Hgb 31.6 pg (27.0-31.0); Mean Platelet Volume 9.7 fL (7.4-10.4); Nucleated Red Blood Cells % 0 %; Platelet Count 297 10^3/uL (130-400); Red Blood Cell Count 3.01 10^6/uL (4.20-5.40); Red Cell Dist. Width 13.7 % (11.5-14.5); White Blood Cell Count 5.8 10^3/uL (4.8-10.8)
[2024-05-24 12:48] LABS: Urine Albumin Trace (Neg - Trace); Urine Bilirubin 1+ (Negative); Urine Character Clear (Clear); Urine Glucose Negative (Negative); Urine Ketone Negative (Negative); Urine Leukocyte Trace (Negative); Urine Nitrite Negative (Negative); Urine Occult Blood Negative (Negative); Urine Specific Gravity 1.015 (<1.030); Urine Urobilinogen Negative (Neg - 1+)
[2024-05-24 12:59] LABS: INR 1.01; PT 13.1 Sec (11.4-14.6)
[2024-05-24 13:15] LABS: ALT (SGPT) < 10 U/L (0-35); AST (SGOT) 21 U/L (14-36); Alkaline Phosphatase 72 U/L (38-126); Blood Urea Nitrogen 11 mg/dl (7-17); Calcium 9.8 mg/dl (8.4-10.2); Carbon Dioxide 27 mmol/L (22-30); Chloride 107 mmol/L (98-107); Glucose 89 mg/dl (70-99); Lipase 114 U/L (23-300); Sodium 141 mmol/L (135-145); Total Bilirubin 0.2 mg/dl (0.2-1.3); Total Protein 6.1 g/dl (6.3-8.2); eGFR > 60.00
[2024-05-24] MEDS: NSS 1000 IV ×2 (13:18→20:23)
[2024-05-24] MEDS: DILAUDID 0.5 MG IV (13:18)
[2024-05-24] MEDS: ZOFRAN 4 MG IV (13:18)
[2024-05-24 13:28] LABS: Urine Mucus Few
[2024-05-24 13:29] LABS: Urine Bacteria Few (Negative); Urine Red Blood Cell 0-2 /HPF (0-2); Urine White Cell 0-2 /HPF (0-5)
--- NOTE | 2024-05-24 15:37 | W.PN.UPDATE ---
Update Note
Progress Note Update
58-year-old female was sent from colorectal surgery office for evaluation of abdominal pain. Patient had previous admissions to [facility] with abdominal pain. She was treated for C. difficile in March p.o. vancomycin was changed to
Dificid because of lack of improvement in symptoms. On admission she had a CT which showed bowel wall thickening with findings of enteritis and focal area of narrowing of the gastric antrum with gastric dilatation. She had an upper endoscopy done
was seen by GI and colorectal surgery. Upper endoscopy showed multiple nonbleeding superficial gastric ulcers/erosions with congested erythematous mucosa in the gastric antrum. She also had a colonoscopy done which showed mild edematous mucosa in
the transverse colon, ascending colon. Rectum, sigmoid colon and descending colon abnormal. Patient also stated that she has a history of intussusception when she was seen at [facility] CT abdomen send did not show that. CT on
04/09/2024 showed large amount of fecal material in the proximal colon suggesting constipation. Circumferential wall thickening of the sigmoid colon and rectum suggesting acute proctocolitis. Diverticulosis in the sigmoid colon atherosclerotic
plaque and multilevel disc degenerative changes in the lumbar spine. Sertraline was switched to Cymbalta by GI.
She was readmitted April 27, 2024 for pain issues and felt that ileocecal intussusception was the reason for pain, underwent robotic ileocecectomy. Patient was discharged on 05/05/2024. She was treated with p.o. vancomycin during that surgical
admission. She was seen again in the ER on 05/19/2024 for abdominal pain and was discharged. She was sent in by colorectal surgery for further investigation.
Patient stated that her symptoms started in January when she had abdominal pain. It was mostly relieved after bowel movements. She was diagnosed with with interstitial cystitis and was treated. After that she was admitted here for C. difficile. No
patient states that her pain is mostly all over the abdomen. Nothing relieves the pain except when she lays down with heating pad on. Patient states that she feels nauseous but has never vomited. No bloody stools no fever. She had recently
started taking iron and then she had black bowel movements yesterday. After surgery for intussusception she stated that her pain has not gotten better. She felt really weak and wiped out and then sleeping 20 hours a day. She felt dizzy and went
to [facility] where she was admitted and got a dose of morphine which constipated her. Finally she was able to have a bowel movement on Thursday. She called who recommended that she be seen at [facility]. She went there yesterday
and drank the 'contrast with a sour taste' and she could not take it anymore and left without being seen.
Patient changes the site of her pain multiple times during the conversation. Initially she stated that she had pain all over and then later stated that it was below the umbilicus. She denies constipation normally but difficult to get a straight
history. Patient appears to be confused in terms of many aspects of the history. She admits that she feels anxious. Her antidepressants were changed to Cymbalta but stated that she ran out. She did not know that she needed to go to her primary
physician to follow-up. She also ran out of Carafate and called GI doctor's office but not able to get through. However she did not call her primary physician for a refill. She stated that she is taking Carafate. Later stated that she is still
taking the Protonix twice a day. Patient also states that she does not feel like eating because of her pain. However states that food has no relation with her pain either. She also stated that she lost about 20 pounds since January. She had a black
tarry explosive bowel movement today. No blood in the stools. She gets very confused with a history.
I personally performed a history and physical exam of the patient and discussed management with the resident. I reviewed the resident's note and agree with the documented findings and plan of care HPI/CC except for changes in my documentation.
Patient very anxious appearing. At times complains of pain but able to give me a whole history without stopping for pain reasons.
Cardiovascular system S1-S2 appreciated
Chest clear to auscultation
Abdomen complains of diffuse pain with palpation however with auscultation the only area that I felt that she was feeling the pain is the incision site for the laparotomy. Valve sounds are present
Lower extremity no edema noted pulses felt
Skin-healing lap wounds
CT enterography (03/16) with Marked gastric dilation with fluid-filled stomach. This extends to the level of the gastric antrum which shows circumferential abnormal wall thickening which is persistent on delayed images etiology of the wall thickening
is indeterminate at CT. This could be further evaluated with endoscopy. As above, there is apparent slight protrusion of the ileocecal valve into the cecum, evaluation somewhat limited secondary to paucity of intra-abdominal fat. No aranza ileocecal
intussusception is identified on this examination. There is no obstruction of the small bowel. No other intussusception is identified.
Colonoscopy-04/06/2024-examined ileum normal. Cecum and ileocecal valve normal. Mild erythematous mucosa in the transverse colon and ascending colon biopsied. Rectum and sigmoid colon and descending colon are normal. Many medium mouth and small
mouth diverticula in the sigmoid colon. Internal hemorrhoids.
Endoscopy 04/06/2024-Z-line irregular at the GE junction. Biopsied. Multiple nonbleeding superficial gastric ulcers/erosions with congested erythematous mucosa in the gastric antrum biopsied. Gastritis. Biopsied. Normal examined duodenum.
# Abdominal pain
Admit for further evaluation
CAT scan with IV contrast-without any vascular compromise ruling out vascular reasons for her pain (CT abdomen and pelvis on 04/09/2024 did show some moderate calcific atherosclerotic plaque in the abdominal aorta)
CT scan was done without p.o. contrast there for bowel pathology cannot be entirely ruled out
If she has diarrhea we will send for testing
CT Enterogram in March with out small bowel pathology.
I also discussed with the patient about motility disorders and to follow-up with a specialist for that. Sister stated that she has an appointment coming up at [place]
We discussed about treating her anxiety and depression which could be adding onto her symptoms.
I also discussed about avoiding narcotics as much as she can and avoid constipation.
We discussed about MiraLAX which the patient questioned why she needed it because she does not feel constipated.
Discussed about the medications which she is on including Zofran and Carafate which can cause constipation.
Symptomatic treatment with Reglan for nausea, Tylenol for pain, hyoscyamine as needed
Would continue with Carafate and PPI
I will defer to GI if she needs another endoscopy
Full Liquid diet for now.
NPO after MN in case she needs tests which require NPO status
GI and colorectal surgery evaluation
# Anxiety and depression
Patient is on clonazepam only at present
I discussed about restarting Cymbalta which can also help with the pain she wants to talk to psychiatrist.
# Anemia-check iron studies
# Recent ileocecectomy to treat intussusception
Colorectal surgery consulted
# Peptic ulcer disease/gastric erosions-continue PPI and Carafate
# History of C. difficile
# Mild to moderate protein calorie malnutrition-add Ensure
# Asthma/COPD
# Pulmonary nodules-follows up with
# Active smoker-cessation counseling done
# Diverticulosis
# Severe multilevel discogenic degenerative changes in the lumbar spine L2/L3, L3/L4, L4/L5 with severe loss of intervertebral disc space height, moderate-sized vertebral body endplate osteophytes and intervertebral disc vacuum foraminal.
# DVT prophylaxis-Lovenox
# Full code
We spent over an hour at bedside getting history and communicating with the patient And sister at bedside.
Case also discussed with colorectal surgery
Time spent over 75 minutes
--- NOTE | 2024-05-24 17:57 | HPS.HSE ---
Addendum entered and electronically signed by Yara Thurston MD 05/24/24 21:58:
see separate addendum from same date
Original Note:
Family Physician
-
Family Physician: Daniel De Luna
Chief Complaint
-
Abdominal pain
History of Present Illness
58yo F with PMH of chronic abdominal pain, intussusception s/p ileocecectomy 04/28/24, anxiety, depression, COPD who presented to the ED 05/24 for abdominal pain and 1 episode of black watery stool today. She began having abdominal pain in January or February
of this year. Prior to that, she denies any significant history of abdominal pain, constipation, diarrhea, GI issues. Initially, the pain was related to bowel movements, and relieved shortly after. The pain progressed to constant pain not relieved
by bowel movements. She describes it as intense crampy pain, 'like a without medications.' She feels the pain throughout her abdomen, not in one particular location. It occasionally radiates to her chest. She has a history of cdiff this
year, that was adequately treated with antibiotics. She had an intussusception for which she had an ileocecectomy with Dr. Pinto at 04/28/24 and was discharged 05/05. While in the hospital her pain was manageable with dilaudid and oxycodone. She
reports that since then, her pain has gotten much worse. The only thing she says helps is oxycodone 5mg, which would provide enough relief to get out of bed to shower. She ran out about 2 weeks ago. The pain is unchanged before or after eating.
However, she is afraid to eat because it might cause diarrhea or pain. Over the past 1-2 weeks, she has been seen at [facility] ED and [facility] ED for the pain, though has not had any recent follow up with her PCP after discharge from the hospital. She
had a few days of constipation which she attributes to morphine she received at outside facility ED. She has been having bowel movements approximately once per day which is solid or loose. Besides her 1 episode of black watery 'blowout' today which
she subsequently passed formed brown stool, she denies any other black or bloody stools. She reports 1 episode of fecal incontinence. She has been sleeping '20-21 hours per day' and wakes up intermittently with abdominal pain. She reports 20 lbs
weight loss since January. She reports incisional pain/tenderness from her recent surgery.
She has a history of depression and anxiety. She began taking zoloft 50mg November 2022, and was on that for about a year with no improvement. It was switched to lexapro in January, which she took 1 dose of and then stopped. More recently, she was started
on symbalta at night. She thinks this may have helped her abdominal pain overnight when she was taking it, but after hospital discharge she was not sure where to get a refill from and did not see her PCP. She feels very sad, overwhelmed, fatigued,
anxious.
She describes 2 episodes of presyncope. One at home on 05/08 and one over labor day weekend at an outside facility ER. At home, she fell but denies loss of consciousness or head impact. In the ER she says her BP was '80/39.'
She also complains of 'interstitial cystitis I think.' She is not currently on medications for this. She previously got partial relief with elmiron and now uses a heating pad 'between [her] legs.' The pain is constant, not associated with full
bladder or urination. Unclear if this is different from her chronic abdominal pain above.
Medical History
Past Medical History
Past Medical History: Reports COPD, GERD and Psychiatric
Additional Past Medical History:
Chronic abdominal pain
H/o Cdiff s/p treatment
H/o intussusception s/p ileocecectomy 04/28/24
Depression
Anxiety
COPD
Current smoker
Interstitial cystitis
Denies cardiac history
Past Surgical History: Reports Bowel Resection
Additional Past Surgical History:
ileocecectomy 04/28/24
Social History
Tobacco: Smoker (8 cig per day)
Alcohol: None
Drug: None
Personal:
Living: With Family
Employment: Retired (~November 2022)
Family History
Family History: Other (denies family history of IBD, IBS)
Allergies / Home Medications
Allergies reflects when Allergies were last updated in [facility].
Home Medications with original date entered in [facility]
Allergy/Medication List:
Allergies
Allergy/AdvReac Type Severity Reaction Status Date / Time
sulfamethoxazole Allergy Unknown Verified 05/24/24 17:57
[From Bactrim]
trimethoprim [From Bactrim] Allergy Unknown Verified 05/24/24 17:57
Home Medications
aspirin 81 mg chewable tablet 81 mg PO DAILY Blood Clot Prevention/Tx 03/20/24
clonazepam 0.5 mg tablet 0.5 mg PO BID Mental Health/Anxiety 03/20/24
fluticasone furoate 100 mcg-vilanterol 25 mcg/dose inhalation powder (Breo Ellipta) 1 inh inhalation R DAILY Lung/Breathing Issues 03/20/24
montelukast 10 mg tablet (Singulair) 10 mg PO QPM Lung/Breathing Issues 03/20/24
rosuvastatin 10 mg tablet 10 mg PO QPM High Cholesterol 03/20/24
acetaminophen 325 mg tablet 650 mg (2 x 325 mg) PO Q4HPRN PRN pain #0 tabs 04/11/24
pantoprazole 40 mg tablet,delayed release (Protonix) 40 mg PO BID Gastrointestinal issue #100 tabs 04/11/24
sucralfate 1 gram tablet 1 g PO ACHS Gastrointestinal issue #60 tabs 04/11/24
metoclopramide HCl 10 mg tablet (Reglan) 10 mg PO Q6H PRN nausea and vomiting #7 tabs 04/19/24
albuterol sulfate 2.5 mg/3 mL (0.083 %) solution for nebulization 2.5 mg inhalation R TID 05/24/24
hyoscyamine sulfate 0.125 mg disintegrating tablet 0.125 mg PO BIDPRN PRN spasms 05/24/24
ondansetron HCl 4 mg tablet 4 mg PO Q6HPRN PRN nausea and vomiting 05/24/24
Review of Systems
-
History Source: Patient
A 12 point ROS was completed and negative except as noted: Yes
Constitutional: Reports Weight Loss and Fatigue; Denies Fever or Chills
Respiratory: Reports Trouble Breathing (mild shortness of breath at baseline from COPD); Denies Cough
Cardiac: Reports See HPI
Abdomen/GI: Reports See HPI; Denies Vomiting
: Reports See HPI and Frequency; Denies Dysuria
Musculoskeletal: Reports No Symptoms
Skin: Reports No Symptoms
Neurological: Reports No Symptoms
Hematologic/Lymphatic: Denies Bleeding or Bruising
Psych: Reports Depression and Anxiety
Physical Exam
Vital Signs
Vital Signs
Temp Pulse Resp BP Pulse Ox
99.5 F 74 18 106/70 99
05/24/24 12:05 05/24/24 16:45 05/24/24 16:45 05/24/24 15:00 05/24/24 16:45
Physical Exam
General: Well Developed, No Apparent Distress, Comfortable (intermittently appears very comfortable and very uncomfortable during exam) and Conversant
HEENT: NormoCephalic, Anicteric and Atraumatic
Respiratory: Clear and Non Labored Respirations
Cardiac: S1/S2 and Regular Rhythm; No Peripheral Edema
GI: Soft, Non Tender (nontender when patient talking for distraction), Non Distended, Normal Bowel Sounds and Other (well healing surgical incisions, intact, some skin glue still present; no drainage or erythema; mild incisional tenderness
appropriate for recent surgery)
Rectal: Deferred by Provider
Genito-urinary: No costovertebral tender
Musculoskeletal: No Clubbing, No Cyanosis, No Edema and Other (distal extremities well perfused, dorsalis pedal pulses palpable bilaterally)
Skin: Warm and Dry
Neuro: Awake, Alert, Oriented, No Motor Deficits and Nonfocal/grossly intact
Psych: Anxious, Depressed and Other (intermittently tearful during exam)
Laboratory Results
-
05/24/24 12:31
05/24/24 12:
Laboratory Results
PT 13.1 Sec (11.4-14.6) 05/24/24 12:
INR 1.01 05/24/24 12:
Total Bilirubin 0.2 mg/dl (0.2-1.3) 05/24/24 12:
AST 21 U/L (14-36) 05/24/24 12:
ALT < 10 U/L (0-35) 05/24/24 12:
Alkaline Phosphatase 72 U/L (38-126) 05/24/24 12:
Lipase 114 U/L (23-300) 05/24/24 12:31
Data Reviewed
-
CT Scan: Report Reviewed by me and Discussed with Physician
Medical Tests (Nuc Med, Echo, EKG etc): Image Personally Visualized and interpreted, Report Reviewed by me and Discussed with Physician
Lab Data: Labs Reviewed by me and Discussed with Physician
Impression/Plan
-
58yo F with PMH of chronic abdominal pain, intussusception s/p ileocecectomy 04/28/24, anxiety, depression, COPD who presented to the ED 05/24 for abdominal pain and 1 episode of black watery stool today
#chronic abdominal pain
- Differential diagnosis is broad given that patient is somewhat inconsistent with describing symptoms
- CT abd/pelvis angio negative for vascular occlusion or GI bleed. Recent EGD unremarkable noted gastritis, superficial gastric ulcers. Colonoscopy unremarkable.
- Do not suspect single episode of black watery stool is due to infectious cause or GI bleed, reassured that this is not ongoing and subsequently had formed BM with no melena or hematochezia. Not having multiple episodes of diarrhea, low suspicion
for colitis or cdiff recurrence. Will consider testing stool if having diarrhea here.
- Unclear etiology or pathology, though pain is likely worsened by anxiety and depression. Recent opioid use/cessation may also contribute to hyperalgesia.
- Continue home reglan, protonix, sucralfate, and prn hyoscyamine
- Optimize pain control with tylenol, heating pad
- Avoid opiates if possible, or limit quantity and duration
- GI and colorectal surgery eval
- Full liquid diet now, NPO after midnight in the event any procedures are required tomorrow
- Will give standing miralax to improve bowel regularity
#depression
#anxiety
- Continue home clonazepam 0.5mg BID
- Inadequate treatment, not on medications currently as she [facility] of [facility]
- Trial of zoloft for >1 year at 50mg daily likely suboptimal dose, did not tolerate 1 dose of lexapro
- Denies SI/HI
- Psychiatry eval
#chronic anemia
- Hgb 8.5 on admission, improvement from last cbc in emr
- No active bleeding or bruising
- Patient discontinued oral Fe supplement recently. Will consider IV Fe while here to avoid constipating effect of oral Fe.
- Daily CBC
#COPD- continue home inhalers
#Pulmonary nodule- follows with educational program assistant
#Current smoker- 8cig/day, declines nicotine patch
Code status: Full
VTE ppx: SCDs, ambulation as tolerated
Diet: Full liquid + ensures
Dispo planning: TBD
[2024-05-24] MEDS: MIRALAX 17 GRAMS PO (18:27)
[2024-05-24] MEDS: TYLENOL 650 MG PO (18:28)
[2024-05-24 19:14] LABS: Iron 35 ug/dl (37-170)
[2024-05-24 19:23] LABS: Percent Saturation 11 % (20-50); Total Iron Binding Capacity 311 ug/dl (265-497)
--- NOTE | 2024-05-24 19:30 | PTCARENOTE ---
Pt admitted from ED to room 2123, walked from stretcher to bed with stand by assist, IVF's initiated. Oriented to room and call light, tearful and anxious regarding this admission, emotional support provided.
[2024-05-24] MEDS: SYMBICORT 80/4.5 MCG INHALER 2 PUFF INH (19:53)
[2024-05-24] MEDS: VENTOLIN NEBULES 2.5 MG INH (19:53)
[2024-05-24 20:24] LABS: TSH 0.32 uIU/ml (0.47-4.68)
[2024-05-24] MEDS: KLONOPIN 0.5 MG PO (20:25)
[2024-05-24] MEDS: PROTONIX 40 MG PO (20:25)
[2024-05-24 20:28] LABS: Ferritin 51.7 ng/ml (11.1-264.0)
[2024-05-24] MEDS: LEVSIN 0.125 MG PO (20:53)
[2024-05-24] MEDS: CARAFATE 1 GRAM PO (22:16)
[2024-05-24] MEDS: REGLAN 10 MG PO (22:22)
[2024-05-25 05:51] LABS: Hematocrit 23.1 % (37.0-47.0); Hemoglobin 7.6 g/dL (12.0-16.0); Mean Corp Hgb Conc. 32.9 g/dL (33.0-37.0); Mean Corpuscular Volume 94.3 fL (81.0-99.0); Mean Platelet Volume 10.1 fL (7.4-10.4); Platelet Count 250 10^3/uL (130-400); Red Blood Cell Count 2.45 10^6/uL (4.20-5.40); Red Cell Dist. Width 14.1 % (11.5-14.5); White Blood Cell Count 5.9 10^3/uL (4.8-10.8)
[2024-05-25 06:15] LABS: ALT (SGPT) < 10 U/L (0-35); AST (SGOT) 20 U/L (14-36); Albumin 3.2 g/dl (3.5-5.0); Alkaline Phosphatase 77 U/L (38-126); Blood Urea Nitrogen 7 mg/dl (7-17); Calcium 9.2 mg/dl (8.4-10.2); Carbon Dioxide 24 mmol/L (22-30); Chloride 111 mmol/L (98-107); Estimated Creatinine Clearance 49 ml/min; Glucose 88 mg/dl (70-99); Potassium 3.8 mmol/L (3.5-5.1); Sodium 144 mmol/L (135-145); Total Bilirubin 0.3 mg/dl (0.2-1.3); Total Protein 5.3 g/dl (6.3-8.2); eGFR > 60.00
[2024-05-25] MEDS: LEVSIN 0.125 MG PO (06:31)
[2024-05-25] MEDS: NSS 1000 IV ×2 (06:32→17:05)
[2024-05-25] MEDS: TYLENOL 650 MG PO (06:32)
[2024-05-25 07:20] VITALS: BP 99/58
[2024-05-25] MEDS: VENTOLIN NEBULES 2.5 MG INH ×3 (07:31→19:49)
[2024-05-25] MEDS: SYMBICORT 80/4.5 MCG INHALER 2 PUFF INH ×2 (07:31→19:49)
[2024-05-25] MEDS: KLONOPIN 0.5 MG PO ×2 (07:53→22:57)
[2024-05-25] MEDS: PROTONIX 40 MG PO (07:53)
[2024-05-25] MEDS: LOW STRENGTH ASPIRIN 81 MG PO (07:53)
[2024-05-25] MEDS: CARAFATE 1 GRAM PO ×3 (07:56→16:04)
[2024-05-25] MEDS: REGLAN 10 MG PO ×3 (07:56→16:04)
[2024-05-25 08:00] VITALS: BP 92/55
[2024-05-25] MEDS: MIRALAX PO (08:01)
--- NOTE | 2024-05-25 08:57 | CON.GI ---
Addendum entered and electronically signed by Gerald Macedo DO 05/25/24 12:33:
I saw and examined the patient. The MOTORCYCLE FABRICATOR's note was reviewed and I agree with the note.
Comment: This is a 58 y.o female with extensive medical history as below notable for prior C Diff infection, chronic abdominal pain, history of gastric ulcers, intussusception (s/p ileocectomy 04/28/2024), anxiety/depression and multiple ED visits in
the past for acute on chronic abdominal pain over this past summer who presented to the ED with recurrent abdominal pain and reported dark loose stools. Patient states all of her issues started this past January and February with abdominal pain and
difficulty moving her bowels. She has had frequent visits here at and [facility] ([facility]) where she was previously diagnosed with C Diff as well as underwent bi-directional endoscopic evaluation in March 2024 which revealed few well-healed gastric
ulcers (felt 2/2 NSAIDs) along with mild acute colitis (which was felt to be possibly from NSAIDs) as well. Additional cross-sectional imaging revealed concern for intussusception where she ultimately underwent robotic ileocectomy on 04/28/2024.
However, despite this she notes continued chronic nausea, diffuse cramping abdominal pain with mixed constipation and alternating stools. She follows with her primary Patient Relations Specialist (Dr. Overton) with [facility] where there was a discussion about a
possible underlying motility disorder where she was referred to [facility] (has an appointment next week). However, over the past few days she reports dark black stools where she called her primary GI who recommended she go to [facility] on Thursday. She
unfortunately left AMA prior to being admitted and represents here at with reported dark black stools and ongoing abdominal pain. No further NSAIDs since her EGD in March this past year, however she has been on multiple narcotics and
anticholinergics as well for her pain. Reports compliance with PPI. Additionally, notes significant life stressors as well during this time which she thinks is further contributing. Labs upon admission were grossly unremarkable with slight drop in
Hgb 9s -> 7s without overtly bloody stools. CT Abd/pelvis without any active bleeding (although limited by oral contrast) with intact prior colonic anastomoses along with prior review of CT abdominal imaging without vascular compromise or other
significant pathology. Suspect her abdominal pain is multifactorial in setting of opioid-induced bowel dysmotility (which may be further worsening her hyperalgesia), worsening constipation w/ overflow diarrhea and underlying motility disorder (yet
to be confirmed) and possible recurrent PUD despite ongoing PPI. Much less likely an anastomotic bleed as without any overt hematochezia or overtly bloody stools. Reasonable to pursue repeat endoscopic evaluation with EGD given her history of PUD
and particularly to ensure gastric ulcer healing. Otherwise, no concern for brisk UGIB or LGIB at this time.
Recommendations:
- Tolerating regular diet without difficulty, keep NPO at MN
- IV PPI 40 mg BiD
- Start IV iron while inpatient given iron sat 11%
- Recommend bowel regimen while inpatient with Miralax BiD and senna qhs for constipation
- Plan for EGD tomorrow, 05/26/2024, for further evaluation of PUD
- Strict avoidance of all NSAIDs
- Limit opioids as much as possible to further prevent opioid induced dysmotility
- IV anti-emetics PRN
- Pysch further consulted, appreciate recs
- Needs close follow-up after discharge with both her primary Patient Relations Specialist (Dr. Overton) and [facility] (scheduled next week)
- Rest of care as outlined below
Thank you for allowing me to participate in the care of this patient. Please do not hesitate to call for any further questions. GI team will continue to follow while inpatient.
Original Note:
Consultation
-
Date/Time Consultation Requested: 05/25/24899
Date/Time Consultation Performed: 05/25/24899
Requesting Provider: Yara Mcneill MD
Performing Provider: ANETTE Ann
Reason for Consultation: abdominal pain/nausea
Medical History
Chief Complaint / HPI
Chief Complaint: abd pain
History of Present Illness:
Pt is a 58yo with prolonged medical issues. 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 She admits to some chronic back issues with hx tobacco abuse with living on NSAIDs. Her mother passed in September
2022 and since November has not been well. She began with recurrent UTI with multiple courses of antibiotics. She then began with abdominal pain with evaluation at , and [place] with multiple tests over the summer with dx of c-diff, CT
enterography March 16 that showed marked gastric dilation and thickening of the gastric antrum. There is also findings of the ileocecal valve prolapsing into the cecum suggestive of intussusception, PUD via EGD with gastric erosions and colon with
Mild Erythematous mucosa in the transverse colon and in the ascending colon bx with right colon focal active colitis no features of chronicity, drug induced NSAID, resolving infection, prep related, colitis with diverticulosis, vs IBD. Pt went for
robotic ileocecectomy 04/28 and since that time continues with nausea, wt loss, severe crampy abdominal pain with variable stools. She has been to multiple MD's since that including surgical follow up, Dr. Overton via telehealth last week, [facility]
ER, and [facility] with sign out AMA prior to admission. She admits to being scheduled with [facility] next week and Dr. George in August. she has been taking various medication including narcotics which she states she has cut back,
bentyl, carafate, PPI, reglan and admits to stopping NSAID after March EGD.
She denies dysphagia, gERD, vomiting, or black stools. She admits to only rectal bleeding after surgery none currently. she also admits to long periods of sleeping with inability to get up and depression with multiple stressors.
Past Medical History
Past Medical History: Asthma, COPD, HTN, Hypercholesterolemia, Valvular Disease (MVP) and Other (interstitial cystitis, family hx of colon cancer, c-diff, PUD, osteoporsis )
Past Surgical History: Orthopedic and Other (04/2024 robotic ileocectomy)
Social History
Tobacco: Smoker (10 cigarettes/day)
Alcohol: None
Drug: None
Personal:
Living: With Family
Employment: Retired
Family History
Family History: Cancer (CRC-mother)
Allergies / Home Medications
Allergy/AdvReac Type Severity Reaction Status Date / Time
sulfamethoxazole Allergy Unknown Verified 05/24/24 17:57
[From Bactrim]
trimethoprim [From Bactrim] Allergy Unknown Verified 05/24/24 17:57
�Medication �Instructions �Recorded
aspirin 81 mg chewable tablet 81 mg PO DAILY Blood Clot 03/20/24
Prevention/Tx
clonazepam 0.5 mg tablet 0.5 mg PO BID Mental Health/Anxiety 03/20/24
fluticasone furoate 100 1 inh inhalation R DAILY 03/20/24
mcg-vilanterol 25 mcg/dose Lung/Breathing Issues
inhalation powder (Breo Ellipta)
montelukast 10 mg tablet 10 mg PO QPM Lung/Breathing Issues 03/20/24
(Singulair)
rosuvastatin 10 mg tablet 10 mg PO QPM High Cholesterol 03/20/24
methenam 118 mg-m.blue 10 1 tab PO TIDPRN PRN discomfort 04/03/24
mg-s.phos 40.8 mg-p.salic 36
mg-hyos capsule (Uro-MP)
acetaminophen 325 mg tablet 650 mg (2 x 325 mg) PO Q4HPRN PRN 04/11/24
pain #0 tabs
pantoprazole 40 mg tablet,delayed 40 mg PO BID Gastrointestinal 04/11/24
release (Protonix) issue #100 tabs
sucralfate 1 gram tablet 1 g PO ACHS Gastrointestinal issue 04/11/24
#60 tabs
metoclopramide HCl 10 mg tablet 10 mg PO Q6H PRN nausea and 04/19/24
(Reglan) vomiting #7 tabs
albuterol sulfate 2.5 mg/3 mL 2.5 mg inhalation R TID 05/24/24
(0.083 %) solution for nebulization
hyoscyamine sulfate 0.125 mg 0.125 mg PO BIDPRN PRN spasms 05/24/24
disintegrating tablet
ondansetron HCl 4 mg tablet 4 mg PO Q6HPRN PRN nausea and 05/24/24
vomiting
Review of Systems
-
History Source: Patient
Constitutional: Reports Weight Loss, Fatigue and Sleep Disturbance
EENT: Reports No Symptoms
Respiratory: Reports No Symptoms
Cardiac: Reports Chest Pain
Abdomen/GI: Reports Abdominal Pain, Nausea, Diarrhea and Constipated
: Reports Other (chronic cystitis symptoms )
Musculoskeletal: Reports Joint Pain
Skin: Reports No Symptoms
Neurological: Reports Dizzy and Weakness
Endocrine: Reports No Symptoms
Hematologic/Lymphatic: Reports No Symptoms
Vital Signs
Temp Pulse Resp BP Pulse Ox
98 F 108 14 92/55 96
05/25/24 08:00 05/25/24 08:00 05/25/24 08:00 05/25/24 08:00 05/25/24 08:00
Physical Exam
Exam
General: Other (distressed with ongoing pain and issues in position in bed )
HEENT: Normocephalic and Anicteric
Respiratory: Clear
Cardiac: Other (tachy)
GI: Soft, Non Distended and Tender (diffuse mid abdomen )
Musculoskeletal: No Clubbing and No Cyanosis
Skin: Warm and Dry
Neuro: Awake, Alert and AO x 3
Psych: Calm
Results
WBC 5.9 10^3/uL (4.8-10.8) 05/25/24 05:07
Hgb 7.6 g/dL (12.0-16.0) L 05/25/24 05:07
Hct 23.1 % (37.0-47.0) L 05/25/24 05:07
MCV 94.3 fL (81.0-99.0) 05/25/24 05:07
Plt Count 250 10^3/uL (130-400) 05/25/24 05:07
Absolute Neuts (auto) 3.7 10^3/uL (1.4-6.5) 05/24/24 12:31
PT 13.1 Sec (11.4-14.6) 05/24/24 12:31
INR 1.01 05/24/24 12:31
Sodium 144 mmol/L (135-145) 05/25/24 05:07
Potassium 3.8 mmol/L (3.5-5.1) 05/25/24 05:07
Chloride 111 mmol/L (98-107) H 05/25/24 05:07
Carbon Dioxide 24 mmol/L (22-30) 05/25/24 05:07
BUN 7 mg/dl (7-17) 05/25/24 05:07
Creatinine 0.9 mg/dL (0.6-1.0) 05/25/24 05:07
Calcium 9.2 mg/dl (8.4-10.2) 05/25/24 05:07
Total Bilirubin 0.3 mg/dl (0.2-1.3) 05/25/24 05:07
AST 20 U/L (14-36) 05/25/24 05:07
ALT < 10 U/L (0-35) 05/25/24 05:07
Alkaline Phosphatase 77 U/L (38-126) 05/25/24 05:07
Lipase 114 U/L (23-300) 05/24/24 12:31
Diagnostic Image Results:
03/16/24 CT enterography-
1. Marked gastric dilation with fluid-filled stomach. This extends to the level of the gastric antrum which shows circumferential abnormal wall thickening which is persistent on delayed images etiology of the wall thickening is indeterminate at
CT. This could be further evaluated with endoscopy.
2. As above, there is apparent slight protrusion of the ileocecal valve into the cecum, evaluation somewhat limited secondary to paucity of intra-abdominal fat. No aranza ileocecal intussusception is identified on this examination. There is no
obstruction of the small bowel. No other intussusception is identified.
03/17/24- abd X ray
Normal bowel gas pattern. No evidence of intestinal obstruction.
Mild fecal material mostly in the distal left colon. Improved
03/25/24 abd X ray
Moderate fecal material throughout the colon. Progressed. No evidence of intestinal obstruction
03/28/24 CT Abd/pel W Iv And Oral Contr
1. Mild bowel wall thickening and inflammatory change adjacent to the cecum, which is redundant and located within the pelvis. Findings are suggestive of mild enteritis, likely infectious or inflammatory.
2. Focal area of narrowing within the gastric antrum, with associated mild gastric dilation. This was also seen on prior CT dated 03/16/2024. Consider further evaluation with upper GI endoscopy.
3. No current intussusception.
04/03/24 obst series
No active cardiopulmonary disease.
No evidence of acute abdominal pathology.
04/09/24 CT Abd/pel W Iv And Oral Contr
1. Large amount of fecal material in the proximal colon suggesting CONSTIPATION.
2. Mild circumferential wall thickening throughout the sigmoid colon and rectum suggesting a mild acute proctocolitis.
3. Mild diverticulosis in the sigmoid colon.
4. Moderate calcific atherosclerotic plaque in the abdominal aorta.
5. Severe multilevel discogenic degenerative disease in the lumbar spine.
04/19/24 CT a/p angio
1. There is no evidence of aortic aneurysm or dissection.
2. There is no evidence of pulmonary embolism.
3. Small nodule in the left lower lobe is stable and likely benign.
04/28/24 OR for 1. Ileocecal intussusception. 2. Abdominal pain.
OPERATION: Robotic-assisted ileocecectomy.
path fibrous obliteration of appendix, intussusection, gross adhesions, benign nodes, no histopathologic abnormality seen
05/24/24 CT [facility] a/p
Evaluation for active colonic bleeding markedly limited by residual oral contrast in the colon without gross active colonic bleeding confirmed at this time.
Prior colonic anastomoses again seen, limited in evaluationWithout oral contrast administered at this time, without gross focal accompanying abnormality.
No evidence of abdominal aortic aneurysm or dissection.
Prior GI Procedures:
EGD: 04/06/24- EGD [facility] - Z-line irregular, at the gastroesophageal junction.
Biopsied.
- Multiple non-bleeding superficial gastric ulcers/
erosions with congested erythematous mucosa were found
in the gastric antrum. Biopsied.
- Gastritis. Biopsied.
- Normal examined duodenum.
bx neg
Colonoscopy: 04/06/24 [facility] - The examined portion of the ileum was normal.
- The cecum and ileocecal valve are normal.
- Mild Erythematous mucosa in the transverse colon and
in the ascending colon. Biopsied.
- The rectum, sigmoid colon and descending colon are
normal. Biopsied.
- Many medium-mouthed and small-mouthed diverticula
were found in the sigmoid colon.
bx with right colon focal active colitis no features of chronicity, drug induced NSAID, resolving infection, prep related, colitis with diverticulosis, vs IBD
left colon no pathologic findings
Assessment / Plan
-
Pt is a 58yo with prolonged medical issues. 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 She admits to some chronic back issues with hx tobacco abuse with living on NSAIDs. Her mother passed in September
2022 and since November has not been well. She began with recurrent UTI with multiple courses of antibiotics. She then began with abdominal pain with evaluation at , and [facility] with multiple tests over the summer with dx of c-diff, CT
enterography March 16 that showed marked gastric dilation and thickening of the gastric antrum. There is also findings of the ileocecal valve prolapsing into the cecum suggestive of intussusception, PUD via EGD with gastric erosions and colon with
Mild Erythematous mucosa in the transverse colon and in the ascending colon bx with right colon focal active colitis no features of chronicity, drug induced NSAID, resolving infection, prep related, colitis with diverticulosis, vs IBD. Pt went for
robotic ileocecectomy 04/28 and since that time continues with nausea, wt loss, severe crampy abdominal pain with variable stools. She has been to multiple MD's since that including surgical follow up, Dr. Overton via telehealth last week, [facility]
ER, and [facility] with sign out AMA prior to admission. She admits to being scheduled with [facility] next week and Dr. George in August. she has been taking various medication including narcotics which she states she has cut back,
bentyl, carafate, PPI, reglan and admits to stopping NSAID after March EGD.
Impression:
abdominal pain
nausea
persistent anemia
prior NSAID use with PUD on EGD in March
03/2024 colonoscopy with Mild Erythematous mucosa in the transverse colon and in the ascending colon bx with right colon focal active colitis no features of chronicity
hx c-diff
hx cystitis
intussusception with robotic ileocecectomy 04/28
Gastric dilation and antral thickening.on prior imaging
constipation with period of diarrhea
depression
excessive sleepiness
FH CRC-mother
Recommendations:
Etiology of symptoms unclear-- continued medical issues vs depression related as pt admits to depression multiple stressor with illness, retiring to care for mother then of mother this year
will review with MD for EGD 05/26 to reassess for healing of PUD noted in March
cont Miraax daily to prevent constipation
will review imaging for stool burden
ok for diet today
she remains on Reglan RTC for nausea
cont PPI and carafate
agreee with iron for anemia
NSAID avoidance limit narcotics if able
for psych eval
support given as pt very frustrated with onoging issues
she is scheduled next week with [facility]
she is scheduled GI follow up in August
she has also had some fragmented care with multiple institutions for evaluation
-
-
Thank you for consultation and allowing me to participate in the patient's care. Please call the [facility] physician during the after hours with any questions or concerns.
[2024-05-25] MEDS: MIRALAX 17 GRAMS PO (09:09)
--- NOTE | 2024-05-25 09:36 | W.PN.HOSP.TC ---
Addendum entered and electronically signed by Yara Thurston MD 05/25/24 16:07:
I personally performed a history and physical exam of the patient and discussed management with the resident. I reviewed the resident's note and agree with the documented findings and plan of care HPI/CC.
Patient is pleasant. Her pain was not bothering her from communicating with me today.
She seems to be agreeable to continue with MiraLAX.
Appreciate GI and colorectal eval.
Endoscopy planned tomorrow
She also has an appointment coming up with [facility] on June 11 at 3:15 PM
Iron deficiency noted-IV iron ordered as p.o. can cause constipation
Psyche eval noted. Patient really needs something other than Klonopin to treat her depression. If needed we could discontinue Reglan and she can get back on Cymbalta if psychiatry feels this is going to help her. Otherwise alternate medicines may
need to be explored to treat her depression as I think that is playing a major role along with her anxiety and her abdominal symptoms.
Original Note:
Today's Communication/Plan
-
GI consult, psychiatry consult
Assessment / Plan
Assessment / Plan
58yo F with PMH of chronic abdominal pain, intussusception s/p ileocecectomy 04/28/24, anxiety, depression, COPD who presented to the ED 05/24 for abdominal pain and 1 episode of black watery stool
#chronic abdominal pain
#H/o intussusception s/p ileocecectomy
- Differential diagnosis is broad given that patient is somewhat inconsistent with describing symptoms
- CT abd/pelvis angio negative for vascular occlusion or GI bleed though limited due to presence of oral contrast (from outside facility few days prior to admission). Recent EGD noted gastritis, superficial gastric ulcers. Colonoscopy unrevealing of
cause of pain.
- Do not suspect single episode of black watery stool is due to infectious cause or GI bleed, reassured that this is not ongoing and subsequently had formed BM with no melena or hematochezia. Not having multiple episodes of diarrhea, low suspicion
for colitis or cdiff recurrence. Will consider testing stool if having diarrhea here.
- Unclear etiology or pathology, though pain is likely worsened by anxiety and depression. Recent opioid use/cessation may also contribute to hyperalgesia.
- Continue home reglan, protonix, sucralfate, and prn hyoscyamine
- Optimize pain control with tylenol, heating pad
- Avoid opiates if possible, or limit quantity and duration
- GI and colorectal surgery eval
- Continue standing miralax daily to improve bowel regularity
#depression
#anxiety
- Continue home clonazepam 0.5mg BID
- Psychiatry eval
#chronic anemia
#iron deficiency anemia
- Hgb 9.5 on admission, improvement from last cbc in emr
- No active bleeding or bruising, no hematochezia or melena
- Iron labs consistent with Fe deficiency. Previously on oral Fe though patient discontinued recently
- Will give IV Fe while here
- Daily CBC
#COPD- continue home inhalers
#Pulmonary nodule- follows with [facility]
#Current smoker- 8cig/day, declines nicotine patch
#Degenerative disc disease
Code status: Full
VTE ppx: SCDs, ambulation as tolerated
Diet: Full liquid + ensures
Dispo planning: TBD
Anticipated Discharge: Within 24 hours
Subjective/Interval History
-
Date of Service: May 25, 2024
No acute events overnight. She was sleeping peacefully this morning and awoken to verbal greeting. Reports continued abdominal pain, unchanged from yesterday. She is hungry. She denies light headedness, dizziness, chest pain, shortness of breath,
vomiting, diarrhea, constipation. She reports a few small bowel movements this morning that were solid, easy to pass, and brown. Denies black or bloody stools.
Objective Data
-
Labs:
Laboratory Results
05/25/24
05:07
WBC 5.9
Hgb 7.6 L
Hct 23.1 L
Plt Count 250
Sodium 144
Potassium 3.8
Chloride 111 H
Carbon Dioxide 24
BUN 7
Creatinine 0.9
Glucose 88
Calcium 9.2
Total Bilirubin 0.3
AST 20
ALT < 10
Alkaline Phosphatase 77
Vital Signs:
Vital Signs
Temp Pulse Resp BP Pulse Ox
98 F 108 14 92/55 96
05/25/24 08:00 05/25/24 08:00 05/25/24 08:00 05/25/24 08:00 05/25/24 08:00
I&O
05/24/24 05/25/24 05/26/24
06:59 06:59 06:59
Intake Total 900 / 900
Balance 900 / 900
Review of Systems
-
History Source: Patient
All other systems: Reviewed and negative
Physical Exam
-
General: Well Developed, No Apparent Distress, Comfortable, Conversant and Other (sleeping peacefully, awoken to verbal stimuli)
HEENT: Normocephalic, Atraumatic and Anicteric
Respiratory: Clear to Auscultation and Non Labored Respirations
Cardiac: Regular Rhythm and S1/S2
GI: Soft, Nondistended, Normal Bowel Sounds and Tender (minimal TTP diffusely )
Musculoskeletal: No Cyanosis and No Edema
Skin: Warm and Dry
Neuro: Awake (initially asleep, awoken to verbal stimuli), Alert, Oriented and Nonfocal/Grossly Intact
Psych: Calm
Data Reviewed
-
CT Scan: Image personally visualized and interpreted, Report Reviewed by me and Discussed with Physician
Labs: Labs Reviewed by me and Discussed with Physician
[2024-05-25 10:40] VITALS: BMI 18.0
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
[2024-05-25 11:51] VITALS: BP 139/60
--- NOTE | 2024-05-25 12:13 | CM ---
Patient seen at bedside.
IA Completed - Observation form explained & signed. In chart.
Ambulating in room.
DX: Abdominal pain
Hx: adult failure to thrive, intussusception s/p ileocecectomy 04/28/24, COPD, anxiety, depression, + smoker
Patient lives in a 2 story home with and son, 2 steps to enter, 12 steps to second floor.
PLOF: Independent, driving
No DME
Denies any housing/utilities/food/transportation insecurities.
No current needs identified.
PCP: Daniel De Luna
Pharmacy: [facility]
PLAN: Discharge when stable. No needs identified.
[2024-05-25 12:21] LABS: Vitamin B12 444 pg/ml (239-931)
--- NOTE | 2024-05-25 14:04 | CON.CRS ---
Consultation
-
Reason for Consultation: abdominal pain
Medical History
-
Chief Complaint: abdominal pain
History of Present Illness:
58-year-old female well-known to me who is now almost a month status post robotic assisted ileocecectomy for intussusception. The final pathology showed no lead point. Leading into the surgery she was having chronic abdominal pain, nausea, and
other complaints. Subsequent to the operation, unfortunately and yet other than surprisingly, she has had persistent symptoms. She has been to the ER at multiple facilities over the last few weeks for her ongoing symptoms. More specifically she
has been at the ER at [facility], [place], and [facility]. Twice she essentially left AMA. Per patient report she underwent a CT maybe 2 weeks ago at [facility] of the abdomen and pelvis which was unremarkable. A couple days ago she went to the [facility]
ER with ongoing symptoms and from what I can tell was lined up either small bowel follow-through or CT angio. She left the ER before the study was done. Due to ongoing symptoms she came here to the ER yesterday. Symptoms include chronic abdominal
pain not necessarily related to any activity which is essentially 24 hours a day. Also intermittent chronic nausea. Also fatigue. Lastly she admits to dark-colored BMs. Of note she did undergo an EGD this past summer preoperatively which did
show stomach ulceration for which she was placed on medications under GI. Her outpatient GI is Dr. Daniel Overton who works in the [facility]. On coming in through the ER her white blood cell count was normal at 5.8. Hemoglobin was reasonable at
9.5 given her prior anemia. This morning it dropped down to 7.6. Electrolytes and LFTs are unremarkable. CT angio done yesterday revealed no active bleeding and no vascular compromise of the mesenteric or celiac axis.
Past Medical History
Past Medical History: Asthma, COPD, HTN, Hypercholesterolemia and Other (PUD; osteoporosis; mitral valve prolapse)
Past Surgical History: Other (Robotic ileocecectomy April 2024)
Social History
Tobacco: Smoker
Alcohol: None
Personal:
Family History
Family History: Cancer (M colorectal cancer)
Allergies / Home Medications
Allergy/AdvReac Type Severity Reaction Status Date / Time
sulfamethoxazole Allergy Unknown Verified 05/24/24 17:57
[From Bactrim]
trimethoprim [From Bactrim] Allergy Unknown Verified 05/24/24 17:57
�Medication �Instructions �Recorded �Confirmed �Type
aspirin 81 mg chewable tablet 81 mg PO DAILY Blood Clot 03/20/24 05/24/24 History
Prevention/Tx
clonazepam 0.5 mg tablet 0.5 mg PO BID Mental Health/Anxiety 03/20/24 05/24/24 History
fluticasone furoate 100 1 inh inhalation R DAILY 03/20/24 05/24/24 History
mcg-vilanterol 25 mcg/dose Lung/Breathing Issues
inhalation powder (Breo Ellipta)
montelukast 10 mg tablet 10 mg PO QPM Lung/Breathing Issues 03/20/24 05/24/24 History
(Singulair)
rosuvastatin 10 mg tablet 10 mg PO QPM High Cholesterol 03/20/24 05/24/24 History
methenam 118 mg-m.blue 10 1 tab PO TIDPRN PRN discomfort 04/03/24 05/24/24 History
mg-s.phos 40.8 mg-p.salic 36
mg-hyos capsule (Uro-MP)
acetaminophen 325 mg tablet 650 mg (2 x 325 mg) PO Q4HPRN PRN 04/11/24 05/24/24 Rx
pain #0 tabs
pantoprazole 40 mg tablet,delayed 40 mg PO BID Gastrointestinal 04/11/24 05/24/24 Rx
release (Protonix) issue #100 tabs
sucralfate 1 gram tablet 1 g PO ACHS Gastrointestinal issue 04/11/24 05/24/24 Rx
#60 tabs
metoclopramide HCl 10 mg tablet 10 mg PO Q6H PRN nausea and 04/19/24 05/24/24 Rx
(Reglan) vomiting #7 tabs
albuterol sulfate 2.5 mg/3 mL 2.5 mg inhalation R TID 05/24/24 05/24/24 History
(0.083 %) solution for nebulization Lung/Breathing Issues
hyoscyamine sulfate 0.125 mg 0.125 mg PO BIDPRN PRN spasms 05/24/24 05/24/24 History
disintegrating tablet
ondansetron HCl 4 mg tablet 4 mg PO Q6HPRN PRN nausea and 05/24/24 05/24/24 History
vomiting
Review of Systems
-
A 10 point review of systems was completed, and was negative except as per HPI.
Physical Exam
Vital Signs
Temp 97.4 F 05/25/24 11:51
Pulse 78 05/25/24 13:17
Resp Rate 16 05/25/24 13:17
Blood pressure 139/60 05/25/24 11:51
SaO2 99 05/25/24 13:17
05/24/24 05/25/24 05/26/24
06:59 06:59 06:59
Actual Weight 46.221 kg 45.955 kg
Body Mass Index (BMI) 18.0
Lab Results / Allergies
05/25/24 05:07
05/25/24 05:07
WBC 5.9 10^3/uL (4.8-10.8) 05/25/24 05:07
Hgb 7.6 g/dL (12.0-16.0) L 05/25/24 05:07
Hct 23.1 % (37.0-47.0) L 05/25/24 05:07
Plt Count 250 10^3/uL (130-400) 05/25/24 05:07
Abs Immat Gran (auto) 0.0 10^3/uL (0-0.05) 05/24/24 12:31
Neutrophils % 62.9 % (42.2-75.2) 05/24/24 12:31
Allergy/AdvReac Type Severity Reaction Status Date / Time
sulfamethoxazole Allergy Unknown Verified 05/24/24 17:57
[From Bactrim]
trimethoprim [From Bactrim] Allergy Unknown Verified 05/24/24 17:57
Physical Exam
General: Well Developed and No Apparent Distress
HEENT: Normocephalic and Moist Mucous Membranes
Respiratory: Clear
Cardiac: Regular Rhythm
GI: Soft, Tender (Mild generalized) and Other (Incisions well-healed; no hernias)
Neuro: AO x 3
Data Reviewed
-
CT Scan: Image Personally Visualized and interpreted and Discussed with Physician
Labs: Labs Reviewed by me and Discussed with Patient
Assessment / Plan
-
58-year-old female almost a month status post robotic assisted ileocecectomy for intussusception with ongoing chronic abdominal pain, intermittent nausea, and dark BMs. She is also anemic. Imaging shows no hard evidence for abnormality or vascular
compromise. She does have a known history of peptic ulcer disease. In my opinion at this point in time, this is not a surgical issue. I agree with repeat EGD as proposed by GI to reassess for peptic ulcer disease. Appreciate psychiatry's input.
Appreciate everyone's help on this challenging patient.
[2024-05-25 14:17] VITALS: BMI 18.0
[2024-05-25] MEDS: FERRLECIT 110 MG IV (14:23)
[2024-05-25] MEDS: NEURONTIN 100 MG PO ×2 (16:04→22:56)
[2024-05-25] MEDS: CRESTOR 10 MG PO (17:05)
[2024-05-25] MEDS: SINGULAIR 10 MG PO (17:05)
--- NOTE | 2024-05-25 17:41 | W.PN.UPDATE ---
Update Note
Progress Note Update
At bedside to evaluate patient. We had long discussion regarding symptoms. At home when she initially wakes up her nausea is more bothersome than abdominal pain. She takes several medications at once with bit of water, and about 45 minutes later the
nausea lessens. She also has never tried eating small bites of easy to digest food or juice upon waking. The nausea she describes is vague- 'a disgusting feeling in my mouth like I need to put my finger in my throat and make myself throw up.' She
endorses a sour metallic taste during this. It sounds like GERD. Of note she says she has never actually tried to induce vomiting. She has felt this type of nausea upon waking this morning and this afternoon after a nap. I discussed with her that I
would like to discontinue reglan and see if her nausea is actually worse without it. Hopefully, it is unchanged even without the reglan in which case we could stop it permanently and have more options of medications to treat her depression and
anxiety. She admits she does not know what meds if any are actually helping, and she is very agreeable to trial of reglan elimination. We discussed her fatigue and that it is multifactorial in nature, including pain, depression, anxiety, anemia,
etc. She believes her anemia is from surgery in april, and I reviewed with her that this is not the case; I explained that her iron is low from not consuming enough iron rich foods or supplementations, and her iron deficiency is causing anemia. She
was also concerned about GI bleeding as the cause of her drop in hgb, and again I explained that her lack of hematochezia/melena is reassuring that she is not having acute GI bleed. In terms of her pain, she rates it a 7 and says it is constantly
there, though she thinks it will be worse with bowel movements in a few days. I did confirm with her that her pain has NOT been related to bowel movements in months. EGD tomorrow will help evaluate if her ulcers are healing. She has been tolerating
regular PO diet today, no vomiting. Eating does not worsen nausea or pain.
Plan
- Discontinue reglan and hyoscyamine and reevaluate nausea without it
- Try pepcid 20mg qhs once today and see if reflux upon waking is less
- Heating pad for cramp-like pain
- Pain has been tolerable without opioids, will continue to avoid these. Avoid nsaids.
- NPO after midnight for GI procedure
[2024-05-25 20:00] VITALS: BP 98/57
[2024-05-25] MEDS: PROTONIX IV 40 MG IV (20:14)
[2024-05-25] MEDS: ULTRAM 25 MG PO (20:14)
[2024-05-25] MEDS: NSS (PRESERVATIVE FREE) 10 ML IV (20:14)
--- NOTE | 2024-05-25 22:00 | PTCARENOTE ---
Patient c/o 10/10 abdominal pain and cramping; patient requested something stronger than Tylenol; Kristian CHEEMA notified; orders obtained for one time dose of Ultram 25mg; medication was effective; patient sleeping.
[2024-05-25] MEDS: CARAFATE PO (22:55)
[2024-05-25 22:56] VITALS: BP 128/68
[2024-05-25] MEDS: PEPCID 20 MG PO (22:56)
[2024-05-26 06:29] LABS: Hematocrit 22.3 % (37.0-47.0); Hemoglobin 7.3 g/dL (12.0-16.0); Mean Corp Hgb Conc. 32.7 g/dL (33.0-37.0); Mean Corpuscular Hgb 31.9 pg (27.0-31.0); Mean Corpuscular Volume 97.4 fL (81.0-99.0); Mean Platelet Volume 10.2 fL (7.4-10.4); Platelet Count 229 10^3/uL (130-400); Red Blood Cell Count 2.29 10^6/uL (4.20-5.40); Red Cell Dist. Width 14.2 % (11.5-14.5); White Blood Cell Count 4.1 10^3/uL (4.8-10.8)
[2024-05-26] MEDS: VENTOLIN NEBULES 2.5 MG INH ×3 (07:25→20:57)
[2024-05-26] MEDS: SYMBICORT 80/4.5 MCG INHALER 2 PUFF INH ×2 (07:25→20:57)
[2024-05-26 07:55] VITALS: BP 118/58
[2024-05-26 08:18] VITALS: BP 118/58
[2024-05-26 08:30] VITALS: BMI 18.4
--- NOTE | 2024-05-26 08:45 | PTCARENOTE ---
Report given to GI labor economics professorRONNI reyez for endo procedure. Patient updated at bedside.
[2024-05-26 09:30] VITALS: BP 122/57; BP_SYST 12
[2024-05-26 09:45] VITALS: BP 119/76
[2024-05-26] MEDS: CARAFATE PO (09:47)
--- NOTE | 2024-05-26 10:10 | W.PN.HOSP.TC ---
Addendum entered and electronically signed by Yara Thurston MD 05/26/24 14:17:
I personally performed a history and physical exam of the patient and discussed management with the resident. I reviewed the resident's note and agree with the documented findings and plan of care HPI/CC except for changes in my documentation.
Abdomen -soft and nontender when patient's attention is diverted and palpated
Lower extremity no edema
Skin-healing lap wounds
CT enterography (03/16) with Marked gastric dilation with fluid-filled stomach. This extends to the level of the gastric antrum which shows circumferential abnormal wall thickening which is persistent on delayed images etiology of the wall thickening
is indeterminate at CT. This could be further evaluated with endoscopy. As above, there is apparent slight protrusion of the ileocecal valve into the cecum, evaluation somewhat limited secondary to paucity of intra-abdominal fat. No aranza ileocecal
intussusception is identified on this examination. There is no obstruction of the small bowel. No other intussusception is identified.
Colonoscopy-04/06/2024-examined ileum normal. Cecum and ileocecal valve normal. Mild erythematous mucosa in the transverse colon and ascending colon biopsied. Rectum and sigmoid colon and descending colon are normal. Many medium mouth and small
mouth diverticula in the sigmoid colon. Internal hemorrhoids.
Endoscopy 04/06/2024-Z-line irregular at the GE junction. Biopsied. Multiple nonbleeding superficial gastric ulcers/erosions with congested erythematous mucosa in the gastric antrum biopsied. Gastritis. Biopsied. Normal examined duodenum.
# Abdominal pain
EGD was aborted as she had food in the stomach which raises question about gastroparesis/motor disorder.
Clear liquids today and continue Reglan. Repeat endoscopy tomorrow
CAT scan with IV contrast-without any vascular compromise ruling out vascular reasons for her pain (CT abdomen and pelvis on 04/09/2024 did show some moderate calcific atherosclerotic plaque in the abdominal aorta)
CT Enterogram in March with out small bowel pathology.
I also discussed with the patient about motility disorders and to follow-up with a specialist for that. She has an appointment coming up at [facility] Dr. Dhillon on June 11 at 3:15 PM
We discussed about treating her anxiety and depression which could be adding onto her symptoms.
I also discussed about avoiding narcotics as much as she can and avoid constipation.
Continue Miralax
Continue with Carafate and PPI
# Anxiety and depression
Patient is on clonazepam only at present
I discussed about restarting Cymbalta which per psyche - cant be used with Reglan
# Anemia-MITCHELL- Replace IV
# Recent ileocecectomy to treat intussusception-Colorectal surgery eval appreciated
# Peptic ulcer disease/gastric erosions-continue PPI and Carafate
# History of C. difficile
# Mild to moderate protein calorie malnutrition-add Ensure
# Asthma/COPD
# Pulmonary nodules-follows up with
# Active smoker-cessation counseling done
# Diverticulosis
# Severe multilevel discogenic degenerative changes in the lumbar spine L2/L3, L3/L4, L4/L5 with severe loss of intervertebral disc space height, moderate-sized vertebral body endplate osteophytes and intervertebral disc vacuum foraminal.
# DVT prophylaxis-Lovenox
# Full code
Original Note:
Today's Communication/Plan
-
EGD today, await results
Assessment / Plan
Assessment / Plan
58yo F with PMH of chronic abdominal pain, intussusception s/p ileocecectomy 04/28/24, anxiety, depression, COPD who presented to the ED 05/24 for abdominal pain and 1 episode of black watery stool
#chronic abdominal pain
#H/o intussusception s/p ileocecectomy
- Differential diagnosis is broad given that patient is somewhat inconsistent with describing symptoms
- CT abd/pelvis angio negative for vascular occlusion or GI bleed though limited due to presence of oral contrast (from outside facility few days prior to admission). Recent EGD noted gastritis, superficial gastric ulcers. Colonoscopy unrevealing of
cause of pain.
- Do not suspect single episode of black watery stool is due to infectious cause or GI bleed, reassured that this is not ongoing and subsequently had formed BM with no melena or hematochezia. Not having multiple episodes of diarrhea, low suspicion
for colitis or cdiff recurrence. Will consider testing stool if having diarrhea here.
- Unclear etiology or pathology, though pain is likely worsened by anxiety and depression. Recent opioid use/cessation may also contribute to hyperalgesia.
- Continue protonix, sucralfate. Will follow up on patients symptoms with trial of pepcid last night and no AM reglan.
- Optimize pain control with tylenol, heating pad
- Avoid opiates if possible, or limit quantity and duration
- S/p GI and colorectal surgery consults, appreciate evaluation and recommendations
- Continue standing miralax daily to improve bowel regularity
- Await results of EGD
#depression
#anxiety
- Continue home clonazepam 0.5mg BID
- S/p psychiatry consult, appreciate recs
- Continue gabapentin per psych
- Will hold off on initiating additional psychiatric medications as there are numerous interactions and risks with concurrent reglan use. Plan to reevaluate if able to reduce reglan use.
#chronic anemia
#iron deficiency anemia
- Hgb 9.5 on admission, improvement from last cbc in emr
- Hgb 9.5 --> 7.6 --> 7.3
- No active bleeding or bruising, no hematochezia or melena
- Iron labs consistent with Fe deficiency. Previously on oral Fe though patient discontinued prior to admission
- Will give IV Fe while here
- Daily CBC
- Will consider transfusion if concern for acute blood loss or hgb < 7
#COPD- continue home inhalers
#Pulmonary nodule- follows with automatic typewriter inspector
#Current smoker- 8cig/day, declines nicotine patch
#Degenerative disc disease
Code status: Full
VTE ppx: SCDs, ambulation as tolerated
Diet: NPO prior to EGD
Dispo planning: anticipate discharge home when able
Anticipated Discharge: Today
Subjective/Interval History
-
Date of Service: May 26, 2024
No acute events overnight. Patient not in room at time of my rounding, she was with GI for EGD. Discussed with nursing, and patient had no complaints this morning including no nausea. She was ambulating independently without difficulty.
Objective Data
-
Labs:
Laboratory Results
05/26/24
04:57
WBC 4.1 L
Hgb 7.3 L
Hct 22.3 L
Plt Count 229
Vital Signs:
Vital Signs
Temp Pulse Resp BP Pulse Ox
98.2 F 76 18 119/76 98
05/26/24 09:45 05/26/24 09:45 05/26/24 09:45 05/26/24 09:45 05/26/24 09:45
I&O
05/25/24 05/26/24 05/27/24
06:59 06:59 06:59
Intake Total 900 / 900 2340 / 2340
Balance 900 / 900 2340 / 2340
Review of Systems
-
Unable to obtain full review of systems at this time due to: Other (patient not available at time of rounding)
[2024-05-26] MEDS: NSS (PRESERVATIVE FREE) 10 ML IV ×2 (10:50→20:29)
[2024-05-26] MEDS: CARAFATE 1 GRAM PO ×3 (10:56→21:46)
[2024-05-26] MEDS: NEURONTIN 100 MG PO ×3 (10:56→21:49)
[2024-05-26] MEDS: MIRALAX 17 GRAMS PO (10:57)
[2024-05-26] MEDS: LOW STRENGTH ASPIRIN 81 MG PO (10:57)
[2024-05-26] MEDS: PROTONIX IV 40 MG IV ×2 (10:57→20:26)
--- NOTE | 2024-05-26 11:14 | W.PN.CRS1 ---
Today's Communication / Plan
-
Signing off.
Assessment/Plan
-
Patient with abdominal pain, failure to thrive, and dark BMs roughly 1 month status post ileocecectomy for intussusception.
1. Patient was in the GI lab about to undergo EGD when I evaluated her. Workup per GI.
2. No obvious surgical issues. Will follow from afar.
Subjective Data
Subjective Data
Date of Service: May 26, 2024
Still admits to abdominal discomfort.
Objective Data
-
Vital Signs
Temp Pulse Resp BP Pulse Ox
98.2 F 76 18 119/76 98
05/26/24 09:45 05/26/24 09:45 05/26/24 09:45 05/26/24 09:45 05/26/24 09:45
Intake & Output
05/25/24 05/26/24 05/27/24
06:59 06:59 06:59
Intake Total 900 / 900 2340 / 2340
Balance 900 / 900 2340 / 2340
Intake:
Oral fluids 1440 / 1440
IV fluids (Total) 900 / 900 900 / 900
Other:
Number of approximated MODERATE 7 3
amounts of urine
Number of unmeasured liquid
stools
Rectum 6
Lab Results
05/26/24 04:57
05/25/24 05:07
Physical Exam
-
General: No Acute Distress
Chest: Clear
Cardiovascular: Regular Rate & Rhythm
Abdomen: Soft, Non Distended and Tender (Minimal)
--- NOTE | 2024-05-26 12:09 | CM ---
Patient seen at bedside.
GI procedure upper endoscopy will now be tomorrow due to presence of food.
pleasant, and has no questions for CM.
No needs anticipated at this time.
PLAN: Discharge to home when medically stable. No needs anticipated.
--- NOTE | 2024-05-26 14:35 | W.PN.UPDATE ---
Update Note
Progress Note Update
patient seen chart reviewed. spoke with nursing. the patient was to have endoscopy today but the procedure was aborted due to food in her stomach. she seemed much calmer today and in less discomfort. she attributed this to the anaesthetic she
received prior to the aborted procedure. she spoke of all the physical maladies she feels she needs to attend to in the coming days and the hope that addressing them may make her feel better both physically and mentally. conversation turned to
interstitial cystitis and the pain it has caused. i suggested to her that she might see a obstetrician gynecologist as there is some evidence that topical estrogen used vaginally could improve urinary tract sx including ic. she felt the gabapentin helped her last
evening with sleep. she said she slept better than she has in some time. noted that there had been some thought of cutting back and dc of reglan so she could safely take cymbalta but at this point reglan seems a necessity for endoscopy tomorrow.
will follow no changes made in psych medications.
[2024-05-26] MEDS: FERRLECIT 110 MG IV (14:45)
[2024-05-26] MEDS: REGLAN 10 MG IV (16:24)
[2024-05-26 16:52] VITALS: BP 96/58
[2024-05-26] MEDS: CRESTOR 10 MG PO (17:16)
[2024-05-26] MEDS: SINGULAIR 10 MG PO (17:16)
[2024-05-26] MEDS: LOVENOX 30 MG SC (18:05)
[2024-05-26] MEDS: TYLENOL 650 MG PO (20:30)
[2024-05-26] MEDS: KLONOPIN 0.5 MG PO (21:46)
[2024-05-26 23:31] VITALS: BP 114/60
[2024-05-27] MEDS: REGLAN 10 MG IV ×2 (01:00→11:24)
[2024-05-27 06:42] LABS: % Basophils 0.7 % (0-2); % Eosinophils 5.9 % (0-6); % Immature Granulocytes 0.5 % (0-0.5); % Lymphocytes 36.4 % (20.5-51.1); % Monocytes 8.6 % (1.7-9.3); % Neutrophils 47.9 % (42.2-75.2); Absolute Eosinophils 0.3 10^3/uL (0-0.7); Absolute Lymphocytes 1.6 10^3/uL (1.2-3.4); Absolute Monocytes 0.4 10^3/uL (0.1-0.6); Absolute Neutrophils 2.1 10^3/uL (1.4-6.5); Hemoglobin 7.6 g/dL (12.0-16.0); Mean Corp Hgb Conc. 31.7 g/dL (33.0-37.0); Mean Corpuscular Hgb 30.2 pg (27.0-31.0); Mean Corpuscular Volume 95.2 fL (81.0-99.0); Mean Platelet Volume 10.1 fL (7.4-10.4); Nucleated Red Blood Cells % 0 %; Platelet Count 233 10^3/uL (130-400); Red Blood Cell Count 2.52 10^6/uL (4.20-5.40); Red Cell Dist. Width 14.3 % (11.5-14.5); Reticulocyte Count 2.3 % (0.4-2.8); White Blood Cell Count 4.4 10^3/uL (4.8-10.8)
[2024-05-27 07:08] LABS: ALT (SGPT) < 10 U/L (0-35); AST (SGOT) 17 U/L (14-36); Albumin 3.2 g/dl (3.5-5.0); Alkaline Phosphatase 73 U/L (38-126); Blood Urea Nitrogen 4 mg/dl (7-17); Calcium 9.5 mg/dl (8.4-10.2); Carbon Dioxide 25 mmol/L (22-30); Chloride 110 mmol/L (98-107); Estimated Creatinine Clearance 64 ml/min; Glucose 87 mg/dl (70-99); Potassium 3.8 mmol/L (3.5-5.1); Sodium 146 mmol/L (135-145); Total Bilirubin 0.2 mg/dl (0.2-1.3); Total Protein 5.3 g/dl (6.3-8.2); eGFR > 60.00
[2024-05-27] MEDS: VENTOLIN NEBULES 2.5 MG INH (07:10)
[2024-05-27] MEDS: SYMBICORT 80/4.5 MCG INHALER 2 PUFF INH (07:11)
[2024-05-27 07:15] VITALS: BP 104/58
--- NOTE | 2024-05-27 09:15 | PTCARENOTE ---
pt NPO no sips no meds this morning for EGD. Pt send down in gown and with chart. morning medications to be administered on return
[2024-05-27 09:55] VITALS: BP 120/63; BP_SYST 20
[2024-05-27 10:05] VITALS: BP 129/87; BP_SYST 15
[2024-05-27] MEDS: CARAFATE PO (11:23)
[2024-05-27] MEDS: NSS (PRESERVATIVE FREE) 10 ML IV (11:24)
[2024-05-27] MEDS: PROTONIX IV 40 MG IV (11:24)
[2024-05-27] MEDS: NEURONTIN 100 MG PO ×2 (11:24→16:23)
[2024-05-27] MEDS: MIRALAX 17 GRAMS PO (11:25)
[2024-05-27] MEDS: LOW STRENGTH ASPIRIN 81 MG PO (11:25)
--- NOTE | 2024-05-27 11:31 | CM ---
Patient seen at bedside.
Patient returned from GI procedure.
Spoke with Dr. Thurston & patient is to be discharged to home today.
No needs indicated. States will be following up with physician at [facility]
PLAN: Discharge to home. No needs.
Son to transport.
[2024-05-27] MEDS: CARAFATE 1 GRAM PO (12:38)
[2024-05-27] MEDS: VENTOLIN NEBULES INH (13:09)
--- NOTE | 2024-05-27 13:19 | W.PN.UPDATE ---
Update Note
Progress Note Update
patient seen chart reviewed. patient is leaving today. she seemed less anxious and more hopeful that eventually she will feel like her old self. we went over the endoscopy results. she is aware that there will be some followup necessary. she has
appointment scheduled at [facility] for gastric motility testing. she has the name and number of a psychologist that i would recommend for support while she pursues workups. also gave her the name of marshmallow runner who might be helpful for the pelvic pressure. at
this point she is not taking an antidepressant. would continue w gabapentin as is which she feels has helped her and klonopin at . she reports sleep is better.
--- NOTE | 2024-05-27 13:30 | W.PN.UPDATE ---
Update Note
Progress Note Update
I personally performed a history and physical exam of the patient and discussed management with the resident. I reviewed the resident's note and agree with the documented findings and plan of care HPI/CC except for changes in my documentation.
Abdomen -soft and nontender when patient's attention is diverted and palpated
Lower extremity no edema
CT enterography (03/16) with Marked gastric dilation with fluid-filled stomach. This extends to the level of the gastric antrum which shows circumferential abnormal wall thickening which is persistent on delayed images etiology of the wall thickening
is indeterminate at CT. This could be further evaluated with endoscopy. As above, there is apparent slight protrusion of the ileocecal valve into the cecum, evaluation somewhat limited secondary to paucity of intra-abdominal fat. No aranza ileocecal
intussusception is identified on this examination. There is no obstruction of the small bowel. No other intussusception is identified.
Colonoscopy-04/06/2024-examined ileum normal. Cecum and ileocecal valve normal. Mild erythematous mucosa in the transverse colon and ascending colon biopsied. Rectum and sigmoid colon and descending colon are normal. Many medium mouth and small
mouth diverticula in the sigmoid colon. Internal hemorrhoids.
Endoscopy 04/06/2024-Z-line irregular at the GE junction. Biopsied. Multiple nonbleeding superficial gastric ulcers/erosions with congested erythematous mucosa in the gastric antrum biopsied. Gastritis. Biopsied. Normal examined duodenum.
# Abdominal pain
EGD 05/26/2024 was aborted as she had food in the stomach which raises question about gastroparesis/motility disorder.
Repeat endoscopy 05/27/2024 without any acute changes. No duodenal pathology no ulcers
CAT scan with IV contrast-without any vascular compromise ruling out vascular reasons for her pain (CT abdomen and pelvis on 04/09/2024 did show some moderate calcific atherosclerotic plaque in the abdominal aorta)
CT Enterogram in March with out small bowel pathology.
I also discussed with the patient about motility disorders and to follow-up with a specialist for that. She has an appointment coming up at [facility] on June 11 at 3:15 PM
We discussed about treating her anxiety and depression which could be adding onto her symptoms. She needs to follow-up with psychiatry as outpatient
I also discussed about avoiding narcotics as much as she can and avoid constipation.
Continue Miralax at discharge
Continue PPI and Pepcid. Stop Carafate
# Anxiety and depression
Patient is on clonazepam only at present
I discussed about restarting Cymbalta which per psyche - cant be used with Reglan
# Anemia-MITCHELL- Replace IV while here. Patient is aware that she can get more IV infusions as outpatient
# Recent ileocecectomy to treat intussusception-Colorectal surgery eval appreciated
# Peptic ulcer disease/gastric erosions-repeat EGD with no changes. Continue PPI and stop Carafate
# History of C. difficile
# Mild to moderate protein calorie malnutrition-discussed about taking Ensure as outpatient
# Asthma/COPD
# Pulmonary nodules-follows up with
# Active smoker-cessation counseling done
# Diverticulosis
# Severe multilevel discogenic degenerative changes in the lumbar spine L2/L3, L3/L4, L4/L5 with severe loss of intervertebral disc space height, moderate-sized vertebral body endplate osteophytes and intervertebral disc vacuum foraminal.
# DVT prophylaxis-Lovenox
# Full code
Discussed with nursing
Discussed with GI
Discussed with patient's on the phone from patient's cell phone. Went in detail regarding all recommendations and follow-up care and EGD findings here.
Will discharge patient home with follow-up as outlined earlier in the note
Discharge planning time 45 minutes
[2024-05-27] MEDS: FERRLECIT 110 MG IV (13:44)
--- NOTE | 2024-05-27 14:05 | W.PN.HOSP.TC ---
Today's Communication/Plan
-
EGD, discharge home
Assessment / Plan
Assessment / Plan
58yo F with PMH of chronic abdominal pain, intussusception s/p ileocecectomy 04/28/24, anxiety, depression, COPD who presented to the ED 05/24 for abdominal pain and 1 episode of black watery stool
#chronic abdominal pain
#suspected delayed gastric emptying
#H/o intussusception s/p ileocecectomy
- Differential diagnosis is broad given that patient is somewhat inconsistent with describing symptoms
- CT abd/pelvis angio negative for vascular occlusion or GI bleed though limited due to presence of oral contrast (from outside facility few days prior to admission). Prior EGD noted gastritis, superficial gastric ulcers. Prior colonoscopy
unrevealing of cause of pain.
- Do not suspect single episode of black watery stool is due to infectious cause or GI bleed, reassured that this is not ongoing and subsequently had formed BM with no melena or hematochezia. Not having multiple episodes of diarrhea, low suspicion
for colitis or cdiff recurrence. Will consider testing stool if having diarrhea here.
- Unclear etiology or pathology, though pain is likely worsened by anxiety and depression. Recent opioid use/cessation may also contribute to hyperalgesia.
- S/p GI and colorectal surgery consults, appreciate evaluation and recommendations
- <del>Await</del> <del>results</del> <del>of</del> <del>EGD</del>. Update: EGD showed resolution of previous gastric ulcers; minimal gastritis, benign appearing gastric polyps, normal duodenum; pathology results pending.
- Continue protonix BID. Bedtime pepcid seemed to help AM nausea previously, will continue.
- Optimize pain control with tylenol, heating pad
- Continue standing miralax daily to improve bowel regularity
- Avoid opiates if possible, or limit quantity and duration
- GI appointment scheduled with Dr. Jacquie Paul 20 at 3:30. I called their office to confirm [phone].
- Counseled patient extensively that she needs to schedule an appointment within 1 week to see her PCP, and that she needs to ask her PCP about getting medication refills in advance. Spoke with their office today and confirmed they have availability
with Dr/PROCESS ARCHITECT this coming week.
#depression
#anxiety
- Continue home clonazepam 0.5mg BID
- S/p psychiatry consult, appreciate recs
- Continue gabapentin per psych
- Will hold off on initiating additional psychiatric medications as there are numerous interactions and risks with concurrent reglan use. Plan to reevaluate if able to reduce reglan use.
- We discussed extensively that she should follow up with her PCP for medication refills. May consider establishing care with therapist or psychiatrist outpatient as well.
#chronic anemia
#iron deficiency anemia
- Hgb 9.5 on admission, improvement from last cbc in emr
- Hgb 9.5 --> 7.6 and has been stable x3 days
- No active bleeding or bruising, no hematochezia or melena
- Iron labs consistent with Fe deficiency. Previously on oral Fe though patient discontinued prior to admission
- Reticulocyte count wnl now. Will recheck in about 2 weeks to ensure appropriate rise in response to iron supplementation.
- Will give IV Fe while here
- Avoid oral Fe supplementation given GI side effects. Recommend she follow up with PCP for outpatient IV Fe infusions.
- Repeat CBC, iron studies, reticulocyte count 1-2 weeks after discharge and follow up with PCP
#Mild to moderate protein calorie malnutrition- Ensure supplements
#COPD- continue home inhalers
#Pulmonary nodule- follows with publishing manager
#Current smoker- 8cig/day, declines nicotine patch
#Degenerative disc disease
Code status: Full
VTE ppx: SCDs, ambulation as tolerated, lovenox
Diet: NPO prior to EGD
Dispo planning: anticipate discharge home today after EGD
Anticipated Discharge: Today
Subjective/Interval History
-
Date of Service: May 27, 2024
No acute events overnight. She reports feeling worse today than yesterday; she attributes her increased nausea, abdominal pain, lightheadedness, dizziness, fatigue to a 'big bowel movement' she had earlier today as well as being on clear liquid diet
yesterday and NPO after midnight. No black or bloody stools. Denies chest pain, shortness of breath. Tolerating regular diet. Ambulating well without assistance.
Objective Data
-
Labs:
Laboratory Results
05/27/24
04:56
WBC 4.4 L
Hgb 7.6 L
Hct 24.0 L
Plt Count 233
Sodium 146 H
Potassium 3.8
Chloride 110 H
Carbon Dioxide 25
BUN 4 L
Creatinine 0.7
Glucose 87
Calcium 9.5
Total Bilirubin 0.2
AST 17
ALT < 10
Alkaline Phosphatase 73
Vital Signs:
Vital Signs
Temp Pulse Resp BP Pulse Ox
97.8 F 88 15 129/87 98
05/27/24 09:55 05/27/24 10:05 05/27/24 10:05 05/27/24 10:05 05/27/24 10:05
I&O
05/26/24 05/27/24 05/28/24
06:59 06:59 06:59
Intake Total 2340 / 2340 1560 / 1560
Balance 2340 / 2340 1560 / 1560
Review of Systems
-
History Source: Patient
All other systems: Reviewed and negative
Physical Exam
-
General: Well Developed, No Apparent Distress, Comfortable and Conversant
HEENT: Normocephalic, Atraumatic and Anicteric
Respiratory: Clear to Auscultation and Non Labored Respirations
Cardiac: Regular Rhythm and S1/S2
GI: Soft, Nondistended, Normal Bowel Sounds and Tender (minimal TTP diffusely, which decreases with distraction)
Musculoskeletal: No Cyanosis, No Edema and Normal Gait & Station (ambulating well in room with no assistance)
Skin: Warm and Dry
Neuro: Awake, Alert, Oriented and Nonfocal/Grossly Intact
Psych: Calm
Data Reviewed
-
Labs: Labs Reviewed by me and Discussed with Physician
[2024-05-27 15:00] VITALS: BP 85/51
--- NOTE | 2024-05-27 17:35 | W.DCSUMMARY ---
Discharge Summary
Discharge Data
Date of Admission: 05/24/24
Date of Discharge: 05/27/24
-
Pending Results: Yes
Additional Pending Results:
EGD biopsy pathology results 05/27/24
Hospital Course
Discharging Physician : Dr. Garcia, Dr. Thurston
Disposition : Home
Primary care physician : Dr. De Luna
Principal Discharge diagnosis : Chronic abdominal pain, possible delayed gastric emptying, iron deficiency anemia
Chronic Discharge diagnosis : Depression, anxiety, chronic anemia
Hospital Course : Presented to ED on 05/24 for abdominal pain and 1 episode of black watery stool. In short, she has had daily constant abdominal pain for several months. Initially the pain was associated with bowel movements, but then became
constant. She has had multiple evaluations in the EDs of [facility]. During one of these, a CT revealed intussusception for which she underwent ileocecectomy 04/28/24. Since then her pain, nausea, and fatigue have worsened.
Colorectal surgery followed throughout this hospitalization. GI was consulted and she had an EGD on 05/26/24 that had to be aborted due to large amount of food residue in stomach, despite being NPO at midnight leading up to procedure. This raises
possibility of delayed gastric emptying, for which she should have an outpatient gastric emptying study. She was kept on a clear liquid diet for the rest of the day, and made NPO after midnight again. A second EGD was performed 05/27/24 and revealed
her previous gastric ulcers have healed. For her anemia, iron studies confirmed iron deficiency and she was started on daily IV iron infusions while inpatient. Her hgb was stable at discharge. Psychiatry was consulted for her depression and anxiety.
She requires follow up with GI outpatient which is scheduled, and close follow up with her PCP. On day of discharge she was stable and she was discharged home.
Important imaging findings :
Abd/pelvis CT angio 05/24/24
IMPRESSION:
Evaluation for active colonic bleeding markedly limited by residual oral contrast in the colon without gross active colonic bleeding confirmed at this time.
Prior colonic anastomoses again seen, limited in evaluationWithout oral contrast administered at this time, without gross focal accompanying abnormality.
No evidence of abdominal aortic aneurysm or dissection.
Procedure findings :
EGD 05/26/24
Impression: - The procedure was aborted due to presence of food.
- Small hiatal hernia.
- Z-line regular.
- A large amount of food (residue) in the stomach.
Procedure aborted.
- No specimens collected.
EGD 05/27/24
Impression: - Normal proximal esophagus, mid esophagus and distal
esophagus.
- Z-line irregular, 40 cm from the incisors. Biopsied.
- A few, bening appearing gastric polyps in the
fundus. Endoscopically, consistent with benign fundic
gland polyps.
- Minimal gastritis in the pre-pyloric region.
Biopsied to rule out H pylori.
- Otherwise, normal stomach on direct and retroflexion
views without any ulcerations or erosions. The
previous gastric ulcers were healed. Biopsies from the
antrum and body were taken to rule out H pylori.
- Normal examined duodenum up to the third portion.
Biopsied to rule out Celiac.
- The exam was otherwise without abnormality without
any significant findings throughout the examined upper
GI tract to account for patient's symptoms.
Discharge Plan
-
Patient Disposition: Home (Routine Discharge)
Discharge Diagnosis/Procedures: Chronic abdominal pain, possible delayed gastric emptying, depression, anxiety, iron deficiency anemia
Condition: Good
Diet: As tolerated and Other diet
Additional Diets: 6 small meals a day. Supplement with Ensure as needed to meet daily nutritional needs.
Activity: No restrictions
Additional Activity: Encourage going for walks as tolerated.
Driving Restrictions: No driving for 24 hours
Bathing Restrictions: OK to Shower
Blood Work: CBC, reticulocyte count, iron studies (iron, ferritin, TIBC, %saturation) 1-2 weeks after hospital discharge
Others Tests: Gastric emptying study as outpatient
Activity Restrictions/Additional Instructions:
6 small meals a day instead of 3 big meals. Take Ensure supplements. Do not lay down for a few hours after you eat dinner. Avoid constipation. Make sure you keep up with appointments.
Instructions: Acid reflux and GERD in adults, Depression in adults - Discharge instructions, Abdominal pain in adults - Discharge instructions, Anemia caused by low iron in adults - Discharge instructions, Good food sources of iron
Referrals:
Sadi Pinto MD [Active] -
[facility] MD [Non-Admitting Privileges] - 06/03/24 3:30 pm (You have an appointment scheduled with Dr. [facility] on Sunday 06/03 at 3:30pm. )
Daniel De Luna DO [Family Provider] - in less than 1 week (Please call your PCP to schedule a follow up appointment within 1 week of hospital discharge. This is very important!)
Additional Discharge Medication Instructions: Ask your primary care provider about refills for any of your medications, including the ones that we send to your pharmacy from the hospital
New medications:
- Polyethylene glycol (also known as miralax or healthylax): Take 1 packet per day everyday. You can get this from the pharmacy with a prescription, or you can buy it over the counter.
- Famotidine 20mg tablet (also known as pepcid): Take 1 tablet every night at bedtime.
- Gabapentin 100mg capsule: Take 1 pill three times per day everyday.
Continue taking these medications that you already have:
- Metaclopramide 10mg tablet (also known as reglan): Take 1 tablet every 6 hours as needed for nausea.
- Pantoprazole 40mg tablet (also known as protonix): Take 1 tablet twice per day for 8 weeks. After that, take 1 tablet once per day.
- Continue your rosuvastatin, inhalers, singulair, clonazepam, aspirin, and tylenol like you were prior to this hospitalization
Stop taking these medications:
- Odansetron (also known as zofran)
- Sucralfate (also known as carafate)
- Hyoscyamine (also known as anaspaz, levsin, symax)
- Uro-MP (this is a medication for cystitis)
- Iron pills (you need to talk to your primary care provider about IV iron infusions instead)
Do not take NSAIDs like advil or aleve.
Do not take opioids like oxycodone or tramadol unless they are prescribed for another reason (other than your current belly pain). They do not help your abdominal pain in the long run and have many side effects like constipation.
Other things you can do to help your abdominal pain and nausea:
- Using a heating pad.
- Eating 6 small meals a day instead of 3 large meals a day.
- Do not lie down or go to sleep within a few hours of eating a meal. Try to stay upright like sitting up, standing, walking around.
- Keep a journal of your activities, diet, medications, bowel movements, and symptoms to see if your pain is related to any of these.
- Increase your activity level gradually if you can. You can try going on walks if you like.
- Talking to a therapist or seeing a psychiatrist might help with feeling overwhelmed. You can also talk to them or your regular primary care provider about medication for depression/anxiety that may also help with chronic pain.
- Keep your appointment with Dr. [facility] on Thursday06/03/24. We recommend a gastric emptying study.
Eat a well balanced diet and supplement with Ensure drinks. Make sure you are eating everyday to continue fueling your body and getting important nutrients. Make sure you stay well hydrated.
It is important that you schedule an appointment with your primary care provider (Dr. De Luna or the TWISTING FRAME FIXER in the office). Your PCP is the quarterback of your medical care!
Prescriptions:
New
polyethylene glycol 3350 [HealthyLax] 17 gram Powder In Packet
17 g PO DAILY Qty: 30 0RF
gabapentin 100 mg Capsule
100 mg PO TID Qty: 90 0RF
famotidine [Acid Controller] 20 mg tablet
20 mg PO HS Qty: 30 0RF
Continued
clonazepam 0.5 mg Tablet
0.5 mg PO BID
aspirin 81 mg Tablet,Chewable
81 mg PO DAILY
montelukast [Singulair] 10 mg Tablet
10 mg PO QPM
rosuvastatin 10 mg Tablet
10 mg PO QPM
fluticasone furoate-vilanterol [Breo Ellipta] 100-25 mcg/dose Blister With Device
1 inh INHALATION R DAILY
acetaminophen 325 mg Tablet
650 mg PO Q4HPRN PRN (Reason: pain) Qty: 0 0RF
pantoprazole [Protonix] 40 mg tablet,delayed release (DR/EC)
40 mg PO BID Qty: 100 0RF
metoclopramide HCl [Reglan] 10 mg tablet
10 mg PO Q6H PRN (Reason: nausea and vomiting) Qty: 7 0RF
albuterol sulfate 2.5 mg /3 mL (0.083 %) Solution For Nebulization
2.5 mg INHALATION R TID
Discontinued
Uro-MP 118-10-40.8-36 mg Capsule
1 tab PO TIDPRN PRN (Reason: discomfort )
sucralfate 1 gram Tablet
1 g PO ACHS Qty: 60 0RF
hyoscyamine sulfate 0.125 mg tablet,disintegrating
0.125 mg PO BIDPRN PRN (Reason: spasms)
ondansetron HCl 4 mg tablet
4 mg PO Q6HPRN PRN (Reason: nausea and vomiting)
Discharge Orders:
Discharge Patient (As Directed); Ordered 05/27/24
Ordered By: Lawanda Garcia
Discharge Date and Time
Discharge Date/Time: 05/27/24 17:07
Print Language: KAZAKH
== END 2024-05-27 17:07 | disposition home or self-care (01) ==
LOC: SDS 18:38
PROVIDERS: Nurse Practitioner Adult Health; Student in an Organized Health Care Education/Training Program; ATTENDING PHYSICIAN Hospitalist; CONSULT PHYSICIAN Psychiatry & Neurology Psychiatry; CONSULT PHYSICIAN Surgery; EMERGENCY PHYSICIAN Emergency Medicine; FAMILY PHYSICIAN Family Medicine; OTHER PHYSICIAN Student in an Organized Health Care Education/Training Program
DX: G89.29 Other chronic pain (principal); R10.9 Unspecified abdominal pain; J44.89 Other specified chronic obstructive pulmonary disease; E78.00 Pure hypercholesterolemia, unspecified; F17.210 Nicotine dependence, cigarettes, uncomplicated; D50.9 Iron deficiency anemia, unspecified; R62.7 Adult failure to thrive; F41.9 Anxiety disorder, unspecified; F32.A Depression, unspecified; R15.9 Full incontinence of feces; R63.4 Abnormal weight loss; R53.83 Other fatigue; R55 Syncope and collapse; K21.9 Gastro-esophageal reflux disease without esophagitis; R91.1 Solitary pulmonary nodule; I10 Essential (primary) hypertension; K62.5 Hemorrhage of anus and rectum; K44.9 Diaphragmatic hernia without obstruction or gangrene; R10.13 Epigastric pain; K25.9 Gastric ulcer, unspecified as acute or chronic, without hemorrhage or perforation; R00.0 Tachycardia, unspecified; K22.89 Other specified disease of esophagus; K31.7 Polyp of stomach and duodenum; E44.0 Moderate protein-calorie malnutrition; K29.70 Gastritis, unspecified, without bleeding; R91.8 Other nonspecific abnormal finding of lung field; K57.30 Diverticulosis of large intestine without perforation or abscess without bleeding; I34.1 Nonrheumatic mitral (valve) prolapse; Z87.440 Personal history of urinary (tract) infections; Z80.0 Family history of malignant neoplasm of digestive organs; Z88.2 Allergy status to sulfonamides; Z79.82 Long term (current) use of aspirin; Z79.51 Long term (current) use of inhaled steroids; Z82.49 Family history of ischemic heart disease and other diseases of the circulatory system; Z87.442 Personal history of urinary calculi; Z90.49 Acquired absence of other specified parts of digestive tract; Z88.1 Allergy status to other antibiotic agents; Z87.11 Personal history of peptic ulcer disease; Z87.19 Personal history of other diseases of the digestive system; Z53.8 Procedure and treatment not carried out for other reasons; Z68.1 Body mass index [BMI] 19.9 or less, adult
CPT/HCPCS: 43235; 43239; 88305; 74174; 80053; 81003; 81015; 82607; 82728; 83540; 83550; 83690; 84443; 85025; 85027; 85045; 85610; 86850; 86900; 86901; 88342; 93005; 94640; 96361; 96374; 96375; 99285; G0378; J2916; Q9967

== ENCOUNTER 2024-06-10 11:19 | Emergency (ER) | payer BC, SELFPAY ==
[2024-06-10 11:23] VITALS: BP 115/68
--- NOTE | 2024-06-10 12:09 | ED.GENMED ---
History of Present Illness
General
Chief Complaint: Abdominal Pain
Time Seen by Provider: 06/10/24 12:09
History of Present Illness
History of Present Illness:
HPI: Since March of this year she has been having abdominal pain. She was initially seen in the emergency department and discharged, then she was admitted diagnosed with a C. difficile infection. She came back to the hospital and again was
discharged from emergency department. On 04/28/2024 she went to the OR for ileocecal intussusception and had an ileocecectomy. She was admitted here again in May with a prolonged hospital and was felt to have possible delayed gastric
emptying/ongoing abdominal pain, and has iron deficiency anemia. She had an EGD 2 weeks ago that was relatively unremarkable. She comes in here today because of ongoing cramping, poor p.o. intake, and trouble breathing. She states that she called
Dr. Osman's office who recommended additional albuterol. She says that she saw a motility specialist who did not think that it was a motility issue. She was at [facility] 06/04/2021 which was unremarkable. D-dimer at that time was negative as
well.
EXAM:
GENERAL: Patient is tearful and upset and appears somewhat uncomfortable, is thin
HEENT: Slightly dry oral mucosa
CARDIOVASCULAR: No murmurs, normal heart rate, regular rhythm, No chest wall tenderness
PULMONARY: No respiratory distress, breath sounds are clear and equal
ABDOMEN: Soft with no peritoneal signs, no tenderness
NEUROLOGIC: Excellent strength all extremities, no coordination deficits
PSYCHIATRIC: Tearful and somewhat anxious
EXTREMITIES: Nontender, no edema, moves all extremities equally
SKIN: No rash, no lesions
TIME OF INITIAL ENCOUNTER: 12:20 PM
NUMBER AND COMPLEXITY OF PROBLEMS ADDRESSED AT THE ENCOUNTER
� Chronic conditions affecting care: Had ileocecectomy in April 2024
� Acute Exacerbation and/or Progression of Chronic Illness: This is a subacute/ongoing problem
� Differential Diagnosis includes: Anxiety related, bowel obstruction, dehydration, COSME
AMOUNT AND/OR COMPLEXITY OF DATA TO BE REVIEWED AND ANALYZED
� I performed an independent evaluation of and my interpretation is:
EKG:
CT:
X-rays:
Laboratory Studies: White count normal, hemoglobin improved, chemistries unremarkable, of note patient's albumin is 4.4
Other:
� Review of other/old records: See HPI for review of the recent medical record
� Clinical information was obtained by an independent historian: None needed
� Prescriptions/Medications Considered but not given:
� Further testing considered but not performed: Considered CT imaging of the abdomen pelvis however she has had multiple recent studies and has a soft abdomen currently. Consider chest x-ray however the patient is moving air
very well and does not appear to be in any respiratory distress and more strong suspect psychiatric component.
RISK OF COMPLICATIONS AND/OR MORBIDITY OR MORTALITY OF PATIENT MANAGEMENT
� Social determinants of health affecting care: Lives at home
� Discussion with other providers: Notified Dr. Caldwell and Dr. Pinto of the patient's presentation.
� Escalation of care including admission/observation vs risk of discharge considered: The patient has ongoing cramping for months. She also has shortness of breath. We did give IV fluids. We also gave a little bit of IV
Ativan. On reassessment at around 2 PM, the patient states that she does not feel that much better however she does appear less anxious. Her room air sats remained at 99%. She has a soft abdomen. I spoke to Dr. Pinto and I also spoke to GI at
his recommendation. No clear indication for admission the hospital. GI emptying study would be done as an outpatient and I also confirmed this with [facility] that they cannot do this today. Will switch from Bentyl to Levsin and also try steroids to
help treat any bronchitic symptoms and which may or may not help the abdominal discomfort. Blood work is reassuring.
Past History
Past History
ED Past Medical History: Asthma, COPD (Questionable Asthma/COPD according to patient), Hypercholesterolemia and Other (Kidney stones, Interstitial cystitis)
ED Past Surgical History: None; Negative Cardiac
Social History
Tobacco: Smoker
Alcohol: None
Drug: None
Personal:
Living: with family
Employment: Employed
Family History
Family History: CAD
Phy Exam
Physical Exam
Physical Exam:
See HPI
Course
Orders/Labs/Results
Orders:
Orders
06/10/24 11:27
Electrocardiogram (*1) Urgent
Reason for Study: Shortness of Breath
EKG- Treatment ONCE
06/10/24 12:13
0.9% Sodium Chloride 1000 ml [Nss] 1,000 ml IV BOLUS
06/10/24 12:24
Lorazepam [Ativan] 0.5 mg IV NOW STA
06/10/24 12:29
Complete Blood Count/With Diff Urgent
Comprehensive Metabolic Panel Urgent
Lipase Urgent
06/10/24 13:19
Dexamethasone Sod Phosphate [Decadron] 6 mg IV NOW STA
Ipratropium/Albuterol Sulfate [Duoneb] 3 ml INH R NOW ONE
Abnormal Lab Results
06/10/24
12:29
RBC 3.26 L 10^6/uL
(4.20-5.40)
Hgb 10.2 L g/dL
(12.0-16.0)
Hct 30.8 L %
(37.0-47.0)
MCH 31.3 H pg
(27.0-31.0)
RDW 15.0 H %
(11.5-14.5)
Immature Gran % 0.6 H %
(0-0.5)
Glucose 119 H mg/dl
(70-99)
Total Bilirubin 0.1 L mg/dl
(0.2-1.3)
06/10/24 12:29
06/10/24 12:29
Vital Signs
Initial and Last Documented VS:
Initial Vital Signs
Temp Pulse Resp BP Pulse Ox
98.4 F 107 16 115/68 97
06/10/24 11:23 06/10/24 11:23 06/10/24 11:23 06/10/24 11:23 06/10/24 11:23
Last Documented Vital Signs
Temp Pulse Resp BP Pulse Ox
98.4 F 107 16 115/68 97
06/10/24 11:23 06/10/24 11:23 06/10/24 11:23 06/10/24 11:23 06/10/24 11:23
*Critical Care Note
Total Time (30-74mins, 75-104mins- exclusive of procedures): Not Applicable
ED Attending Note
-
Portions of this chart may have been created with voice recognition software.� Occasional wrong word or��sound alike� substitutions may have occurred due to the inherent limitations of voice recognition software.
Discharge Plan
Departure
Patient Disposition: Home (Routine Discharge)
Date of Disposition: 06/10/24
Time of Disposition: 13:59
Patient with high blood pressure during this ER visit?: No
Discharge Problem:
Abdominal pain, Intractable abdominal pain
Instructions: Abdominal Pain
Prescriptions:
New
prednisone 20 mg tablet
20 mg PO DAILY Qty: 4 0RF
hyoscyamine sulfate [Levsin] 0.125 mg tablet
0.125 - 0.25 mg PO QID PRN (Reason: abdominal pain) Qty: 30 0RF
No Action
clonazepam 0.5 mg Tablet
0.5 mg PO BID
aspirin 81 mg Tablet,Chewable
81 mg PO DAILY
montelukast [Singulair] 10 mg Tablet
10 mg PO QPM
rosuvastatin 10 mg Tablet
10 mg PO QPM
fluticasone furoate-vilanterol [Breo Ellipta] 100-25 mcg/dose Blister With Device
1 inh INHALATION R DAILY
acetaminophen 325 mg Tablet
650 mg PO Q4HPRN PRN (Reason: pain) Qty: 0 0RF
pantoprazole [Protonix] 40 mg tablet,delayed release (DR/EC)
40 mg PO BID Qty: 100 0RF
metoclopramide HCl [Reglan] 10 mg tablet
10 mg PO Q6H PRN (Reason: nausea and vomiting) Qty: 7 0RF
albuterol sulfate 2.5 mg /3 mL (0.083 %) Solution For Nebulization
2.5 mg INHALATION R TID
polyethylene glycol 3350 [HealthyLax] 17 gram Powder In Packet
17 g PO DAILY Qty: 30 0RF
gabapentin 100 mg Capsule
100 mg PO TID Qty: 90 0RF
famotidine [Acid Controller] 20 mg tablet
20 mg PO HS Qty: 30 0RF
Referrals:
Sadi Pinto MD [Active] - As needed
Daniel De Luna DO [Family Provider] -
Daniel Overton DO [Non-Admitting Privileges] - Follow up in 5-7 days
Activity Restrictions/Additional Instructions:
I discussed your case with Dr. Pinto several times. I also spoke to GI doctor. I also spoke to nuclear med�this study cannot be done now nor over the weekend�this is generally done as an outpatient. Therefore I recommend you follow-up with
[facility] as you said you would do this Thursday. Dr. Pinto also suggested trying a probiotic and I will leave this up to you if you want to try it. If you are not improving with Bentyl�there is another antispasmodic medicine called Levsin. If you
take the Levsin, do not take the Bentyl. I am sending a prescription for this to your pharmacy. This may or may not help symptoms. I have also given you a prescription for steroids over the next few days. This is more for the breathing but it
may help decrease any possible inflammation in the abdomen as well. I do not recommend narcotic pain medication at this point.
Interventions
Interventions:
*Risk Screen - Suicide Last Done: 06/10/24 11:27
*Neglect/Abuse Screening Last Done: 06/10/24 11:27
Discharge Date and Time
Print Language: EGYPTIAN
[2024-06-10] MEDS: ATIVAN 0.5 MG IV (12:34)
[2024-06-10] MEDS: NSS 1000 IV (12:35)
[2024-06-10 12:39] LABS: % Basophils 0.8 % (0-2); % Eosinophils 0.2 % (0-6); % Immature Granulocytes 0.6 % (0-0.5); % Monocytes 5.8 % (1.7-9.3); % Neutrophils 70.6 % (42.2-75.2); Absolute Lymphocytes 1.2 10^3/uL (1.2-3.4); Absolute Monocytes 0.3 10^3/uL (0.1-0.6); Absolute Neutrophils 3.8 10^3/uL (1.4-6.5); Hematocrit 30.8 % (37.0-47.0); Hemoglobin 10.2 g/dL (12.0-16.0); Mean Corp Hgb Conc. 33.1 g/dL (33.0-37.0); Mean Corpuscular Hgb 31.3 pg (27.0-31.0); Mean Corpuscular Volume 94.5 fL (81.0-99.0); Mean Platelet Volume 9.4 fL (7.4-10.4); Nucleated Red Blood Cells % 0 %; Platelet Count 319 10^3/uL (130-400); Red Blood Cell Count 3.26 10^6/uL (4.20-5.40); White Blood Cell Count 5.3 10^3/uL (4.8-10.8)
[2024-06-10 12:51] LABS: ALT (SGPT) 15 U/L (0-35); AST (SGOT) 22 U/L (14-36); Albumin 4.4 g/dl (3.5-5.0); Alkaline Phosphatase 60 U/L (38-126); Blood Urea Nitrogen 17 mg/dl (7-17); Calcium 10.1 mg/dl (8.4-10.2); Carbon Dioxide 25 mmol/L (22-30); Chloride 104 mmol/L (98-107); Glucose 119 mg/dl (70-99); Lipase 115 U/L (23-300); Potassium 4.2 mmol/L (3.5-5.1); Sodium 141 mmol/L (135-145); Total Bilirubin 0.1 mg/dl (0.2-1.3); Total Protein 6.5 g/dl (6.3-8.2); eGFR > 60.00
[2024-06-10] MEDS: DUONEB 3 ML INH (13:33)
[2024-06-10] MEDS: DECADRON 6 MG IV (13:33)
[2024-06-10 14:42] VITALS: BP 110/62
== END 2024-06-10 14:45 | disposition home or self-care (01) ==
LOC: EMR 11:19
PROVIDERS: EMERGENCY PHYSICIAN Emergency Medicine; FAMILY PHYSICIAN Family Medicine
DX: R10.9 Unspecified abdominal pain (principal); J44.89 Other specified chronic obstructive pulmonary disease; E78.00 Pure hypercholesterolemia, unspecified; K56.1 Intussusception; F17.200 Nicotine dependence, unspecified, uncomplicated; Z82.49 Family history of ischemic heart disease and other diseases of the circulatory system; Z87.442 Personal history of urinary calculi
CPT/HCPCS: 99283; 80053; 83690; 85025; 93005

== ENCOUNTER 2024-07-25 12:12 | Emergency (ER) | payer BC, SELFPAY ==
[2024-07-25] VITALS (7 sets, daily range): BP systolic 98–114; BP diastolic 46–75; BMI 19.5
--- NOTE | 2024-07-25 13:45 | ED.GENMED ---
History of Present Illness
General
Chief Complaint: Breathing Problem
Source: patient
Exam Limitations: none
Time Seen by Provider: 07/25/24 13:34
Nursing documentation reviewed up to this point in time: agreed with
History of Present Illness
History of Present Illness:
Patient is a 58-year-old female with COPD intussusception with chronic abdominal pain since November. She had surgery for intussusception(ileocectomy ). by in April however has had persistent pain. She has not had gastroparesis and gastric
emptying test all of which were negative.
Patient reports typically she has chronic pain and nausea and uses Bentyl every day along with Tylenol and Zofran however pain seemed to worsen after lifting a [place] tree on Thursday. She feels as if she has pulled something. She did notify
.
In addition patient has had what she reports is a mild COPD flare with cough. She denies any shortness of breath now. Lungs are clear not hypoxic.
Past History
Past History
ED Past Medical History: Asthma, COPD (Questionable Asthma/COPD according to patient), Hypercholesterolemia and Other (Kidney stones, Interstitial cystitis)
ED Past Surgical History: None; Negative Cardiac
Social History
Tobacco: Smoker
Alcohol: None
Drug: None
Personal:
Living: with family
Employment: Employed
Family History
Family History: CAD
Review of Systems
Review of Systems
Allergies reviewed?: Yes
All Other Systems: ROS reviewed and negative except as documented in HPI and ROS
Constitutional: Reports no symptoms
Respiratory: Reports cough and other ('my COPD acting up ' )
Cardiac: Reports no symptoms
ABD/GI: Reports abdominal pain; Denies nausea, vomiting or diarrhea
: Reports no symptoms; Denies dysuria, flank pain, incontinence, urgency or discharge
Musculoskeletal: Reports no symptoms
Skin: Reports no symptoms
Hematologic/Lymphatic: Reports no symptoms
Psychiatric: Reports no symptoms
Phy Exam
General Physical Exam
General Presentation: no apparent distress
General age: appears stated age
General Skin: warm and dry
General Habitus: normal
General Mental: alert
General Hydration: appears well hydrated
General Chronic Disability: contractures
Cardiovascular Exam
Cardiovascular Exam: regular rate/rhythm, no murmur and normal peripheral pulses
Pulmonary Exam
Pulmonary Exam: lungs clear and no respiratory distress
Gastrointestinal Exam
Gastrointestinal Exam: soft and other (Mild nonspecific lower abdominal tenderness no guarding)
Neurological Exam
Neurological Exam: alert and oriented x3
Musculoskeletal Exam
Musculoskeletal Exam: full ROM
Skin Exam
Skin Exam: normal color and warm/dry
Psychiatric Exam
Psychiatric Exam: normal mood/affect
Scores
Heart Failure Risk
Heart Failure Risk Score: Not Applicable
Course
Orders/Labs/Results
Orders:
Orders
07/25/24 13:49
IV Insert/Care/Rem.- Treatment PRN
0.9% Sodium Chloride 1000 ml [Nss] 1,000 ml IV BOLUS
07/25/24 13:54
Complete Blood Count/With Diff Urgent
Comprehensive Metabolic Panel Urgent
Urinalysis Reflex To Culture Urgent
Date Specimen was Collected: 07/25/24
Time Specimen was Collected: 13:53
07/25/24 13:57
CT Abd/pel W Iv And Oral Contr Urgent
Comment:
Reason For Exam: lower abd pain after lifitng hx of bowel surg
Iohexol [Omnipaque] See Protocol PO NOW STA
07/25/24 13:58
Ondansetron Injectable [Zofran] 4 mg IV NOW STA
07/25/24 13:59
HYDROmorphone [Dilaudid] 0.5 mg IV NOW STA
07/25/24 15:52
Albuterol Nebs [Ventolin Nebules] 2.5 mg INH R NOW STA
Abnormal Lab Results
07/25/24
13:54
RBC 3.55 L 10^6/uL
(4.20-5.40)
Hgb 10.9 L g/dL
(12.0-16.0)
Hct 33.6 L %
(37.0-47.0)
MCHC 32.4 L g/dL
(33.0-37.0)
Total Bilirubin < 0.1 L mg/dl
(0.2-1.3)
07/25/24 13:54
07/25/24 13:54
Vital Signs
Initial and Last Documented VS:
Initial Vital Signs
Temp Pulse Resp BP Pulse Ox
97.8 F 105 22 110/75 100
07/25/24 12:15 07/25/24 12:15 07/25/24 12:15 07/25/24 12:15 07/25/24 12:15
Last Documented Vital Signs
Temp Pulse Resp BP Pulse Ox
97.8 F 105 22 114/46 100
07/25/24 12:15 07/25/24 12:15 07/25/24 12:15 07/25/24 17:15 07/25/24 12:15
MDM/Problems Addressed
Differential Diagnosis Includes:
Not limited to diverticulitis, hernia, muscle strain, chronic abdominal pain, COPD exacerbation
MDM/Problems Addressed:
As documented patient is a 58-year-old female with chronic abdominal pain since having intussusception and bowel surgery several months ago. She has been followed by here. She presents with lower abdominal cramping and pain and reports
it was worse after the [place] tree several days ago. In addition she complains of having a mild flare of her COPD. She presents awake alert no acute distress mild nonspecific lower abdominal tenderness. I did discuss with Dr. Pinto CAT scan
was ordered and I did review results with him. CAT scan does show moderate distention of the proximal ascending colon and mild distention of the transverse colon however no other acute findings. Patient has a specialist appoint Jamari including
motility specialist a urologist as well as a GI specialist. Patient feels comfortable going home. Will as requested give patient several days of prednisone for COPD flare however lungs are clear here in the ER she was given a neb however has had
recent cough and feels that her COPD has been acting up. She otherwise is in no acute distress and stable for discharge home
*Radiology
Radiology exam reviewed: radiology read reviewed
*Critical Care Note
Total Time (30-74mins, 75-104mins- exclusive of procedures): Not Applicable
Data Reviewed
Review of Other/Old Records Reveals: Radiology Studies and Discharge Summary
Patient Management
Discussion with other providers: [employer] (DR Pinto )
ED Attending Note
-
Portions of this chart may have been created with voice recognition software.� Occasional wrong word or��sound alike� substitutions may have occurred due to the inherent limitations of voice recognition software.
Discharge Plan
Departure
Patient Disposition: Home (Routine Discharge)
Date of Disposition: 07/25/24
Time of Disposition: 17:41
Patient with high blood pressure during this ER visit?: No
Covid-19: Not Applicable
Discharge Problem:
Abdominal pain
Instructions: Abdominal Pain
Prescriptions:
New
prednisone 50 mg tablet
50 mg PO DAILY Qty: 5 0RF
No Action
clonazepam 0.5 mg Tablet
0.5 mg PO BID
aspirin 81 mg Tablet,Chewable
81 mg PO DAILY
montelukast [Singulair] 10 mg Tablet
10 mg PO QPM
rosuvastatin 10 mg Tablet
10 mg PO QPM
fluticasone furoate-vilanterol [Breo Ellipta] 100-25 mcg/dose Blister With Device
1 inh INHALATION R DAILY
acetaminophen 325 mg Tablet
650 mg PO Q4HPRN PRN (Reason: pain) Qty: 0 0RF
pantoprazole [Protonix] 40 mg tablet,delayed release (DR/EC)
40 mg PO BID Qty: 100 0RF
metoclopramide HCl [Reglan] 10 mg tablet
10 mg PO Q6H PRN (Reason: nausea and vomiting) Qty: 7 0RF
albuterol sulfate 2.5 mg /3 mL (0.083 %) Solution For Nebulization
2.5 mg INHALATION R TID
polyethylene glycol 3350 [HealthyLax] 17 gram Powder In Packet
17 g PO DAILY Qty: 30 0RF
gabapentin 100 mg Capsule
100 mg PO TID Qty: 90 0RF
famotidine [Acid Controller] 20 mg tablet
20 mg PO HS Qty: 30 0RF
prednisone 20 mg tablet
20 mg PO DAILY Qty: 4 0RF
hyoscyamine sulfate [Levsin] 0.125 mg tablet
0.125 - 0.25 mg PO QID PRN (Reason: abdominal pain) Qty: 30 0RF
Referrals:
Daniel De Luna DO [Family Provider] -
Activity Restrictions/Additional Instructions:
Follow-up with your specialist appointments in the next several weeks/months. Continue present medications. In addition as requested a small prescription for steroids for 5 days was sent to your pharmacy for COPD. Continue to use your treatments
at home. Return if any worsening of symptoms.
Interventions
Interventions:
*Risk Screen - Suicide Last Done: 07/25/24 13:49
*General Assessment Last Done: 07/25/24 13:49
*Neglect/Abuse Screening Last Done: 07/25/24 13:49
ED- Fall Risk Assessment Last Done: 07/25/24 13:49
*ED COVID-19 Vaccine History Last Done: 07/25/24 12:16
ED- Cardiac Assessment Last Done: 07/25/24 13:49
ED- Pulmonary Assessment Last Done: 07/25/24 13:49
Discharge Date and Time
Print Language: LAO
[2024-07-25] MEDS: NSS 1000 IV (14:05)
[2024-07-25] MEDS: OMNIPAQUE 50 ML PO (14:06)
[2024-07-25] MEDS: ZOFRAN 4 MG IV (14:06)
[2024-07-25] MEDS: DILAUDID 0.5 MG IV (14:07)
[2024-07-25 14:09] LABS: % Basophils 0.8 % (0-2); % Eosinophils 4.7 % (0-6); % Immature Granulocytes 0.2 % (0-0.5); % Lymphocytes 42.4 % (20.5-51.1); % Monocytes 8.4 % (1.7-9.3); % Neutrophils 43.5 % (42.2-75.2); Absolute Eosinophils 0.2 10^3/uL (0-0.7); Absolute Lymphocytes 2.2 10^3/uL (1.2-3.4); Absolute Monocytes 0.4 10^3/uL (0.1-0.6); Absolute Neutrophils 2.2 10^3/uL (1.4-6.5); Hematocrit 33.6 % (37.0-47.0); Hemoglobin 10.9 g/dL (12.0-16.0); Mean Corp Hgb Conc. 32.4 g/dL (33.0-37.0); Mean Corpuscular Hgb 30.7 pg (27.0-31.0); Mean Corpuscular Volume 94.6 fL (81.0-99.0); Mean Platelet Volume 9.9 fL (7.4-10.4); Nucleated Red Blood Cells % 0 %; Platelet Count 197 10^3/uL (130-400); Red Blood Cell Count 3.55 10^6/uL (4.20-5.40); Red Cell Dist. Width 14.2 % (11.5-14.5); White Blood Cell Count 5.1 10^3/uL (4.8-10.8)
[2024-07-25 14:23] LABS: ALT (SGPT) 15 U/L (0-35); AST (SGOT) 23 U/L (14-36); Albumin 4.2 g/dl (3.5-5.0); Alkaline Phosphatase 62 U/L (38-126); Blood Urea Nitrogen 13 mg/dl (7-17); Calcium 9.7 mg/dl (8.4-10.2); Carbon Dioxide 28 mmol/L (22-30); Chloride 106 mmol/L (98-107); Estimated Creatinine Clearance 52 ml/min; Glucose 91 mg/dl (70-99); Sodium 142 mmol/L (135-145); Total Bilirubin < 0.1 mg/dl (0.2-1.3); Total Protein 6.5 g/dl (6.3-8.2); eGFR > 60.00
[2024-07-25 15:38] LABS: Urine Albumin Negative (Neg - Trace); Urine Bilirubin Negative (Negative); Urine Character Clear (Clear); Urine Color Yellow; Urine Glucose Negative (Negative); Urine Ketone Negative (Negative); Urine Leukocyte Negative (Negative); Urine Nitrite Negative (Negative); Urine Occult Blood Negative (Negative); Urine Urobilinogen Negative (Neg - 1+)
[2024-07-25] MEDS: VENTOLIN NEBULES 2.5 MG INH (15:55)
== END 2024-07-25 17:58 | disposition home or self-care (01) ==
LOC: EMR 12:12
PROVIDERS: Nurse Practitioner; EMERGENCY PHYSICIAN Emergency Medicine; FAMILY PHYSICIAN Family Medicine
DX: R10.9 Unspecified abdominal pain (principal); J44.1 Chronic obstructive pulmonary disease with (acute) exacerbation; E78.00 Pure hypercholesterolemia, unspecified; F17.200 Nicotine dependence, unspecified, uncomplicated; K56.1 Intussusception; Z82.49 Family history of ischemic heart disease and other diseases of the circulatory system; Z87.442 Personal history of urinary calculi
CPT/HCPCS: 99284; 96374; 96375; 96361; 74177; 80053; 81003; 85025; Q9967

== ENCOUNTER 2024-08-05 17:52 | Emergency (ER) | payer BC, SELFPAY ==
[2024-08-05 17:54] VITALS: BP 137/82
[2024-08-05 18:10] VITALS: BMI 19.6
--- NOTE | 2024-08-05 18:37 | ED.GENMED ---
History of Present Illness
General
Chief Complaint: Breathing Problem
Source: patient
Exam Limitations: none
Time Seen by Provider: 08/05/24 18:09
History of Present Illness
History of Present Illness:
This is a 58 year old female that comes in with multiple complaints. Patient was seen yesterday at [facility]. sates that she was here in May as she is always nauseated and has abd pain. States that they did an endoscopy and she was discharged
that Thursday. States that the next day she started with lung issues. States that she has been SOB and has been to the foreign broadcast specialist. States that they gave her medication for her nebulizer and she was using this more then she should. States
that for the past 2 weeks she feels like her lungs are on fire. States that she can't sleep and is not able to eat. Yesterday at [facility] she had an enema for her Constipation but states that it was not as good as her Milk and molasses enema she
had here. States that she has had chills, SOB, abd cramping, nausea, vomiting, headache, dizziness. Denies any fever, chest pain, diarrhea, urinary burning.
Past History
Past History
ED Past Medical History: Asthma, COPD (Questionable Asthma/COPD according to patient), Hypercholesterolemia and Other (Kidney stones, Interstitial cystitis, MVP, Diverticulitis, C-diff, UTI, Interstitial lung disease)
ED Past Surgical History: Appendectomy and Bowel resection; Negative Cardiac
Social History
Tobacco: Smoker
Alcohol: None
Drug: None
Personal:
Living: with family
Employment: Employed
Family History
Family History: CAD
Review of Systems
Review of Systems
All Other Systems: ROS reviewed and negative except as documented in HPI and ROS
Constitutional: Reports chills; Denies fever
EENT: Reports no symptoms
Respiratory: Reports trouble breathing; Denies cough
Cardiac: Denies chest pain
ABD/GI: Reports abdominal pain, nausea, vomiting and other (States that she can't eat); Denies diarrhea
: Denies dysuria, frequency or urgency
Musculoskeletal: Reports no symptoms
Skin: Reports no symptoms
Neurological: Reports dizzy and headache
Psychiatric: Reports no symptoms
Phy Exam
General Physical Exam
General Presentation: no apparent distress
General age: appears stated age
General Skin: warm and dry
General Habitus: normal
General Mental: anxious and tearful
General Hydration: appears well hydrated
ENT Exam
ENT Exam: TM's normal, pharynx normal and neck supple
Eye Exam
Eye Exam: EOMI
Cardiovascular Exam
Cardiovascular Exam: regular rate/rhythm, no edema and normal peripheral pulses
Pulmonary Exam
Pulmonary Exam: lungs clear, no respiratory distress, no rales, chest non tender, no crackles, no rhonchi, no wheezing and no cough
Gastrointestinal Exam
Gastrointestinal Exam: normal bowel sounds, soft, no organomegaly, no pulsatile mass, non distended and tender (Generalized tenderness with palpation)
Musculoskeletal Exam
Musculoskeletal Exam: full ROM and no edema
Skin Exam
Skin Exam: normal color, warm/dry, no rash and no petechia
Psychiatric Exam
Psychiatric Exam: normal mood/affect
Scores
Heart Failure Risk
Heart Failure Risk Score: Not Applicable
Course
Orders/Labs/Results
Orders:
Orders
08/05/24 18:34
CT Chest With Iv Contrast Urgent
Comment:
Reason For Exam: Burning in lungs
0.9% Sodium Chloride 1000 ml [Nss] 1,000 ml IV BOLUS
Ondansetron Injectable [Zofran] 4 mg IV NOW STA
08/05/24 18:48
Lorazepam [Ativan] 0.5 mg IV NOW STA
Pantoprazole [Protonix IV] 40 mg IV NOW STA
08/05/24 18:50
Complete Blood Count/With Diff Urgent
Comprehensive Metabolic Panel Urgent
08/05/24 18:51
Electrocardiogram (*1) Urgent
Reason for Study: Shortness of Breath
EKG- Treatment ONCE
08/05/24 19:08
Troponin I Urgent
Abnormal Lab Results
08/05/24
18:50
RBC 3.63 L 10^6/uL
(4.20-5.40)
Hgb 11.2 L g/dL
(12.0-16.0)
Hct 34.6 L %
(37.0-47.0)
MCHC 32.4 L g/dL
(33.0-37.0)
Absolute Monos (auto) 0.7 H 10^3/uL
(0.1-0.6)
Monocytes % 12.5 H %
(1.7-9.3)
08/05/24 18:50
08/05/24 18:50
H/H slightly low. Otherwise normal labs. Troponin <0.012
Vital Signs
Initial and Last Documented VS:
Initial Vital Signs
Temp Pulse Resp BP Pulse Ox
98 F 94 16 137/82 98
08/05/24 17:54 08/05/24 17:54 08/05/24 17:54 08/05/24 17:54 08/05/24 17:54
Last Documented Vital Signs
Temp Pulse Resp BP Pulse Ox
98 F 87 14 121/78 99
08/05/24 17:54 08/05/24 19:30 08/05/24 19:30 08/05/24 19:00 08/05/24 19:30
MDM/Problems Addressed
Differential Diagnosis Includes:
Anxiety, Interstitial lung disease. Anxiety,
MDM/Problems Addressed:
This is a 58 year old female that comes in with c/o burning in her lungs. states that she has over used her nebulizer medication and now she has burning in her lungs. states that she can't sleep or eat. patient was seen at [facility] yesterday.
Will get labs, CT chest, Medicate for anxiety and Reflux. Sister is very upset as she feels that nothing is being done. Will message Pulmonary after labs and CT back.
Back into see patient and sister. Explained that her blood work is normal. CT of the chest is negative for any acute process. Patient states that she feels SOB but explained to her that her Pulse ox is 99-100%. Feel that this may be some anxiety.
Patient has been on Psychiatric medication in the past but has stopped them as she feels like they are not helping. Patient to follow up with the family doctor and go over her medications. Will give patient a few Ativan to get her over the weekend
and she can call the foreign broadcast specialist for further evaluation.
Chronic conditions affecting care: COPD
Acute Exacerbation and/or Progression of Chronic Illness:
NA
*Radiology
Radiology exam reviewed: radiology read reviewed (CT chest-No acute findings in the chest. Stable small nodule within the left lower lobe. No new suspicious nodules. )
*Pulse Oximetry
Patient hypoxic: no
Comment: 99-100% on room air
*EKG
Interpreted by ED Provider?: Yes
Heart Rate: 77
Rate: normal
Rhythm: sinus
Coggon: normal axis
Interval: normal interval
QRS Pattern: normal QRS
Ischemia: no ischemia
*[employer] Interpretation
Rate: normal
Heart Rate: 91
Rhythm: sinus
*Critical Care Note
Total Time (30-74mins, 75-104mins- exclusive of procedures): Not Applicable
ED Attending Note
-
Portions of this chart may have been created with voice recognition software.� Occasional wrong word or��sound alike� substitutions may have occurred due to the inherent limitations of voice recognition software.
Discharge Plan
Departure
Patient Disposition: Home (Routine Discharge)
Date of Disposition: 08/05/24
Time of Disposition: 20:37
Patient with high blood pressure during this ER visit?: No
Condition: Good
Covid-19: Not Applicable
Discharge Problem:
Anxiety, SOB (shortness of breath)
Instructions: Anxiety, Adult ED, Shortness of Breath, Adult ED
Prescriptions:
New
lorazepam [Ativan] 0.5 mg tablet
0.5 mg PO BID PRN (Reason: anxiety) Qty: 7 0RF
No Action
clonazepam 0.5 mg Tablet
0.5 mg PO BID
aspirin 81 mg Tablet,Chewable
81 mg PO DAILY
montelukast [Singulair] 10 mg Tablet
10 mg PO QPM
rosuvastatin 10 mg Tablet
10 mg PO QPM
fluticasone furoate-vilanterol [Breo Ellipta] 100-25 mcg/dose Blister With Device
1 inh INHALATION R DAILY
acetaminophen 325 mg Tablet
650 mg PO Q4HPRN PRN (Reason: pain) Qty: 0 0RF
pantoprazole [Protonix] 40 mg tablet,delayed release (DR/EC)
40 mg PO BID Qty: 100 0RF
metoclopramide HCl [Reglan] 10 mg tablet
10 mg PO Q6H PRN (Reason: nausea and vomiting) Qty: 7 0RF
albuterol sulfate 2.5 mg /3 mL (0.083 %) Solution For Nebulization
2.5 mg INHALATION R TID
polyethylene glycol 3350 [HealthyLax] 17 gram Powder In Packet
17 g PO DAILY Qty: 30 0RF
gabapentin 100 mg Capsule
100 mg PO TID Qty: 90 0RF
famotidine [Acid Controller] 20 mg tablet
20 mg PO HS Qty: 30 0RF
prednisone 20 mg tablet
20 mg PO DAILY Qty: 4 0RF
hyoscyamine sulfate [Levsin] 0.125 mg tablet
0.125 - 0.25 mg PO QID PRN (Reason: abdominal pain) Qty: 30 0RF
prednisone 50 mg tablet
50 mg PO DAILY Qty: 5 0RF
Referrals:
Daniel De Luna, DO [Family Provider] - Follow up in 2-3 days
Activity Restrictions/Additional Instructions:
As discussed, your blood work is normal along with your CT of the chest. Please follow up with the foreign broadcast specialist for further evaluation. Please follow up with the family doctor and go over your medication. This feeling of SOB may be due to
Anxiety. A prescription for Ativan has been sent to your Pharmacy. Please do not over use your nebulized as this can cause increased shortness of breath. IF YOU HAVE ANY O THER CONCERNS PLEASE RETURN TO THE EMERGENCY ROOM.
Interventions
Interventions:
*Risk Screen - Suicide Last Done: 08/05/24 17:54
*General Assessment Last Done: 08/05/24 17:54
*Neglect/Abuse Screening Last Done: 08/05/24 17:54
*ED COVID-19 Vaccine History Last Done: 08/05/24 18:11
ED- Cardiac Assessment Last Done: 08/05/24 18:12
ED- Pulmonary Assessment Last Done: 08/05/24 18:12
Discharge Date and Time
Print Language: BRAZILIAN
[2024-08-05] MEDS: PROTONIX IV 40 MG IV (18:53)
[2024-08-05] MEDS: ATIVAN 0.5 MG IV (18:54)
[2024-08-05] MEDS: NSS 1000 IV (18:54)
[2024-08-05] MEDS: ZOFRAN 4 MG IV (18:54)
[2024-08-05 19:00] VITALS: BP 121/78
[2024-08-05 19:14] LABS: % Basophils 0.8 % (0-2); % Eosinophils 1.9 % (0-6); % Immature Granulocytes 0.4 % (0-0.5); % Lymphocytes 37.9 % (20.5-51.1); % Monocytes 12.5 % (1.7-9.3); % Neutrophils 46.5 % (42.2-75.2); Absolute Eosinophils 0.1 10^3/uL (0-0.7); Absolute Monocytes 0.7 10^3/uL (0.1-0.6); Absolute Neutrophils 2.4 10^3/uL (1.4-6.5); Hematocrit 34.6 % (37.0-47.0); Hemoglobin 11.2 g/dL (12.0-16.0); Mean Corp Hgb Conc. 32.4 g/dL (33.0-37.0); Mean Corpuscular Hgb 30.9 pg (27.0-31.0); Mean Corpuscular Volume 95.3 fL (81.0-99.0); Mean Platelet Volume 9.6 fL (7.4-10.4); Nucleated Red Blood Cells % 0 %; Platelet Count 210 10^3/uL (130-400); Red Blood Cell Count 3.63 10^6/uL (4.20-5.40); Red Cell Dist. Width 14.4 % (11.5-14.5); White Blood Cell Count 5.2 10^3/uL (4.8-10.8)
[2024-08-05 19:27] LABS: ALT (SGPT) 15 U/L (0-35); AST (SGOT) 24 U/L (14-36); Albumin 4.3 g/dl (3.5-5.0); Alkaline Phosphatase 77 U/L (38-126); Blood Urea Nitrogen 10 mg/dl (7-17); Calcium 9.6 mg/dl (8.4-10.2); Carbon Dioxide 26 mmol/L (22-30); Chloride 103 mmol/L (98-107); Estimated Creatinine Clearance 53 ml/min; Glucose 98 mg/dl (70-99); Sodium 138 mmol/L (135-145); Total Bilirubin 0.2 mg/dl (0.2-1.3); Total Protein 6.4 g/dl (6.3-8.2); eGFR > 60.00
[2024-08-05 20:12] LABS: Troponin I < 0.012 ng/ml
== END 2024-08-05 21:09 | disposition home or self-care (01) ==
LOC: EMR 17:52
PROVIDERS: Clinical Nurse Specialist Family Health; EMERGENCY PHYSICIAN Emergency Medicine; FAMILY PHYSICIAN Family Medicine
DX: F41.9 Anxiety disorder, unspecified (principal); J44.89 Other specified chronic obstructive pulmonary disease; E78.00 Pure hypercholesterolemia, unspecified; K21.9 Gastro-esophageal reflux disease without esophagitis; F17.200 Nicotine dependence, unspecified, uncomplicated; Z90.49 Acquired absence of other specified parts of digestive tract
CPT/HCPCS: 96374; 96375; 96361; 99284; 71260; 80053; 84484; 85025; 93005; Q9967

== ENCOUNTER 2024-08-25 12:52 | Emergency (ER) | payer BC, SELFPAY ==
[2024-08-25] VITALS (7 sets, daily range): BP systolic 97–129; BP diastolic 55–79; BMI 19.2
--- NOTE | 2024-08-25 13:48 | ED.GENMED ---
History of Present Illness
General
Chief Complaint: Chest Pain
Source: patient
Exam Limitations: none
Time Seen by Provider: 08/25/24 13:33
Nursing documentation reviewed up to this point in time: agreed with
History of Present Illness
History of Present Illness:
Patient is a 58-year-old male with history of COPD (former smoker ) intussusception , ileocecectomy ,chronic abdominal pain presents to the ER complaining of abdominal pain. She also reports she had diarrhea 5 times yesterday. She reports
initially her abdominal pain started in February. She had surgery by Dr. Pinto for intussusception reports ever since then she has a chronic abdominal pain. She reports she' lives on Bentyl and Zofran and heating pads.' She was recommended to go see
a GI specialist at [facility] he was supposed to be a motility specialist however he was a regular GI physician. She has no diagnosis as to the cause of her pain. She does have a motility doctor scheduled in September.
She reports was recently hospitalized at [facility] several weeks ago and she was diagnosed with irritable bowel syndrome. She recently saw another surgeon, Dr. Karthik Abbott who ordered an ultrasound Doppler mesenteric vessels to evaluate for
vascular issues related to her chronic abdominal pain but she did not have the study done she presents to the ER today with continued abdominal pain and reports she can barely get out of bed. She continues to feel nauseous can barely eat despite
Zofran and Bentyl. She also started with several episodes of diarrhea yesterday. No episodes of diarrhea today. She reports yesterday she had chest pain that started while she was on the couch after she woke up and it lasted for hours. She has
no cardiac history. She does admit to feeling shortness of breath and she reports she can barely walk up her stairs without being short of breath. This she reports is not new she has had this for weeks to months intermittently.
Denies any lower extremity swelling no prior history of PE DVT.
Past History
Past History
ED Past Medical History: Asthma, COPD (Questionable Asthma/COPD according to patient), Hypercholesterolemia and Other (Kidney stones, Interstitial cystitis, MVP, Diverticulitis, C-diff, UTI, Interstitial lung disease)
ED Past Surgical History: Appendectomy and Bowel resection; Negative Cardiac
Social History
Tobacco: Smoker
Alcohol: None
Drug: None
Personal:
Living: with family
Employment: Employed
Family History
Family History: CAD
Review of Systems
Review of Systems
Allergies reviewed?: Yes
All Other Systems: ROS reviewed and negative except as documented in HPI and ROS
Constitutional: Reports no symptoms; Denies fever, fatigue or chills
Respiratory: Reports trouble breathing
Cardiac: Reports no symptoms
ABD/GI: Reports abdominal pain, nausea and diarrhea
Musculoskeletal: Reports no symptoms
Neurological: Reports no symptoms
Psychiatric: Reports anxiety
Phy Exam
General Physical Exam
General Presentation: no apparent distress
General age: appears stated age
General Skin: warm and dry
General Habitus: normal
General Mental: alert
General Hydration: appears well hydrated
Cardiovascular Exam
Cardiovascular Exam: regular rate/rhythm, no murmur and normal peripheral pulses
Pulmonary Exam
Pulmonary Exam: lungs clear and no respiratory distress
Gastrointestinal Exam
Gastrointestinal Exam: normal bowel sounds, non tender and soft
Neurological Exam
Neurological Exam: alert and oriented x3
Musculoskeletal Exam
Musculoskeletal Exam: full ROM
Skin Exam
Skin Exam: normal color and warm/dry
Psychiatric Exam
Psychiatric Exam: anxious
Scores
Heart Score for Chest Pain Patients
STEMI patient?: Not applicable
Course
Orders/Labs/Results
Orders:
Orders
08/25/24 12:53
EKG [Electrocardiogram (*1)] Urgent
Reason for Study: Chest Pain
EKG- Treatment ONCE
08/25/24 14:00
NT-proBNP Urgent
Comment: ADD ON
Troponin I Urgent
08/25/24 14:03
Complete Blood Count/With Diff Urgent
Comprehensive Metabolic Panel Urgent
08/25/24 14:16
0.9% Sodium Chloride 1000 ml [Nss] 1,000 ml IV BOLUS
08/25/24 14:25
Add On- LAB Urgent
Tests Added?: bnp
08/25/24 15:01
0.9% Sodium Chloride 1000 ml [Nss] 1,000 ml IV BOLUS
Ketorolac [Toradol] 15 mg IV NOW STA
Ondansetron Injectable [Zofran] 4 mg IV NOW STA
08/25/24 15:02
Abdominal Doppler US [US Abdominal Doppler Only] Urgent
Comment:
Reason For Exam: eval for vascular issues chronic abd pain
08/25/24 16:07
Chest [CR Chest - 2 Views ] Urgent
Comment:
Reason For Exam: sob
Abnormal Lab Results
08/25/24
14:03
WBC 3.9 L 10^3/uL
(4.8-10.8)
RBC 3.95 L 10^6/uL
(4.20-5.40)
Hgb 11.9 L g/dL
(12.0-16.0)
MCHC 31.9 L g/dL
(33.0-37.0)
Absolute Lymphs (auto) 0.7 L 10^3/uL
(1.2-3.4)
Neutrophils % 77.7 H %
(42.2-75.2)
Lymphocytes % 17.6 L %
(20.5-51.1)
Glucose 130 H mg/dl
(70-99)
Calcium 10.4 H mg/dl
(8.4-10.2)
08/25/24 14:03
08/25/24 14:03
Vital Signs
Initial and Last Documented VS:
Initial Vital Signs
Temp Pulse Resp BP Pulse Ox
98.0 F 78 18 97/79 100
08/25/24 12:58 08/25/24 12:58 08/25/24 12:58 08/25/24 12:58 08/25/24 12:58
Last Documented Vital Signs
Temp Pulse Resp BP Pulse Ox
98.0 F 78 18 123/68 99
08/25/24 12:58 08/25/24 12:58 08/25/24 12:58 08/25/24 13:47 08/25/24 13:51
MDM/Problems Addressed
MDM/Problems Addressed:
As documented patient is a 58-year-old female with chronic abdominal pain presenting to the ER with abdominal pain. She is evaluated by colorectal here as well as GI here, [facility] and is scheduled for motility specialist at [facility] in
September. She has had chronic issues of complaining of shortness of breath and has a history of COPD. Patient presents awake alert crying and very anxious because of continued abdominal pain. She is expressing her frustration on months of
continued discomfort without a cause identified. She is on Bentyl and Zofran at home. Her vital signs however are stable she denies any fevers or white count is minimally low at 3.9 her hemoglobin is stable, Her Electrolytes Are unremarkable,
calcium just minimally elevated 10.4. Patient recently saw a surgeon and was scheduled for a vascular ultrasound of her abdomen to rule out vascular causes. I was able to do this ultrasound today which was normal. Patient was medicated with a
one-time dose of Toradol and fluids feeling much better. She is much more comfortable. No episodes of diarrhea here in the ER. She did complain of chest pain yesterday that lasted several hours. She reports intermittently she gets short of
breath with exertion however denies now. She is nontachycardic nontachypneic nonhypoxic lungs are clear. No prior history of DVT PE. No risk factors for PE. Patient with no complaints of shortness of breath now here in the ER. She had no chest
pain on arrival to the ER. No acute EKG findings normal cardiac troponin, normal BNP chest x-ray negative.
Patient overall looks much more comfortable and less anxious than when she presented to the ER again she has a motility specialist appointment in September.
Her vital signs have remained stable. She is stable for discharge home with outpatient continued follow-up
*Radiology
Radiology exam reviewed: radiology read reviewed
*Pulse Oximetry
Patient hypoxic: no
*EKG
Interpreted by ED Provider?: Yes
Heart Rate: 79
Rate: normal
Rhythm: sinus
*Critical Care Note
Total Time (30-74mins, 75-104mins- exclusive of procedures): Not Applicable
Data Reviewed
Review of Other/Old Records Reveals: Labs, Records, Radiology Studies, Discharge Summary and Other (previous ED record )
ED Attending Note
-
Portions of this chart may have been created with voice recognition software.� Occasional wrong word or��sound alike� substitutions may have occurred due to the inherent limitations of voice recognition software.
Discharge Plan
Departure
Patient Disposition: Home (Routine Discharge)
Date of Disposition: 08/25/24
Time of Disposition: 17:13
Patient with high blood pressure during this ER visit?: No
Condition: Fair
Covid-19: Not Applicable
Discharge Problem:
Chronic abdominal pain
Instructions: Abdominal Pain
Prescriptions:
No Action
clonazepam 0.5 mg Tablet
0.5 mg PO BID
aspirin 81 mg Tablet,Chewable
81 mg PO DAILY
montelukast [Singulair] 10 mg Tablet
10 mg PO QPM
rosuvastatin 10 mg Tablet
10 mg PO QPM
fluticasone furoate-vilanterol [Breo Ellipta] 100-25 mcg/dose Blister With Device
1 inh INHALATION R DAILY
acetaminophen 325 mg Tablet
650 mg PO Q4HPRN PRN (Reason: pain) Qty: 0 0RF
pantoprazole [Protonix] 40 mg tablet,delayed release (DR/EC)
40 mg PO BID Qty: 100 0RF
metoclopramide HCl [Reglan] 10 mg tablet
10 mg PO Q6H PRN (Reason: nausea and vomiting) Qty: 7 0RF
albuterol sulfate 2.5 mg /3 mL (0.083 %) Solution For Nebulization
2.5 mg INHALATION R TID
polyethylene glycol 3350 [HealthyLax] 17 gram Powder In Packet
17 g PO DAILY Qty: 30 0RF
gabapentin 100 mg Capsule
100 mg PO TID Qty: 90 0RF
famotidine [Acid Controller] 20 mg tablet
20 mg PO HS Qty: 30 0RF
prednisone 20 mg tablet
20 mg PO DAILY Qty: 4 0RF
hyoscyamine sulfate [Levsin] 0.125 mg tablet
0.125 - 0.25 mg PO QID PRN (Reason: abdominal pain) Qty: 30 0RF
prednisone 50 mg tablet
50 mg PO DAILY Qty: 5 0RF
lorazepam [Ativan] 0.5 mg tablet
0.5 mg PO BID PRN (Reason: anxiety) Qty: 7 0RF
Referrals:
Daniel De Luna DO [Family Provider] -
Activity Restrictions/Additional Instructions:
Follow-up with your family doctor as well as the motility specialist as scheduled. Continue Bentyl and Zofran as needed return if any worsening of symptoms
Interventions
Interventions:
*Risk Screen - Suicide Last Done: 08/25/24 12:58
*General Assessment Last Done: 08/25/24 13:51
*ED COVID-19 Vaccine History Last Done: 08/25/24 13:59
ED- Cardiac Assessment Last Done: 08/25/24 13:51
Discharge Date and Time
Print Language: [place]
[2024-08-25 14:16] LABS: % Basophils 0.3 % (0-2); % Immature Granulocytes 0.3 % (0-0.5); % Lymphocytes 17.6 % (20.5-51.1); % Monocytes 4.1 % (1.7-9.3); % Neutrophils 77.7 % (42.2-75.2); Absolute Lymphocytes 0.7 10^3/uL (1.2-3.4); Absolute Monocytes 0.2 10^3/uL (0.1-0.6); Hematocrit 37.3 % (37.0-47.0); Hemoglobin 11.9 g/dL (12.0-16.0); Mean Corp Hgb Conc. 31.9 g/dL (33.0-37.0); Mean Corpuscular Hgb 30.1 pg (27.0-31.0); Mean Corpuscular Volume 94.4 fL (81.0-99.0); Mean Platelet Volume 9.4 fL (7.4-10.4); Nucleated Red Blood Cells % 0 %; Platelet Count 226 10^3/uL (130-400); Red Blood Cell Count 3.95 10^6/uL (4.20-5.40); Red Cell Dist. Width 14.2 % (11.5-14.5); White Blood Cell Count 3.9 10^3/uL (4.8-10.8)
[2024-08-25 14:28] LABS: ALT (SGPT) 15 U/L (0-35); AST (SGOT) 22 U/L (14-36); Albumin 4.7 g/dl (3.5-5.0); Alkaline Phosphatase 70 U/L (38-126); Blood Urea Nitrogen 11 mg/dl (7-17); Calcium 10.4 mg/dl (8.4-10.2); Carbon Dioxide 28 mmol/L (22-30); Chloride 104 mmol/L (98-107); Estimated Creatinine Clearance 46 ml/min; Glucose 130 mg/dl (70-99); Potassium 4.1 mmol/L (3.5-5.1); Sodium 140 mmol/L (135-145); Total Bilirubin 0.2 mg/dl (0.2-1.3); eGFR > 60.00
[2024-08-25 15:00] LABS: Troponin I < 0.012 ng/ml
[2024-08-25] MEDS: NSS 1000 IV (15:51)
[2024-08-25 15:52] LABS: NT-proBNP 151 pg/ml
[2024-08-25] MEDS: ZOFRAN 4 MG IV (15:52)
[2024-08-25] MEDS: TORADOL 15 MG IV (15:54)
== END 2024-08-25 17:31 | disposition home or self-care (01) ==
LOC: EMR 12:52
PROVIDERS: Nurse Practitioner; EMERGENCY PHYSICIAN Student in an Organized Health Care Education/Training Program; FAMILY PHYSICIAN Family Medicine
DX: G89.29 Other chronic pain (principal); R10.9 Unspecified abdominal pain; J44.89 Other specified chronic obstructive pulmonary disease; E78.00 Pure hypercholesterolemia, unspecified; Z90.49 Acquired absence of other specified parts of digestive tract; F17.200 Nicotine dependence, unspecified, uncomplicated; Z87.442 Personal history of urinary calculi; Z87.19 Personal history of other diseases of the digestive system
CPT/HCPCS: 96374; 96375; 96361; 99285; 71046; 80053; 83880; 84484; 85025; 93005; 93975

== ENCOUNTER → 2024-09-02 22:00 | Outpatient (REF) | payer BC, SELFPAY | LOC: DHSLP 22:00 | PROVIDERS: ATTENDING PHYSICIAN Internal Medicine Critical Care Medicine; FAMILY PHYSICIAN Family Medicine | DX: G47.30 Sleep apnea, unspecified (principal); R06.83 Snoring; R40.0 Somnolence | CPT/HCPCS: 95800 ==

== ENCOUNTER 2024-09-16 20:23 | Emergency (ER) | payer BC, SELFPAY ==
--- NOTE | 2024-09-16 20:25 | ED.GENMED ---
ED Provider Triage
<Martín Alvaraod PA-C - Last Filed: 09/16/24 20:36>
-
Patient seen by provider in Triage?: Seen in Triage
Rapid Assessment
Chest pain started around 30 minutes ago while watching television associated with SOB. Took 4 81mg [facility] RN [facility]. No fevers/recent illnesses. EKG in triage non-ischemic. Multiple visits in last year for chronic GI issues
History of Present Illness
<Martín Alvarado PA-C - Last Filed: 09/16/24 20:36>
General
Chief Complaint: Chest Pain
Time Seen by Provider: 09/17/24 00:12
<Sadi Duron MD - Last Filed: 09/17/24 02:39>
General
Source: patient
Exam Limitations: none
History of Present Illness
History of Present Illness:
58-year-old female complaining of relatively sudden onset of an elephant feeling on her chest about 730 this evening. Lasted about 2 hours. Currently gone. Has had a burning in her chest for months. When she had this elephant feeling it was
worse with breathing. No shortness of breath. She is back to baseline.
Past History
<Martín Alvarado PA-C - Last Filed: 09/16/24 20:36>
Past History
ED Past Medical History: Asthma, COPD (Questionable Asthma/COPD according to patient), Hypercholesterolemia and Other (Kidney stones, Interstitial cystitis, MVP, Diverticulitis, C-diff, UTI, Interstitial lung disease)
ED Past Surgical History: Appendectomy and Bowel resection; Negative Cardiac
Social History
Tobacco: Smoker
Alcohol: None
Drug: None
Personal:
Living: with family
Employment: Employed
Family History
Family History: CAD
Review of Systems
<Sadi Duron MD - Last Filed: 09/17/24 02:39>
Review of Systems
All Other Systems: Not applicable
Constitutional: Denies fever
Respiratory: Denies hemoptysis
Phy Exam
<Sadi Duron MD - Last Filed: 09/17/24 02:39>
Physical Exam
Physical Exam:
GENERAL: Alert and oriented in no apparent distress
EYE: Orbits normal.
NECK: Supple, no significant adenopathy.
ENT: Pharynx without erythema
CARDIAC: Regular rate and rhythm without any obvious murmurs.
LUNGS: Clear breath sounds,normal
ABDOMEN: Soft, without focal tenderness or distention
NEUROLOGICAL: Alert and oriented , grossly non-focal
SKIN: Warm and dry, no rash or lesion, no discoloration, skin intact.
MUSCULOSKELETAL: No edema,no deformity.Good color
PSYCH: Normal and appropriate interaction.
Scores
<Sadi Duron MD - Last Filed: 09/17/24 02:39>
Heart Score for Chest Pain Patients
STEMI patient?: No
History: Slightly or Non-Suspicious
ECG: Normal
Age: >45 - <65 years
Risk Factors: 1 or 2 Risk Factors
Troponin: </= Normal Limit
Heart Score for Chest Pain Patients: 2
Heart Score Risk: 2.5% MACE over next 6 weeks
Course
<Martín Alvarado PA-C - Last Filed: 09/16/24 20:36>
Orders/Labs/Results
Orders:
Orders
09/16/24 20:24
Electrocardiogram (*1) Urgent
Reason for Study: Chest Pain
EKG- Treatment ONCE
09/16/24 20:34
CR Chest - 2 Views Urgent
Comment:
Reason For Exam: chest pain, SOB
09/16/24 20:43
Complete Blood Count/With Diff Urgent
Comprehensive Metabolic Panel Urgent
Troponin I Urgent
09/17/24 00:32
Electrocardiogram (*1) Stat
Reason for Study: Other
Other Reason for Exam: chest pain
EKG- Treatment ONCE
09/17/24 00:35
D-Dimer Urgent
Troponin I Urgent
Abnormal Lab Results
09/16/24
20:43
RBC 3.81 L 10^6/uL
(4.20-5.40)
Hgb 11.7 L g/dL
(12.0-16.0)
Hct 36.2 L %
(37.0-47.0)
MCHC 32.3 L g/dL
(33.0-37.0)
RDW 14.8 H %
(11.5-14.5)
BUN 21 H mg/dl
(7-17)
Glucose 104 H mg/dl
(70-99)
Total Protein 6.0 L g/dl
(6.3-8.2)
09/16/24 20:43
09/16/24 20:43
Vital Signs
Initial and Last Documented VS:
Initial Vital Signs
Pulse Resp BP Pulse Ox
85 18 112/74 100
09/16/24 20:31 09/16/24 20:31 09/16/24 20:31 09/16/24 20:31
Last Documented Vital Signs
Temp Pulse Resp BP Pulse Ox
98.5 F 68 16 116/68 98
09/16/24 20:35 09/17/24 01:15 09/17/24 01:15 09/17/24 00:19 09/17/24 00:30
<Sadi Duron MD - Last Filed: 09/17/24 02:39>
Orders/Labs/Results
Orders:
Orders
09/16/24 20:24
Electrocardiogram (*1) Urgent
Reason for Study: Chest Pain
EKG- Treatment ONCE
09/16/24 20:34
CR Chest - 2 Views Urgent
Comment:
Reason For Exam: chest pain, SOB
09/16/24 20:43
Complete Blood Count/With Diff Urgent
Comprehensive Metabolic Panel Urgent
Troponin I Urgent
09/17/24 00:32
Electrocardiogram (*1) Stat
Reason for Study: Other
Other Reason for Exam: chest pain
EKG- Treatment ONCE
09/17/24 00:35
D-Dimer Urgent
Troponin I Urgent
Abnormal Lab Results
09/16/24
20:43
RBC 3.81 L 10^6/uL
(4.20-5.40)
Hgb 11.7 L g/dL
(12.0-16.0)
Hct 36.2 L %
(37.0-47.0)
MCHC 32.3 L g/dL
(33.0-37.0)
RDW 14.8 H %
(11.5-14.5)
BUN 21 H mg/dl
(7-17)
Glucose 104 H mg/dl
(70-99)
Total Protein 6.0 L g/dl
(6.3-8.2)
09/16/24 20:43
09/16/24 20:43
Vital Signs
Initial and Last Documented VS:
Initial Vital Signs
Pulse Resp BP Pulse Ox
85 18 112/74 100
09/16/24 20:31 09/16/24 20:31 09/16/24 20:31 09/16/24 20:31
Last Documented Vital Signs
Temp Pulse Resp BP Pulse Ox
98.5 F 68 16 116/68 98
09/16/24 20:35 09/17/24 01:15 09/17/24 01:15 09/17/24 00:19 09/17/24 00:30
<Sadi Duron MD - Last Filed: 09/17/24 02:39>
MDM/Problems Addressed
Differential Diagnosis Includes:
Patient with a different chest pain that lasted a few hours. 2 negative troponins and stable EKGs. Had a CT scan with IV contrast and July for chest issues. Feel D-dimer is reasonable. Hate to repeat CAT scan her from a radiation standpoint.
This was discussed with the patient. D-dimer is stable. Patient is asymptomatic. Started to follow-up
<Sadi Duron MD - Last Filed: 09/17/24 02:39>
*Radiology
Radiology exam reviewed: preliminary read by ED provider (Negative)
*Pulse Oximetry
Patient hypoxic: no
*Critical Care Note
Total Time (30-74mins, 75-104mins- exclusive of procedures): Not Applicable
Data Reviewed
Review of Other/Old Records Reveals: Labs, Records, Radiology Studies and Testing
<Sadi Duron MD - Last Filed: 09/17/24 02:39>
Update Note
Update Note:
Patient's repeat EKG normal sinus rhythm at 75 no acute changes.
ED Attending Note
<Martín Alvarado PA-C - Last Filed: 09/16/24 20:36>
-
Portions of this chart may have been created with voice recognition software.� Occasional wrong word or��sound alike� substitutions may have occurred due to the inherent limitations of voice recognition software.
Discharge Plan
Departure
Patient Disposition: Home (Routine Discharge)
Date of Disposition: 09/17/24
Time of Disposition: 02:38
Patient with high blood pressure during this ER visit?: No
Discharge Problem:
Anterior chest pain
Instructions: Chest Pain CBC Follow Up
Prescriptions:
No Action
clonazepam 0.5 mg Tablet
0.5 mg PO BID
aspirin 81 mg Tablet,Chewable
81 mg PO DAILY
montelukast [Singulair] 10 mg Tablet
10 mg PO QPM
rosuvastatin 10 mg Tablet
10 mg PO QPM
fluticasone furoate-vilanterol [Breo Ellipta] 100-25 mcg/dose Blister With Device
1 inh INHALATION R DAILY
acetaminophen 325 mg Tablet
650 mg PO Q4HPRN PRN (Reason: pain) Qty: 0 0RF
pantoprazole [Protonix] 40 mg tablet,delayed release (DR/EC)
40 mg PO BID Qty: 100 0RF
metoclopramide HCl [Reglan] 10 mg tablet
10 mg PO Q6H PRN (Reason: nausea and vomiting) Qty: 7 0RF
albuterol sulfate 2.5 mg /3 mL (0.083 %) Solution For Nebulization
2.5 mg INHALATION R TID
polyethylene glycol 3350 [HealthyLax] 17 gram Powder In Packet
17 g PO DAILY Qty: 30 0RF
gabapentin 100 mg Capsule
100 mg PO TID Qty: 90 0RF
famotidine [Acid Controller] 20 mg tablet
20 mg PO HS Qty: 30 0RF
prednisone 20 mg tablet
20 mg PO DAILY Qty: 4 0RF
hyoscyamine sulfate [Levsin] 0.125 mg tablet
0.125 - 0.25 mg PO QID PRN (Reason: abdominal pain) Qty: 30 0RF
prednisone 50 mg tablet
50 mg PO DAILY Qty: 5 0RF
lorazepam [Ativan] 0.5 mg tablet
0.5 mg PO BID PRN (Reason: anxiety) Qty: 7 0RF
Referrals:
Daniel De Luna DO [Family Provider] - Follow up in 2-3 days
Interventions
Interventions:
*Risk Screen - Suicide Last Done: 09/17/24 00:21
*General Assessment Last Done: 09/17/24 00:21
*Neglect/Abuse Screening Last Done: 09/17/24 00:21
*ED COVID-19 Vaccine History Last Done: 09/17/24 00:21
ED- Cardiac Assessment Last Done: 09/17/24 01:22
Discharge Date and Time
Print Language: NORWEGI[place]
[2024-09-16 20:31] VITALS: BP 112/74
[2024-09-16 20:53] LABS: % Basophils 0.9 % (0-2); % Eosinophils 3.2 % (0-6); % Immature Granulocytes 0.2 % (0-0.5); % Lymphocytes 37.6 % (20.5-51.1); % Neutrophils 49.1 % (42.2-75.2); Absolute Basophils 0.1 10^3/uL (0-0.2); Absolute Eosinophils 0.2 10^3/uL (0-0.7); Absolute Lymphocytes 2.5 10^3/uL (1.2-3.4); Absolute Monocytes 0.6 10^3/uL (0.1-0.6); Absolute Neutrophils 3.2 10^3/uL (1.4-6.5); Hematocrit 36.2 % (37.0-47.0); Hemoglobin 11.7 g/dL (12.0-16.0); Mean Corp Hgb Conc. 32.3 g/dL (33.0-37.0); Mean Corpuscular Hgb 30.7 pg (27.0-31.0); Mean Platelet Volume 9.2 fL (7.4-10.4); Nucleated Red Blood Cells % 0 %; Platelet Count 202 10^3/uL (130-400); Red Blood Cell Count 3.81 10^6/uL (4.20-5.40); Red Cell Dist. Width 14.8 % (11.5-14.5); White Blood Cell Count 6.6 10^3/uL (4.8-10.8)
[2024-09-16 21:05] LABS: ALT (SGPT) 28 U/L (0-35); AST (SGOT) 35 U/L (14-36); Albumin 3.9 g/dl (3.5-5.0); Alkaline Phosphatase 67 U/L (38-126); Blood Urea Nitrogen 21 mg/dl (7-17); Carbon Dioxide 28 mmol/L (22-30); Chloride 105 mmol/L (98-107); Glucose 104 mg/dl (70-99); Potassium 4.1 mmol/L (3.5-5.1); Sodium 140 mmol/L (135-145); Total Bilirubin 0.3 mg/dl (0.2-1.3); eGFR > 60.00
[2024-09-16 21:16] LABS: Troponin I < 0.012 ng/ml
[2024-09-17 00:19] VITALS: BP 116/68
[2024-09-17 01:09] LABS: Troponin I < 0.012 ng/ml
[2024-09-17 03:01] VITALS: BP 96/60
== END 2024-09-17 03:16 | disposition home or self-care (01) ==
LOC: EMR 20:23
PROVIDERS: Physician Assistant Medical; EMERGENCY PHYSICIAN Emergency Medicine; FAMILY PHYSICIAN Family Medicine
DX: R07.89 Other chest pain (principal); E78.00 Pure hypercholesterolemia, unspecified; F17.200 Nicotine dependence, unspecified, uncomplicated; Z90.49 Acquired absence of other specified parts of digestive tract
CPT/HCPCS: 99285; 71046; 80053; 84484; 85025; 85379; 93005

== ENCOUNTER 2024-09-26 17:51 | Emergency (ER) | payer BC, SELFPAY ==
--- NOTE | 2024-09-26 17:59 | ED.GENMED ---
ED Provider Triage
-
Patient seen by provider in Triage?: Seen in Triage
Attestation: A medical screening examination has been initiated by a qualified medical provider. Based on the assessment performed at this time, it has been determined that an emergent medical condition may exist and the patient has been informed
that further medical evaluation and possible additional diagnostic testing may be needed.
HPI: 58 yo female presents by EMS for 'I have been dealing with abdominal stuff and surgery here, I have not really been out of bed since February.'
Called 911 today because when she got up from sleeping from a nap she had severe cramps in both calfs, nausea because 'I did not have any Zofran left.' States after getting Zofran and IV fluids by EMS she states 'I am fine.' She wants to leave.
GENERAL: Alert , in no apparent distress
EYE: No visual abnormalities.
ENT: No visible abnormalities.
LUNGS: No acute respiratory distress
NEUROLOGICAL: Alert and oriented
SKIN: Skin intact. No visible changes.
MUSCULOSKELETAL: Moving extremities normally
PSYCH: Normal and appropriate interaction.
This is a medical evaluation conducted in person to initiate diagnostic evaluation and provide initial therapeutics. Please see further documentation by the treating clinician.
History of Present Illness
General
Chief Complaint: Abdominal Symptoms
Source: patient
Exam Limitations: none
Time Seen by Provider: 09/26/24 18:10
Nursing documentation reviewed up to this point in time: agreed with
History of Present Illness
History of Present Illness:
HPI: 58 yo female presents by EMS for 'I have been dealing with abdominal stuff and surgery here, I have not really been out of bed since February.'
Called 911 today because when she got up from sleeping from a nap she had severe cramps in both calfs, nausea because 'I did not have any Zofran left.' States after getting Zofran and IV fluids by EMS she states 'I am fine.' 'I feel so much
better.' She wants to leave.
Past History
Past History
ED Past Medical History: Asthma, COPD (Questionable Asthma/COPD according to patient), Hypercholesterolemia and Other (Kidney stones, Interstitial cystitis, MVP, Diverticulitis, C-diff, UTI, Interstitial lung disease, GI motility problems)
ED Past Surgical History: Appendectomy and Bowel resection; Negative Cardiac
Social History
Tobacco: Smoker
Alcohol: None
Drug: None
Personal:
Living: with family
Employment: Employed
Family History
Family History: CAD
Review of Systems
Review of Systems
Allergies reviewed?: Yes
All Other Systems: ROS reviewed and negative except as documented in HPI and ROS
Constitutional: Denies fever or fatigue
Respiratory: Denies trouble breathing
Cardiac: Denies chest pain
ABD/GI: Reports nausea
: Denies dysuria, frequency or difficulty voiding
Musculoskeletal: Reports no symptoms
Skin: Reports no symptoms
Neurological: Reports no symptoms
Phy Exam
Physical Exam
Physical Exam:
GENERAL: No acute distress. A&Ox3.
CONSTITUTIONAL: Afebrile.
EYES: clear, conjunctivae normal
ENMT: moist mucus membranes, Pharynx nl
RESPIRATORY: Regular respirations, nonlabored, lungs clear.
CARDIOVASCULAR: Regular rate and rhythm, no murmurs, no rubs.
GI: Soft, nontender, normal BS
MUSCULOSKELETAL: Moves with ease. Well perfused.
SKIN: Warm, dry, pink
PSYCH: Normal mood and affect. Well kept, interactive and appropriate
NEUROLOGIC: Awake, alert and oriented. No focal neurological deficits
Course
Vital Signs
Initial and Last Documented VS:
Initial Vital Signs
Temp Pulse Resp BP Pulse Ox
98.1 F 78 16 125/94 98
09/26/24 18:00 09/26/24 18:00 09/26/24 18:00 09/26/24 18:00 09/26/24 18:00
Last Documented Vital Signs
Temp Pulse Resp BP Pulse Ox
98.1 F 78 16 125/94 98
09/26/24 18:00 09/26/24 18:00 09/26/24 18:00 09/26/24 18:00 09/26/24 18:00
MDM/Problems Addressed
MDM/Problems Addressed:
HPI: 58 yo female w h/o removal of cecum, appendix and part of colon, COPD, HLD, presents by EMS for 'I have been dealing with abdominal stuff and surgery here, I have not really been out of bed since February.'
Called 911 today because when she got up from sleeping from a nap she had severe cramps in both calfs, nausea because 'I did not have any Zofran left.' States after getting Zofran and IV fluids by EMS she states 'I am fine.' 'I feel so much
better,' She wants to leave.
NAD
PE unremarkable
Moving bowels, last BM today
Patient states she is feeling much better
Has an appointment with the GI motility doctor in 2 days at [facility]
She had a refill on her Zofran and is going to the pharmacy to pick it up now
She appears in no distress, physical exam is unremarkable, she is stable for discharge
*Critical Care Note
Total Time (30-74mins, 75-104mins- exclusive of procedures): Not Applicable
ED Attending Note
-
Portions of this chart may have been created with voice recognition software.� Occasional wrong word or��sound alike� substitutions may have occurred due to the inherent limitations of voice recognition software.
Discharge Plan
Departure
Patient Disposition: Home (Routine Discharge)
Date of Disposition: 09/26/24
Time of Disposition: 18:07
Patient with high blood pressure during this ER visit?: No
Condition: Good
Discharge Problem:
Nausea
Instructions: Nausea and Vomiting, Adult (DC)
Prescriptions:
No Action
clonazepam 0.5 mg Tablet
0.5 mg PO BID
aspirin 81 mg Tablet,Chewable
81 mg PO DAILY
montelukast [Singulair] 10 mg Tablet
10 mg PO QPM
rosuvastatin 10 mg Tablet
10 mg PO QPM
fluticasone furoate-vilanterol [Breo Ellipta] 100-25 mcg/dose Blister With Device
1 inh INHALATION R DAILY
acetaminophen 325 mg Tablet
650 mg PO Q4HPRN PRN (Reason: pain) Qty: 0 0RF
pantoprazole [Protonix] 40 mg tablet,delayed release (DR/EC)
40 mg PO BID Qty: 100 0RF
metoclopramide HCl [Reglan] 10 mg tablet
10 mg PO Q6H PRN (Reason: nausea and vomiting) Qty: 7 0RF
albuterol sulfate 2.5 mg /3 mL (0.083 %) Solution For Nebulization
2.5 mg INHALATION R TID
polyethylene glycol 3350 [HealthyLax] 17 gram Powder In Packet
17 g PO DAILY Qty: 30 0RF
gabapentin 100 mg Capsule
100 mg PO TID Qty: 90 0RF
famotidine [Acid Controller] 20 mg tablet
20 mg PO HS Qty: 30 0RF
prednisone 20 mg tablet
20 mg PO DAILY Qty: 4 0RF
hyoscyamine sulfate [Levsin] 0.125 mg tablet
0.125 - 0.25 mg PO QID PRN (Reason: abdominal pain) Qty: 30 0RF
prednisone 50 mg tablet
50 mg PO DAILY Qty: 5 0RF
lorazepam [Ativan] 0.5 mg tablet
0.5 mg PO BID PRN (Reason: anxiety) Qty: 7 0RF
Referrals:
your, GI motility specialist [Other] - Keep scheduled appt
Activity Restrictions/Additional Instructions:
As we discussed, I am glad you are feeling better, keep your appointment on with your GI motility specialist
Interventions
Interventions:
*Risk Screen - Suicide Last Done: 09/26/24 18:03
*Neglect/Abuse Screening Last Done: 09/26/24 18:03
*Nursing Disposition Last Done: 09/26/24 18:28
Discharge Date and Time
Discharge Date/Time: 09/26/24 18:29
Print Language: OMANI
[2024-09-26 18:00] VITALS: BP 125/94
== END 2024-09-26 18:29 | disposition home or self-care (01) ==
LOC: EMR 17:51
PROVIDERS: EMERGENCY PHYSICIAN Emergency Medicine; FAMILY PHYSICIAN Family Medicine
DX: R11.0 Nausea (principal); J44.89 Other specified chronic obstructive pulmonary disease; E78.00 Pure hypercholesterolemia, unspecified; F17.200 Nicotine dependence, unspecified, uncomplicated; Z90.49 Acquired absence of other specified parts of digestive tract
CPT/HCPCS: 99282

== ENCOUNTER 2024-10-03 17:05 | Inpatient (IN) | payer BC, SELFPAY ==
[2024-10-03 10:37] VITALS: BP 116/70
--- NOTE | 2024-10-03 13:44 | ED.GENMED ---
History of Present Illness
General
Chief Complaint: Abdominal Pain
Source: patient, records, spouse and physician
Exam Limitations: none
Time Seen by Provider: 10/03/24 13:18
Nursing documentation reviewed up to this point in time: agreed with
History of Present Illness
History of Present Illness:
58-year-old female with a past medical history of COPD, current smoker, ILD, hyperlipidemia who presents to the emergency department with her for evaluation of multiple complaints--chief among them headaches, abdominal pains, nausea,
dyspnea. Patient was referred by colorectal surgery (Dr. Pinto) who has been following with patient for chronic abdominal pain issues since February; she did have surgery for intussusception but this apparently did not help with her pain and she has
been managing abdominal pains medically since. She has been on PPI, Bentyl, Zofran as needed for nausea. She says she recently saw a gastric motility specialist at [place] and was started on Cymbalta but this has not helped which prompted
follow-up visit with Dr. Pinto today and ultimately referral to the ER. On top of her GI issues, she has been dealing with dyspnea at least since May although it sounds like this has been even longer than that. She said she saw a
line rider through [place] and was told that it could potentially be heart related.
Past History
Past History
ED Past Medical History: Asthma, COPD (Questionable Asthma/COPD according to patient), Hypercholesterolemia and Other (Kidney stones, Interstitial cystitis, MVP, Diverticulitis, C-diff, UTI, Interstitial lung disease, GI motility problems)
ED Past Surgical History: Appendectomy and Bowel resection; Negative Cardiac
Social History
Tobacco: Smoker
Alcohol: None
Drug: None
Personal:
Living: with family
Employment: Employed
Family History
Family History: CAD
Review of Systems
Review of Systems
All Other Systems: ROS reviewed and negative except as documented in HPI and ROS
Constitutional: Reports fatigue; Denies fever or chills
Respiratory: Reports trouble breathing; Denies cough
Cardiac: Denies chest pain
ABD/GI: Reports abdominal pain and nausea; Denies vomiting or diarrhea
: Denies flank pain
Musculoskeletal: Denies neck pain or back pain
Neurological: Denies headache
Phy Exam
Physical Exam
Physical Exam:
General: Awake, alert, oriented x3; uncomfortable appearing
Head: Normocephalic, atraumatic
Eyes: Conjunctiva normal, sclera anicteric
Throat: Airway intact, handling secretions
Neck: Trachea midline, no JVD
Lungs: Clear to auscultation bilaterally, no wheezing, rales, rhonchi
Heart: Regular rate and rhythm, no murmurs, gallops, or rubs
Abd: Soft, non distended, tender to palpation in epigastrium
Neuro: No gross deficit
Skin: no rash
Extremities: No edema in extremities, equal pulses in all extremities
Scores
Heart Failure Risk
Heart Failure Risk Score: Not Applicable
Heart Score for Chest Pain Patients
STEMI patient?: Not applicable
Withdrawal Assessment of Alcohol
Withdrawal Assessment Completed?: Not applicable
Course
Orders/Labs/Results
Orders:
Orders
10/03/24 10:40
Electrocardiogram (*1) Urgent
Reason for Study: Abdominal Pain
EKG- Treatment ONCE
10/03/24 13:43
Urinalysis Reflex To Culture Urgent
Date Specimen was Collected: 10/03/24
Time Specimen was Collected: 13:44
10/03/24 13:44
0.9% Sodium Chloride 1000 ml [Nss] 1,000 ml IV BOLUS
HYDROmorphone [Dilaudid] 0.5 mg IV NOW STA
10/03/24 13:48
COVID-19 Antigen Urgent
Source: Nasal Swab
Complete Blood Count/With Diff Urgent
Comprehensive Metabolic Panel Urgent
LDH Urgent
Comment: ADD ON
Lipase Urgent
Magnesium Urgent
Phos [Phosphorus] Urgent
TSH Reflex To Free T4 Urgent
Triglycerides Urgent
Comment: ADD ON
Influenza A+B Rapid Molecular Urgent
GIANCARLO Source: Nasal Swab
Specimen Description:
10/03/24 14:26
Lead - Venous [S] Routine
10/03/24 16:04
US Abdomen Complete/Upper Urgent
Comment:
Reason For Exam: abd pain, pancreatitis
10/03/24 16:05
HYDROmorphone [Dilaudid] 0.5 mg IV NOW STA
10/03/24 16:35
Add On- LAB Routine
Tests Added?: triglyceride level
Add On- LAB Urgent
Tests Added?: LDH
10/03/24 16:36
EKG [Electrocardiogram (*1)] Stat
Reason for Study: Other
Other Reason for Exam: sob
10/03/24 16:38
Admit/Transfer Patient As Directed
Co-Sign Provider:
Level of Care: Inpatient admission
Assign to:: Medical/Surgical
Physician / Group: brayden
Diagnosis: abdominal pain
Reason for Hospitalization: abdominal pain
Expected length of stay greater than two midnights?: Yes
ELOS- Estimated Length of Stay in days: 3
I certify the patient meets the requirements for IP care: Yes
10/03/24 16:39
PRN Pain Medication Management As Directed
May give lesser potent ordered pain med per pt: Yes
preference::
Protocol:: Medication orders for pain may be administered in a
manner that supports deferring to patient preference
when the pt is:
- Requesting an ordered lesser potent pain medication.
Least to most potent pain medications are defined
as: acetaminophen < NSAID < tramadol < opioids
(morphine, oxycodone, hydromorphone).
- Requesting a lesser dose of the same medication IF
ORDERED.
- Requesting a less intrusive route of administration
if both routes are prescribed by the provider (PO <
IV).
10/03/24 16:40
Code Status As Directed
Resuscitation Status: Full Code
10/03/24 16:44
CR Chest - 2 Views Stat
Comment:
Reason For Exam: sob
10/03/24 17:05
CR Abdomen - 2 Views Stat
Comment:
Reason For Exam: abdominal pain
10/03/24 19:44
0.9% Sodium Chloride 1000 ml [Nss] 1,000 ml IV 150 mls/hr
Enoxaparin Sodium [Lovenox] 40 mg SC QPM
HYDROmorphone [Dilaudid] 1 mg IV Q4HPRN PRN
Montelukast Sodium [Singulair] 10 mg PO QPM
Rosuvastatin Calcium [Crestor] 10 mg PO QPM
10/03/24 19:44
Echo 2D MMode Color/Doppler Routine
Reason for Study: sob
GASTROINTESTINAL CONSULT Routine
Consulting Provider: Hector Ashby
Was physician already notified: Yes
Activity As Directed
Activity Level: As Tolerated
Vital Signs As Directed
Frequency: Per unit guidelines
DX Deep Vein Thrombosis Video Routine
10/03/24 20:00
Albuterol Nebs [Ventolin Nebules] 2.5 mg INH R TID
Budesonide [Pulmicort] 0.5 mg INH R BID
Clonazepam [Klonopin] 0.5 mg PO BID
Pantoprazole [Protonix] 40 mg PO BID
10/03/24 22:00
Dicyclomine [Bentyl] 20 mg PO TID
Famotidine [Pepcid] 20 mg PO HS
10/04/24 Breakfast
NPO
Allow oral meds: Yes
Allow clear liquids: No
Amylase IN AM
Cardiovascular Evaluation IN AM
Is patient fasting: Yes
Complete Blood Count/No Diff IN AM
Comprehensive Metabolic Panel IN AM
Heavy Metals Panel 3, Blood [S] IN AM
Ova & Parasites Giardia/Crypto AG [Giardia/Cryptosporidium Ag] Routine
GIANCARLO Source: Feces/Stool
Specimen Description:
10/04/24 08:00
Aspirin Low Dose EC [Aspir Low (Enteric Coated)] 81 mg PO DAILY
Budesonide/Formoterol 160/4.5 [Symbicort 160/4.5 Mcg Inhaler] 2 puff INH R BID
10/05/24 06:00
Complete Blood Count/No Diff IN AM
Comprehensive Metabolic Panel IN AM
10/06/24 06:00
Complete Blood Count/No Diff IN AM
Comprehensive Metabolic Panel IN AM
10/07/24 06:00
Comprehensive Metabolic Panel IN AM
Abnormal Lab Results
10/03/24
13:48
RBC 3.58 L 10^6/uL
(4.20-5.40)
Hgb 11.4 L g/dL
(12.0-16.0)
Hct 34.0 L %
(37.0-47.0)
MCH 31.8 H pg
(27.0-31.0)
RDW 15.1 H %
(11.5-14.5)
Monocytes % 9.8 H %
(1.7-9.3)
Total Protein 6.1 L g/dl
(6.3-8.2)
Lipase > 4000 H* U/L
(23-300)
10/03/24 13:48
10/03/24 13:48
Vital Signs
Initial and Last Documented VS:
Initial Vital Signs
Temp Pulse Resp BP Pulse Ox
36.4 C 87 16 116/70 99
10/03/24 10:37 10/03/24 10:37 10/03/24 10:37 10/03/24 10:37 10/03/24 10:37
Last Documented Vital Signs
Temp Pulse Resp BP Pulse Ox
37.1 C 75 18 103/66 99
10/03/24 19:50 10/03/24 19:50 10/03/24 19:50 10/03/24 19:50 10/03/24 19:50
MDM/Problems Addressed
Differential Diagnosis Includes:
Pancreatitis, cholelithiasis, cholecystitis, gastritis, functional abdominal pain
MDM/Problems Addressed:
58-year-old female presents to the emergency room with multiple complaints mainly complaining of nausea with abdominal pain and headaches also dyspnea�all of these problems are chronic but particular abdominal pain has been worse recently and
prompted referral to the ER today. Vitals and exam as above. Will check labs including CBC and a CMP, lipase as well as urinalysis to start. Will check abdominal ultrasound. Reassess after the above.
Labs reviewed: CBC shows marginal anemia, CMP unremarkable. LFTs normal. Her lipase is greater than 4000 concerning for diagnosis of acute pancreatitis. Patient denies alcohol use, review of medication list shows no medications which are
associated with pancreatitis. Prior imaging reviewed by me no gallstones noted on prior studies. Abdominal ultrasound pending but will plan for admission for continued treatment of acute on chronic abdominal pain secondary to acute pancreatitis.
Case discussed with hospitalist.
Ultrasound followed up�moderate biliary dilation with moderate pancreatic ductal dilation possibly secondary to choledocholithiasis versus tumor versus secondary dilation from acute pancreatitis. No cholelithiasis noted on distended gallbladder.
*Radiology
Radiology exam reviewed: radiology read reviewed
*Pulse Oximetry
Patient hypoxic: no
*EKG
Interpreted by ED Provider?: Yes
Heart Rate: 60
Rate: normal
Rhythm: sinus
[place]: normal axis
Interval: normal interval
QRS Pattern: normal QRS
Ischemia: no ischemia
*Critical Care Note
Total Time (30-74mins, 75-104mins- exclusive of procedures): Not Applicable
Data Reviewed
Source: patient, records, spouse and physician (Colorectal surgeon called ahead)
Patient Management
Discussion with other providers: Hospitalist (Discussed with hospitalist)
Escalation/DeEscalation of care consider admission/obs:
Admission indicated
ED Attending Note
-
Portions of this chart may have been created with voice recognition software.� Occasional wrong word or��sound alike� substitutions may have occurred due to the inherent limitations of voice recognition software.
Discharge Plan
Departure
Patient Disposition: Admit
Date of Disposition: 10/03/24
Time of Disposition: 16:07
Admit to doctor: Ivette
Presentation/result/management discussed w/ accepting MD/DO: Hospitalist
Discharge Problem:
Acute pancreatitis
Interventions
Interventions:
*General Assessment Last Done: 10/03/24 11:05
ED- Fall Risk Assessment Last Done: 10/03/24 11:05
*Nursing Disposition Last Done: 10/03/24 19:49
GW-Yqlduq-Dwkzeenklt Assessment Last Done: 10/03/24 11:05
Discharge Date and Time
Discharge Date/Time: 10/03/24 19:50
[2024-10-03] MEDS: NSS 1000 IV ×2 (13:51→20:32)
[2024-10-03] MEDS: DILAUDID 0.5 MG IV ×2 (13:52→16:37)
[2024-10-03 14:09] LABS: % Basophils 0.8 % (0-2); % Eosinophils 4.1 % (0-6); % Immature Granulocytes 0.2 % (0-0.5); % Lymphocytes 40.5 % (20.5-51.1); % Monocytes 9.8 % (1.7-9.3); % Neutrophils 44.6 % (42.2-75.2); Absolute Basophils 0.1 10^3/uL (0-0.2); Absolute Eosinophils 0.2 10^3/uL (0-0.7); Absolute Lymphocytes 2.4 10^3/uL (1.2-3.4); Absolute Monocytes 0.6 10^3/uL (0.1-0.6); Absolute Neutrophils 2.6 10^3/uL (1.4-6.5); Hemoglobin 11.4 g/dL (12.0-16.0); Mean Corp Hgb Conc. 33.5 g/dL (33.0-37.0); Mean Corpuscular Hgb 31.8 pg (27.0-31.0); Mean Platelet Volume 9.4 fL (7.4-10.4); Nucleated Red Blood Cells % 0 %; Platelet Count 210 10^3/uL (130-400); Red Blood Cell Count 3.58 10^6/uL (4.20-5.40); Red Cell Dist. Width 15.1 % (11.5-14.5); White Blood Cell Count 5.9 10^3/uL (4.8-10.8)
[2024-10-03 14:20] LABS: Magnesium 2.2 mg/dl (1.6-2.3); Phosphorus 3.9 mg/dl (2.5-4.5)
[2024-10-03 14:24] LABS: ALT (SGPT) 16 U/L (0-35); AST (SGOT) 25 U/L (14-36); Alkaline Phosphatase 75 U/L (38-126); Blood Urea Nitrogen 15 mg/dl (7-17); Calcium 9.4 mg/dl (8.4-10.2); Carbon Dioxide 26 mmol/L (22-30); Chloride 105 mmol/L (98-107); Glucose 96 mg/dl (70-99); Potassium 4.1 mmol/L (3.5-5.1); Sodium 139 mmol/L (135-145); Total Bilirubin 0.3 mg/dl (0.2-1.3); Total Protein 6.1 g/dl (6.3-8.2); eGFR > 60.00
[2024-10-03 14:34] VITALS: BP 114/72
[2024-10-03 14:40] LABS: COVID-19 Antigen Negative (Negative)
[2024-10-03 14:52] LABS: Lipase > 4000 U/L (23-300); TSH Reflex To Free T4 0.53 uIU/ml (0.47-4.68)
--- NOTE | 2024-10-03 16:11 | HPS.HSE ---
Family Physician
-
Family Physician: Daniel De Luna
Chief Complaint
-
abdominal pain
History of Present Illness
58-year-old female with a past medical history of COPD, current smoker, ILD, hyperlipidemia who presents to the emergency department with her for evaluation of multiple complaints--chief among them headaches, abdominal pains, nausea,
dyspnea.patient stated worsening abdominal for past three weeks. she stated nausea as well little diarrhea. she is having JEAN. she stated sob. her motility dr at [place] diagnosed her with centrally mediated abdominal pain. he prescribed her
Cymbalta. Cymbalta is making her sick. she is lethargic, poor appetite. she is taking asa for pain. she complained of chills. last night she woke up drenched in sweat. denied dysuria or hematuria. she cancelled her ECHO last week because she was
very weak and tired.patient had a tele visit with DR. Pinto. he refereed her to ER due to multiple complaints. Dr. Pinto has been following with patient for chronic abdominal pain issues since February; she did have surgery for intussusception but
this apparently did not help with her pain and she has been managing abdominal pains medically since. She has been on PPI, Bentyl, Zofran as needed for nausea.
on arrival noted to have elevated Lipase. Patient received Dilaudid, normal saline. Admitted for further management
Medical History
Past Medical History
Past Medical History: Reports Other
Additional Past Medical History:
Intestinal inception
Pulmonary nodule
Seasonal allergies
Anemia
C. difficile
Past Surgical History: Reports Other
Social History
Tobacco: Smoker (1 pack)
Alcohol: None
Drug: None
Family History
Family History: Not pertinent
Allergies / Home Medications
Allergies reflects when Allergies were last updated in [facility].
Home Medications with original date entered in [facility]
Allergy/Medication List:
Allergies
Allergy/AdvReac Type Severity Reaction Status Date / Time
sulfamethoxazole Allergy Unknown Verified 09/17/24 00:15
[From Bactrim]
trimethoprim [From Bactrim] Allergy Unknown Verified 09/17/24 00:15
Home Medications
clonazepam 0.5 mg tablet 0.5 mg PO BID Mental Health/Anxiety 03/20/24
fluticasone furoate 100 mcg-vilanterol 25 mcg/dose inhalation powder (Breo Ellipta) 1 inh inhalation R DAILY Lung/Breathing Issues 03/20/24
montelukast 10 mg tablet (Singulair) 10 mg PO QPM Lung/Breathing Issues 03/20/24
rosuvastatin 10 mg tablet 10 mg PO QPM High Cholesterol 03/20/24
pantoprazole 40 mg tablet,delayed release (Protonix) 40 mg PO BID Gastrointestinal issue #100 tabs 04/11/24
albuterol sulfate 2.5 mg/3 mL (0.083 %) solution for nebulization 2.5 mg inhalation R TID Lung/Breathing Issues 05/24/24
acetaminophen 325 mg tablet 650 mg PO BID 10/03/24
aspirin 81 mg tablet,delayed release 81 mg PO DAILY 10/03/24
budesonide 0.5 mg/2 mL suspension for nebulization 0.5 mg inhalation R BID 10/03/24
dicyclomine 20 mg tablet 20 mg PO TID 10/03/24
duloxetine 60 mg capsule,delayed release (Cymbalta) 60 mg PO DAILY 10/03/24
famotidine 20 mg tablet (Acid Controller) 40 mg PO HS 10/03/24
ondansetron 4 mg disintegrating tablet 4 mg PO Q6HPRN PRN nausea 10/03/24
potassium gluconate 550 mg (90 mg) tablet 550 mg PO DAILY 10/03/24
Review of Systems
-
Constitutional: Reports Fatigue, Night Sweats and Chills
EENT: Reports No Symptoms
Respiratory: Reports Trouble Breathing
Cardiac: Reports No Symptoms
Abdomen/GI: Reports Abdominal Pain, Nausea, Vomiting and Diarrhea
: Reports No Symptoms
Musculoskeletal: Reports No Symptoms
Skin: Reports No Symptoms
Neurological: Reports Dizzy, Headache and Weakness
Endocrine: Reports No Symptoms
Hematologic/Lymphatic: Reports No Symptoms
Psych: Reports No Symptoms
Physical Exam
Vital Signs
Vital Signs
Temp Pulse Resp BP Pulse Ox
97.5 F 80 20 114/72 99
10/03/24 10:37 10/03/24 14:34 10/03/24 14:34 10/03/24 14:34 10/03/24 14:34
Physical Exam
General: Well Developed, Well Nourished and No Apparent Distress
HEENT: NormoCephalic, Moist mucous membranes and Atraumatic
Respiratory: Clear
Cardiac: S1/S2 and Regular Rhythm; No Murmur or Rub
GI: Soft, Non Tender, Non Distended and Normal Bowel Sounds; No Organomegaly
Rectal: Deferred by Provider
Musculoskeletal: No Clubbing, No Cyanosis and No Edema
Skin: No Rash
Neuro: AO x 3 and Nonfocal/grossly intact
Psych: Calm
Laboratory Results
-
10/03/24 13:48
10/03/24 13:48
Laboratory Results
Total Bilirubin 0.3 mg/dl (0.2-1.3) 10/03/24 13:48
AST 25 U/L (14-36) 10/03/24 13:48
ALT 16 U/L (0-35) 10/03/24 13:48
Alkaline Phosphatase 75 U/L (38-126) 10/03/24 13:48
Lipase > 4000 U/L (23-300) H* 10/03/24 13:48
Lipase Cancelled 10/03/24 13:48
Data Reviewed
-
Lab Data: Labs Reviewed by me
Impression/Plan
-
#abdominal pain likely Acute pancreatitis
#H/o intussusception s/p ileocecectomy
-Lipase greater than 4000
-Keep patient n.p.o.
-Continue fluids
-obtain triglyceride
-obtain US
-GI consult
#sob likely from chronic lung disease
# History of COPD
# Interstitial lung disease
-obtain Chest x ray
-Nebs from home continued
-Singular continued
# Anemia of chronic disease
-Hemoglobin 11.4
-No active bleeding
-Continue to monitor
# Depression/anxiety
-Clonazepam continued
#Current smoker
-pack a day
- declines nicotine patch
# DVT prophylaxis
-Lovenox
Code status: Full
--- NOTE | 2024-10-03 16:11 | W.PN.UPDATE ---
Update Note
Progress Note Update
This is an addendum to H&P written by DIGITAL STRATEGIST SENIOR MANAGER Bel White
I saw and examined the patient.
The DIGITAL STRATEGIST SENIOR MANAGER's note was reviewed and I agree with the note.
Comment:
Ms. Carolyn Gao is a 58 yo woman with history anxiety/depression, tobacco use, COPD, ILD, HLD, intussusception s/p ileocecectomy 05/07, chronic abdominal pain with multiple ER visits, most recent admission 05/24-05/27/24 where further work-up of
abdominal pain concerning for slow gastric emptying with recent initiation of Cymbalta presents to the ER today complaining of worsening abdominal pain and shortness of breath.
Patient has had these complaints for nearly a year and a half. She was just started on Cymbalta on . Her motility specialist at [place] is concerned for centrally mediated abdominal pain syndrome.
Triage VS: T 36.4 C, P 87, RR 16, BP 116/70, SpO2 99%
On exam patient is anxious and in pain. Chest clear without wheezing; CV: S1, S2, RRR. Abdomen with mid-epigastric tenderness, no rebound or guarding.
LABS: WBC 5.9, Hg 11.4, PLT 210, Na 139, K+ 4.1, Cl 105, CO2 26, BUN 15, Cr 0.8, Glucose 96, liver enzymes WNL
Lipase > 4000
Acute Pancreatitis
Acute on Chronic abdominal pain with recent diagnosis of centrally mediated abdominal pain syndrome
-first diagnosis of acute pancreatitis. Etiology unclear. She was recently started on Cymbalta which can be a risk factor for pancreatitis. Will check IgG, TG level, alpha-1 antritrypsin Awaiting RUQ US
-patient had lab slips for heavy metals, ova and parasites - will order here
-hold Cymbalta for now
Chronic shortness of breath
COPD
Tobacco use
-has seen pulmonary recently with normal PFT's
-has TTE order as outpatient - will order here
-no wheezing on exam
-may be related to pain and abodminal process?
-FOOD AND BEVERAGE LEAD inhalers, Singulair
Anixety
-FOOD AND BEVERAGE LEAD Clonazepam
DVT PPx Lovenox subQ
Remainder of plan per DIGITAL STRATEGIST SENIOR MANAGER note
76 minutes spent on patient care
[2024-10-03 17:25] LABS: LDH 175 U/L (120-246); Triglycerides 66 mg/dl (10-149)
[2024-10-03 17:46] VITALS: BP 116/70
[2024-10-03 19:50] VITALS: BP 103/66; BMI 18.5
[2024-10-03] MEDS: PULMICORT 0.5 MG INH (20:24)
[2024-10-03] MEDS: VENTOLIN NEBULES 2.5 MG INH (20:26)
[2024-10-03] MEDS: CRESTOR 10 MG PO (20:29)
[2024-10-03] MEDS: SINGULAIR 10 MG PO (20:29)
[2024-10-03] MEDS: PROTONIX 40 MG PO (20:29)
[2024-10-03] MEDS: KLONOPIN 0.5 MG PO (20:29)
[2024-10-03] MEDS: LOVENOX 40 MG SC (20:29)
[2024-10-03] MEDS: DILAUDID 1 MG IV (20:44)
[2024-10-03 20:47] VITALS: BP 120/68
[2024-10-03] MEDS: BENTYL 20 MG PO (21:50)
[2024-10-03] MEDS: ZOFRAN 4 MG IV (21:50)
[2024-10-03] MEDS: PEPCID 20 MG PO (21:50)
[2024-10-03 23:22] VITALS: BP 106/57
[2024-10-04] MEDS: DILAUDID 1 MG IV ×2 (03:29→07:52)
[2024-10-04] MEDS: NSS 1000 IV (03:42)
[2024-10-04 03:50] VITALS: BP 114/67
[2024-10-04] MEDS: ZOFRAN 4 MG IV ×2 (03:50→13:22)
--- NOTE | 2024-10-04 04:33 | PTCARENOTE ---
Pt pulled bathroom emergency cord and was found sitting on floor in front of toilet dry heaving. Pt vomited green bile into toilet. Pt denies falling and stated she sat on the ground so she could 'throw up in the toilet'. Pt walked back to bed. Pt
c/o headache and abd pain, PRN dilaudid and zofran given (see MAR). BP 114/67, HR 77, temp 98.3, 97% RA, RR 18. Pt given basin and was instructed to call staff to use bathroom. LINE MAINTENANCE TECHNICIAN notified. Call mckeon within reach and plan of care ongoing.
[2024-10-04 06:59] LABS: Hemoglobin 10.5 g/dL (12.0-16.0); Mean Corp Hgb Conc. 32.8 g/dL (33.0-37.0); Mean Corpuscular Hgb 31.8 pg (27.0-31.0); Platelet Count 189 10^3/uL (130-400); Red Cell Dist. Width 15.2 % (11.5-14.5); White Blood Cell Count 5.3 10^3/uL (4.8-10.8)
[2024-10-04 07:26] LABS: ALT (SGPT) 13 U/L (0-35); AST (SGOT) 24 U/L (14-36); Albumin 3.4 g/dl (3.5-5.0); Alkaline Phosphatase 74 U/L (38-126); Amylase 474 U/L (30-110); Blood Urea Nitrogen 13 mg/dl (7-17); Calcium 8.7 mg/dl (8.4-10.2); Carbon Dioxide 21 mmol/L (22-30); Chloride 108 mmol/L (98-107); Estimated Creatinine Clearance 56 ml/min; Glucose 63 mg/dl (70-99); HDL Cholesterol 65 mg/dl; LDL Cholesterol, Calculated 62 mg/dl; Potassium 4.9 mmol/L (3.5-5.1); Sodium 138 mmol/L (135-145); Total Bilirubin 0.4 mg/dl (0.2-1.3); Total Cholesterol 157 mg/dl (50-199); Total Protein 5.5 g/dl (6.3-8.2); Triglyceride 151 mg/dl (10-149); Very Low Density Lipoprotein 30 mg/dl (0-30); eGFR > 60.00
[2024-10-04 07:36] VITALS: BP 125/69
[2024-10-04] MEDS: KLONOPIN 0.5 MG PO ×2 (07:53→20:38)
[2024-10-04] MEDS: ASPIR LOW (ENTERIC COATED) 81 MG PO (07:53)
[2024-10-04] MEDS: PROTONIX 40 MG PO (07:53)
[2024-10-04] MEDS: BENTYL 20 MG PO ×3 (07:54→21:04)
[2024-10-04] MEDS: PULMICORT INH (08:22)
[2024-10-04] MEDS: SYMBICORT 160/4.5 MCG INHALER INH (08:22)
[2024-10-04] MEDS: VENTOLIN NEBULES INH (08:22)
[2024-10-04] MEDS: COMPAZINE 10 MG IV ×2 (08:23→17:53)
[2024-10-04 09:02] LABS: Urine Albumin Negative (Neg - Trace); Urine Bilirubin Negative (Negative); Urine Character Clear (Clear); Urine Color Straw; Urine Glucose Negative (Negative); Urine Ketone 2+ (Negative); Urine Leukocyte Negative (Negative); Urine Nitrite Negative (Negative); Urine Occult Blood Negative (Negative); Urine Specific Gravity 1.015 (<1.030); Urine Urobilinogen Negative (Neg - 1+)
[2024-10-04 09:14] LABS: Glucose - Point of Care 69 mg/dl (70-99)
--- NOTE | 2024-10-04 10:10 | W.PN.HOSP.TC ---
Today's Communication/Plan
-
MRI ordered
D5 added to fluids
IV compazine PRN nausea/headache
F/U further GI recommendations
Assessment / Plan
Assessment / Plan
Ms. Carolyn Gao is a 58 yo woman with history anxiety/depression, tobacco use, COPD, ILD, HLD, intussusception s/p ileocecectomy 05/07, chronic abdominal pain with multiple ER visits, most recent admission 05/24-05/27/24 where further work-up of
abdominal pain concerning for slow gastric emptying with recent initiation of Cymbalta presents to the ER today complaining of worsening abdominal pain and shortness of breath found to have lipase > 4000.
Patient has had these complaints for nearly a year and a half. She was just started on Cymbalta on . Her motility specialist at [facility] is concerned for centrally mediated abdominal pain syndrome.
RUQ US
IMPRESSION:
1. MODERATE BILIARY DILATATION and mild to moderate pancreatic ductal dilatation. Diagnostic possibilities are (1) obstructing choledocholithiasis, (2) an obstructing pancreatic head or duodenal tumor, or (3) dilatation secondary to acute
pancreatitis.
2. Distended gallbladder without evidence for cholelithiasis.
Acute Pancreatitis
Acute on Chronic abdominal pain with recent diagnosis of centrally mediated abdominal pain syndrome
-first diagnosis of acute pancreatitis. Etiology unclear. She was recently started on Cymbalta which can be a risk factor for pancreatitis. TG level OK, Will check IgG, alpha-1 antritrypsin
-RUQ US with moderate biliary dilation - MRI ordered and MRCP
-patient had lab slips for heavy metals, ova and parasites - will order here
-hold Cymbalta for now
-GI consulted
-NPO except sips
-D5 added to IVF, hypoglycemic this morning
Chronic shortness of breath
COPD
Tobacco use
-has seen pulmonary recently with normal PFT's
-has TTE order as outpatient - will order here
-no wheezing on exam
-may be related to pain and abdominal process?
-MARBLE [employer]ER inhalers, Singulair
# Anemia of chronic disease
-Hemoglobin 11.4
-No active bleeding
-Continue to monitor
# Depression/anxiety
-Clonazepam continued
#Current smoker
-pack a day
- declines nicotine patch
# DVT prophylaxis
-Lovenox
Code status: Full
51 minutes spent on patient care
Anticipated Discharge: > 48 hours
Subjective/Interval History
-
Date of Service: October 04, 2024
nausea and vomiting this morning
vomiting green - bile
abdomen with heat pack, remains with pain
frontal headache, has been on-going at home associated with posterior neck tension
Objective Data
-
Labs:
Laboratory Results
10/04/24
06:28
WBC 5.3
Hgb 10.5 L
Hct 32.0 L
Plt Count 189
Sodium 138
Potassium 4.9
Chloride 108 H
Carbon Dioxide 21 L
BUN 13
Creatinine 0.8
Glucose 63 L
Calcium 8.7
Total Bilirubin 0.4
AST 24
ALT 13
Alkaline Phosphatase 74
Vital Signs:
Vital Signs
Temp Pulse Resp BP Pulse Ox
97.7 F 74 16 125/69 97
10/04/24 07:36 10/04/24 07:36 10/04/24 07:36 10/04/24 07:36 10/04/24 07:36
Review of Systems
-
History Source: Patient
All other systems: Reviewed and negative
Physical Exam
-
General: Conversant and Other (appears uncomfortablel, nauseated)
HEENT: Normocephalic, Atraumatic and Anicteric
Respiratory: Clear to Auscultation and Non Labored Respirations
Cardiac: Regular Rhythm and S1/S2
GI: Soft and Tender (mid-epigastric tenderness, no rebound or guarding )
Musculoskeletal: No Cyanosis, No Edema and Normal Gait & Station (ambulating well in room with no assistance)
Skin: Warm and Dry
Neuro: Awake, Alert, Oriented and Nonfocal/Grossly Intact
Psych: Calm
Data Reviewed
-
Diagnostic Radiology: Report Reviewed by me
Labs: Labs Reviewed by me
[2024-10-04] MEDS: D5/0.9% SODIUM CHLORIDE 1000 IV ×2 (10:40→23:15)
[2024-10-04] MEDS: LIDOCAINE 4% PATCH 1 PATCH TOPICAL (10:40)
[2024-10-04] MEDS: NSS IV (10:51)
[2024-10-04 11:06] LABS: Lipase 463 U/L (23-300)
--- NOTE | 2024-10-04 11:15 | CON.GI ---
Addendum entered and electronically signed by Christiane Layton MD 10/04/24 15:41:
I saw and examined the patient.
The FAGOTER's note was reviewed and I agree with the note.
Impression:
Chronic abdominal pain -recently seen at [facility]- central mediated abdominal pain . Started on Cymbalta
nausea/vomiting
elevated lipase with normal MRI abdomen ( normal pancreas/ bile ducts. Repeat lipase downtrending
abd imaging with distention of bowel loop with concern for enteritis
hx intussusception with robotic ileocecectomy 04/28 -
Chronic anemia
migraine
prior NSAID use with PUD on EGD in March now off NSAID
03/2024 colonoscopy with Mild Erythematous mucosa in the transverse colon and in the ascending colon bx with right colon focal active colitis no features of chronicity
hx c-diff
hx cystitis
Gastric dilation and antral thickening on prior imaging
constipation with period of diarrhea
depression
FH CRC-mother
plan
Okay to start on clear liquid. Advance as tolerated
Antiemetics as needed
Pain management as per medical team
stool studies if any diarrhea
Recommend continue follow-up with [facility] on discharge
Patient needs repeat colonoscopy -patient would like to schedule with Dr. Pinto
will follow up
Original Note:
Consultation
-
Date/Time Consultation Requested: 10/03/242043
Date/Time Consultation Performed: 10/04/24 1115
Requesting Provider: ANETTE Diop
Performing Provider: ANETTE Ann, Christiane Layton MD
Reason for Consultation: abdominal pain
Medical History
Chief Complaint / HPI
Chief Complaint: abd pain
History of Present Illness:
Pt is a 58yo with hx COPD, ILD, tobacco abuse hyperlipidemia with prior GI inpatient evaluation in May with noted prolonged medical issues. 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 She
admits to some chronic back issues with hx tobacco abuse with living on NSAIDs. Her mother passed in September 2022 and since November has not been well. She began with recurrent UTI with multiple courses of antibiotics. She then began with abdominal
pain with evaluation at , and [facility] with multiple tests over the summer with dx of c-diff, CT enterography March 16 that showed marked gastric dilation and thickening of the gastric antrum. There is also findings of the ileocecal valve
prolapsing into the cecum suggestive of intussusception, PUD via EGD with gastric erosions and colon with Mild Erythematous mucosa in the transverse colon and in the ascending colon bx with right colon focal active colitis no features of
chronicity, drug induced NSAID, resolving infection, prep related, colitis with diverticulosis, vs IBD. She admits to C-diff ? march then Pt went for robotic ileocecectomy 04/28 and was seen in May with abdominal pain and variable stools.
During that admission she completed EGD (initially with increased food then repeat with benign polyps minimal gastritis) advised to limited opioids and psych eval with motility clinic follow up with start of Cymbalta. .She has had several ER visit
since that time with chest pain, abdominal pain but no admission. She also admits to several follow up's with Dr. Overton at [facility] with ? IBS, and finally recent evaluation at [facility] with Dr. Abbott recommended stool
studies, and motility clinic with Dr. Robles with concern for central Mediated Abdominal pain with treatment with Cymbalta. She admits to variable treatment with Tylenol with codeine, Bentyl and has been avoiding NSAIDs. She now presents with
10/03 with multiple complaints with headache severe for last 3 weeks , nausea, dysphagia, abdominal pain. weight loss 20 + lbs but noted stable per records has been stable since prior admissions (47-52 kg last few years).
At this time she admits to GERD on PPI and pepcid. Nausea and vomiting recently worse with vomiting larger amount after admission. She admits to sweats, abdominal pain which is constant 8/10 difficulty to say what can make it better, +
shortness of breath, diarrhea, constipation without rectal bleeding. he also admits to long periods of sleeping with inability to get up and depression without psych follow up. On admission lipase >4000 that quickly improved to 463. MRI
completed without duct dilation or panc inflammation.
Past Medical History
Past Medical History: Asthma, COPD, HTN, Hypercholesterolemia, Valvular Disease (MVP) and Other (interstitial cystitis, family hx of colon cancer, c-diff, PUD, osteoporsis )
Past Surgical History: Orthopedic and Other (04/2024 robotic ileocectomy)
Social History
Tobacco: Smoker (10 cigarettes/day)
Alcohol: None
Drug: None
Personal:
Living: With Family
Employment: Retired
Family History
Family History: Cancer (CRC-mother )
Allergies / Home Medications
Allergy/AdvReac Type Severity Reaction Status Date / Time
sulfamethoxazole Allergy Unknown Verified 09/17/24 00:15
[From Bactrim]
trimethoprim [From Bactrim] Allergy Unknown Verified 09/17/24 00:15
�Medication �Instructions �Recorded
clonazepam 0.5 mg tablet 0.5 mg PO BID Mental Health/Anxiety 03/20/24
fluticasone furoate 100 1 inh inhalation R DAILY 03/20/24
mcg-vilanterol 25 mcg/dose Lung/Breathing Issues
inhalation powder (Breo Ellipta)
montelukast 10 mg tablet 10 mg PO QPM Lung/Breathing Issues 03/20/24
(Singulair)
rosuvastatin 10 mg tablet 10 mg PO QPM High Cholesterol 03/20/24
pantoprazole 40 mg tablet,delayed 40 mg PO BID Gastrointestinal 04/11/24
release (Protonix) issue #100 tabs
albuterol sulfate 2.5 mg/3 mL 2.5 mg inhalation R TID 05/24/24
(0.083 %) solution for nebulization Lung/Breathing Issues
acetaminophen 325 mg tablet 650 mg PO BID 10/03/24
aspirin 81 mg tablet,delayed 81 mg PO DAILY 10/03/24
release
budesonide 0.5 mg/2 mL suspension 0.5 mg inhalation R BID 10/03/24
for nebulization
dicyclomine 20 mg tablet 20 mg PO TID 10/03/24
duloxetine 60 mg capsule,delayed 60 mg PO DAILY 10/03/24
release (Cymbalta)
famotidine 20 mg tablet (Acid 40 mg PO HS 10/03/24
Controller)
ondansetron 4 mg disintegrating 4 mg PO Q6HPRN PRN nausea 10/03/24
tablet
potassium gluconate 550 mg (90 mg) 550 mg PO DAILY 10/03/24
tablet
Review of Systems
-
History Source: Patient
Constitutional: Reports Weight Loss (per patient 20 lbs ( 47-52 kg last few years DH))
EENT: Reports No Symptoms
Respiratory: Reports Trouble Breathing
Cardiac: Reports No Symptoms
Abdomen/GI: Reports Abdominal Pain, Nausea, Vomiting, Diarrhea, Constipated and Anorexia
: Reports No Symptoms
Musculoskeletal: Reports No Symptoms
Neurological: Reports Headache and Weakness
Endocrine: Reports No Symptoms
Hematologic/Lymphatic: Reports No Symptoms
Vital Signs
Temp Pulse Resp BP Pulse Ox
97.7 F 74 16 125/69 97
10/04/24 07:36 10/04/24 07:36 10/04/24 07:36 10/04/24 07:36 10/04/24 07:36
Physical Exam
Exam
General: Other (thin appearing with some withdrawn behavior lying in bed with limited eye contact but conversant )
HEENT: Normocephalic and Anicteric
Respiratory: Clear
Cardiac: Regular Rhythm
GI: Soft, Non Distended and Tender (diffuse worse in lower abdomen )
Musculoskeletal: No Clubbing and No Cyanosis
Skin: Warm and Dry
Neuro: Awake and Other (conversant and appropriate )
Psych: Calm
Results
WBC 5.3 10^3/uL (4.8-10.8) 10/04/24 06:28
Hgb 10.5 g/dL (12.0-16.0) L 10/04/24 06:28
Hct 32.0 % (37.0-47.0) L 10/04/24 06:28
MCV 97.0 fL (81.0-99.0) 10/04/24 06:28
Plt Count 189 10^3/uL (130-400) 10/04/24 06:28
Absolute Neuts (auto) 2.6 10^3/uL (1.4-6.5) 10/03/24 13:48
Sodium 138 mmol/L (135-145) 10/04/24 06:28
Potassium 4.9 mmol/L (3.5-5.1) 10/04/24 06:28
Chloride 108 mmol/L (98-107) H 10/04/24 06:28
Carbon Dioxide 21 mmol/L (22-30) L 10/04/24 06:28
BUN 13 mg/dl (7-17) 10/04/24 06:28
Creatinine 0.8 mg/dL (0.6-1.0) 10/04/24 06:28
Calcium 8.7 mg/dl (8.4-10.2) 10/04/24 06:28
Total Bilirubin 0.4 mg/dl (0.2-1.3) 10/04/24 06:28
AST 24 U/L (14-36) 10/04/24 06:28
ALT 13 U/L (0-35) 10/04/24 06:28
Alkaline Phosphatase 74 U/L (38-126) 10/04/24 06:28
Amylase 474 U/L (30-110) H 10/04/24 06:28
Lipase 463 U/L (23-300) H 10/04/24 06:28
Diagnostic Image Results:
10/04/24- MRI
No MRI evidence for choledocholithiasis, mass, or bile duct stricture. No significant intrahepatic or extrahepatic bile duct dilatation on this exam. No appreciable peripancreatic edema or loculated peripancreatic fluid despite elevated lipase
levels.
10/03/24 abd X ray
1. Mild distention of bowel loops in the lower abdomen and pelvis. Diagnostic possibilities are (1) an infectious or inflammatory enteritis or (2) an adynamic ileus.
2. No radiographic evidence for bowel obstruction or pneumoperitoneum.
3. Severe multilevel lumbar discogenic degenerative disease.
10/03/24- US abdomen
1. MODERATE BILIARY DILATATION and mild to moderate pancreatic ductal dilatation. Diagnostic possibilities are (1) obstructing choledocholithiasis, (2) an obstructing pancreatic head or duodenal tumor, or (3) dilatation secondary to acute
pancreatitis.
2. Distended gallbladder without evidence for cholelithiasis.
08/25/24 US Abdominal Doppler Only
IMPRESSION: Normal mesenteric arterial Doppler study. No evidence of any hemodynamically significant stenosis in the celiac artery/splenic artery/hepatic artery and the superior mesenteric artery. Urgent study findings communicated to ordering ED
staff, Dr. Kirk Almaguer, and Naomy Hairston.
07/25/24 CT a/p IV and oral
1. Mild diverticulosis in the sigmoid colon.
2. Moderate distention of the proximal ascending colon and mild distention of the transverse colon.
3. Previous cecectomy and appendectomy.
4. Mild intrahepatic and extrahepatic biliary dilatation.
5. Mild chronic bilateral renal disease.
6. 1 mm nonobstructing left intrarenal calculus.
7. Severe multilevel discogenic degenerative disease in the lumbar spine
Prior GI Procedures:
03/16/24 CT enterography-
1. Marked gastric dilation with fluid-filled stomach. This extends to the level of the gastric antrum which shows circumferential abnormal wall thickening which is persistent on delayed images etiology of the wall thickening is indeterminate at
CT. This could be further evaluated with endoscopy.
2. As above, there is apparent slight protrusion of the ileocecal valve into the cecum, evaluation somewhat limited secondary to paucity of intra-abdominal fat. No aranza ileocecal intussusception is identified on this examination. There is no
obstruction of the small bowel. No other intussusception is identified.
03/17/24- abd X ray
Normal bowel gas pattern. No evidence of intestinal obstruction.
Mild fecal material mostly in the distal left colon. Improved
03/25/24 abd X ray
Moderate fecal material throughout the colon. Progressed. No evidence of intestinal obstruction
03/28/24 CT Abd/pel W Iv And Oral Contr
1. Mild bowel wall thickening and inflammatory change adjacent to the cecum, which is redundant and located within the pelvis. Findings are suggestive of mild enteritis, likely infectious or inflammatory.
2. Focal area of narrowing within the gastric antrum, with associated mild gastric dilation. This was also seen on prior CT dated 03/16/2024. Consider further evaluation with upper GI endoscopy.
3. No current intussusception.
04/03/24 obst series
No active cardiopulmonary disease.
No evidence of acute abdominal pathology.
04/09/24 CT Abd/pel W Iv And Oral Contr
1. Large amount of fecal material in the proximal colon suggesting CONSTIPATION.
2. Mild circumferential wall thickening throughout the sigmoid colon and rectum suggesting a mild acute proctocolitis.
3. Mild diverticulosis in the sigmoid colon.
4. Moderate calcific atherosclerotic plaque in the abdominal aorta.
5. Severe multilevel discogenic degenerative disease in the lumbar spine.
04/19/24 CT a/p angio
1. There is no evidence of aortic aneurysm or dissection.
2. There is no evidence of pulmonary embolism.
3. Small nodule in the left lower lobe is stable and likely benign.
04/28/24 OR for 1. Ileocecal intussusception. 2. Abdominal pain.
OPERATION: Robotic-assisted ileocecectomy.
path fibrous obliteration of appendix, intussusection, gross adhesions, benign nodes, no histopathologic abnormality seen
05/24/24 CT [place] a/p
Evaluation for active colonic bleeding markedly limited by residual oral contrast in the colon without gross active colonic bleeding confirmed at this time.
Prior colonic anastomoses again seen, limited in evaluationWithout oral contrast administered at this time, without gross focal accompanying abnormality.
No evidence of abdominal aortic aneurysm or dissection.
Prior GI Procedures:
EGD: 05/2024 [facility] - Normal proximal esophagus, mid esophagus and distal
esophagus.
- Z-line irregular, 40 cm from the incisors. Biopsied.
- A few, bening appearing gastric polyps in the
fundus. Endoscopically, consistent with benign fundic
gland polyps.
- Minimal gastritis in the pre-pyloric region.
Biopsied to rule out H pylori.
- Otherwise, normal stomach on direct and retroflexion
views without any ulcerations or erosions. The
previous gastric ulcers were healed. Biopsies from the
antrum and body were taken to rule out H pylori.
- Normal examined duodenum up to the third portion.
Biopsied to rule out Celiac.
- The exam was otherwise without abnormality without
any significant findings throughout the examined upper
GI tract to account for patient's symptoms.
EGD: 04/06/24- EGD [facility] - Z-line irregular, at the gastroesophageal junction.
Biopsied.
- Multiple non-bleeding superficial gastric ulcers/
erosions with congested erythematous mucosa were found
in the gastric antrum. Biopsied.
- Gastritis. Biopsied.
- Normal examined duodenum.
bx neg
Colonoscopy: 04/06/24 [place] - The examined portion of the ileum was normal.
- The cecum and ileocecal valve are normal.
- Mild Erythematous mucosa in the transverse colon and
in the ascending colon. Biopsied.
- The rectum, sigmoid colon and descending colon are
normal. Biopsied.
- Many medium-mouthed and small-mouthed diverticula
were found in the sigmoid colon.
bx with right colon focal active colitis no features of chronicity, drug induced NSAID, resolving infection, prep related, colitis with diverticulosis, vs IBD
left colon no pathologic findings
Assessment / Plan
-
Pt is a 58yo with hx COPD, ILD, tobacco abuse hyperlipidemia with prior GI inpatient evaluation in May with noted prolonged medical issues. 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 She
admits to some chronic back issues with hx tobacco abuse with living on NSAIDs. Her mother passed in September 2022 and since November has not been well. She began with recurrent UTI with multiple courses of antibiotics. She then began with abdominal
pain with evaluation at , and [facility] with multiple tests over the summer with dx of c-diff, CT enterography March 16 that showed marked gastric dilation and thickening of the gastric antrum. There is also findings of the ileocecal valve
prolapsing into the cecum suggestive of intussusception, PUD via EGD with gastric erosions and colon with Mild Erythematous mucosa in the transverse colon and in the ascending colon bx with right colon focal active colitis no features of
chronicity, drug induced NSAID, resolving infection, prep related, colitis with diverticulosis, vs IBD. She admits to C-diff ? march then Pt went for robotic ileocecectomy 04/28 and was seen in May with abdominal pain and variable stools.
During that admission she completed EGD (initially with increased food then repeat with benign polyps minimal gastritis) advised to limited opioids and psych eval with motility clinic follow up with start of Cymbalta. .She has had several ER visit
since that time with chest pain, abdominal pain but no admission. She also admits to several follow up's with Dr. Overton at [facility] with ? IBS, and finally recent evaluation at [facility] with Dr. Abbott recommended stool
studies, and motility clinic with Dr. Robles with concern for central Mediated Abdominal pain with treatment with Cymbalta. She admits to variable treatment with Tylenol with codeine, Bentyl and has been avoiding NSAIDs. She now presents with
10/03 with multiple complaints with headache severe for last 3 weeks , nausea, dysphagia, abdominal pain. weight loss 20 + lbs but noted stable per records has been stable since prior admissions (47-52 kg last few years). On admission lipase
>4000 with improvement and MRI neg for biliary etiology or pancreatitis.
Impression:
abdominal pain
nausea/vomiting
elevated lipase with normal MRI
abd imaging with distention of bowel loop with concern for enteritis
recent concern for central mediated abdominal pain per [facility]
anemia
migraine
prior NSAID use with PUD on EGD in March now off NSAID
03/2024 colonoscopy with Mild Erythematous mucosa in the transverse colon and in the ascending colon bx with right colon focal active colitis no features of chronicity
hx c-diff
hx cystitis
intussusception with robotic ileocecectomy 04/28
Gastric dilation and antral thickening on prior imaging
constipation with period of diarrhea
depression
FH CRC-mother
Recommendations:
Etiology of symptoms unclear-ongoing for months with some vomiting, elevated lipase and abd imaging with enteritis on admission with worsening headaches
check norovirus to rule out acute on chronic issues
MRI as noted without ductal dilation or pancreatitis
cont supportive care with antiemetics
pain control per hospitalist
consider psych eval as admits to depression with ongoing symptoms
for follow up with motility clinical at [facility]
NPO, advance as tolerated
cont PPI and pepcid
she has also had some fragmented care with multiple institutions for evaluation--which makes it difficulty with multiple testing
t/c eventual repeat colonoscopy as she was planning with Dr. Pinto when improved to take prep with prior colitis noted on imaging
add CRP and ESR
-
-
Thank you for consultation and allowing me to participate in the patient's care. Please call the credit and loan collections supervisor GI physician during the after hours with any questions or concerns.
[2024-10-04 13:32] VITALS: BMI 18.5
[2024-10-04 14:04] LABS: Erythrocyte Sed Rate 19 mm/hour (0-20)
[2024-10-04 15:28] LABS: C-Reactive Protein < 5.00 mg/L (0.0-10.00)
[2024-10-04] MEDS: CYMBALTA DELAYED RELEASE 60 MG PO (15:35)
[2024-10-04] MEDS: DILAUDID 0.5 MG IV (15:35)
[2024-10-04] MEDS: VENTOLIN NEBULES 2.5 MG INH ×2 (15:35→19:10)
[2024-10-04 15:47] VITALS: BP 117/64
[2024-10-04] MEDS: CRESTOR 10 MG PO (17:49)
[2024-10-04] MEDS: LOVENOX 40 MG SC (17:50)
[2024-10-04] MEDS: SINGULAIR 10 MG PO (17:50)
[2024-10-04] MEDS: SYMBICORT 160/4.5 MCG INHALER 2 PUFF INH (19:10)
[2024-10-04] MEDS: PULMICORT 0.5 MG INH (19:10)
[2024-10-04] MEDS: PROTONIX IV 40 MG IV (20:38)
[2024-10-04] MEDS: NSS (PRESERVATIVE FREE) 10 ML IV (20:38)
[2024-10-04] MEDS: PEPCID 20 MG PO (21:04)
[2024-10-04 21:44] LABS: Glucose - Point of Care 119 mg/dl (70-99)
[2024-10-04 23:30] VITALS: BP 110/52
--- NOTE | 2024-10-05 02:27 | DOWNTIME ---
There was a [employer] Downtime on 10/05/2024 from 0100 to 10/05/2023 at 0205 . Downtime documentation of patient's care, including medication administrations, has been reconciled in the electronic record per guidelines. Refer to the
patient's paper chart under the miscellaneous tab to see printed paper medication records and downtime forms.
[2024-10-05] MEDS: PULMICORT 0.5 MG INH ×2 (07:20→20:51)
[2024-10-05] MEDS: VENTOLIN NEBULES 2.5 MG INH ×3 (07:20→20:51)
[2024-10-05] MEDS: SYMBICORT 160/4.5 MCG INHALER 2 PUFF INH (07:20)
[2024-10-05 07:25] LABS: ALT (SGPT) 11 U/L (0-35); AST (SGOT) 20 U/L (14-36); Alkaline Phosphatase 58 U/L (38-126); Blood Urea Nitrogen 10 mg/dl (7-17); Calcium 8.5 mg/dl (8.4-10.2); Carbon Dioxide 25 mmol/L (22-30); Chloride 108 mmol/L (98-107); Estimated Creatinine Clearance 64 ml/min; Glucose 131 mg/dl (70-99); Magnesium 1.9 mg/dl (1.6-2.3); Potassium 4.2 mmol/L (3.5-5.1); Sodium 138 mmol/L (135-145); Total Bilirubin 0.3 mg/dl (0.2-1.3); eGFR > 60.00
[2024-10-05 07:30] LABS: Hematocrit 29.1 % (37.0-47.0); Hemoglobin 9.7 g/dL (12.0-16.0); Mean Corp Hgb Conc. 33.3 g/dL (33.0-37.0); Mean Corpuscular Hgb 31.3 pg (27.0-31.0); Mean Corpuscular Volume 93.9 fL (81.0-99.0); Mean Platelet Volume 9.8 fL (7.4-10.4); Platelet Count 170 10^3/uL (130-400); Red Cell Dist. Width 15.3 % (11.5-14.5); White Blood Cell Count 4.2 10^3/uL (4.8-10.8)
[2024-10-05 07:31] VITALS: BP 113/66
[2024-10-05] MEDS: D5/0.9% SODIUM CHLORIDE 1000 IV (08:58)
[2024-10-05] MEDS: NSS (PRESERVATIVE FREE) 10 ML IV ×2 (09:00→19:49)
[2024-10-05] MEDS: PROTONIX IV 40 MG IV ×2 (09:00→19:49)
[2024-10-05] MEDS: CYMBALTA DELAYED RELEASE 60 MG PO (09:01)
[2024-10-05] MEDS: BENTYL 20 MG PO ×3 (09:01→21:25)
[2024-10-05] MEDS: ASPIR LOW (ENTERIC COATED) 81 MG PO (09:01)
[2024-10-05] MEDS: KLONOPIN 0.5 MG PO ×2 (09:02→19:49)
[2024-10-05] MEDS: LIDOCAINE 4% PATCH 1 PATCH TOPICAL (09:03)
--- NOTE | 2024-10-05 10:08 | W.PN.HOSP.TC ---
Today's Communication/Plan
-
advance diet
MRI Brain
stop fluids if eating/drinking
Assessment / Plan
Assessment / Plan
Ms. Carolyn Gao is a 58 yo woman with history anxiety/depression, tobacco use, COPD, ILD, HLD, intussusception s/p ileocecectomy 05/07, chronic abdominal pain with multiple ER visits, most recent admission 05/24-05/27/24 where further work-up of
abdominal pain concerning for slow gastric emptying with recent initiation of Cymbalta presents to the ER today complaining of worsening abdominal pain and shortness of breath found to have lipase > 4000.
Patient has had these complaints for nearly a year and a half. She was just started on Cymbalta on . Her motility specialist at [place] is concerned for centrally mediated abdominal pain syndrome.
RUQ US
IMPRESSION:
1. MODERATE BILIARY DILATATION and mild to moderate pancreatic ductal dilatation. Diagnostic possibilities are (1) obstructing choledocholithiasis, (2) an obstructing pancreatic head or duodenal tumor, or (3) dilatation secondary to acute
pancreatitis.
2. Distended gallbladder without evidence for cholelithiasis.
MRI Abdomen
IMPRESSION:
No MRI evidence for choledocholithiasis, mass, or bile duct stricture. No significant intrahepatic or extrahepatic bile duct dilatation on this exam. No appreciable peripancreatic edema or loculated peripancreatic fluid despite elevated lipase
levels.
TTE
CONCLUSIONS
Normal left ventricular size, wall thickness and systolic function. No regional
wall motion abnormalities are seen. LV ejection fraction is 60-65% by Gomez's
method of discs. Normal diastolic function.
Acute Pancreatitis
Acute on Chronic abdominal pain with recent diagnosis of centrally mediated abdominal pain syndrome
-Lipase elevated on admission then quickly normalized with imaging negative for inflammation
-RUQ US with moderate biliary dilation - MRI ordered and MRCP - no e/o biliary dilation or pancreatitis
-patient had lab slips for heavy metals, ova and parasites - will order here
-appreciate GI
-Cymbalta resumed
-patient wants to eat today - will order low lactose diet
-colonoscopy as outpatient
Daily headache
-new over past several weeks; associated with right arm numbness/tingling
-will order MRI brain with and without contrast
Chronic shortness of breath
COPD
Tobacco use
-has seen pulmonary recently with normal PFT's
-has TTE order as outpatient - WNL
-no wheezing on exam
-may be related to pain and abdominal process?
-[employer] inhalers, Singulair
# Anemia of chronic disease
-Hemoglobin 11.4
-No active bleeding
-Continue to monitor
# Depression/anxiety
-Clonazepam continued
#Current smoker
-pack a day
- declines nicotine patch
# DVT prophylaxis
-Lovenox
Code status: Full
51 minutes spent on patient care
Anticipated Discharge: 24 - 48 hours
Subjective/Interval History
-
Date of Service: October 05, 2024
abdominal pain not significant as she is not eating
now she's hungry and wants to try diet
Objective Data
-
Labs:
Laboratory Results
10/05/24
06:32
WBC 4.2 L
Hgb 9.7 L
Hct 29.1 L
Plt Count 170
Sodium 138
Potassium 4.2
Chloride 108 H
Carbon Dioxide 25
BUN 10
Creatinine 0.7
Glucose 131 H
Calcium 8.5
Total Bilirubin 0.3
AST 20
ALT 11
Alkaline Phosphatase 58
Vital Signs:
Vital Signs
Temp Pulse Resp BP Pulse Ox
98.3 F 78 16 113/66 96
10/05/24 07:31 10/05/24 07:31 10/05/24 07:31 10/05/24 07:31 10/05/24 07:31
I&O
10/04/24 10/05/24 10/06/24
06:59 06:59 06:59
Intake Total 1480 / 1480
Balance 1480 / 1480
Review of Systems
-
History Source: Patient
All other systems: Reviewed and negative
Physical Exam
-
General: Conversant and Other (appears uncomfortablel, nauseated)
HEENT: Normocephalic, Atraumatic and Anicteric
Respiratory: Clear to Auscultation and Non Labored Respirations
Cardiac: Regular Rhythm and S1/S2
GI: Soft and Tender (mid-epigastric tenderness, no rebound or guarding )
Musculoskeletal: No Cyanosis, No Edema and Normal Gait & Station (ambulating well in room with no assistance)
Skin: Warm and Dry
Neuro: Awake, Alert, Oriented and Nonfocal/Grossly Intact
Psych: Calm
Data Reviewed
-
Diagnostic Radiology: Report Reviewed by me
Labs: Labs Reviewed by me
--- NOTE | 2024-10-05 10:30 | CM ---
Patient seen bedside.
patient IA completed.
Patient lives with spouse and son in a 2 story home.
Independent prior to admission without assistive devices.
Patient drives, retired.
No VN in the past.
Patient denies home care needs.
PCP: Dr De Luna
Pharmacy: [facility]
Plan: home no needs anticipated.
[2024-10-05] MEDS: COMPAZINE 5 MG IV (10:40)
[2024-10-05 11:59] LABS: Glucose - Point of Care 152 mg/dl (70-99)
[2024-10-05 15:05] VITALS: BP 88/56
[2024-10-05 16:20] LABS: Alpha-1-Antitrypsin 152 mg/dL (90-200)
--- NOTE | 2024-10-05 16:27 | PTCARENOTE ---
Patient able to tolerate 100% of sandwich and custard. IV fluids stopped per order.
[2024-10-05] MEDS: D5/0.9% SODIUM CHLORIDE IV (16:59)
[2024-10-05 17:23] LABS: Glucose - Point of Care 134 mg/dl (70-99)
[2024-10-05] MEDS: CRESTOR 10 MG PO (17:24)
[2024-10-05] MEDS: SINGULAIR 10 MG PO (17:24)
[2024-10-05] MEDS: LOVENOX 40 MG SC (17:25)
[2024-10-05 19:46] VITALS: BP 97/60
[2024-10-05] MEDS: SYMBICORT 160/4.5 MCG INHALER INH (20:55)
[2024-10-05] MEDS: PEPCID 20 MG PO (21:25)
[2024-10-05 21:53] LABS: Glucose - Point of Care 117 mg/dl (70-99)
[2024-10-05 23:00] VITALS: BP 95/52
[2024-10-06 04:15] LABS: Lead - Venous <2.0 ug/dL (<=4.9)
[2024-10-06 04:24] LABS: Arsenic, Blood <10.0 ug/L (<=12.0); Lead - Venous <2.0 ug/dL (<=4.9); Mercury, Blood <2.5 ug/L (<=10.0)
[2024-10-06] MEDS: VENTOLIN NEBULES 2.5 MG INH (07:07)
[2024-10-06] MEDS: PULMICORT 0.5 MG INH (07:07)
[2024-10-06 07:27] LABS: Hematocrit 30.3 % (37.0-47.0); Hemoglobin 9.8 g/dL (12.0-16.0); Mean Corp Hgb Conc. 32.3 g/dL (33.0-37.0); Mean Corpuscular Hgb 31.1 pg (27.0-31.0); Mean Corpuscular Volume 96.2 fL (81.0-99.0); Mean Platelet Volume 9.8 fL (7.4-10.4); Platelet Count 171 10^3/uL (130-400); Red Blood Cell Count 3.15 10^6/uL (4.20-5.40); Red Cell Dist. Width 15.8 % (11.5-14.5); White Blood Cell Count 4.1 10^3/uL (4.8-10.8)
[2024-10-06 07:40] LABS: ALT (SGPT) 13 U/L (0-35); AST (SGOT) 22 U/L (14-36); Albumin 3.2 g/dl (3.5-5.0); Alkaline Phosphatase 59 U/L (38-126); Blood Urea Nitrogen 6 mg/dl (7-17); Calcium 8.9 mg/dl (8.4-10.2); Carbon Dioxide 28 mmol/L (22-30); Chloride 106 mmol/L (98-107); Estimated Creatinine Clearance 64 ml/min; Glucose 103 mg/dl (70-99); Sodium 138 mmol/L (135-145); Total Bilirubin 0.2 mg/dl (0.2-1.3); Total Protein 5.2 g/dl (6.3-8.2); eGFR > 60.00
[2024-10-06 07:59] VITALS: BP 120/58
[2024-10-06 08:07] LABS: Glucose - Point of Care 96 mg/dl (70-99)
[2024-10-06] MEDS: BENTYL 20 MG PO (08:27)
[2024-10-06] MEDS: NSS (PRESERVATIVE FREE) 10 ML IV (08:27)
[2024-10-06] MEDS: PROTONIX IV 40 MG IV (08:27)
[2024-10-06] MEDS: CYMBALTA DELAYED RELEASE 60 MG PO (08:28)
[2024-10-06] MEDS: KLONOPIN 0.5 MG PO (08:28)
[2024-10-06] MEDS: ASPIR LOW (ENTERIC COATED) 81 MG PO (08:28)
[2024-10-06] MEDS: LIDOCAINE 4% PATCH 1 PATCH TOPICAL (08:28)
[2024-10-06] MEDS: COMPAZINE 10 MG IV (08:38)
--- NOTE | 2024-10-06 09:10 | VATNOTE ---
During routine assessment of PIV site, it was noted that the #18 in pt's R arm was red, tender, and with a palpable venous cord approx 1.5' in length. PIV removed and new PIV established. Heat applied and patient educated about phlebitis and it's
care. Pt verbalized relief of discomfort from removal of PIV and heat application. Will continue to monitor.
--- NOTE | 2024-10-06 09:17 | W.PN.HOSP.TC ---
Addendum entered and electronically signed by Marcella Field MD 10/07/24 08:05:
Underweight - appreciate dietary
Original Note:
Today's Communication/Plan
-
F/U response to triptan and Mag for JEAN
Assessment / Plan
Assessment / Plan
Ms. Carolyn Gao is a 58 yo woman with history anxiety/depression, tobacco use, COPD, ILD, HLD, intussusception s/p ileocecectomy 05/07, chronic abdominal pain with multiple ER visits, most recent admission 05/24-05/27/24 where further work-up of
abdominal pain concerning for slow gastric emptying with recent initiation of Cymbalta presents to the ER today complaining of worsening abdominal pain and shortness of breath found to have lipase > 4000.
Patient has had these complaints for nearly a year and a half. She was just started on Cymbalta on . Her motility specialist at [facility] is concerned for centrally mediated abdominal pain syndrome.
RUQ US
IMPRESSION:
1. MODERATE BILIARY DILATATION and mild to moderate pancreatic ductal dilatation. Diagnostic possibilities are (1) obstructing choledocholithiasis, (2) an obstructing pancreatic head or duodenal tumor, or (3) dilatation secondary to acute
pancreatitis.
2. Distended gallbladder without evidence for cholelithiasis.
MRI Abdomen
IMPRESSION:
No MRI evidence for choledocholithiasis, mass, or bile duct stricture. No significant intrahepatic or extrahepatic bile duct dilatation on this exam. No appreciable peripancreatic edema or loculated peripancreatic fluid despite elevated lipase
levels.
TTE
CONCLUSIONS
Normal left ventricular size, wall thickness and systolic function. No regional
wall motion abnormalities are seen. LV ejection fraction is 60-65% by Gomez's
method of discs. Normal diastolic function.
Brain MRI
IMPRESSION:
No acute intracranial abnormality noted.
Acute on Chronic abdominal pain with recent diagnosis of centrally mediated abdominal pain syndrome
Elevated lipase more likely 2/2 vomiting, patient did not have pancreatitis
-RUQ US with moderate biliary dilation - MRI ordered and MRCP - no e/o biliary dilation or pancreatitis
-patient had lab slips for heavy metals ordered here and negative
-no stool studies collected
-appreciate GI
-Cymbalta resumed
-patient wants to eat now - tolerating diet
-colonoscopy as outpatient
Daily headache
-new over past several weeks; associated with right arm numbness/tingling; right frontal headacje
-MRI Brain results - no new abnormality
-trial sumatriptan today and give IV magnesium
-will refer to Neurology on DC
Chronic shortness of breath
COPD
Tobacco use
-has seen pulmonary recently with normal PFT's
-has TTE order as outpatient - WNL
-no wheezing on exam
-may be related to pain and abdominal process?
-[employer] inhalers, Singulair
# Anemia of chronic disease
-Hemoglobin 11.4
-No active bleeding
-Continue to monitor
# Depression/anxiety
-Clonazepam continued
#Current smoker
-pack a day
- declines nicotine patch
# DVT prophylaxis
-Lovenox
Code status: Full
51 minutes spent on patient care
Anticipated Discharge: Within 24 hours
Subjective/Interval History
-
Date of Service: October 06, 2024
right sided headache persists
able to eat meals
Objective Data
-
Labs:
Laboratory Results
10/06/24
06:36
WBC 4.1 L
Hgb 9.8 L
Hct 30.3 L
Plt Count 171
Sodium 138
Potassium 4.0
Chloride 106
Carbon Dioxide 28
BUN 6 L
Creatinine 0.7
Glucose 103 H
Calcium 8.9
Total Bilirubin 0.2
AST 22
ALT 13
Alkaline Phosphatase 59
Vital Signs:
Vital Signs
Temp Pulse Resp BP Pulse Ox
97.5 F 82 16 120/58 96
10/06/24 07:59 10/06/24 07:59 10/06/24 07:59 10/06/24 07:59 10/06/24 07:59
I&O
10/05/24 10/06/24 10/07/24
06:59 06:59 06:59
Intake Total 1480 / 1480 1080 / 1080
Balance 1480 / 1480 1080 / 1080
Review of Systems
-
History Source: Patient
All other systems: Reviewed and negative
Physical Exam
-
General: Conversant and Other (appears uncomfortablel, nauseated)
HEENT: Normocephalic, Atraumatic and Anicteric
Respiratory: Clear to Auscultation and Non Labored Respirations
Cardiac: Regular Rhythm and S1/S2
GI: Soft and Tender (mid-epigastric tenderness, no rebound or guarding )
Musculoskeletal: No Cyanosis and No Edema
Skin: Warm and Dry
Neuro: Awake, Alert, Oriented and Nonfocal/Grossly Intact
Psych: Calm
Data Reviewed
-
Diagnostic Radiology: Report Reviewed by me
Labs: Labs Reviewed by me
[2024-10-06] MEDS: MAGNESIUM SULFATE 50 IV (09:54)
[2024-10-06] MEDS: IMITREX 50 MG PO (09:54)
[2024-10-06 11:41] LABS: Glucose - Point of Care 113 mg/dl (70-99)
--- NOTE | 2024-10-06 12:48 | W.PN.GI.CBS2 ---
Today's Communication / Plan
-
Recommend outpatient GI follow-up with [facility]
Assessment / Plan
-
Pt is a 58yo with hx COPD, ILD, tobacco abuse hyperlipidemia with prior GI inpatient evaluation in May with noted prolonged medical issues. 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 She
admits to some chronic back issues with hx tobacco abuse with living on NSAIDs. Her mother passed in September 2022 and since November has not been well. She began with recurrent UTI with multiple courses of antibiotics. She then began with abdominal
pain with evaluation at , and [facility] with multiple tests over the summer with dx of c-diff, CT enterography March 16 that showed marked gastric dilation and thickening of the gastric antrum. There is also findings of the ileocecal valve
prolapsing into the cecum suggestive of intussusception, PUD via EGD with gastric erosions and colon with Mild Erythematous mucosa in the transverse colon and in the ascending colon bx with right colon focal active colitis no features of
chronicity, drug induced NSAID, resolving infection, prep related, colitis with diverticulosis, vs IBD. She admits to C-diff ? march then Pt went for robotic ileocecectomy 04/28 and was seen in May with abdominal pain and variable stools.
During that admission she completed EGD (initially with increased food then repeat with benign polyps minimal gastritis) advised to limited opioids and psych eval with motility clinic follow up with start of Cymbalta. .She has had several ER visit
since that time with chest pain, abdominal pain but no admission. She also admits to several follow up's with Dr. Overton at [facility] [place] with ? IBS, and finally recent evaluation at [facility] with Dr. Abbott recommended stool
studies, and motility clinic with Dr. Robles with concern for central Mediated Abdominal pain with treatment with Cymbalta. She admits to variable treatment with Tylenol with codeine, Bentyl and has been avoiding NSAIDs. She now presents with
10/03 with multiple complaints with headache severe for last 3 weeks , nausea, dysphagia, abdominal pain. weight loss 20 + lbs but noted stable per records has been stable since prior admissions (47-52 kg last few years). On admission lipase
>4000 with improvement and MRI neg for biliary etiology or pancreatitis.
Impression:
Chronic abdominal pain -recently seen at [facility]- central mediated abdominal pain . Started on Cymbalta
Headache /nausea/vomiting. MRI brain no acute pathology
elevated lipase with normal MRI abdomen ( normal pancreas/ bile ducts. Repeat lipase downtrending
abd imaging with distention of bowel loop with concern for enteritis
hx intussusception with robotic ileocecectomy 04/28 -
Chronic anemia
migraine
prior NSAID use with PUD on EGD in March now off NSAID
03/2024 colonoscopy with Mild Erythematous mucosa in the transverse colon and in the ascending colon bx with right colon focal active colitis no features of chronicity
hx c-diff
hx cystitis
Gastric dilation and antral thickening on prior imaging
constipation with period of diarrhea
depression
FH CRC-mother
plan
Continue diet as tolerated
Antiemetics as needed
Pain management as per medical team
Recommend continue follow-up with [facility] on discharge
Patient needs repeat colonoscopy -patient would like to schedule with Dr. Pinto
GI will sign off. Please call us back if any questions
Total Time Spent with Patient (in minutes): 35
Subjective
Subjective
Date of Service: October 06, 2024
Feeling better. Denies any abdominal pain. Tolerating diet
Objective
Data Reviewed
Laboratory Data:
Laboratory Results
10/06/24 06:36
10/06/24 06:36
Laboratory Results
Phosphorus 3.9 mg/dl (2.5-4.5) 10/03/24 13:48
Magnesium 1.9 mg/dl (1.6-2.3) 10/05/24 06:32
Total Bilirubin 0.2 mg/dl (0.2-1.3) 10/06/24 06:36
AST 22 U/L (14-36) 10/06/24 06:36
ALT 13 U/L (0-35) 10/06/24 06:36
Alkaline Phosphatase 59 U/L (38-126) 10/06/24 06:36
Amylase 474 U/L (30-110) H 10/04/24 06:28
Lipase 463 U/L (23-300) H 10/04/24 06:28
Vital Signs and I&O:
Vital Signs
Temp Pulse Resp BP Pulse Ox
97.5 F 82 16 120/58 96
10/06/24 07:59 10/06/24 07:59 10/06/24 07:59 10/06/24 07:59 10/06/24 07:59
I&O
10/05/24 10/06/24 10/07/24
06:59 06:59 06:59
Intake Total 1480 / 1480 1080 / 1080
Balance 1480 / 1480 1080 / 1080
Physical Exam
Physical Exam
GI: Soft, Non Distended and Non Tender
--- NOTE | 2024-10-06 12:50 | W.DCSUMMARY ---
Discharge Summary
Discharge Data
Date of Admission: 10/03/24
Date of Discharge: 10/06/24
-
Pending Results: No
Hospital Course
Discharging Physician : Dr. Marcella Field
Disposition : Home
Primary care physician : Dr. Daniel De uLna
Principal Discharge diagnosis : Acute on Chronic Abdominal pain with vomiting and diarrhea; Migraine Headache
Hospital Course :
Ms. Carolyn Gao is a 58 yo woman with history anxiety/depression, tobacco use, COPD, ILD, HLD, C. Diff Colitis 04/06, intussusception s/p ileocecectomy 05/07, chronic abdominal pain with recent diagnosis of centrally mediated abdominal pain
syndrome started on Cymbalta presents to the ER on 10/03/24 complaining of new headaches, worsening abdominal pain and shortness of breath. Triage vitals stable. Labs with WBC 5.9, Cr 0.8, Lipase > 4000.
Patient was admitted to medicine with GI consulting for concern for acute pancreatitis. Work-up with RUQ US initially showed dilated biliary tree followed by MRI Abdomen which was without biliary dilatation and without peripancreatic edema. Per
GI, she did not have pancreatitis but elevated Lipase 2/2 other GI process, possible gastroenteritis. Her Lipase quickly downtrended on 400's on HD 1. Prior to discharge patient is eating and drinking well and abdominal pain back to its chronic
nature. She was not able to give a stool sample during her hospitalization. Metal testing done in-house (was ordered outpatient) and negative for Arsenic, Venous Lead and Mercury.
Patient reported new daily headache over past several weeks. She reported right arm numbness, no other neurological deficits. No vision changes. She was worked up with MRI with and without contrast (no abnormality). Compazine helped headaches,
she is prescribed on discharge. Sumatriptan trialed before discharge which helped significantly and she is also prescribed this as needed on discharge. She cannot take NSAIDs 2/2 hx PUD. She is told to start Riboflavin and trial magnesium (stop
if stomach upset). She will follow up with PCP and discuss referral to Neurology if persists.
Suspect breathing issues related to abdominal pain. Stable on DC. She had script for TTE as outpatient which was performed here and normal.
Time spent on discharge was 45 minutes.
Important imaging findings :
RUQ US
IMPRESSION:
1. MODERATE BILIARY DILATATION and mild to moderate pancreatic ductal dilatation. Diagnostic possibilities are (1) obstructing choledocholithiasis, (2) an obstructing pancreatic head or duodenal tumor, or (3) dilatation secondary to acute
pancreatitis.
2. Distended gallbladder without evidence for cholelithiasis.
MRI Abdomen
IMPRESSION:
No MRI evidence for choledocholithiasis, mass, or bile duct stricture. No significant intrahepatic or extrahepatic bile duct dilatation on this exam. No appreciable peripancreatic edema or loculated peripancreatic fluid despite elevated lipase
levels.
TTE
CONCLUSIONS
Normal left ventricular size, wall thickness and systolic function. No regional
wall motion abnormalities are seen. LV ejection fraction is 60-65% by Gomez's
method of discs. Normal diastolic function.
Brain MRI
IMPRESSION:
No acute intracranial abnormality noted.
Procedure findings :
Discharge Plan
-
Patient Disposition: Home (Routine Discharge)
Discharge Diagnosis/Procedures: Headaches, acute on chronic abdominal pain with elevation of lipase without pancreatitis
Diet: Regular and Other diet
Additional Diets: Low Lactose
Activity: As tolerated
Driving Restrictions: As prior to admission
Bathing Restrictions: None
Referrals:
Daniel De Luna, [Family Provider] - in less than 1 week
Additional Discharge Medication Instructions: You can start taking Riboflavin (Vitamin B2) 400mg daily to help with headache prevention
Trial magnesium lactate to help with migraine prevention - stop taking if you develop diarrhea or worsened abdominal upset
You are prescribed Compazine as needed for headache/ nausea or vomiting . You are prescribed 5mg tabs. Ok to take 2 tabs (10mg) at once if necessary. Compazine can cause sedation.
You are prescribed Sumatriptan to take as needed for migraine. If first dose ineffective, can take second dose in 2 hours. DO NOT take more than 2 doses in 24 hours; and do not take daily. Follow up with your PCP who may refer you to Neurology
clinic if headaches persist.
continue Cymbalta for abdominal pain.
Prescriptions:
New
prochlorperazine maleate [Compazine] 5 mg tablet
5 mg PO TID PRN (Reason: nausea and vomiting or headache) Qty: 60 0RF
Rx Instructions:
Take 1-2 tabs as needed for nausea/vomiting or headache
sumatriptan succinate 50 mg tablet
50 mg PO DAILY Qty: 7 0RF
Rx Instructions:
You may take another tab in 2 hours if needed, Do not take more than 2 tabs in 24 hours
magnesium L-lactate 84 mg tablet extended release
84 mg PO DAILY Qty: 30 0RF
Continued
clonazepam 0.5 mg Tablet
0.5 mg PO BID
montelukast [Singulair] 10 mg Tablet
10 mg PO QPM
rosuvastatin 10 mg Tablet
10 mg PO QPM
fluticasone furoate-vilanterol [Breo Ellipta] 100-25 mcg/dose Blister With Device
1 inh INHALATION R DAILY
pantoprazole [Protonix] 40 mg tablet,delayed release (DR/EC)
40 mg PO BID Qty: 100 0RF
albuterol sulfate 2.5 mg /3 mL (0.083 %) Solution For Nebulization
2.5 mg INHALATION R TID
aspirin 81 mg Tablet,Delayed Release (Dr/Ec)
81 mg PO DAILY
dicyclomine 20 mg Tablet
20 mg PO TID
budesonide 0.5 mg/2 mL Suspension For Nebulization
0.5 mg INHALATION R BID
ondansetron 4 mg Tablet,Disintegrating
4 mg PO Q6HPRN PRN (Reason: nausea)
duloxetine [Cymbalta] 60 mg Capsule,Delayed Release(Dr/Ec)
60 mg PO DAILY
potassium gluconate 550 mg (90 mg) Tablet
550 mg PO DAILY
acetaminophen 325 mg tablet
650 mg PO BID
famotidine [Acid Controller] 20 mg tablet
40 mg PO HS
Discharge Orders:
Discharge Patient (As Directed); Ordered 10/06/24
Ordered By: Marcella Field
Discharge Date and Time
Print Language: EGYPTIAN
[2024-10-06 13:00] VITALS: BP 116/62
--- NOTE | 2024-10-06 13:32 | PN.CDI ---
CDI
- -
CDI:
Physician Documentation Request
Admit Date: 10/03/24 17:05
Dear Doctor Rashida,
Please review the following and provide your response in the progress notes.
Clinical Indicators:
Height: 5'3
Weight: 104 lbs
BMI: 18.5
- 10/04 [employer] note indicates 7% weight loss since last February,
- 'Pt reports afraid to eat as she has been having pain and loose stools'
If possible, please provide an associated diagnosis related to the abnormal BMI, such as:
Underweight
Cachectic
Other (please specify)
Use of terms such as suspected, likely, concern for, or probable (associated with a specific diagnosis that is being evaluated, monitored, or treated as if it exists) are acceptable and can be coded in the inpatient setting, when documented at the
time of discharge.
Thank you,
Khushboo Friedman RN
CDI Specialist
Please use your independent medical judgment in providing your response.
[2024-10-06] MEDS: VENTOLIN NEBULES INH (13:39)
== END 2024-10-06 14:08 | disposition home or self-care (01) | DRG 92 ==
LOC: 3 WEST ACU 17:05
PROVIDERS: Nurse Practitioner Family; Registered Nurse; Student in an Organized Health Care Education/Training Program; ADMITTING PHYSICIAN Student in an Organized Health Care Education/Training Program; EMERGENCY PHYSICIAN Emergency Medicine; FAMILY PHYSICIAN Family Medicine; OTHER PHYSICIAN Internal Medicine Gastroenterology
DX: G89.0 Central pain syndrome (principal); J84.9 Interstitial pulmonary disease, unspecified; Z68.1 Body mass index [BMI] 19.9 or less, adult; J44.89 Other specified chronic obstructive pulmonary disease; F17.210 Nicotine dependence, cigarettes, uncomplicated; E78.00 Pure hypercholesterolemia, unspecified; D63.8 Anemia in other chronic diseases classified elsewhere; R63.6 Underweight; R10.84 Generalized abdominal pain; G43.909 Migraine, unspecified, not intractable, without status migrainosus; F32.A Depression, unspecified; F41.9 Anxiety disorder, unspecified; I10 Essential (primary) hypertension; K21.9 Gastro-esophageal reflux disease without esophagitis; Z88.2 Allergy status to sulfonamides; Z88.1 Allergy status to other antibiotic agents; Z79.899 Other long term (current) drug therapy; Z79.82 Long term (current) use of aspirin; Z79.51 Long term (current) use of inhaled steroids; Z87.11 Personal history of peptic ulcer disease; Z11.52 Encounter for screening for COVID-19
CPT/HCPCS: 70553; 71046; 74019; 74183; 76700; 80053; 80061; 81003; 82103; 82150; 82175; 82962; 83615; 83655; 83690; 83735; 83825; 84100; 84443; 84478; 85025; 85027; 85652; 86140; 87502; 87811; 93005; 93306; 94640; 96361; 96374; 96375; 99285; 99406; A9575